=== PATIENT | female | born 2005 | race Caucasian/White ===

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

== ENCOUNTER 2025-07-20 01:41 | Observation (INO) | payer BC, MEDICAID, SELFPAY ==
--- OUTSIDE RECORDS SUMMARY | 2025-07-19 23:33 | XMS RPT_ITS | CCD ---
Author Organization [facility] Care Team Providers Care Salesperson Stereo Equipment Name Role Phone PATY LEWIS Unavailable Unavailable CARROL, OLGA M Unavailable Unavailable KENNY CORRALES Referring Unavailable CARROL, OLGA M Primary Care Unavailable ANA OLEA Attending Unavail able ANA OLEA Primary Care Unavail able ROSLYN DE LA CRUZ MD Attending Unavailable ROSLYN DE LA CRUZ MD Primary Care Unavailable ROSLYN DE LA CRUZ MD Admitting Unavailable Carrol DO, Olga M Primary Care Provider DEBBY DURHAM Attending Unavailable CARROL, OLGA M Primary Care Unavailable DEBBY DURHAM Attending Unavailable TODD, DARIUSZ Referring Unavailable CARROL, OLGA M Primary Care Unavailable CARROL, OLGA M Primary Care Unavailable ADELINA BELLO Referring Unavailable JULIANNA MEDELLIN Attending Unavailable CARROL, OLGA M Primary Care Unavailable CARROL, OLGA M Primary Care Unavailable ADELINA BELLO Referring Unavailable TA GALLEGOS Attending Unavailable CARROL, OLGA M Primary Care Unavailable CARROL, OLGA M Primary Care Unavailable ADELINA BELLO Attending Unavailable TODD DARIUSZ Attending Unavailable CARROL, OLGA M Primary Care Unavailable HAURY, DARIUSZ Referring Unavailable CARROL, OLGA M Primary Care Unavailable HAURY, DARIUSZ Referring Unavailable CARROL, OLGA M Primary Care Unavailable DEISI MENON Attending Unavailable HAURY, DARIUSZ Referring Unavailable CARROL, OLGA M Primary Care Unavailable HAURY, DARIUSZ Referring Unavailable CARROL, OLGA M Primary Care Unavailable HAURY, DARIUSZ Referring Unavailable HAURY DARIUSZ Attending Unavailable CARROL, OLGA M Primary Care Unavailable CARROL, OLGA M Primary Care Unavailable ADELINA BELLO Attending Unavailable LUZ ELENA MENDOZA Attending Unavail able CARROL, OLGA M Primary Care Unavailable Allergies Allergy Classification Reported Allergen(s) Allergy Type Date of Onset Reaction(s) Facility (12 sources) Sulfonamides (Antibiotic); Translations: [SULFA (SULFONAMIDE ANTIBIOTICS)] Propensity to adverse reactions to drug (disorder) 4 Rash, Swelling [facility] Repository Medications Current Medications Medication Drug Class(es) Dates Sig (Normalized) Sig (Original) aspirin 81 mg delayed release oral tablet (8 sources) Platelet Aggregation Inhibitor, Nonsteroidal Anti-inflammatory Drug Start: 01-05-2025 take 1 tablet by mouth once daily at bedtime aspirin, enteric coated (ECOTRIN LOW STRENGTH) 81 mg EC tablet Indications: 10 weeks gestation of (HCC) Take 1 tablet by mouth daily at bedtime. Starting at 12 weeks. 90 tablet 2 01/05/2025 Active escitalopram 10 mg oral tablet (4 sources) Serotonin Reuptake Inhibitor Start: 04-17-2025 End: 05-17-2025 take 1.5 tablets by mouth once daily escitalopram oxalate (LEXAPRO) 10 mg tablet Indications: Depression with anxiety , 18 weeks gestation of (HCC) Take 1.5 tablets by mouth once daily. 45 tablet 2 04/17/2025 05/17/2025 Active Start: 03-07-2025 End: 04-17-2025 take 1 tablet by mouth once daily escitalopram oxalate (LEXAPRO) 10 mg tablet Indications: 18 weeks gestation of (HCC) , Depression with anxiety Take 1 tablet by mouth once daily. 90 tablet 2 03/07/2025 04/17/2025 Discontinued (Adjust Sig - Block E-Cancel) nitrofurantoin, macrocrystals 25 mg / nitrofurantoin, monohydrate 75 mg oral capsule (2 sources) Nitrofuran Antibacterial Start: 01-08-2025 End: 01-16-2025 take 1 capsule by mouth twice daily nitrofurantoin monohydrate and macrocrystal (MACROBID) 100 mg capsule Take 1 capsule by mouth two times a day for 7 days. 14 capsule 01/09/2025 01/16/2025 Active vit no.124/iron/folic ( VITAMIN ORAL) (8 sources) take 1 tablet by mouth once daily vit no.124/iron/folic ( VITAMIN ORAL) Take 1 tablet by mouth once daily. Active Problems Active Problems Problem Classification Problem Date Documented Da te Episodic/Chronic Anxiety disorders (17 sources) Mixed anxiety and depressive disorder; Translations: [Other specified anxiety disorders] Onset: 01-05-2025 01-05-2025 Chronic Deficiency and other anemia (2 sources) Anemia, unspecified; Translations: [Anemia, unspecified] Onset: 07-26-2024 Episodic Immunizations and screening for infectious disease (2 sources) Encounter for immunization; Translations: [Need for vaccination] Onset: 05-03-2025 Episodic Nausea and vomiting (2 sources) Nausea; Translations: [Nausea] Onset: 07-26-2024 Episodic Other complications of (1 source) Anemia complicating , third trimester; Translations: [Anemia complicating , third trimester (HCC)] Onset: 05-31-2025 Chronic Other complications of (1 source) Anemia complicating , second trimester; Translations: [Anemia complicating , second trimester (HCC)] Onset: 05-03-2025 Chronic Other complications of (1 source) Supervision of high risk , unspecified, third trimester; Translations: [Supervision of high risk in third trimester (HCC)] Onset: 05-31-2025 Episodic Other and delivery including normal (20 sources) Normal ; Translations: [Encounter for supervision of normal first , first trimester] Onset: 01-05-2025 01-05-2025 Episodic Other screening for suspected conditions (not mental disorders or infectious disease) (5 sources) Encounter for screening for diseases of the blood and blood-forming organs and certain disorders involving the immune mechanism; Translations: [Patient encounter status] Onset: 04-03-2023 03-07-2025 Episodic Residual codes; unclassified (2 sources) High risk heterosexual behavior; Translations: [High risk heterosexual behavior] Onset: 07-26-2024 Episodic Residual codes; unclassified (1 source) Gestation period, 10 weeks; Translations: [10 weeks gestation of ] 01-05-2025 Episodic Residual codes; unclassified (1 source) Gestation period, 11 weeks; Translations: [11 weeks gestation of ] 01-17-2025 Episodic Residual codes; unclassified (3 sources) Gestation period, 18 weeks; Translations: [18 weeks gestation of ] 03-07-2025 Episodic Residual codes; unclassified (1 source) Gestation period, 23 weeks; Translations: [23 weeks gestation of ] 04-05-2025 Episodic Residual codes; unclassified (1 source) 32 weeks gestation of ; Translations: [32 weeks gestation of (HCC)] Onset: 06-13-2025 Episodic Residual codes; unclassified (1 source) 31 weeks gestation of ; Translations: [31 weeks gestation of (HCC)] Onset: 05-31-2025 Episodic Residual codes; unclassified (1 source) 28 weeks gestation of ; Translations: [28 weeks gestation of (HCC)] Onset: 05-14-2025 Episodic Residual codes; unclassified (1 source) 23 weeks gestation of ; Translations: [23 weeks gestation of (HCC)] Onset: 05-03-2025 Episodic Unclassified (1 source) Unknown / UNK(Unknown) Onset: 09-10-2017 Unclassified (8 sources) [facility] Education - COMMON Onset: 01-05-2025 01-05-2025 Unclassified (8 sources) Education - [place] Onset: 01-05-2025 01-05-2025 Unclassified (1 source) Acute low back pain, unspecified back pain laterality, unspecified whether sciatica present; Translations: [Acute low back pain, unspecified back pain laterality, unspecified whether sciatica present] Onset: 06-13-2025 Urinary tract infections (2 sources) Urinary tract infectious disease; Translations: [Urinary tract infection, site not specified] Onset: 06-13-2025 04-05-2025 Episodic Past or Other Problems Problem Classification Problem Date Documented Da te Episodic/Chronic Other complications of (12 sources) Vomiting of , unspecified; Translations: [Unspecified vomiting of , unspecified as to episode of care or not applicable] Onset: 01-05-2025 01-05-2025 Episodic Other complications of (7 sources) Urinary tract infection in ; Translations: [Unspecified infection of urinary tract in , unspecified trimester] Onset: 01-10-2025 01-10-2025 Episodic Residual codes; unclassified (2 sources) 18 weeks gestation of ; Translations: [18 weeks gestation of ([facility])] Onset: 03-07-2025 Episodic Residual codes; unclassified (1 source) 10 weeks gestation of ; Translations: [10 weeks gestation of ([facility])] Onset: 01-29-2025 Episodic Screening and history of mental health and substance abuse codes (14 sources) Personal history of other mental and behavioral disorders; Translations: [Personal history of other mental disorders] Onset: 01-05-2025 01-05-2025 Episodic Unclassified (1 source) FATIGUE COUGH Onset: 09-10-2017 Unclassified (2 sources) History of ADHD 03-07-2025 Results Test Name Value Interpretation Reference Range Facil ity Bacteria Ur Culton Bacteria identified Cx Nom (U) ORGANISM ID: 1 >=100,000 CFU/ml Klebsiella oxytoca ORGANISM ID: 1 (KLEBSIELLA OXYTOCA) ANTIBIOTIC INTERPRETATION BEN STATUS REFERENCE RANGE Ampicillin R F Cefazolin S <=4 F Susceptible 0-16 , Intermediate <0 or >16 , Resistant >16 For uncomplicated urinary tract infections, cefazolin results can be used to predict susceptibility or resistance to cephalexin. Ceftriaxone S <=1 F Susceptible <=1 , Intermediate >1 , Resistant >=4 Cefepime S <=1 F Susceptible <=2 , Susceptible-Dose Dependent >2 , Resistant >=16 Ertapenem S <=0.5 F Susceptible <=0.5 , Intermediate >.5 , Resistant >1 Meropenem S <=0.25 F Susceptible <=1 , Intermediate >1 , Resistant >2 Ampicillin/Sulbact S 4 F Susceptible <=8 , Intermediate >8 , Resistant >16 Piperacillin/Tazobac S <=4 F Susceptible <16 , Susceptible-Dose Dependent >=16 , Resistant >=32 Gentamicin S <=1 F Susceptible <=2 , Intermediate >2 , Resistant >=8 Tobramycin S <=1 F Susceptible <4 , Intermediate >=4 , Resistant >=8 Trimeth sulfameth S <=20 F Susceptible <=40 , Resistant >40 Ciprofloxacin S <=0.25 F Susceptible <0.5 , Intermediate >=.5 , Resistant >=1 Nitrofurantoin S 32 F Susceptible <=32 , Intermediate >32 , Resistant >64 Abnormal [facility] Comment on above: Performed By: #### 6 30-4 ####[facility] LABCLIA [id number] [address] Cory 06-13-2025 CNPN Telephone (ALIYAH) ANGIE HICKS ([id number]) 3 F Date Time Provider Department 06/13/25 ADELINA BELLO During your visit today, we recorded the following information about you: Erica Delvalle RN 06/13/2025 12:02 PM Signed Patient has an appointment tomorrow to be seen but is requesting an appointment today. None available. States that she has noted abdominal pain x 2 days. States it was a 4 1/2 yesterday on pain scale , but is much less today, maybe 1 today on pain scale. Now today notes constant back pain that she rates a 4 1/2 on pain scale. Denies LOF, vaginal bleeding, fever, dysuria or frequency of urination. States she called in yesterday and spoke with nurse yardage control clerk after hours. Advised to go to hospital if pain increases pain, LOF,vaginal bleeding or decreased FM. Pt requesting apt -please advise Erica Delvalle RN 06/13/2025 1:08 PM Signed Patient scheduled for an appointment today. Allergies As of Date: 06/13/2025 Noted Allergy Reaction SULFA (SULFONAMIDE ANTIBIOTICS) 01/19/2014 2 - Rash 7 - Swelling Date Reviewed: 06/11/2025 Reviewed by: Lillian Jackson PA-C - Fully Assessed Reason for Visit: back pain in [Other] Prescriptions as of 06/13/2025 - ferrous sulfate (FE-CISCO) 75 mg (15 mg)/mL drop Take 3 mL by mouth once daily. - Breast Pump Use as directed - escitalopram oxalate (LEXAPRO) 10 mg tablet Take 1.5 tablets by mouth once daily. - aspirin, enteric coated (ECOTRIN LOW STRENGTH) 81 mg EC tablet Take 1 tablet by mouth daily at bedtime. Starting at 12 weeks. - vit no.124/iron/folic ( VITAMIN ORAL) Take 1 tablet by mouth once daily. Problem List As Of Date 06/13/2025 Noted Resolved History of ADHD [Z86.59] 01/05/2025 Depression with anxiety [F41.8] 01/05/2025 Encounter for supervision of normal first pregn*01/05/2025 Nausea and vomiting during (HCC) [O21*01/05/2025 UTI (urinary tract infection) in , ant*01/10/2025 Anemia complicating , second trimester*05/03/2025 Encounter Status:Closed by ERICA DELVALLE on [facility]/13/25 [facility] ANGIE HICKS ([id number]) 3 F Date Time Provider Department 06/08/25 TA GALLEGOS During your visit today, we recorded the following information about you: Erica Delvalle RN 06/08/2025 12:32 PM Signed Patient's mother called in and said that pharmacy never received RX and was not able to fill. I called pharmacy and they confirmed . Please resend RX. Patient's mother aware you are not in until Wednesday and they did buy OTC pills and are crushing them and she is able to tolerate well. They are just hoping to get liquid form next week. Ta Gage MD 06/12/2025 11:40 AM Signed Filed MD Asia Sue Trisha, RN 06/12/2025 11:41 AM Signed The following approved medication requests have been transmitted electronically. Requested Prescriptions Signed Prescriptions Disp Refills ferrous sulfate (FE-CISCO) 75 mg (15 mg)/mL drop 50 mL 1 Sig: Take 3 mL by mouth once daily. Authorizing Provider: TA GALLEGOS Pharmacy Information Pharmacy Address Telephone [facility] [id number] [place] [address] Allergies As of Date: 06/08/2025 Noted Allergy Reaction SULFA (SULFONAMIDE ANTIBIOTICS) 01/19/2014 2 - Rash 7 - Swelling Date Reviewed: 05/31/2025 Reviewed by: Ta Gallegos MD - Fully Assessed Reason for Visit: Medication Problem [65] Order(s):ferrous sulfate (FE-CISCO) 75 mg (15 mg)/mL dropTake 3 mL by mouth once daily.Disp: 50 mLRfl: 1 Prescriptions as of 06/12/2025 - ferrous sulfate (FE-CISCO) 75 mg (15 mg)/mL drop Take 3 mL by mouth once daily. - Breast Pump Use as directed - escitalopram oxalate (LEXAPRO) 10 mg tablet Take 1.5 tablets by mouth once daily. - aspirin, enteric coated (ECOTRIN LOW STRENGTH) 81 mg EC tablet Take 1 tablet by mouth daily at bedtime. Starting at 12 weeks. - vit no.124/iron/folic ( VITAMIN ORAL) Take 1 tablet by mouth once daily. Problem List As Of Date 06/08/2025 Noted Resolved History of ADHD [Z86.59] 01/05/2025 Depression with anxiety [F41.8] 01/05/2025 Encounter for supervision of normal first pregn*01/05/2025 Nausea and vomiting during (HCC) [O21*01/05/2025 UTI (urinary tract infection) in , ant*01/10/2025 Anemia complicating , second trimester*05/03/2025 Prescriptions ordered this encounter Disp Refills Start End FERROUS SULFATE 15 MG IRON (75 MG)/M* 50 mL 1 06/12/2025 Route: PO Sig: Take 3 mL by mouth once daily. Medications Discontinued During This Encounter Prescriptions - ferrous sulfate (FE-CISCO) 75 mg (15 mg)/mL drop (Discontinued) Take 3 mL by mouth once daily. Encounter Status:Closed by BETTYE PLATA on 06/12/25 [facility] 05-31-2025 [facility] ([facility] ANGIE HICKS ([id number]) 3 F Date Time Provider Department 05/31/25 TA GALLEGOS OBGYWJaki During your visit today, we recorded the following information about you: Deisi Meneses RN 05/31/2025 11:28 AM Signed [facility] pharmacy called. They checked their system and Novaferrum chewables are not listed, even to order for the patient. Are you wanting patient to have the Vitamin C included or just the plain iron? Eileen does not have Vitamin C, but it's not chewable. Would you like her to have a liquid form? They have a liquid D-Cisco FE which is 15mg/ml and comes in 50 ml bottle. We can either send in a new RX or call the pharmacy. Please advise. JOVITA Lantigua Karmon, MD 05/31/2025 12:43 PM Signed Please pend the liquid form of iron. OK to take it with orange juice. MD Zaira Sue Jennifer, JOVITA 05/31/2025 2:56 PM Signed Spoke with [facility] pharmacist to confirm that the RX I have pended is correct. Are you only wanting this patient to only have 36 mg of iron? That's the dose of the chewables you sent in with her taking two. The RX pending is for oral drops. Patient would need to take 2.4 ml for the 36 mg dose of the previous RX. JOVITA Lantigua Karmon, MD 05/31/2025 4:04 PM Signed Dose of 3ml given and order filed. MD Tiago Sue Tara, RN 05/31/2025 4:31 PM Signed Left message for Pt informing her mychart message would be sent and if she had any questions to call the office and ask to speak to a women's health nurse. Karlos Dubose RN Allergies As of Date: 05/31/2025 Noted Allergy Reaction SULFA (SULFONAMIDE ANTIBIOTICS) 01/19/2014 2 - Rash 7 - Swelling Date Reviewed: 05/31/2025 Reviewed by: Ta Gallegos MD - Fully Assessed Reason for Visit: Medication Problem [65] Order(s):ferrous sulfate (FE-CISCO) 75 mg (15 mg)/mL dropTake 3 mL by mouth once daily.Disp: 50 mLRfl: 1 Prescriptions as of 06/06/2025 - ferrous sulfate (FE-CISCO) 75 mg (15 mg)/mL drop Take 3 mL by mouth once daily. - Breast Pump Use as directed - escitalopram oxalate (LEXAPRO) 10 mg tablet Take 1.5 tablets by mouth once daily. - aspirin, enteric coated (ECOTRIN LOW STRENGTH) 81 mg EC tablet Take 1 tablet by mouth daily at bedtime. Starting at 12 weeks. - vit no.124/iron/folic ( VITAMIN ORAL) Take 1 tablet by mouth once daily. Problem List As Of Date 05/31/2025 Noted Resolved History of ADHD [Z86.59] 01/05/2025 Depression with anxiety [F41.8] 01/05/2025 Encounter for supervision of normal first pregn*01/05/2025 Nausea and vomiting during (HCC) [O21*01/05/2025 UTI (urinary tract infection) in , ant*01/10/2025 Anemia complicating , second trimester*05/03/2025 Prescriptions ordered this encounter Disp Refills Start End FERROUS SULFATE 15 MG IRON (75 MG)/M* 50 mL 1 05/31/2025 Route: PO Sig: Take 3 mL by mouth once daily. Medications Discontinued During This Encounter Prescriptions - iron polysaccharide complex-C (NOVAFERRUM YAY IRON) 18 mg iron- 30 mg chew (Discontinued) Take 2 tablets by mouth once daily. Take with orange juice and separate from vitamin. Encounter Status:Closed by KARLOS DUBOSE on 05/31/25 Normal [facility] Ferritin SerPl-mCncon 2024 Ferritin [Mass/Vol] 13.4 ng/mL Low 14.7-205.1 [facility] Comment on above: Order Comment: Speci men Type: BLOOD SPECIMENOrdering Facility: [facility] Address: [address] [place] [address] Performed By: #### 2 276-4, 70961-5 ####[facility] LABCLIA [id number] [place] [address] [place] Iron and Iron binding capaci ty panelon 05-29-2025 Iron [Mass/Vol] 28 ug/dL Low 41-186 [facility] Comment on above: Order Comment: Speci men Type: BLOOD SPECIMENOrdering Facility: [facility] Address: [address] [place] [address] Performed By: #### 2 276-4, 69452-0 ####[facility] LABCLIA [id number] [place] [id number] [place] Iron binding capacity [Mass/Vol] >528 High 232-386 [facility] Comment on above: Order Comment: Speci men Type: BLOOD SPECIMENOrdering Facility: [facility] Address: [address] [place] [address] Performed By: #### 2 276-4, 19803-4 ####[facility] LABCLIA [id number] [place] [id number] [place] Iron/TIBC [Molar ratio] <5.3 Low 15.0-57.0 [facility] Comment on above: Order Comment: Speci men Type: BLOOD SPECIMENOrdering Facility: [facility] Address: [address] [place] [address] Performed By: #### 2 276-4, 66235-7 ####[facility] LABCLIA [id number] [place] [address] [place] CBC panel Auto (Bld)on 05-03 Erythrocyte distribution width (RBC) [Ratio] 12.3 % Normal 11.5-15.0 [facility] Comment on above: Order Comment: Speci men Type: BLOOD SPECIMENOrdering Facility: [facility] Address: [address] [place] [address] Performed By: #### 5 8410-2 ####[facility] [id number] [place] [address] [place] Hematocrit (Bld) [Volume fraction] 28.0 % Low 36.0-46.0 [facility] Comment on above: Order Comment: Speci men Type: BLOOD SPECIMENOrdering Facility: [facility] Address: [address] [place] [address] Performed By: #### 5 8410-2 ####[facility] [id number] [place] [address] [place] Hemoglobin (Bld) [Mass/Vol] 9.4 g/dL Low 11.5-15.5 [facility] Comment on above: Order Comment: Speci men Type: BLOOD SPECIMENOrdering Facility: [facility] Address: [address] [place] [address] Performed By: #### 5 8410-2 ####[facility] [id number] [place] [address] [place] MCH (RBC) [Entitic mass] 29.5 pg Normal 26.0-34.0 [facility] Comment on above: Order Comment: Speci men Type: BLOOD SPECIMENOrdering Facility: [facility] Address: [address] [place] [address] Performed By: #### 5 8410-2 ####[facility] [id number] [place] [address] [place] MCHC (RBC) [Mass/Vol] 33.6 g/dL Normal 30.5-36.0 [facility] Comment on above: Order Comment: Speci men Type: BLOOD SPECIMENOrdering Facility: [facility] Address: [address] [place] [address] Performed By: #### 5 8410-2 ####[facility] [id number] [place] [address] [place] MCV (RBC) [Entitic vol] 87.8 fL Normal 80.0-100.0 [facility] Comment on above: Order Comment: Speci men Type: BLOOD SPECIMENOrdering Facility: [facility] Address: [address] [place] [address] Performed By: #### 5 8410-2 ####[facility] [id number] [place] [address] [place] Nucleated RBC (Bld) [#/Vol] 10*3/uL Normal <0.01 [facility] Comment on above: Order Comment: Speci men Type: BLOOD SPECIMENOrdering Facility: [facility] Address: [address] [place] [address] Performed By: #### 5 8410-2 ####[facility] [id number] [place] [address] [place] Platelet mean volume (Bld) [Entitic vol] 9.4 fL Normal 9.0-12.7 [facility] Comment on above: Order Comment: Speci men Type: BLOOD SPECIMENOrdering Facility: [facility] Address: [address] [place] [address] Performed By: #### 5 8410-2 ####[facility] [id number] [place] [address] [place] Platelets (Bld) [#/Vol] 350 10*3/uL Normal 150-400 [facility] Comment on above: Order Comment: Speci men Type: BLOOD SPECIMENOrdering Facility: [facility] Address: [address] [place] [address] Performed By: #### 5 8410-2 ####[facility] [id number] [place] [address] [place] RBC (Bld) [#/Vol] 3.19 10*6/uL Low 3.90-5.20 [facility] Comment on above: Order Comment: Speci men Type: BLOOD SPECIMENOrdering Facility: [facility] Address: [address] [place] [address] Performed By: #### 5 8410-2 ####[facility] [id number] [place] [address] [place] WBC (Bld) [#/Vol] 9.41 10*3/uL Normal 3.70-11.00 [facility] Comment on above: Order Comment: Speci men Type: BLOOD SPECIMENOrdering Facility: [facility] Address: [address] [place] [address] Performed By: #### 5 8410-2 ####[facility] [id number] [place] [address] [place] Ferritin SerPl-mCncon 2024 Ferritin [Mass/Vol] 11.4 ng/mL Low 14.7-205.1 [facility] Comment on above: Order Comment: Speci men Type: BLOOD SPECIMENOrdering Facility: [facility] Address: [address] [place] [address] Performed By: #### 2 276-4, 73550-6 ####[facility] LABCLIA [id number] [place] [address] [place] GESTATIONAL GLUCOSE SCREEN, 1-HOUR, 50 GRAM, NON-FASTINGon 05-03-2025 Glucose [Mass/Vol] 126 mg/dL Normal 74-134 [facility] Comment on above: Order Comment: Speci men Type: BLOOD SPECIMENOrdering Facility: [facility] Address: [address] [place] [address] Result Comment: [facility] Congress of Obstetricians and Gynecologists (Higinio/Jun) guidelines state a gestational diabetes mellitus positive screen is made, in women not previously diagnosed with overt diabetes, when the 1 hr plasma glucose level is equal to or above 140 mg/dL. The [facility] [employer] Person and [facility] [place] recommends a 135 mg/dL cutoff. Performed By: #### G LTGST ####[facility] [id number] [place] [address] [place] Iron and Iron binding capaci ty panelon 05-03-2025 Iron [Mass/Vol] 36 ug/dL Low 41-186 [facility] Comment on above: Order Comment: Speci men Type: BLOOD SPECIMENOrdering Facility: [facility] Address: [address] [place] [address] Performed By: #### 2 276-4, 78089-8 ####[facility] LABCLIA [id number] [place] [address] [place] Iron binding capacity [Mass/Vol] >536 High 232-386 [facility] Comment on above: Order Comment: Speci men Type: BLOOD SPECIMENOrdering Facility: [facility] Address: [address] [place] [address] Performed By: #### 2 276-4, 09987-8 ####[facility] LABIA [id number] [place] [id number] [place] Iron/TIBC [Molar ratio] <6.7 Low 15.0-57.0 [facility] Comment on above: Order Comment: Speci men Type: BLOOD SPECIMENOrdering Facility: [facility] Address: [address] [place] [address] Performed By: #### 2 276-4, 11483-7 ####[facility] LABIA [id number] [place] [id number] [place] Reagin and Treponema pallidu m IgG and IgM [Interp]on 05-03-2025 T. pallidum IgG+IgM IA Ql (S) Non-Reactive Normal Nonreactive [facility] Comment on above: Order Comment: Speci men Type: BLOOD SPECIMENOrdering Facility: [facility] Address: [address] [place] [address] Performed By: #### 7 3752-8 ####[facility] LABIA [id number] [place] [address] [place] Reagin+T pallidum IgG+IgM Se rPl-Impon 05-03-2025 Reagin and Treponema pallidum IgG and IgM [Interp] Cannot exclude recent Treponemal infection if specimen collected within 7-10 days after appearance of suspect lesions or 2-3 weeks after an exposure. Clinical correlation is required. Normal [facility] Comment on above: Order Comment: Speci jaycob Type: BLOOD SPECIMENOrdering Facility: [facility] Address: [address] [place] [address] Performed By: #### 7 3752-8 ####[facility] LABSOU[facility] [id number] [place] [id number] [place] TSH W/REFLEX FT4on 5 TSH Qn 1.400 m[IU]/L Normal 0.270-4.200 [facility] Comment on above: Order Comment: Speci men Type: BLOOD SPECIMENOrdering Facility: [facility] Address: [address] [place] [address] Result Comment: If t he patient is , TSH reference range varies by gestational period: First Trimester (weeks 9-12): 0.180-2.990 mIU/L Second Trimester: 0.110-3.980 mIU/L Third Trimester: 0.480-4.710 mIU/L Jose Dutta et al. A Practical Approach for the Verifications and Determination of Site- and Trimester-Specific Reference Intervals for Thyroid Function tests in . Thyroid, 2019:29:3:412-420. Ernesto E, et al. 2017 Guidelines of the [place] Thyroid Association for the Diagnosis and Management of Thyroid Disease during and the . Thyroid, 2017:27:3:315-389. Performed By: #### [facility] ####[facility] AMY [id number] [address] OF [facility] CNPNon 04-10-2025 CNPN Telephone (PSYRMN) ANGIE HICKS ([id number]) 3 F Date Time Provider Department 04/10/25 KEYON CRUZ PSYRMN During your visit today, we recorded the following information about you: Keyon Cruz LISW 04/10/2025 3:08 PM Signed Integrated Mental Health Plan of Care Review of referral with patient. Was patient aware of [facility] referral placement by provider?Yes Is the patient currently connected for care : No Was NAEL sent to patient? No Is the patient agreeable to connecting to services? Yes If agreeable to referral, are they:Psychology and Psychiatry Assisted in making appt at: [facility] Psychiatry, Other Internal Comment: Pt need, and External Comment: Pt need [facility] to send patient resources via [employer] Appointment date and time: 04/17/25 @ 1pm Current priority status of the referral Medium Additional information Patient and [facility] SW discussed [facility] referral. Patient agreeable to [facility] psychiatry appointment for continued medication management. Patient is also agreeable to counseling- agreeable to external referral due to [facility] psychology wait times. [facility] SW to send patient counseling resources via [employer] message. Discussed ways to schedule an appointment. [facility] SW available to assist with scheduling counseling appointment if needed. Allergies As of Date: 04/10/2025 Noted Allergy Reaction SULFA (SULFONAMIDE ANTIBIOTICS) 01/19/2014 2 - Rash 7 - Swelling Date Reviewed: 03/07/2025 Reviewed by: Dariusz Brooks APRN.FAMILY LITERACY COORDINATOR - Fully Assessed Reason for Visit: Integrated Mental Health Plan of Care [Other] Prescriptions as of 04/10/2025 - escitalopram oxalate (LEXAPRO) 10 mg tablet Take 1 tablet by mouth once daily. - aspirin, enteric coated (ECOTRIN LOW STRENGTH) 81 mg EC tablet Take 1 tablet by mouth daily at bedtime. Starting at 12 weeks. - vit no.124/iron/folic ( VITAMIN ORAL) Take 1 tablet by mouth once daily. Problem List As Of Date 04/10/2025 Noted Resolved History of ADHD [Z86.59] 01/05/2025 Depression with anxiety [F41.8] 01/05/2025 Encounter for supervision of normal first pregn*01/05/2025 Nausea and vomiting during (HCC) [O21*01/05/2025 UTI (urinary tract infection) in , ant*01/10/2025 Encounter Status:Closed by KEYON CRUZ on 04/10/25 Normal [facility] Bacteria Ur Culton 5 Bacteria identified Cx Nom (U) ORGANISM ID: 1 <10,000 CFU/ml Normal urogenital vi Normal [facility] Comment on above: Performed By: #### 6 30-4 ####[facility] LABCLIA [id number] [address] STATES OF [facility] Cory 03-30-2025 CNPN Telephone (PSYRMN) ANGIE HICKS ([id number]) 3 F Date Time Provider Department 03/30/25 KEYON CRUZ PSYRMN During your visit today, we recorded the following information about you: Keyon Cruz LISW 03/30/2025 4:39 PM Signed Third outreach attempt. Phone call to patient regarding [facility] referral. Patient did not answer, left message. [facility] sent with [facility] contact information and additional resources. [facility] SW can be reached at: [place]: [phone] [place]:[phone] Allergies As of Date: 03/30/2025 Noted Allergy Reaction SULFA (SULFONAMIDE ANTIBIOTICS) 01/19/2014 2 - Rash 7 - Swelling Date Reviewed: 03/07/2025 Reviewed by: Dariusz Brooks APRN.FAMILY LITERACY COORDINATOR - Fully Assessed Reason for Visit: [facility] Consult Follow Up [Other] Prescriptions as of 03/30/2025 - escitalopram oxalate (LEXAPRO) 10 mg tablet Take 1 tablet by mouth once daily. - aspirin, enteric coated (ECOTRIN LOW STRENGTH) 81 mg EC tablet Take 1 tablet by mouth daily at bedtime. Starting at 12 weeks. - vit no.124/iron/folic ( VITAMIN ORAL) Take 1 tablet by mouth once daily. Problem List As Of Date 03/30/2025 Noted Resolved History of ADHD [Z86.59] 01/05/2025 Depression with anxiety [F41.8] 01/05/2025 Encounter for supervision of normal first pregn*01/05/2025 Nausea and vomiting during (HCC) [O21*01/05/2025 UTI (urinary tract infection) in , ant*01/10/2025 Encounter Status:Closed by KEYON CRUZ on 03/30/25 Normal [facility] Cory 03-19-2025 [facility] Telephone (PSYRMN) ANGIE HICKS ([id number]) 3 F Date Time Provider Department 03/19/25 BRENDA VILLEGAS PSYRMN During your visit today, we recorded the following information about you: Brenda Villegas LISW 03/19/2025 2:51 PM Signed Phone call to patient regarding [facility] referral. Patient did not answer, left message. 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 - aspirin, enteric coated (ECOTRIN LOW STRENGTH) 81 mg EC tablet Take 1 tablet by mouth daily at bedtime. Starting at 12 weeks. - vit no.124/iron/folic ( VITAMIN ORAL) Take 1 tablet by mouth once daily. Problem List As Of Date 03/19/2025 Noted Resolved History of ADHD [Z86.59] 01/05/2025 Depression with anxiety [F41.8] 01/05/2025 Encounter for supervision of normal first pregn*01/05/2025 Nausea and vomiting during (HCC) [O21*01/05/2025 UTI (urinary tract infection) in , ant*01/10/2025 Encounter Status:Closed by BRENDA VILLEGAS on 03/19/25 [facility] 03-08-2025 CNPN Telephone (PSYRMN) ANGIE HICKS ([id number]) 3 F Date Time Provider Department 03/08/25 KEOYN CRUZ PSYRMN During your visit today, we recorded the following information about you: Keyon Cruz LISW 03/08/2025 10:55 AM Signed Phone call to patient regarding [facility] referral. Patient did not answer, left message. [facility] SW can be reached at: [place]: [phone] [place]:[phone] Allergies As of Date: 03/08/2025 Noted Allergy Reaction SULFA (SULFONAMIDE ANTIBIOTICS) 01/19/2014 2 - Rash 7 - Swelling Date Reviewed: 03/07/2025 Reviewed by: Dariusz Brooks APRN.FAMILY LITERACY COORDINATOR - Fully Assessed Reason for Visit: [facility] Consult Follow Up [Other] Prescriptions as of 03/08/2025 - escitalopram oxalate (LEXAPRO) 10 mg tablet Take 1 tablet by mouth once daily. - aspirin, enteric coated (ECOTRIN LOW STRENGTH) 81 mg EC tablet Take 1 tablet by mouth daily at bedtime. Starting at 12 weeks. - vit no.124/iron/folic ( VITAMIN ORAL) Take 1 tablet by mouth once daily. Problem List As Of Date 03/08/2025 Noted Resolved History of ADHD [Z86.59] 01/05/2025 Depression with anxiety [F41.8] 01/05/2025 Encounter for supervision of normal first pregn*01/05/2025 Nausea and vomiting during (HCC) [O21*01/05/2025 UTI (urinary tract infection) in , ant*01/10/2025 Encounter Status:Closed by KEYON CRUZ on 03/08/25 Normal [facility] Examination level ultrasound on 03-07-2025 Indication Standard anatomic survey Impression The patient is referred for a standard anatomic survey. - Single, live, intrauterine . - biometry is consistent with the established gestational age. - No malformations were visualized on a complete standard anatomic survey. - The amniotic fluid volume is normal amount. - The placenta is posterior, fundal. - The Transabdominal cervical length measures 35.1 mm with no evidence of funneling or other dynamic changes. - Not all structural malformations can be detected by ultrasound examination. Recommendations Additional follow-up as clinically indicated. Maternal Assessment Height 152 cm Height (ft) 5 ft Physical Exam Initial weight (lb) 109 lb Initial BMI 21.29 kg/m Maternal assessment other: 1 Para 0 REMOTE READ Method Transabdominal ultrasound examination. View: Adequate visualization Bacon . Number of fetuses: 1 Dating LMP on: 10/26/2024 GA by LMP 18 w + 6 d ADOLFO by LMP: 08/02/2025 GA by prior assessment 18 w + 6 d ADOLFO by prior assessment: 08/02/2025 Ultrasound examination on: 03/07/2025 GA by U/S based upon: AC, BPD, Femur, HC GA by U/S 18 w + 6 d ADOLFO by U/S: 08/02/2025 Assigned: based on stated ADOLFO, selected on 03/07/2025 Assigned GA 18 w + 6 d Assigned ADOLFO: 08/02/2025 General Evaluation Cardiac activity present. FHR 154 bpm. movements: present. Presentation: breech Placenta: Placental site: posterior, fundal Umbilical cord: Cord vessels: 3 vessel cord Amniotic fluid: Amount of AF: normal amount. MVP 4.4 cm Growth Overview Exam date GA BPD (mm) HC (mm) AC (mm) FL (mm) HL (mm) EFW (g) 03/07/2025 18w 6d 41.9 43% 157.1 39% 142.4 71% 28.2 58% 28.9 71% 271 56% Biometry Standard BPD 41.9 mm 18w 5d 43% Hadlock OFD 55.8 mm 18w 3d 53% Nicolaides HC 157.1 mm 18w 4d 39% Nico Cerebellum tr 20.0 mm 19w 2d 61% Hill Nuchal fold 2.5 mm AC 142.4 mm 19w 4d 71% Hadlock Femur 28.2 mm 18w 5d 58% Nico Humerus 28.9 mm 19w 3d 71% Nico EFW 271 g 19w 0d 56% Hadlock EFW (lb) 0 lb EFW (oz) 10 oz EFW by: Hadlock (HC-AC-FL) Extended Hammer Setter 6.8 mm CM 2.2 mm <1% Nicolaides Extremities / Bony Struc FL / HC 0.18 51% Hadlock Other Structures FHR 154 bpm Anatomy Cranium: normal Lateral ventricles: normal Choroid plexus: normal Midline falx: normal Cavum septi pellucidi: normal Cerebellum: normal Cisterna magna: normal Head / Neck Vermis: Normal but not required for a standard anatomy exam Neck: Normal but not required for a standard anatomy exam Nuchal fold: Normal but not required for a standard anatomy exam Lips: normal Profile: Normal but not required for a standard anatomy exam Nose: Normal but not required for a standard anatomy exam Face Maxilla: Normal but not required for a standard anatomy exam Mandible: Normal but not required for a standard anatomy exam Orbits: Normal but not required for a standard anatomy exam Lens: Normal but not required for a standard anatomy exam 4-chamber view: normal RVOT view: normal LVOT view: normal 3-vessel view: normal 8-fiqhrl-apuwhub view: normal Heart / Thorax Situs: situs solitus (normal) Aortic arch view: Normal but not required for a standard anatomy exam SVC: Normal but not required for a standard anatomy exam IVC: Normal but not required for a standard anatomy exam Cardiac axis: normal Rt lung: Normal but not required for a standard anatomy exam Lt lung: Normal but not required for a standard anatomy exam Diaphragm: normal Cord insertion: normal Stomach: normal Kidneys: normal Bladder: normal Genitals: normal Abdomen Abdom. wall: normal Cervical spine: normal Thoracic spine: normal Lumbar spine: normal Sacral spine: normal Arms: normal Legs: normal Rt upper arm: normal Rt forearm: normal Rt hand: normal Rt fingers: normal Lt upper arm: normal Lt forearm: normal Lt hand: normal Lt fingers: normal Rt upper leg: normal Rt lower leg: normal Rt foot: normal Lt upper leg: normal Lt lower leg: normal Lt foot: normal sex: female Wants to know sex: yes Maternal Structures Uterus / Cervix Uterus: Visualized Cervix: Visualized Approach: Transabdominal Cervical length 35.1 mm Other: Patient declined transvaginal ultrasound for cervical length. Ovaries / Tubes / Adnexa Rt ovary: Visualized Lt ovary: Visualized Performed By: Sara Phipps RDMS, RVT Read By: Bobbi Potter M.D. MATERNAL MEDICINE [facility] Radiology Study observation (narrative) [facility] CBC W Auto Differential pane l (Bld)on 01-29-2025 Basophils (Bld) [#/Vol] 10*3/uL Normal <0.11 [facility] Comment on above: Order Comment: Speci men Type: BLOOD SPECIMENOrdering Facility: [facility] Address: [address] [place] [address] Performed By: #### 5 7021-8 ####[facility] YOANDYWNCLIA [id number] [place] [address] [place] Basophils/100 WBC (Bld) 0.2 % Normal [facility] Comment on above: Order Comment: Speci men Type: BLOOD SPECIMENOrdering Facility: [facility] Address: [address] [place] [address] Performed By: #### 5 7021-8 ####[facility] AKASHEDINBURGHSCHUYLERLIA [id number] [place] [address] [place] Differential cell count method Nom (Bld) Auto Normal [facility] Comment on above: Order Comment: Speci men Type: BLOOD SPECIMENOrdering Facility: [facility] Address: [address] [place] [address] Performed By: #### 5 7021-8 ####[facility]ALSCHUYLERA [id number] [place] [address] [place] Eosinophils (Bld) [#/Vol] 0.06 10*3/uL Normal <0.46 [facility] Comment on above: Order Comment: Speci men Type: BLOOD SPECIMENOrdering Facility: [facility] Address: [address] [place] [address] Performed By: #### 5 7021-8 ####[facility] AKASHEDINBURGHSCHUYLERLIA [id number] [place] [address] [place] Eosinophils/100 WBC (Bld) 0.6 % Normal [facility] Comment on above: Order Comment: Speci men Type: BLOOD SPECIMENOrdering Facility: [facility] Address: [address] [place] [address] Performed By: #### 5 7021-8 ####[facility]ITALNCLIA [id number] [place] [address] [place] Erythrocyte distribution width (RBC) [Ratio] 13.2 % Normal 11.5-15.0 [facility] Comment on above: Order Comment: Speci men Type: BLOOD SPECIMENOrdering Facility: [facility] Address: [address] [place] [address] Performed By: #### 5 7021-8 ####[facility] JONEL [id number] [place] [address] [place] Hematocrit (Bld) [Volume fraction] 35.1 % Low 36.0-46.0 [facility] Comment on above: Order Comment: Speci men Type: BLOOD SPECIMENOrdering Facility: [facility] Address: [address] [place] [address] Performed By: #### 5 7021-8 ####[facility] HOSPITALMARY JO [id number] [place] [address] [place] Hemoglobin (Bld) [Mass/Vol] 12.1 g/dL Normal 11.5-15.5 [facility] Comment on above: Order Comment: Speci men Type: BLOOD SPECIMENOrdering Facility: [facility] Address: [address] [place] [address] Performed By: #### 5 7021-8 ####[facility] HOSPITALSCHUYLERA [id number] [place] [address] [place] Immature granulocytes (Bld) [#/Vol] 0.03 10*3/uL Normal <0.10 [facility] Comment on above: Order Comment: Speci men Type: BLOOD SPECIMENOrdering Facility: [facility] Address: [address] [place] [address] Performed By: #### 5 7021-8 ####[facility]ITALNCLIA [id number] [place] [address] [place] Immature granulocytes/100 WBC (Bld) 0.3 % Normal [facility] Comment on above: Order Comment: Speci men Type: BLOOD SPECIMENOrdering Facility: [facility] Address: [address] [place] [address] Performed By: #### 5 7021-8 ####[facility]PAWNCLIA [id number] [place] [address] [place] Lymphocytes (Bld) [#/Vol] 1.80 10*3/uL Normal 1.00-4.00 [facility] Comment on above: Order Comment: Speci men Type: BLOOD SPECIMENOrdering Facility: [facility] Address: [address] [place] [address] Performed By: #### 5 7021-8 ####[facility] [id number] [place] [address] [place] Lymphocytes/100 WBC (Bld) 18.6 % Normal [facility] Comment on above: Order Comment: Speci men Type: BLOOD SPECIMENOrdering Facility: [facility] Address: [address] [place] [address] Performed By: #### 5 7021-8 ####[facility] [id number] [place] [address] [place] MCH (RBC) [Entitic mass] 30.0 pg Normal 26.0-34.0 [facility] Comment on above: Order Comment: Speci men Type: BLOOD SPECIMENOrdering Facility: [facility] Address: [address] [place] [address] Performed By: #### 5 7021-8 ####[facility] [id number] [place] [address] [place] MCHC (RBC) [Mass/Vol] 34.5 g/dL Normal 30.5-36.0 [facility] Comment on above: Order Comment: Speci men Type: BLOOD SPECIMENOrdering Facility: [facility] Address: [address] [place] [address] Performed By: #### 5 7021-8 ####[facility] HOSPITALNCLI [id number] [place] [address] [place] MCV (RBC) [Entitic vol] 87.1 fL Normal 80.0-100.0 [facility] Comment on above: Order Comment: Speci men Type: BLOOD SPECIMENOrdering Facility: [facility] Address: [address] [place] [address] Performed By: #### 5 7021-8 ####[facility] [place] [id number] [place] [address] [place] Monocytes (Bld) [#/Vol] 0.89 10*3/uL High <0.87 [facility] Comment on above: Order Comment: Speci men Type: BLOOD SPECIMENOrdering Facility: [facility] Address: [address] [place] [address] Performed By: #### 5 7021-8 ####[facility] [id number] [place] [address] [place] Monocytes/100 WBC (Bld) 9.2 % Normal [facility] Comment on above: Order Comment: Speci men Type: BLOOD SPECIMENOrdering Facility: [facility] Address: [address] [place] [address] Performed By: #### 5 7021-8 ####[facility] [place]IA [id number] [place] [address] [place] Neutrophils (Bld) [#/Vol] 6.86 10*3/uL Normal 1.45-7.50 [facility] Comment on above: Order Comment: Speci men Type: BLOOD SPECIMENOrdering Facility: [facility] Address: [address] [place] [address] Performed By: #### 5 7021-8 ####[facility] [id number] [place] [address] [place] Neutrophils/100 WBC (Bld) 71.1 % Normal [facility] Comment on above: Order Comment: Speci men Type: BLOOD SPECIMENOrdering Facility: [facility] Address: [address] [place] [address] Performed By: #### 5 7021-8 ####[facility] JONEL [id number] [place] [address] [place] Nucleated RBC (Bld) [#/Vol] 10*3/uL Normal <0.01 [facility] Comment on above: Order Comment: Speci men Type: BLOOD SPECIMENOrdering Facility: [facility] Address: [address] [place] [address] Performed By: #### 5 7021-8 ####[facility]ITALMARY JO [id number] [place] [address] [place] Nucleated RBC/100 WBC (Bld) [Ratio] 0.0 /100 WBC Normal [facility] Comment on above: Order Comment: Speci men Type: BLOOD SPECIMENOrdering Facility: [facility] Address: [address] [place] [address] Performed By: #### 5 7021-8 ####[facility] HOSPITALNCMERYA [id number] [place] [address] [place] Platelet mean volume (Bld) [Entitic vol] 9.6 fL Normal 9.0-12.7 [facility] Comment on above: Order Comment: Speci men Type: BLOOD SPECIMENOrdering Facility: [facility] Address: [address] [place] [address] Performed By: #### 5 7021-8 ####[facility] HOSPITALNCLIA [id number] [place] [address] [place] Platelets (Bld) [#/Vol] 328 10*3/uL Normal 150-400 [facility] Comment on above: Order Comment: Speci men Type: BLOOD SPECIMENOrdering Facility: [facility] Address: [address] [place] [address] Performed By: #### 5 7021-8 ####[facility] HOSPITALNCLIA [id number] [place] [address] [place] RBC (Bld) [#/Vol] 4.03 10*6/uL Normal 3.90-5.20 [facility] [facility] Comment on above: Order Comment: Speci men Type: BLOOD SPECIMENOrdering Facility: [facility] Address: [address] [place] [address] Performed By: #### 5 7021-8 ####[facility] [id number] [place] [address] [place] WBC (Bld) [#/Vol] 9.66 10*3/uL Normal 3.70-11.00 [facility] Comment on above: Order Comment: Speci men Type: BLOOD SPECIMENOrdering Facility: [facility] Address: [address] [place] [address] Performed By: #### 5 7021-8 ####[facility] [id number] [place] [address] [place] HBV surface Ag Ser Qlon 01-08 HBV surface Ag Ql (S) Negative Normal Negative [facility] Comment on above: Order Comment: Speci men Type: BLOOD SPECIMENOrdering Facility: [facility] Address: [address] [place] [address] Performed By: #### 3 1201-7, 5195-3, 66203-6 ####[facility] LABCLIA [id number] [place] [address] [place] HCV Ab Ser Qlon 01-29-2025 HCV Ab Ql (S) Negative Normal Negative [facility] Comment on above: Order Comment: Speci men Type: BLOOD SPECIMENOrdering Facility: [facility] Address: [address] [place] [address] Result Comment: The result suggests no evidence of infection with Hepatitis C virus. Should recent infection be suspected, repeat testing may be considered 4-6 weeks after this draw. Performed By: #### 1 6128-1 ####[facility] LABIA [id number] [place] [address] [place] HIV 1+2 Ab IA Qlon 5 HIV 1 and 2 Ab IA.rapid Nom (S/P/Bld) Normal [facility] Comment on above: Order Comment: Speci men Type: BLOOD SPECIMENOrdering Facility: [facility] Address: [address] [place] [address] Result Comment: Test not indicated. Performed By: #### 3 1201-7, 5195-3, 94299-7 ####[facility] [id number] [address] [place] HIV 1+2 Ab+HIV1 p24 Ag IA Ql Non-Reactive Normal Nonreactive [facility] Comment on above: Order Comment: Speci men Type: BLOOD SPECIMENOrdering Facility: [facility] Address: [address] [place] [address] Performed By: #### 3 1201-7, 5195-3, 13570-9 ####[facility] [id number] [address] [place] HIV immunoassay testing algorithm interpretation (S/P/Bld) [Interp] Normal [facility] Comment on above: Order Comment: Speci men Type: BLOOD SPECIMENOrdering Facility: [facility] Address: [address] [place] [address] Result Comment: No e vidence of HIV-1 or HIV-2 infection. Should recent infection be suspected, repeat testing may be considered 2-3 weeks after this draw. [place] Rev. Code 3701.243(E): This information has been disclosed to you from confidential records protected from disclosure by state law. You shall make no further disclosure of this information without the specific, written, and informed release of the individual to whom it pertains or as otherwise permitted by state law. A general authorization for the release of medical or other information is not sufficient for the purpose of the release of HIV test results or diagnoses. Performed By: #### 3 1201-7, 5195-3, 73251-6 ####[facility] LABIA [id number] [address] [place] HbA1c (Bld)on 01-29-2025 Average glucose Estimated from glycated hemoglobin (Bld) [Mass/Vol] 103 mg/dL Normal [facility] Comment on above: Order Comment: Speci men Type: BLOOD SPECIMENOrdering Facility: [facility] Address: [address] [place] [address] Result Comment: eAG: (Estimated average glucose) is a calculated value from HgbA1c and is international representative of the average blood glucose level in the last 2-3 month period. Performed By: #### 5 5454-3 ####[facility] LABIA [id number] [address] STATES OF [facility] HbA1c (Bld) [Mass fraction] 5.2 % Normal 4.3-5.6 [facility] Comment on above: Order Comment: Speci men Type: BLOOD SPECIMENOrdering Facility: [facility] Address: [address] [place] [address] Result Comment: [place] Diabetes Association guidelines indicate that patients with HgbA1c in the range 5.7-6.4% are at increased risk for development of diabetes, and intervention by lifestyle modification may be beneficial. HgbA1c greater or equal to 6.5% is considered diagnostic of diabetes. Performed By: #### 5 5454-3 ####[facility] LABIA [id number] [place] [id number] [place] RUBELLA IGG ANTIBODYon 01-29 RUBELLA IGG AB, QUAL Positive Normal Positive [facility] Comment on above: Order Comment: Speci men Type: BLOOD SPECIMENOrdering Facility: [facility] Address: [address] [place] [address] Result Comment: The result suggests recent or past exposure to Rubella virus or history of Rubella vaccination. Positive result may also be seen due to presence of passively-transferred antibodies. Please correlate with patient's history. Performed By: #### R UBIGG ####[facility] LABCLIA [id number] [place] [address] [place] Reagin and Treponema pallidu m IgG and IgM [Interp]on 01-29-2025 T. pallidum IgG+IgM IA Ql (S) Non-Reactive Normal Nonreactive [facility] Comment on above: Order Comment: Speci men Type: BLOOD SPECIMENOrdering Facility: [facility] Address: [address] [place] [address] Performed By: #### 3 1201-7, 5195-3, 26174-0 ####[facility] LABCLIA [id number] [place] [address] [place] Reagin+T pallidum IgG+IgM Se rPl-Impon 01-29-2025 Reagin and Treponema pallidum IgG and IgM [Interp] Cannot exclude recent Treponemal infection if specimen collected within 7-10 days after appearance of suspect lesions or 2-3 weeks after an exposure. Clinical correlation is required. Normal [facility] Comment on above: Order Comment: Speci men Type: BLOOD SPECIMENOrdering Facility: [facility] Address: [address] [place] [address] Performed By: #### 3 1201-7, 5195-3, 27192-9 ####[facility] LABIA [id number] [place] [address] [place] TYPE + SCREEN PRENATALon ABO A Normal [facility] Comment on above: Order Comment: Speci men Type: BLOOD SPECIMEN Ordering Facility: [facility] Address: [address] [place] [address] Performed By: #### T SPN #### [facility] CLIA [id number] [address] [place] [address] [place] Rh Nom (Bld) Positive Normal [facility] Comment on above: Order Comment: Speci men Type: BLOOD SPECIMEN Ordering Facility: [facility] Address: [address] [facility] [place] [address] Performed By: #### T SPN #### [facility] CLIA [id number] [address] [facility] [address] TYPE AND SCREEN EXPIRATION 02/01/2025 23:59 Normal [facility] Comment on above: Order Comment: Speci men Type: BLOOD SPECIMEN Ordering Facility: [facility] Address: [address] [place] [address] Performed By: #### T SPN #### [facility] CLIA [id number] [address] [facility] [address] Examination level ultrasound on 01-18-2025 Indication First trimester anatomic survey Impression The patient is referred for a first trimester anatomy scan including nuchal translucency measurement as clinically indicated. - Single, live, intrauterine . - [place] rump length measurement is consistent with the established gestational age. - No malformations visualized on a complete first trimester anatomic assessment. - The nuchal translucency measurement is 1.3 mm. - Not all structural malformations can be detected by ultrasound examination. - An anatomic survey at 18-20 weeks is recommended given no identified risk factors. Recommendations - An anatomic survey at 18-20 weeks given no identified risk factors. - Additional follow up as clinically indicated. Maternal Assessment Height 152 cm Height (ft) 5 ft Physical Exam Initial weight (lb) 109 lb Initial BMI 21.29 kg/m Maternal assessment other: 1 Para 0 Method Transabdominal ultrasound examination Bacon . Number of fetuses: 1 Dating LMP on: 10/26/2024 GA by LMP 11 w + 6 d ADOLFO by LMP: 08/02/2025 GA by prior assessment 11 w + 6 d ADOLFO by prior assessment: 08/02/2025 Ultrasound examination on: 01/17/2025 GA by U/S based upon: CRL GA by U/S 12 w + 2 d ADOLFO by U/S: 07/30/2025 Assigned: based on stated ADOLFO, selected on 01/17/2025 Assigned GA 11 w + 6 d Assigned ADOLFO: 08/02/2025 General Evaluation Cardiac activity present Placenta: posterior Cord vessels: 3 vessel cord Amniotic fluid: normal amount Biometry Standard FHR 151 bpm CRL 57.4 mm 12w 2d 70% Hadlock NT 1.30 mm First Trimester Anatomy Calvarium: normal Falx cerebri: normal Choroid plexus: normal Profile: normal Nasal bone: normal Retronasal triangle: normal Maxilla: normal Mandible: normal Nuchal translucency: Unremarkable Situs: normal Cardiac position: normal Cardiac axis: normal 4-chamber view: normal 4-chamber view with color: normal 9-[id number]-bmncoyq view: normal Abdominal cord insertion: normal Stomach: normal Kidneys: normal Bladder: normal Color doppler of perivesical umbilical arteries: normal Vertebral alignment: normal Arms: normal Hands: normal Legs: normal Feet: normal Maternal Structures Uterus / Cervix Uterus: Visualized Uterus length 91 mm Uterus width 97 mm Uterus height 70 mm Uterus Vol 321.2 cm Ovaries / Tubes / Adnexa Rt ovary: Visualized Rt ovary D1 25 mm Rt ovary D2 21 mm Rt ovary D3 14 mm Rt ovary Vol 3.7 cm Lt ovary: Visualized Lt ovary D1 31 mm Lt ovary D2 18 mm Lt ovary D3 18 mm Lt ovary Vol 5.2 cm Performed By: Sara Phipps, ELIF, RVT Read By: Nery Erickson M.D. MATERNAL MEDICINE [facility] Bacteria Ur Culton 5 Bacteria identified Cx Nom (U) ORGANISM ID: 1 <10,000 CFU/ml Normal urogenital vi Normal [facility] Comment on above: Performed By: #### 6 30-4 ####[facility] LABCLIA [id number] [address] Examination level ultrasound on 01-17-2025 Radiology Study observation (narrative) [facility] Bacteria Ur Culton 5 Bacteria identified Cx Nom (U) ORGANISM ID: 1 >=100,000 CFU/ml Staphylococcus aureus ORGANISM ID: 1 (STAPHYLOCOCCUS AUREUS) ANTIBIOTIC INTERPRETATION BEN STATUS REFERENCE RANGE Oxacillin S <=0.25 F Susceptible <=2 , Resistant >2 Oxacillin-susceptibl e staphylococci are susceptible to other penicilllinase-stabl e penicillins, beta-lactam/beta-lac tamase inhibitor combinations, anti-staphylococcal cephems, and carbapenems. Trimeth sulfameth S <=10 F Susceptible <=40 , Resistant >40 Vancomycin S 1 F Susceptible <=2 , Intermediate >2 , Resistant >8 Rifampin S <=0.5 F Susceptible <=1 , Intermediate >1 , Resistant >2 Rifampin should not be used alone for antimicrobial therapy. Tetracycline S <=1 F Susceptible <=4 , Intermediate >4 , Resistant >8 Doxycycline S <=0.5 F Susceptible <=4 , Intermediate >4 , Resistant >8 Nitrofurantoin S <=16 F Susceptible <=32 , Intermediate >32 , Resistant >64 Abnormal [facility] Comment on above: Performed By: #### 6 30-4 ####[facility] LABCLIA [id number] [address] [place] C. trachomatis+N. gonorrhoea e DNA EDMAR+probe Ql (Unsp spec)on 01-05-2025 C. trachomatis rRNA EDMAR+probe Ql (Unsp spec) Not detected Normal Not detected [facility] Comment on above: Order Comment: Speci men Type: SWABOrdering Facility: [facility] Address: [address] [place] [address] Performed By: #### T RVAMP, 81116-2 ####[facility] LABCLIA [id number] [address] [place] N. gonorrhoeae rRNA EDMAR+probe Ql (Unsp spec) Not detected Normal Not detected [facility] Comment on above: Order Comment: Speci men Type: SWABOrdering Facility: [facility] Address: [address] [place] [address] Performed By: #### T RVAMP, 46940-9 ####[facility] LABCLIA [id number] [address] OF [place] POC DRONE OPERATOR ULTRASOUNDon 01-06-20 Indication Viability; confirm cardiac activity Impression Single intrauterine gestational sac, CRL is appropriate for clinical dates, corresponding to ADOLFO 08/02/2025 cardiac activity is visualized Recommendations Follow up for 1st Trimester Anatomy with Nuchal Translucency as clinically indicated if desired. Method Transabdominal ultrasound examination. View: Adequate visualization Bacon . Number of fetuses: 1 Dating LMP on: 10/26/2024 GA by LMP 10 w + 1 d ADOLFO by LMP: 08/02/2025 Ultrasound examination on: 01/05/2025 GA by U/S based upon: CRL GA by U/S 9 w + 4 d ADOLFO by U/S: 08/06/2025 Assigned: based on the LMP, selected on 01/05/2025 Assigned GA 10 w + 1 d Assigned ADOLFO: 08/02/2025 Biometry Standard FHR 169 bpm 42% Nicolaides CRL 27.1 mm 9w 4d 2% Hadlock Assessment Gestational sac: visualized Location: intrauterine Yolk sac: not visualized Embryo: visualized CRL 27.1 mm 9w 4d 2% Hadlock Cardiac activity: present FHR 169 bpm 42% Nicolaides General Evaluation Cardiac activity present. FHR 169 bpm Performed By: Dariusz Brooks NP Read By: Dariusz Brooks NP MATERNAL MEDICINE [facility] Radiology Study observation (narrative) [facility] TRICHOMONAS VAGINALIS NAATon 01-05-2025 T. vaginalis DNA EDMAR+probe Ql (Unsp spec) Not detected Normal Not detected [facility] Comment on above: Order Comment: Speci men Type: SWABOrdering Facility: [facility] Address: [address] [place] [address] Performed By: #### T RVAMP, 59804-5 ####[facility] LABROHIT [id number] [address] [place] Cory 01-02-2025 CNPN Telephone (OBGYWM) ANGIE HICKS ([id number]) 3 F Date Time Provider Department 01/02/25 DARIUSZ BROOKS During your visit today, we recorded the following information about you: Erica Delvalle RN 01/02/2025 3:51 PM Signed Left message for patient to return phone call to complete nurse intake questions for her upcoming appointment. Patient has an appointment with Dariusz Brooks for NOB appointment. Please transfer to [facility] or tn to see if we can complete Allergies As of Date: 01/02/2025 Noted Allergy Reaction SULFA (SULFONAMIDE ANTIBIOTICS) 01/19/2014 2 - Rash 7 - Swelling Date Reviewed: 09/13/2019 Reviewed by: Theresa Jon ([facility]) - Fully Assessed Reason for Visit: 01/05 NOB Intake Questions [Other] Prescriptions as of 01/10/2025 - nitrofurantoin monohydrate and macrocrystal (MACROBID) 100 mg capsule Take 1 capsule by mouth two times a day for 7 days. - aspirin, enteric coated (ECOTRIN LOW STRENGTH) 81 mg EC tablet Take 1 tablet by mouth daily at bedtime. Starting at 12 weeks. - vit no.124/iron/folic ( VITAMIN ORAL) Take 1 tablet by mouth once daily. Problem List As Of Date: 01/02/2025 (None) Encounter Status:Closed by ERICA DELVALLE on 01/10/25 Normal [facility] CBC + DIFFon 08-07-2024 Baso # 0.03 x10EE3/UL Normal 0.00 - 0.10 [facility] Comment on above: Performed By: #### 2 07551 ####[facility],[address] [place] [address]01 Basophils/100 WBC (Bld) 0.4 % Normal 0.0 - 2.0 [facility] Comment on above: Performed By: #### 2 03634 ####[facility],[address] [place] [address] CBC + DIFF Normal [facility] Comment on above: Result Comment: CBC- COMPLETE BLOOD COUNT Performed By: #### 2 51816 ####[facility],[address] [place] [address] EO # 0.06 x10EE3/UL Normal 0.00 - 0.50 [facility] Comment on above: Performed By: #### 2 63412 ####[place] [id number] Eosinophils/100 WBC (Bld) 0.7 % Normal 0.0 - 7.0 [facility] Comment on above: Performed By: #### 2 72103 ####[place] [address] Erythrocyte distribution width (RBC) [Ratio] 12.9 % Normal 12.0 - 15.6 [facility] Comment on above: Performed By: #### 2 64270 ####[facility],[address] [place] [address] Hematocrit (Bld) [Volume fraction] 38.9 % Normal 34.0 - 46.0 [facility] Comment on above: Performed By: #### 2 12249 ####[facility],[address] [place], [place] [address] Hemoglobin (Bld) [Mass/Vol] 13.5 g/dL Normal 12.0 - 16.0 [facility] Comment on above: Performed By: #### 2 03479 ####[facility],[address] [place] [address] Lymph # 1.39 x10EE3/UL Normal 0.80 - 2.80 [facility] Comment on above: Performed By: #### 2 93475 ####[facility],[address] [place], [place] [address] Lymphocytes/100 WBC (Bld) 17.1 % Low 20.0 - 45.0 [facility] Comment on above: Performed By: #### 2 79843 ####[facility],[address] [place], [place] [id number] MANUAL DIFF N/A Normal [facility] Comment on above: Performed By: #### 2 08187 ####[facility],[address] [place] [address] MCH (RBC) [Entitic mass] 31 pg Normal 27 - 33 [facility] Comment on above: Performed By: #### 2 58280 ####[facility],[address] [place] [address] MCHC 35 X10 3 Normal 32 - 36 [facility] Comment on above: Performed By: #### 2 25239 ####[facility],[address] [place], [place] [address] MCV (RBC) [Entitic vol] 88 fL Normal 80 - 99 [facility] Comment on above: Performed By: #### 2 23880 ####[facility],[address] [place], [place] [address] [place] # 0.64 x10EE3/UL Normal 0.20 - 1.00 [facility] Comment on above: Performed By: #### 2 38040 ####[facility],[address] [place] [address]271 MONOS % 7.9 % Normal 0.0 - 10.0 [facility] Comment on above: Performed By: #### 2 67700 ####[facility],[address] [place] [address] 80041 Morphology Mauro (Bld) [Interp] N/A Normal [facility] Comment on above: Performed By: #### 2 41751 ####[facility],[address] [place] [address] 26227 Neut # 6.00 x10EE3/UL Normal 1.50 - 7.10 [facility] Comment on above: Performed By: #### 2 06912 ####[facility],[address] [place] [address] 47710 Neutrophils/100 WBC (Bld) 73.9 % Normal 46.0 - 76.0 [facility] Comment on above: Performed By: #### 2 14162 ####[facility],[address] [place] [address] 93729 PLATELET 380 x10EE3/UL Normal 150 - 450 [facility] Comment on above: Performed By: #### 2 57240 ####[address] [address] Platelet mean volume (Bld) [Entitic vol] 7.9 fL Normal 6.6 - 10.5 [facility] Comment on above: Result Comment: AUTO MATED DIFFERENTIAL Performed By: #### 2 09533 ####[facility],[address] [place] [address] 91199 RBC 4.43 x 10EE6/UL Normal 4.10 - 5.30 [facility] Comment on above: Performed By: #### 2 18473 ####[facility],[address] [place] [address] 68683 WBC 8.1 x 10EE3/UL Normal 4.5 - 10.8 [facility] Comment on above: Performed By: #### 2 38261 ####[facility],[address] [place] [address] 47333 CMP with eGFRon 08-07-2024 AGE 19 years Normal [facility] Comment on above: Performed By: #### 2 97914 ####[facility],[address] [place] [address] 15728 Albumin [Mass/Vol] 3.9 g/dL Normal 3.4 - 5.0 [facility] Comment on above: Performed By: #### 2 59492 ####[facility],[address] [place] [address] 24991 Albumin/Globulin [Mass ratio] 1.0 {ratio} Normal 0.9 - 1.6 [facility] Comment on above: Performed By: #### 2 19441 ####[facility],[address] [place] [address] 38956 ALK PHOS 83 U/L Normal 46 - 116 [facility] Comment on above: Performed By: #### 2 38115 ####[facility],[address] [place] [address] 44785 ALT [Catalytic activity/Vol] 87 U/L High 16 - 63 [facility] Comment on above: Performed By: #### 2 73932 ####[facility],[address] [place], [place] [address] Anion gap [Moles/Vol] 12 mmol/L Normal 10 - 20 [facility] Comment on above: Performed By: #### 2 01487 ####[facility],[address] [place] [address] 01490 AST [Catalytic activity/Vol] 43 U/L High 13 - 39 [facility] Comment on above: Performed By: #### 2 64646 ####[facility],[address] [place] [address] 20355 B/C RATIO 22 ratio Normal 0 - 30 [facility] Comment on above: Performed By: #### 2 53998 ####[facility],[address] [place] [address] 31422 Bilirubin [Mass/Vol] 0.4 mg/dL Normal 0.2 - 1.0 [facility] Comment on above: Performed By: #### 2 58260 ####[facility],[address] [place] [address] 73938 Calcium [Mass/Vol] 9.1 mg/dL Normal 8.5 - 10.1 [facility] Comment on above: Performed By: #### 2 29421 ####[facility],[address] [place], [place] [address] Chloride [Moles/Vol] 105 mmol/L Normal 98 - 107 [facility] Comment on above: Performed By: #### 2 73934 ####[facility],[address] [place], [place] [address] CMP with eGFR Normal [facility] Comment on above: Result Comment: COMP REHENSIVE METABOLIC PANEL Performed By: #### 2 03002 ####[place] [address] CO2 [Moles/Vol] 27.8 mmol/L Normal 21.0 - 32.0 [facility] Comment on above: Performed By: #### 2 00318 ####[facility],[address] [place], [place] [address] Creatinine [Mass/Vol] 0.77 mg/dL Normal 0.55 - 1.02 [facility] Comment on above: Performed By: #### 2 04414 ####[facility],[address] [place] [address] 32620 GFR/1.73 sq M.predicted among non-blacks MDRD (S/P/Bld) [Vol rate/Area] mL/min/{1.73_m2} Normal 60 - 999 [facility] Comment on above: Performed By: #### 2 [id number] ####[facility],[address] [place], [place] [id number] Result Comment: ACCO RDING TO THE NATIONAL KIDNEY DISEASE EDUCATION PROGRAM(NKDE), A NORMAL eGFR IS A VALUE GREATER THAN OR EQUAL TO 60 ML/MIN/1.73 SQ METERS. CHRONIC KIDNEY DISEASE: <60mL/MIN/1.73 SQ METERS KIDNEY FAILURE: <15mL/MIN/1.73 SQ METERS THIS TEST SHOULD ONLY BE USED FOR PATIENTS 18 YEARS OF AGE AND OLDER. Globulin (S) [Mass/Vol] 4.0 g/dL High 1.5 - 3.8 [facility] Comment on above: Performed By: #### 2 78201 ####[facility],[address] [place] [address] 35288 Glucose [Mass/Vol] 107 mg/dL High 74 - 106 [facility] Comment on above: Performed By: #### 2 20995 ####[facility],[address] [place] [address] 23320 Potassium [Moles/Vol] 4.2 mmol/L Normal 3.5 - 5.1 [facility] Comment on above: Performed By: #### 2 21825 ####[facility],[address] [place] [address] 98823 Protein [Mass/Vol] 7.9 g/dL Normal 6.4 - 8.2 [facility] Comment on above: Performed By: #### 2 36020 ####[facility],[address] [place] [address] 78193 Sodium [Moles/Vol] 141 mmol/L Normal 136 - 145 [facility] Comment on above: Performed By: #### 2 12482 ####[facility],[address] [place] [address] 61288 Urea nitrogen [Mass/Vol] 17 mg/dL Normal 7 - 18 [facility] Comment on above: Performed By: #### 2 26037 ####[facility],[address] [place] [address] 85558 ED MED ADMINISTRATION DETAIL on 08-07-2024 ED MED ADMINISTRATION DETAIL [employer] Medication Administration [place] [id number] [phone] 08/07/2024 Patient: ANGIE HICKS Sex: Female : 2005 Age: 19y MEASUREMENTS: Wt: 49.9 kg, Ht/Victor Manuel: 59.0 in, BMI: 22.22 ALLERGIES: Sulfa (Sulfonamide Antibiotics) Medication Ordered Medication Administration Date/Time 1 of 1 Normal [facility] ED NURSES CLINICAL NOTEon ED NURSES CLINICAL NOTE Nurse Narrative Nurse Clinical Narrative [place] [id number] [place] [address] [phone] 08/07/2024 Patient: ANGIE HICKS Sex: Female : 2005 Age: 19y Disposition: Discharge to Home Disposition Decision Time: 17:17 08/07/2024 Departure Time: 17:20 08/07/2024 TRIAGE Arrived by private vehicle. Historian: patient. Triage time: 14:28 08/07/2024. Acuity: LEVEL 3. Chief Complaint: PELVIC PAIN and PAINFUL URINATION, URGENCY and FREQUENCY. This started today. ( pt was seen and treated for an right ear infection and UTI and was placed on ATB and today after a nap woke up with increased pain to the lower abd). SEPSIS SCREEN: NEGATIVE. SIRS criteria negative: heart rate greater than 90. No possible sources of infection. -- 14:34 08/07/24 DANE Newman R.N. 14:32 08/07/24. BP: 112/73 MAP: 86. HR: 102. RR: 16. O2 saturation: 98% Temperature: 98.7 F. Pain level now 3/10. Describes the pain as (squeezing). (10/10 without ibuprofen; last dose of ibuprofen was 1330). -- 14:34 08/07/24 DANE Newman R.N. Measurements: 14:31 08/07/24 Wt: 49.9 kg, Ht/Victor Manuel: 59.0 in, BMI: 22.22 -- 14:31 08/07/24 DANE Newman R.N. Medications: Vyvanse 40 mg chewable tablet: 1 tablet once a day. -- 14:37 08/07/24 DANE Newman R.N. ondansetron HCl 4 mg tablet: 1 tablet every six hours as needed. -- 14:37 08/07/24 DANE Newman R.N. 1 of 3 Nurse Narrative lisdexamfetamine 40 mg chewable tablet: 1 tablet once a day. -- 14:37 08/07/24 DANE Newman R.N. cephalexin 250 mg/5 mL oral suspension: 10 ml four times a day. -- 14:37 08/07/24 DANE Newman R.N. escitalopram 5 mg/5 mL oral solution -- 14:37 08/07/24 DANE Newman R.N. Allergies: Sulfa (Sulfonamide Antibiotics) -- 14:29 08/07/24 DANE Newman R.N. Home Medications/Allergy Information Source: patient -- 14:29 08/07/24 DANE Newman R.N. Problems: UTI - Urinary Tract Infection -- 14:30 08/07/24 DANE Newman R.N. ADHD - Attention Deficit Hyperactivity Disorder -- 14:30 08/07/24 DANE Newman R.N. Anxiety disorder -- 14:30 08/07/24 DANE Newman R.N. Depression -- 14:30 08/07/24 DANE Newman R.N. ADDITIONAL SURGERIES: no known surgical history -- 14:30 08/07/24 DANE Newman R.N. History 14:28 08/07/24. PAST MEDICAL HX: Immunizations: up-to-date. Last normal menstrual period- . Denies current . SOCIAL HX: Never smoker. No alcohol use or drug use. The patient has not traveled outside the [place] Infectious disease exposure: No infectious disease exposure. ABUSE ASSESSMENT: The patient answered yes to the question(s) Do you feel safe in your home? and no to the question(s) Are you afraid to go home?. Abuse denied. No suspicion of abuse. SELF HARM ASSESSMENT: Self harm assessment was performed. The patient answered no to the question(s) Have you recently felt down, depressed, or hopeless? and Do you have thoughts of harming or killing yourself?. 2 of 3 Nurse Narrative FALL RISK ASSESSMENT: Fall risk assessment completed. No risk factors identified. -- 14:34 08/07/24 DANE Newman R.N. Interventions 14:28 08/07/24. Advanced care plan discussed with patient (Full COde). -- 14:34 08/07/24 EST Theodora Newman, R.N. PHYSICAL ASSESSMENT 16:18 08/07/24. Ambulatory to room. GENERAL / NEURO / PSYCH: Alert. Oriented X 4. Appears in no acute distress. HEENT: Mucous membranes are pink. RESPIRATORY: Respirations not labored. Breath sounds within normal limits. CVS: Normal heart rate and rhythm. Capillary refill less than 2 seconds. GI / : Abdomen soft. Abdominal tenderness in the lower abdomen. Bowel sounds within normal limits. No vaginal bleeding. No vaginal discharge. SKIN: Skin is warm and dry. -- 16:18 08/07/24 EST Ruddy Marcial R.N. NURSING PROGRESS NOTES 15:26 08/07/24. Site #1 started via IV in the right antecubital space with a 20g angiocath; 1 attempt. Blood drawn: rainbow set tube(s). Saline lock flushed with 5 mL saline. -- 15:27 08/07/24 EST Ruddy Marcial R.N. DISPOSITION / DISCHARGE Departure time: 17:20 08/07/2024. Condition at departure: improved. No learning barriers present. Discharge instructions provided and reviewed with the patient. The patient was discharged by the physician. The patient was discharged home and accompanied by family. The patient left ambulatory and via private vehicle. Family member driving. -- 17:20 08/07/24 EST Ruddy Marcial R.N. 17:20 08/07/24. Site #1 removed upon discharge. Bandage applied. -- 17:20 08/07/24 EST Ruddy Marcial R.N. (Electronically signed by Ruddy Marcial R.N. 08/07/24 17:21:08 EST) Generated by [facility] 3 of 3 Normal [facility] ED ORDER SHEET (CPOE ONLY)on 08-07-2024 ED ORDER SHEET (CPOE ONLY) Order Sheet Order Sheet [address] [place] [address] [id number] 08/07/2024 Patient: ANGIE HICKS Sex: Female : 2005 Age: 19y MEASUREMENTS: Wt: 49.9 kg, Ht/Victor Manuel: 59.0 in, BMI: 22.22 ALLERGIES: Sulfa (Sulfonamide Antibiotics) MEDICATION/IV/DRIP/F LUID ORDERS Order Description Priority Entered Acknowledged Completed LAB ORDERS Order Description Priority Entered Acknowledged Collected Completed Urinalysis Stat Stat 14:59 08/07/2024 14:59 08/07/2024 Theodora Ribeiro R.N. RDiandra Per Protocol, Auth by: Roslyn De La Cruz M.D. CBC w Diff Stat Stat 15:47 08/07/2024 15:47 08/07/2024 Ruddy Bravo R.N. R.N. Verbal Order, Auth by: Roslyn De La Cruz M.D. Read back and verified CMP Stat Stat 15:47 08/07/2024 15:47 08/07/2024 1 of 2 Order Sheet Ruddy Bravo R.N. R.N. Verbal Order, Auth by: Roslyn De La Cruz M.D. Read back and verified Lipase Stat Stat 15:47 08/07/2024 15:47 08/07/2024 Ruddy Bravo R.N. R.N. Verbal Order, Auth by: Roslyn De La Cruz M.D. Read back and verified Urine - HCG Stat 15:53 08/07/2024 16:01 08/07/2024 Stat Ruddy Kulkarni M.D. R.Dickson DIAGNOSTIC STUDY ORDERS Order Description Priority Entered Acknowledged Completed STAFF ORDERS Order Description Priority Entered Acknowledged Collected Completed [Electronically signed by Roslyn De La Cruz M.D. (08/07/2024 17:16 EST)] 2 of 2 Normal [facility] ED PHYSICIAN CLINICAL REPORT on 08-07-2024 ED PHYSICIAN CLINICAL REPORT Narrative Physician Clinical Narrative [address] [place] [address] [phone] 08/07/2024 Patient: ANGIE HICKS Sex: Female : 2005 Age: 19y Measurements Wt: 49.9 kg, Ht/Victor Manuel: 59.0 in, BMI: 22.22 Initial Vital Sign Measured Time BP MAP HR RR O2Sat ETCO2 Temp Pain GCS RTS 14:32 08/07/2024 112/73 86 102 16 98% 98.7 F 3 Time Seen: 15:38 08/07/2024. Arrived- By private vehicle. Historian- patient. Independent historian- family. HISTORY OF PRESENT ILLNESS Chief Complaint: ABDOMINAL PAIN. It is described as stabbing and cramping and it is described as located in the right pelvis and left pelvis, in the pelvic area and in the suprapubic area. Is now gone. The patient has had nausea. (patient is currently being treated for UTI. She is finishing her antibiotics. She had prescribed 10 days of Keflex but she also had a otitis. She had been doing well and then woke up from a nap with severe lower abdominal pain that caused her to be nauseated. That pain has improved but she still was uncomfortable so she came here. Her last menstrual period was the 03 of July. She usually has cycles every 32 days. When she was seen at the doctor for her UTI and otitis they did a test at that time that was negative. She denies any current UTI symptoms. No constipation.). REVIEW OF SYSTEMS CVS: No chest pain. THROAT: No sore throat. NEUROLOGICAL: No headache. CONSTITUTIONAL: No fever. : No pain with urination or urinary frequency. GI: No constipation. 1 of 6 Narrative PAST HISTORY See nurses notes. ADHD - Attention Deficit Hyperactivity Disorder Anxiety disorder Depression UTI - Urinary Tract Infection Surgeries: no known surgical history Medications: cephalexin 250 mg/5 mL oral suspension: 10 ml four times a day. escitalopram 5 mg/5 mL oral solution lisdexamfetamine 40 mg chewable tablet: 1 tablet once a day. ondansetron HCl 4 mg tablet: 1 tablet every six hours as needed. Vyvanse 40 mg chewable tablet: 1 tablet once a day. Allergies: Sulfa (Sulfonamide Antibiotics) Home Medications/Allergy Information Source: patient - Theodora NewmanNeelam, 08/07/2024 14:29 EST SOCIAL HISTORY Never smoker. ADDITIONAL NOTES The nursing notes have been reviewed. PHYSICAL EXAM 2 of 6 Narrative Vital Signs: Have been reviewed. Appearance: Alert. No acute distress. Eyes: Pupils equal, round and reactive to light. Eyes normal inspection. ENT: Nose normal. Neck: Normal inspection. Neck supple. CVS: Normal heart rate. Heart sounds normal. Respiratory: No respiratory distress. Breath sounds normal. Chest nontender. Abdomen: Soft. Mild tenderness in the right lower quadrant, suprapubic area, left lower quadrant and lower abdomen. No mass. Back: Normal inspection. Skin: Skin warm. Normal skin color. Extremities: Extremities exhibit normal ROM. No lower extremity edema. Neuro: Oriented X 3. No motor deficit. No sensory deficit. Reflexes normal. LABS, X-RAYS, AND EKG Laboratory Tests: CBC + DIFF Final [place]: 08/07/2024 15:15:00 EST MsgRcvd: 08/07/2024 16:06 EST Lab Test Result Reference Status Received Comments 08/07/2024 16:06 CBC-COMPLETE CBC + DIFF Final EST BLOOD COUNT 08/07/2024 16:06 WBC 8.1 x 10/UL 4.5 - 10.8 Final EST 08/07/2024 16:06 RBC 4.43 x 10/UL 4.10 - 5.30 Final EST 08/07/2024 16:06 HEMOGLOBIN 13.5 g/dl 12.0 - 16.0 Final EST 08/07/2024 16:06 HEMATOCRIT 38.9 % 34.0 - 46.0 Final EST 3 of 6 Narrative 08/07/2024 16:06 MCV 88 fl 80 - 99 Final EST 08/07/2024 16:06 MCH 31 pg 27 - 33 Final EST 08/07/2024 16:06 MCHC 35 X10 3 32 - 36 Final EST 08/07/2024 16:06 RDW/CV 12.9 % 12.0 - 15.6 Final EST 08/07/2024 16:06 PLATELET 380 x10/UL 150 - 450 Final EST 08/07/2024 16:06 AUTOMATED MPV 7.9 fl 6.6 - 10.5 Final EST DIFFERENTIAL 08/07/2024 16:06 NEUT % 73.9 % 46.0 - 76.0 Final EST 17.1 % 08/07/2024 16:06 LYMPH % 20.0 - 45.0 Final Below low normal EST 08/07/2024 16:06 MONOS % 7.9 % 0.0 - 10.0 Final EST 08/07/2024 16:06 EO % 0.7 % 0.0 - 7.0 Final EST 08/07/2024 16:06 BASO % 0.4 % 0.0 - 2.0 Final EST 08/07/2024 16:06 Lymph # 1.39 x10/UL 0.80 - 2.80 Final EST 08/07/2024 16:06 Neut # 6.00 x10/UL 1.50 - 7.10 Final EST 08/07/2024 16:06 Hardee # 0.64 x10/UL 0.20 - 1.00 Final EST 4 of 6 Narrative 08/07/2024 16:06 EO # 0.06 x10/UL 0.00 - 0.50 Final EST 08/07/2024 16:06 Baso # 0.03 x10/UL 0.00 - 0.10 Final EST 08/07/2024 16:06 MANUAL DIFF N/A New Order EST 08/07/2024 16:06 MORPHOLOGY N/A New Order EST PROGRESS AND PROCEDURES MEDICAL DECISION MAKING: (patient presented here with an episode of abdominal pain. She thought her urinary tract infect (more content not included)... Normal [facility] ED SUPER BILLon 08-07-2024 ED SUPER BILL [address] [address] [phone] 08/07/2024 Patient: ANGIE HICKS Sex: Female : 2005 Age: 19y Item Professional Category Description Facility Code Code Quantity Fee Total Nurse/E/M EMERGENCY 502221 1 $0.00 $0.00 DEPARTMENT VISIT MODERATE SEVERITY (28543) Grand Total $0.00 Providers Roslyn De La Cruz M.D. Chief Complaint ABDOMINAL PAIN. Principal Diagnosis Acute suprapubic abdominal pain of unknown cause. ICD-10 Codes 1 of 2 [facility] R10.30: Lower abdominal pain, unspecified 2 of 2 Normal [facility] ED VISIT SUMMARYon ED VISIT SUMMARY Visit Overview Visit Overview [address] [address] [phone] 08/07/2024 Patient: ANGIE HICKS Sex: Female : 2005 Age: 19y 08/07/2024 05:21 PM EST ED Arrival:14:25 08/07/2024 EST Status:not Recent Travel:no Language:eng Adv Directive: Isolation Status: Ethnicity:N Fall Risk:no risk Infectious Disease Exposure:no Measurements:4'11 / 149.9 Self-Harm Status:risk Sepsis Screen:negative cm 110.0 lb / 49.9 kg Chief Complaint:FREQUENCY, PAINFUL URINATION, PELVIC PAIN, URGENCY, and (pt was seen and treated for an right ear infection and UTI and was placed on ATB and today after a nap woke up with increased pain to the lower abd) ALLERGIES Sulfa (Sulfonamide Antibiotics) HOME MEDICATIONS cephalexin 250 mg/5 mL oral suspension: 10 ml four times a day. Visit Overview escitalopram 5 mg/5 mL oral solution lisdexamfetamine 40 mg chewable tablet: 1 tablet once a day. ondansetron HCl 4 mg tablet: 1 tablet every six hours as needed. Vyvanse 40 mg chewable tablet: 1 tablet once a day. PAST MEDICAL HISTORY / PROBLEMS ADHD - Attention Deficit Hyperactivity Disorder Anxiety disorder Depression Immunizations: up-to-date Last normal menstrual period- See nurses notes UTI - Urinary Tract Infection PAST SURGICAL HISTORY No Surgeries SOCIAL HISTORY Smoking status: No Alcohol use: No Drug use: No ED COURSE MEDICATIONS GIVEN IN EMERGENCY DEPARTMENT IV SITE INFORMATION INTAKE OUTPUT REASSESMENT (most recent) 4 Visit Overview 16:18 08/07/24. Ambulatory to room. GENERAL / NEURO / PSYCH: Alert. Oriented X 4. Appears in no acute distress. HEENT: Mucous membranes are pink. RESPIRATORY: Respirations not labored. Breath sounds within normal limits. CVS: Normal heart rate and rhythm. Capillary refill less than 2 seconds. GI / : Abdomen soft. Abdominal tenderness in the lower abdomen. Bowel sounds within normal limits. No vaginal bleeding. No vaginal discharge. SKIN: Skin is warm and dry. VITAL SIGNS First Vitals Last Vitals Temp 14:32 08/07/24 98.7 F Temp 14:32 08/07/24 98.7 F BP 14:32 08/07/24 112/73 BP 14:32 08/07/24 112/73 HR 14:32 08/07/24 102 HR 14:32 08/07/24 102 RR 14:32 08/07/24 16 RR 14:32 08/07/24 16 O2 Sat 14:32 08/07/24 98% O2 Sat 14:32 08/07/24 98% Pain 14:32 08/07/24 3 Pain 14:32 08/07/24 3 ETCO2 14:32 08/07/24 ETCO2 14:32 08/07/24 GCS 14:32 08/07/24 GCS 14:32 08/07/24 RTS 14:32 08/07/24 RTS 14:32 08/07/24 PROCEDURES NURSING INTERVENTIONS LABS / STUDIES LABS / STUDIES ORDERED CBC w Diff CMP Lipase Urinalysis Urine - HCG LABS / STUDIES PENDING IMPORT CMP with eGFR LIPASE URINE URINALYSIS 3 of 4 Visit Overview CLINICAL IMPRESSION ACUTE SUPRAPUBIC ABDOMINAL PAIN OF UNKNOWN CAUSE 4 of 4 Normal [facility] ED VITALS FLOW SHEETon 08-07 ED VITALS FLOW SHEET Vitals Vital Sign Flow Sheet [address] [place] [address] [id number] 08/07/2024 Patient: ANGIE HICKS Sex: Female : 2005 Age: 19y Measurements Wt: 49.9 kg, Ht/Victor Manuel: 59.0 in, BMI: 22.22 Measured Time BP MAP HR RR O2Sat ETCO2 Temp Pain GCS RTS 14:32 08/07/2024 112/73 86 102 16 98% 98.7 F 3 1 of 1 Normal [facility] LIPASEon 08-07-2024 Lipase [Catalytic activity/Vol] 30.0 U/L Normal 15.0 - 78.0 [facility] Comment on above: Result Comment: *PLE ASE NOTE THAT RANGES FOR LIPASE HAVE CHANGED OF 08/06/23 DUE TO AN ASSAY UPDATE BY THE TRAFFIC ENGINEER.THE NEW ASSAY RANGE IS 6-250 U/L, WITH A REFERENCE RANGE OF 16-77 U/L. Performed By: #### 2 [id number] ####[address] [address] URINEon 08-07-2024 Beta HCG ( test) Ql (U) Negative Normal NEGATIVE [facility] Comment on above: Performed By: #### 2 15990 #### [address] [place] [address] EXTERNAL QC DONE? YES Normal [facility] Comment on above: Performed By: #### 2 04391 #### [facility],[address] [place] [address] 28682 INTERNAL QC PASS Normal [facility] Comment on above: Performed By: #### 2 16842 #### [facility],[address] [place] [address] 25841 URINALYSISon 08-07-2024 Bilirubin Ql (U) Negative Normal NORMAL: NEGATIVE [facility] Comment on above: Performed By: #### 2 35346 #### [facility],[address] [place] [address]1988 Clarity (U) clear Normal NORMAL: CLEAR [facility] Comment on above: Performed By: #### 2 30836 #### [facility],[address] [place] [address]1724 Color (U) yellow Normal NORMAL: YELLOW [facility] Comment on above: Performed By: #### 2 56354 #### [facility],[address] [place] [address] 40225 Glucose Ql (U) NORM Normal NORMAL: NORMAL [facility] Comment on above: Performed By: #### 2 59488 #### [facility],[address] [place] [address] 41016 Hemoglobin Ql (U) Negative Normal NORMAL: NEGATIVE [facility] Comment on above: Performed By: #### 2 98029 #### [facility],[address] [place] [address] 20418 Ketone Negative Normal NORMAL: NEGATIVE [facility] Comment on above: Performed By: #### 2 86976 #### [facility],[address] [place] [address] 30871 Leukocytes Negative Normal NORMAL: NEGATIVE [facility] Comment on above: Performed By: #### 2 45556 #### [facility],[address] [place] [address]95 Nitrite Ql (U) Negative Normal NORMAL: NEGATIVE [facility] Comment on above: Performed By: #### 2 40907 #### [facility],[address] [place] [address] pH (U) 5 [pH] Normal NORMAL: 5.0-8.0 [facility] Comment on above: Performed By: #### 2 35397 #### [facility],[address] [place] [address] Protein Ql (U) 15 Abnormal NORMAL: NEGATIVE [facility] Comment on above: Performed By: #### 2 88106 #### [facility],[address] [place] [address] Sp [place] 1.025 Normal NORMAL: 1.010-1.030 [facility] Comment on above: Performed By: #### 2 63463 #### [facility],[address] [place] [address] Specimen Type R Normal [facility] Comment on above: Performed By: #### 2 40414 #### [facility],[address] [place] [address] Urinalysis dipstick W Reflex Microscopic panel (U) NOT INDICATED Normal [facility] Comment on above: Performed By: #### 2 44555 #### [place] [address] Urobilinog NORM Normal NORMAL: NORMAL [facility] Comment on above: Performed By: #### 2 65698 #### [facility],[address] [place], [place] [id number] B12on 07-26-2024 Cobalamin (Vitamin B12) [Mass/Vol] 775 pg/mL Normal 211-911 [facility] Comment on above: Performed By: #### B 12, VIDH, FE, FERR #### [place] [address] FEon 07-26-2024 Iron [Mass/Vol] 65 ug/dL Normal 50-170 [facility] Comment on above: Performed By: #### B 12, VIDH, FE, FERR #### [place] [id number] Kate 07-26-2024 Ferritin [Mass/Vol] 29.4 ng/mL Normal 8.0-252.0 [facility] Comment on above: Performed By: #### B 12, VIDH, FE, FERR #### [place] [id number] PREGUon 07-26-2024 HCG ( test) Ql (U) Negative Normal [facility] Comment on above: Performed By: #### U AMIC, PREGU, UA #### [place] [address] test (u) int Invalid Interpretation Code [facility] Comment on above: Result Comment: HCG not detected. Very dilute urine specimens, as indicated by a low specific gravity, may not contain international representative levels of hCG. If is still suspected, a first morning urine specimen should be collected 48 hours later and tested. Performed By: #### U AMIC, PREGU, UA #### [place] [address] UAon 07-26-2024 Color (U) Yellow Normal [facility] Comment on above: Performed By: #### U AMIC, PREGU, UA #### [place] [address] Glucose (U) [Mass/Vol] Negative Normal Negative [facility] Comment on above: Performed By: #### U AMIC, PREGU, UA #### [place] [address] Ketones Ql (U) Negative Normal Neg-Trace [facility] Comment on above: Performed By: #### U AMIC, PREGU, UA #### [place] [address] UA Appear Cloudy Abnormal Clear [facility] Comment on above: Performed By: #### U AMIC, PREGU, UA #### [place] [address] UA Blood Negative Normal Neg-Trace [facility] Comment on above: Performed By: #### U AMIC, PREGU, UA #### [place] [address] UA Leuk Est Trace Normal Negative [facility] Comment on above: Performed By: #### U AMIC, PREGU, UA #### [address] [address] UA Nitrite Positive Abnormal Negative [facility] Comment on above: Performed By: #### U AMIC, PREGU, UA #### [address] [address] UA pH 6.5 Normal 5.0 - 8.0 [facility] Comment on above: Performed By: #### U AMIC, PREGU, UA #### [place] [address] UA Protein Negative Normal Negative [facility] Comment on above: Performed By: #### U AMIC, PREGU, UA #### [place] [address] UA Spec Grav 1.025 Normal 1.006-1.029 [facility] Comment on above: Performed By: #### U AMIC, PREGU, UA #### [place] [address] UA Specimen Type Clean Catch Normal [facility] Comment on above: Performed By: #### U AMIC, PREGU, UA #### [place] [address] UA Urobilinogen 1.0 E.U./dL Normal 0.2-1.0 [facility] MAIN Comment on above: Performed By: #### U AMIC, PREGU, UA #### [place] [address] Urobilinogen (U) [Mass/Vol] Negative Normal Neg-Trace [facility] MA[facility] Comment on above: Performed By: #### U AMIC, PREGU, UA #### [address] [address] UAMICon 07-26-2024 UA Bacteria 4+ /hpf Abnormal Negative [facility] Comment on above: Performed By: #### U AMIC, PREGU, UA #### [facility] [address] [place] [address] UA Mucous 2+ /hpf Normal [facility] Comment on above: Performed By: #### U AMIC, PREGU, UA #### [facility] [address] [place] [address] UA RBC Rare Normal 0-2 [facility] Comment on above: Performed By: #### U AMIC, PREGU, UA #### [facility] [address] [place] [address] UA Squam Epithelial 0-2 Normal 0-20 [facility] MA[facility] Comment on above: Performed By: #### U AMIC, PREGU, UA #### [facility] [address] [place] [address] UA WBC 5-10 Abnormal 0-5 [facility] Comment on above: Performed By: #### U AMIC, PREGU, UA #### [place] [address] VIDHon 07-26-2024 Vit. D 25-Hydroxy 15.4 ng/mL Normal [facility] Comment on above: Result Comment: Inte rpretive Values Based on Total 25(OH)D: Severe Deficiency <20 ng/mL Mild to Moderate Deficiency 20-30 ng/mL Optimum Levels 30-100 ng/mL Toxicity Possible >100 ng/mL Performed By: #### B 12, VIDH, FE, FERR #### [place] [address] SICKLE PREP SCRNon 3 Hemoglobin S Ql (Bld) Negative Normal Negative [facility] Comment on above: Order Comment: Speci men Type: BLOOD SPECIMEN Ordering Facility: [facility] Address: [address] [place] [address] Performed By: #### S CKSOL #### [facility] CLIA [id number] [address] [place] [address] [place] CMV AB-IGMon 09-13-2017 CMV AB-IGM <30.0 Normal 0.0-29.9 [facility] Comment on above: Result Comment: Nega tive <30.0 Equivocal 30.0 - 34.9 Positive >34.9A positive result is generally indicative of acuteinfection, reactivation or persistent IgM production.Performed at: [facility] [id number] Director: Zaid Flores PhD, Phone: [phone] Performed By: #### L 800.0400, L800.0500, L800.0510 ####[place] [address] EBV-VCA,IGGon 09-13-2017 EBV-VCA,IGG <18.0 Normal 0.0-17.9 [facility] Comment on above: Result Comment: Nega tive <18.0 Equivocal 18.0 - 21.9 Positive >21.9 Performed By: #### L 800.0400, L800.0500, L800.0510 ####[place] [address] EBV-VCA,IGMon 09-13-2017 EBV-VCA,IGM <36.0 Normal 0.0-35.9 [facility] Comment on above: Result Comment: Nega tive <36.0 Equivocal 36.0 - 43.9 Positive >43.9Performed at: [facility] [id number] Director: Zaid Flores PhD, Phone: [phone] Performed By: #### L 800.0400, L800.0500, L800.0510 ####[place] [address] CBCon 09-10-2017 Basophils Auto #/vol (Bld) 0.00 x10(3) Normal 0.00-0.30 [facility] Comment on above: Performed By: #### L 200.0010 ####[facility] [id number] [place] [address] Basophils/100 WBC Auto (Bld) 0.3 % Normal 0-2 [facility] Comment on above: Performed By: #### L 200.0010 ####[facility] VRVBIGYQAB638 [place] [address] Eosinophils 0.10 x10(3) Normal 0.00-0.50 [facility] Comment on above: Performed By: #### L 200.0010 ####ML - [id number] [place] [address] Eosinophils/100 leukocytes 1.9 % Normal 1-4 [facility] Comment on above: Performed By: #### L 200.0010 ####ML - [id number] [place] [address] Erythrocyte distribution width Auto Ratio (RBC) 13.2 % Normal 11.5-14.5 [facility] Comment on above: Performed By: #### L 200.0010 ####[facility] KQXUMQDOUJ[address] [place] [address] Erythrocytes (RBC) 4.16 x10(6) Normal 4.00-5.40 [facility] Comment on above: Performed By: #### L 200.0010 ####[facility] SOLGRUTJLS[address] [place] [address] Hematocrit (HCT) 36.4 % Normal 35-49 [facility] Comment on above: Performed By: #### L 200.0010 ####[facility] OGPPLGXXAC[address] [place] [address] Hemoglobin mass conc (Bld) 12.2 g/dL Normal 12-15.0 [facility] Comment on above: Performed By: #### L 200.0010 ####[facility] AJGNLTJRAE[address] [place] [address] Lymphocytes 2.00 x10(3) Normal 1.00-7.20 [facility] Comment on above: Performed By: #### L 200.0010 ####ML - KEZCLIRZFY[address] [place] [address] Lymphocytes/100 leukocytes 26.6 % Normal 23-53 [facility] Comment on above: Performed By: #### L 200.0010 ####ML - DYKSWAOVEO[address] [place] [address] MCH 29.3 pg Normal 26-32 [facility] Comment on above: Performed By: #### L 200.0010 ####ML - IRGDEHFTVV[address] [place] [address] MCHC mass conc (RBC) 33.5 g/dL Normal 32-36 [facility] Comment on above: Performed By: #### L 200.0010 ####ML - BKQRTLXXTL[address] [place] [address] MCV 87.5 fL Normal 80-94 [facility] Comment on above: Performed By: #### L 200.0010 ####ML - MSOZEHKPZB[address] [place] [address] Monocytes 0.90 x10(3) Normal 0.10-1.50 [facility] Comment on above: Performed By: #### L 200.0010 ####ML - SGNTYUYWRY[address] [place] [address] Monocytes/100 leukocytes 11.5 % High 2-11 [facility] Comment on above: Performed By: #### L 200.0010 ####ML - ZQUGLRFYRJ[address] [place] [address] Neutrophils 4.40 x10(3) Normal 1.60-8.80 [facility] Comment on above: Performed By: #### L 200.0010 ####ML - JTAGVSIBLK[address] [place] [address] Neutrophils/100 WBC Auto (Bld) 59.7 % Normal 35-65 [facility] Comment on above: Performed By: #### L 200.0010 ####ML - NHDRDXSTJE[address] [place] [address] Platelet mean volume (PMV) 8.4 fL Normal 7.5-9.5 [facility] Comment on above: Performed By: #### L 200.0010 ####ML - ZFPPPUYFIF[address] [place] [address] Platelets 343 X10(3) Normal 150-450 [facility] Comment on above: Performed By: #### L 200.0010 ####ML - RSSHKDNHHO[address] [place] [address] WBC (Leukocytes) 7.4 x10(3) Normal 4.5-13.5 [facility] Comment on above: Performed By: #### L 200.0010 #### - OATFFTFUPU453 [place] [address] CMPon 09-10-2017 A:G RATIO 1.60 Normal 1.1-2.5 [facility] Comment on above: Performed By: #### L 100.0005, L304.0140, L304.0162, L304.0470 ####[facility] ZCDPOHGNOG467 [place] [address] Alanine aminotransferase (ALT) 11 U/L Normal 5-33 [facility] Comment on above: Performed By: #### L 100.0005, L304.0140, L304.0162, L304.0470 #### - OPSLLOVMSV343 [place] [address] Albumin 4.5 g/dL Normal 3.8-5.4 [facility] Comment on above: Performed By: #### L 100.0005, L304.0140, L304.0162, L304.0470 #### - QAZIZLLHUZ[address] [place] [address] ALK. PHOS 170 U/L Normal 35-186 [facility] Comment on above: Performed By: #### L 100.0005, L304.0140, L304.0162, L304.0470 #### - LNRCGHGPJH443 [place] [address] Anion gap 18.3 mmol/L Normal 15-22 [facility] Comment on above: Performed By: #### L 100.0005, L304.0140, L304.0162, L304.0470 #### - QSGVBQNWOU798 [place] [address] Aspartate aminotransferase (AST) 16 U/L Normal 5-32 [facility] Comment on above: Performed By: #### L 100.0005, L304.0140, L304.0162, L304.0470 ####[facility] JSRFIBKPUA765 [place] [address] Bilirubin Ql (U) 0.2 mg/dL Normal 0.2-1.0 [facility] Comment on above: Performed By: #### L 100.0005, L304.0140, L304.0162, L304.0470 ####ML - YXFPMYUKXV[address] [place] [address] Calcium 9.2 mg/dL Normal 8.4-10.2 [facility] Comment on above: Performed By: #### L 100.0005, L304.0140, L304.0162, L304.0470 ####ML - XFIAMAIVJU188 [place] [address] Chloride 99 mmol/L Normal 98-107 [facility] Comment on above: Performed By: #### L 100.0005, L304.0140, L304.0162, L304.0470 ####ML - VDDWEWRUFZ810 [place] [address] CO2 26 mmol/L Normal 22-29 [facility] Comment on above: Performed By: #### L 100.0005, L304.0140, L304.0162, L304.0470 ####ML - DXRYXVAISR[address] [place] [address] Creatinine 0.44 mg/dL Low 0.57-0.87 [facility] Comment on above: Performed By: #### L 100.0005, L304.0140, L304.0162, L304.0470 ####ML - KBFHQAXJFU555 [place] [address] eGFR (non-black) > 60 ml/Min/1.73m2 Normal [facility] Comment on above: Performed By: #### L 100.0005, L304.0140, L304.0162, L304.0470 ####ML - ACOXSHSHVY602 [place] [address] Globulin 2.8 g/dL Normal 1.5-4.5 [facility] Comment on above: Performed By: #### L 100.0005, L304.0140, L304.0162, L304.0470 ####ML - ZOBZHZTUYF327 [place] [address] Glucose mass conc 95 mg/dL Normal 60-100 [facility] Comment on above: Performed By: #### L 100.0005, L304.0140, L304.0162, L304.0470 ####[facility] UVESGIZZEU378 [place] [address] Potassium molar conc 4.3 mmol/L Normal 3.5-5.0 [facility] Comment on above: Performed By: #### L 100.0005, L304.0140, L304.0162, L304.0470 #### - EDZYLADJUY[address] [place] [address] Protein 7.3 g/dL Normal 6.0-8.0 [facility] Comment on above: Performed By: #### L 100.0005, L304.0140, L304.0162, L304.0470 ####[address] [address] Sodium 139 mmol/L Normal 135-145 [facility] Comment on above: Performed By: #### L 100.0005, L304.0140, L304.0162, L304.0470 #### - QVMJTSRNHJ[address] [place] [address] Urea nitrogen 9 mg/dL Normal 5-18 [facility] Comment on above: Performed By: #### L 100.0005, L304.0140, L304.0162, L304.0470 ####[facility] [address] [place] [address] Free T4on 09-10-2017 Thyroxine (T4) free 1.00 ng/dL Normal 0.93-1.7 [facility] Comment on above: Performed By: #### L 100.0005, L304.0140, L304.0162, L304.0470 ####[facility] AFQCUQLTHJ[address] [place] [address] TSHon 09-10-2017 Thyroid stimulating hormone (TSH) 1.63 uIU/mL Normal 0.45-4.50 [facility] Comment on above: Performed By: #### L 100.0005, L304.0140, L304.0162, L304.0470 #### - VPSKRFJKYA792 [place] [address] VITAMIN Don 09-10-2017 VITAMIN D 19.1 ng/mL Low 30-100 [facility] Comment on above: Performed By: #### L 100.0005, L304.0140, L304.0162, L304.0470 ####ML - [facility] EVEVWRELJY927 [place] [address] Vital Signs Date Time Vital Sign Value Performing Clinician Amanda araujo 04-05-2025 16:20-0400 Body mass index (BMI) [Ratio] 25.5 kg/m2 Adelina Plotts LADIES SUIT OPERATOR.CNM Work Phone: [facility] 04-05-2025 16:20-0400 Body weight 58.24 kg Adelina Plotts LADIES SUIT OPERATOR.CNM Work Phone: [facility] 04-05-2025 16:20-0400 Diastolic blood pressure 70 mm[Hg] Adelina Plotts LADIES SUIT OPERATOR.CNM Work Phone: [facility] 04-05-2025 16:20-0400 Systolic blood pressure 110 mm[Hg] Adelina Plotts LADIES SUIT OPERATOR.CNM Work Phone: [facility] 03-07-2025 16:06-0400 Body mass index (BMI) [Ratio] 23.83 kg/m2 Dariusz Haana m LADIES SUIT OPERATOR.FAMILY LITERACY COORDINATOR Work Phone: [facility] 03-07-2025 16:06-0400 Body weight 54.43 kg Dariusz Brooks LADIES SUIT OPERATOR.FAMILY LITERACY COORDINATOR Work Phone: [facility] 03-07-2025 16:06-0400 Diastolic blood pressure 60 mm[Hg] Dariusz Haury LADIES SUIT OPERATOR.FAMILY LITERACY COORDINATOR Work Phone: [facility] 03-07-2025 16:06-0400 Systolic blood pressure 98 mm[Hg] Dariusz Haury LADIES SUIT OPERATOR.FAMILY LITERACY COORDINATOR Work Phone: [facility] 01-17-2025 14:20-0400 Body mass index (BMI) [Ratio] 21.85 kg/m2 Deisi Menon MD Work Phone: [facility] 01-17-2025 14:20-0400 Body weight 49.9 kg Deisi Menon MD Work Phone: [facility] 01-17-2025 14:20-0400 Diastolic blood pressure 68 mm[Hg] Deisi Menon MD Work Phone: [facility] 01-17-2025 14:20-0400 Systolic blood pressure 106 mm[Hg] Deisi Menon MD Work Phone: [facility] 01-05-2025 10:56-0400 Body height 151.1 cm Dariusz Haury LADIES SUIT OPERATOR.FAMILY LITERACY COORDINATOR Work Phone: [facility] 01-05-2025 10:56-0400 Body mass index (BMI) [Ratio] 21.65 kg/m2 Dariusz Haury LADIES SUIT OPERATOR.FAMILY LITERACY COORDINATOR Work Phone: [facility] 01-05-2025 10:56-0400 Body weight 49.44 kg Dariusz Haury LADIES SUIT OPERATOR.FAMILY LITERACY COORDINATOR Work Phone: [facility] 01-05-2025 10:56-0400 Diastolic blood pressure 62 mm[Hg] Dariusz Haury LADIES SUIT OPERATOR.FAMILY LITERACY COORDINATOR Work Phone: [facility] 01-05-2025 10:56-0400 Systolic blood pressure 100 mm[Hg] Dariusz Haury LADIES SUIT OPERATOR.FAMILY LITERACY COORDINATOR Work Phone: [facility] Encounters Encounter Date Encounter Type Care Provider Facility Start: 06-13-2025 End: 06-13-2025 ambulatory OLGA M CARROL Facility:[facility] Start: 05-31-2025 End: 05-31-2025 ambulatory TA GALLEGOS Facility:[facility] Start: 05-29-2025 End: 05-29-2025 ambulatory OLGA Jaki BRANHAM Facility:[facility] Start: 05-15-2025 End: 05-15-2025 ambulatory DEBBY DURHAM Facility:[facility] Start: 05-14-2025 End: 05-14-2025 ambulatory JULIANNA MEDELLIN Facility:[facility] Start: 05-03-2025 End: 05-03-2025 ambulatory OLGA M CARROL Facility:[facility] Start: 04-17-2025 End: 04-17-2025 Telemedicine consultation with patient Debby Durham MD Work Phone: [facility] Start: 04-17-2025 End: 04-17-2025 ambulatory Debby Durham MD Work Phone: [facility] Comment on above: Depression with anxi ety; History of ADHD; 18 weeks gestation of (HCC) Start: 04-05-2025 End: 04-05-2025 Patient encounter procedure Adelina Bello CNM Work Phone: OB/Gynecology Comment on above: 23 weeks gestation o f (HCC) (Primary Dx); Encounter for supervision of normal first in second trimester (HCC); Screening for diabetes mellitus; Urinary tract infection without hematuria, site unspecified; Depression with anxiety Start: 04-05-2025 End: 04-05-2025 ambulatory OLGA GARCÍAPE Facility:[facility] Start: 03-07-2025 End: 03-07-2025 Patient encounter procedure [employer] [facility] Comment on above: Encounter for anatomic survey (HCC) (Primary Dx); 18 weeks gestation of (HCC) Encounter for superv ision of normal first in second trimester (HCC) (Primary Dx); 18 weeks gestation of (HCC); Nausea and vomiting during (HCC); Depression with anxiety; History of ADHD Start: 03-07-2025 End: 03-07-2025 ambulatory DARIUSZ BROOKS Facility:[facility] Start: 01-29-2025 End: 01-29-2025 ambulatory DARIUSZ BROOKS Facility:[facility] Start: 01-17-2025 End: 01-17-2025 Patient encounter procedure Deisi Menon MD Work Phone: OB/Gynecology Comment on above: Encounter for superv ision of normal first in first trimester (HCC) (Primary Dx); 11 weeks gestation of (HCC) Start: 01-17-2025 End: 01-17-2025 Patient encounter procedure [employer] [facility] [facility] Comment on above: Encounter for superv ision of normal first in first trimester (HCC) Start: 01-17-2025 End: 01-17-2025 ambulatory DARIUSZ BROOKS Facility:[facility] Start: 01-08-2025 End: 01-09-2025 Follow-up encounter Ashley Trujillo APRN.CNP Work Phone: OB/Gynecology Comment on above: Results Start: 01-05-2025 End: 01-05-2025 Patient encounter procedure Dariusz Brooks APRN.CNP Work Phone: OB/Gynecology Comment on above: Encounter for superv ision of normal first in first trimester (HCC) (Primary Dx); 10 weeks gestation of (HCC); with uncertain dates in first trimester (HCC); Nausea and vomiting during (HCC); Depression with anxiety; History of ADHD Start: 01-05-2025 End: 01-05-2025 ambulatory DARIUSZ BROOKS Facility:[facility] Start: 01-02-2025 End: 01-10-2025 Telephone encounter Dariusz Brooks APRN.CNP Work Phone: OB/Gynecology Comment on above: 01/05 NOB Intake Ques tions Start: 08-07-2024 End: 08-07-2024 Emergency department patient visit ROSLYN DAI [facility] Start: 07-26-2024 End: 07-26-2024 ambulatory ANA FAIRCHILD Facility:A Start: 04-03-2023 End: 04-04-2023 ambulatory KENNY CORRALES Facility:[id number] Start: 09-10-2017 Ambulatory OLGA BRANHAM Facility:[facility] Start: 04-26-2017 Ambulatory PRAVEEN-EL LEWIS Facilbhupinder ty:UNI Procedures Date Procedure Procedure Detail Performing Clinician Start: 03-07-2025 Us preg uterus after 1st trimest 08/09 gestation Dariusz Brooks APRN.CNP Work Phone: Start: 01-29-2025 Antibody screen OLGA SANDERSON Comment on above: Order Comment: Speci men Type: BLOOD SPECIMEN Ordering Facility: [facility] Address: [address] [place] [address] Performed By: #### T SPN #### [facility] CLIA [id number] [address] [place] [address] [place] Start: 01-17-2025 Us preg uterus after 1st trimest 1/1st gestation Dariusz Todd BAR Work Phone: Start: 01-05-2025 Us uterus limited 1/> fetuses Dariusz Todd BAR Work Phone: Start: 08-07-2024 Urinalysis ROSLYN PHILLIPS Comment on above: Result Comment: URIN ALYSIS Performed By: #### [id number] #### [facility],[address] [place] [address] Plan of Treatment Date Care Activity Detail Author Start: 03-29-2027 Urine microalbumin profile DTaP,Tdap,Td Vaccine (7 - Td or Tdap) [facility] Start: 01-05-2026 GC (Gonorrhea) Screening () GC (Gonorrhea) Screening () [facility] Start: 01-05-2026 Screening for Chlamy philomena trachomatis Chlamydia Screening () [facility] Start: 06-07-2025 RSV Vaccine (1 - Ris k 1-dose series) RSV Vaccine (1 - Risk 1-dose series) [facility] Start: 05-15-2025 End: 05-15-2025 Follow-up encounter 05/15/2025 2:00 PM EDT [facility] [address] [place] [id number] Debby Durham MD [address] [place] [address] 4 Wk Virtual Follow Up [facility] Comment on above: 4 Wk Virtual Follow Up Start: 05-06-2025 End: 08-05-2025 ANEMIA REFLEX PANEL ANEMIA REFLEX PANEL Lab Routine 23 weeks gestation of (HCC) Encounter for supervision of normal first in second trimester (HCC) Expected: 05/06/2025 (Approximate), Expires: 08/05/2025 [facility] Comment on above: Expected: 05/06/2025 (Approximate), Expires: 08/05/2025 Start: 05-06-2025 End: 04-05-2026 GESTATIONAL GLUCOSE SCREEN, 1-HOUR, 50 GRAM, NON-FASTING GESTATIONAL GLUCOSE SCREEN, 1-HOUR, 50 GRAM, NON-FASTING Lab Routine 23 weeks gestation of (HCC) Encounter for supervision of normal first in second trimester ([facility]) Screening for diabetes mellitus Expected: 05/06/2025 (Approximate), Expires: 04/05/2026 [facility] Work Phone: Comment on above: Expected: 05/06/2025 (Approximate), Expires: 04/05/2026 Start: 05-06-2025 End: 04-05-2026 SYPHILIS TREPONEMAL W/REFLEX SYPHILIS TREPONEMAL W/REFLEX Lab Routine 23 weeks gestation of ([facility]) Encounter for supervision of normal first in second trimester ([facility]) Expected: 05/06/2025 (Approximate), Expires: 04/05/2026 [facility] Comment on above: Expected: 05/06/2025 (Approximate), Expires: 04/05/2026 Start: 05-03-2025 End: 05-03-2025 Patient encounter procedure 05/03/2025 10:40 AM EDT Routine Office Visit OB/Gynecology [address] [place], [place] [id number] Luz Elena Mendoza MD [address] [place], [place] [id number] OB OB/Gynecology Comment on above: OB Start: 04-17-2025 End: 07-17-2025 TSH W/REFLEX FT4 TSH W/REFLEX FT4 Lab Routine Depression with anxiety Expected: 04/17/2025, Expires: 07/17/2025 [facility] Work Phone: Comment on above: Expected: 04/17/2025 , Expires: 07/17/2025 Start: 04-09-2025 Influenza vaccination C [facility] Start: 04-05-2025 End: 04-05-2025 Patient encounter procedure 04/05/2025 4:30 PM EDT Routine Office Visit OB/Gynecology [address] [place] [address] Adelina Bello APRN.CN [address] [place] [address] OB OB/Gynecology Comment on above: OB Start: 03-07-2025 End: 03-07-2025 Patient encounter procedure [facility] Comment on above: anatomy OB Start: 01-17-2025 End: 01-17-2025 Patient encounter procedure 01/17/2025 2:50 PM EDT Routine Office Visit OB/Gynecology [address] [place] [address] Deisi Menon MD [address] [place] [address] LMP:10/26/2024 OB/Gynecology Comment on above: LMP:10/26/2024 Start: 01-17-2025 End: 01-17-2025 Patient encounter procedure 01/17/2025 1:30 PM EDT Routine Office Visit [facility] [address] [place] [address] [facility] Comment on above: Nuchal Start: 01-05-2025 End: 04-06-2025 ANEMIA REFLEX PANEL ANEMIA REFLEX PANEL Lab Routine 10 weeks gestation of (HCC) Expected: 01/05/2025, Expires: 04/06/2025 [facility] Work Phone: Comment on above: Expected: 01/05/2025 , Expires: 04/06/2025 Start: 01-05-2025 End: 04-06-2025 Hemoglobin A1c in Blood HEMOGLOBIN A1C Lab Routine 10 weeks gestation of (HCC) Expected: 01/05/2025, Expires: 04/06/2025 [facility] Comment on above: Expected: 01/05/2025 , Expires: 04/06/2025 Start: 01-05-2025 End: 04-06-2025 Hepatitis B virus surface Ag [Presence] in Serum HEPATITIS B SURFACE ANTIGEN Lab Routine 10 weeks gestation of ([facility]) Expected: 01/05/2025, Expires: 04/06/2025 [facility] Comment on above: Expected: 01/05/2025 , Expires: 04/06/2025 Start: 01-05-2025 End: 04-06-2025 Hepatitis C virus Ab [Presence] in Serum HEPATITIS C ANTIBODY IA WITH CONFIRMATION Lab Routine 10 weeks gestation of ([facility]) Expected: 01/05/2025, Expires: 04/06/2025 [facility] Comment on above: Expected: 01/05/2025 , Expires: 04/06/2025 Start: 01-05-2025 End: 04-06-2025 HIV 1+2 Ab [Presence] in Serum or Plasma by Immunoassay HIV 1/2 COMBO WITH REFLEX TO DIFFERENTIATION Lab Routine 10 weeks gestation of ([facility]) Expected: 01/05/2025, Expires: 04/06/2025 [facility] Comment on above: Expected: 01/05/2025 , Expires: 04/06/2025 Start: 01-05-2025 End: 01-05-2026 OBSTETRIC ULTRASOUND WHI OBSTETRIC ULTRASOUND WHI Anc Imaging Routine Encounter for supervision of normal first in first trimester ([facility]) Expected: 01/05/2025, Expires: 01/05/2026 [facility] Comment on above: Expected: 01/05/2025 , Expires: 01/05/2026 Start: 01-05-2025 End: 04-06-2025 RUBELLA IGG ANTIBODY RUBELLA IGG ANTIBODY Lab Routine 10 weeks gestation of ([facility]) Expected: 01/05/2025, Expires: 04/06/2025 [facility] Comment on above: Expected: 01/05/2025 , Expires: 04/06/2025 Start: 01-05-2025 End: 04-06-2025 SYPHILIS TREPONEMAL W/REFLEX SYPHILIS TREPONEMAL W/REFLEX Lab Routine 10 weeks gestation of ([facility]) Expected: 01/05/2025, Expires: 04/06/2025 [facility] Comment on above: Expected: 01/05/2025 , Expires: 04/06/2025 Start: 01-05-2025 End: 04-06-2025 TYPE + SCREEN TYPE + SCREEN Blood Bank Routine 10 weeks gestation of ([facility]) Expected: 01/05/2025, Expires: 04/06/2025 [facility] Comment on above: Expected: 01/05/2025 , Expires: 04/06/2025 Start: 04-09-2024 Covid-19 Vaccine ( season) Covid-19 Vaccine ( season) [facility] Start: 2022 GC (Gonorrhea) Screening (18-24) GC (Gonorrhea) Screening (18-24) [facility] Start: 2022 [facility] C [facility] Start: 2022 HIV screening HIV Screening [facility] Start: 2022 Screening for Chlamy philomena trachomatis Chlamydia Screening () [facility] Start: 2020 Meningococcal B Vacc ine (1 of 2 - Standard) Meningococcal B Vaccine (1 of 2 - Standard) [facility] Start: 2018 Peds To Adult Transition Annual Assessment Peds To Adult Transition Annual Assessment [facility] Start: 09-29-2017 HPV Vaccine (2 - 2-d ose series) HPV Vaccine (2 - 2-dose series) [facility] Start: 2016 Peds To Adult Transition Initial Discussion Peds To Adult Transition Initial Discussion [facility] Bacteria identified in Urine by Culture BACTERIAL CULTURE, URINE Microbiology Routine 10 weeks gestation of ([facility]) 01/05/2025 11:46 AM EDT [facility] Bacteria identified in Urine by Culture BACTERIAL CULTURE, URINE Microbiology Routine Encounter for supervision of normal first in first trimester ([facility]) 11 weeks gestation of ([facility]) 01/17/2025 2:39 PM EDT [facility] Work Phone: Bacteria identified in Urine by Culture BACTERIAL CULTURE, URINE Microbiology Routine Urinary tract infection without hematuria, site unspecified Ordered: 04/05/2025 [facility] Comment on above: Ordered: 04/05/2025 Chlamydia trachomatis+Neisseria gonorrhoeae DNA [Presence] in Unspecified specimen by EDMAR with probe detection GONORRHEA/CHLAMYDIA NAAT Lab Routine 10 weeks gestation of ([facility]) 01/05/2025 11:46 AM EDT [facility] TRICHOMONAS VAGINALI S NAAT TRICHOMONAS VAGINALIS NAAT Lab Routine 10 weeks gestation of ([facility]) 01/05/2025 11:46 AM EDT [facility] Immunizations Immunization Date Immunization Notes Care Provider Robe jewell 07-01-2009 influenza virus vacc ine, unspecified formulation Dariusz Brooks APRN.FAMILY LITERACY COORDINATOR Work Phone: [facility] Payers Date Payer Category Payer Blue Cross Blue [facility] BLUE ACCE SS PPO [id number] 2018 Unknown [id number] 2004 Unknown [id number] 2004 Unknown [id number] Unknown [id number] Social History Date Type Detail Facility Start: 10-07-2018 End: 01-05-2025 Tobacco smoking status NHIS Never smoked tobacco [facility] History of tobacco use Passive smoker [facility] Start: 10-07-2018 End: 01-05-2025 Tobacco use and exposure Smokeless tobacco non-user [facility] Start: 01-05-2025 End: 04-17-2025 Alcoholic beverage intake [facility] Start: 01-05-2025 End: 01-17-2025 History of Social function [facility] Start: 01-05-2025 End: 01-17-2025 Tobacco use panel [facility] Start: 01-19-2014 National Score (1-10 0), lower number is lower risk 65 [facility] Start: 11-09-2024 [facility] Start: 2004 Sex assigned at Not on file C [facility] Start: 09-13-2019 Alcoholic beverage intake Not Asked [facility] Goals Date Patient Goal Desired Activity /State Personal health goal Functional Status Date Assessment Result Facility 01-19-2014 Are you deaf, or do you have serious difficulty hearing No 01/19/2014 4:36 PM EDT Nery Cavazos MA No [facility] 01-19-2014 Are you blind, or do you have serious difficulty seeing, even when wearing glasses No 01/19/2014 4:36 PM EDT Nery Cavazos MA No [facility] 01-19-2014 Do you have serious difficulty walking or climbing stairs No 01/19/2014 4:36 PM EDT Nery Cavazos MA No [facility] 01-19-2014 Do you have difficul ty dressing or bathing No 01/19/2014 4:36 PM EDT Nery Cavazos MA No [facility] Mental Status Date Assessment Result Facility 01-19-2014 Because of a physica l, mental, or emotional condition, do you have serious difficulty concentrating, remembering, or making decisions No 01/19/2014 4:36 PM EDT Nery Cavazos MA No [facility] Clinical Notes 07-27-2024 to 05-15-2025 Patient InstructionsDebby Durham MD - 04/17/2025 12:49 PM EDTPrenatal Quick Notes - Adelina Bello APRN.CN - 04/05/2025 4:40 PM EDTPatient InstructionsPatient InstructionsPatient Instructions Note Date & Type Note Facility 05-15-2025 Note HNO ID: [id number] Author: DEBBY DURHAM MD Service: ? Author Type: Physician Type: Progress Notes Filed: 05/15/2025 14:22 Note Text: [facility] PROGRESS NOTE PATIENT: Angie Hicks MRD: [id number] DATE: May 15, 2025 Location:[facility] and the patient at home Time in:13:52 Time Out: 14:20 I have communicated my name and active licensure. The patient's identity and physical location were verified at the time of this visit. Either the patient or their legal international representative has been informed of the risks and benefits of virtual and alternatives to virtual treatment through a remote evaluation and consents to proceed with the evaluation remotely. Recording using ambient [employer] software for draft documentation of the visit was discussed with the patient/authorized international representative; all questions welcomed and answered. Patient/authorized international representative agreed to proceed IDENTIFYING INFORMATION: Angie is a 20 year old single female with a history of depression with anxiety affecting , history of ADHD. CHIEF COMPLAINT: feel better SUBJECTIVE: Angie Hicks is a 20-year-old female presenting for follow-up on depression management. Angie is currently 28 weeks and reports improvement in her depressive symptoms since starting escitalopram 15 mg. She notes a significant reduction in feelings of persistent sadness and an overall improvement in mood. She has resumed engaging in hobbies, such as playing video games, which she had previously abandoned. She denies any suicidal or homicidal ideation and has not experienced any panic attacks. She reports some difficulty with concentration, attributing it to discontinuation of Vyvanse during , but states it is manageable. She has been focusing on maintaining a positive outlook and asking for help when needed. Her fiance assists her with medication adherence and household responsibilities, allowing her to take things slower and reduce her workload. She is excited about her upcoming delivery and has been preparing for the baby's arrival by organizing clothes and setting up the nursery. She expresses some anxiety about due to uncertainty about what to expect. She has received information about birthing and classes and plans to explore these resources. She works at a [employer] and enjoys the supportive and non-stressful environment. She lives with her fiance, who is excited about the and provides significant support. They spend quality time together playing games, making videos, and visiting his family every Wednesday night. She values these social connections and plans to maintain them after the baby is born. She is looking forward to establishing a routine with the baby and ensuring she continues to engage in social activities to avoid isolation. She has a strong support system, including her fiance's family, who are excited about the new addition. The baby will have eight cousins on her father's side, four of whom were born this year. Medication side effects: None Suicidal/Homicidal Thoughts/Plans: denied Substance Use History: denied VITAL SIGNS: LMP 10/26/2024 (Approximate) LAB DATA: reviewed MENTAL STATUS EXAMINATION: Appearance: appears stated age, ,Female, well developed, well nourished, normal clothing, grooming is Within Normal Limits, sitting on the couch Activity: Normal , Steady gait, normal muscle tone Behavior: Cooperative, Good eye contact, Speech: spontaneous , Normal rate, Normal volume, Clear, Mood: Anxious and Depressed Affect: appropriate to content and Anxious Thought Process: coherent Thought Content: Absence of delusional content, No suicidal ideation, intent or plan., No homicidal ideation, intent or plan., Coherent Cognition: Orientation: Person, Place, Time and Situation Attention: Intact Concentration: Intact Language: Intact naming, Intact repetition Estimated Intelligence: Above Average Memory: Intact recent memory, Intact remote memory Abstraction: Intact Insight: excellent Judgement: excellent RATING SCALES: PHQ-9 Score: 3 (05/13/2025 1:42 PM) (0-4) minimal depression, (5-9) mild depression, (10-14) moderate depression, (15-19) moderately severe depression, (20-27) severe depression DILIA-7 Total Score: 1 (05/13/2025 1:43 PM) (0-4) minimal anxiety, (5-9) mild anxiety, (10-14) moderate anxiety, (15-21) severe anxiety RISK ASSESSMENT: [place] SUICIDE SEVERITY RATING SCALE 1.) Wish to be : Have you wished you were or wished you could go to sleep and not wake up? NO 2.) Suicidal Thoughts: Have you actually had any thoughts of killing yourself? NO 6.) Suicide Behavior Question: Have you ever done anything, started to do anything, or prepared to do anything to end your life?NO IMPRESSION: Assessment and plan: 1. Depression with anxiety ( (more content not included)... [facility] 05-03-2025 Note HNO ID: [id number] Author: TERRENCE SUTHERLAND MA Service: ? Author Type: Display Coordinator Type: Progress Notes Filed: 05/03/2025 11:15 Note Text: Patient identified by name and date of . Angie Hicks presents today for a vaccination of Tdap. Patient denies an allergy to latex: yes Patient denies a severe (life-threatening) allergy to a previous dose of Tdap, DTP, DTaP, DT or Td vaccine. Yes Patient denies history of epilepsy or neurological problems: Yes Patient is afebrile and denies being moderately or severely ill: Yes Patient denies history of Guillain-[place] Syndrome (a severe paralytic illness): Yes Tdap Adacel injection was given without incident. See immunizations for details of immunizations administered today. VIS sheet provided: Yes Provider Adia was present in office at time of injection. Terrence Sutherland MA [facility] 04-17-2025 Note HNO ID: [id number] Author: KEYON CRUZ LISW Service: ? Author Type: Carpet Or Rug Layer Helper Type: Progress Notes Filed: 04/17/2025 15:04 Note Text: Summary: Integrated Mental Health Plan of Care Integrated Mental Health Plan of Care Review of referral with patient. Was patient aware of [facility] referral placement by provider?Yes Is the patient currently connected for care : Yes Other Providers name: [facility] Psychiatry - Debby Durham MD Was NALE sent to patient? No Is the patient agreeable to connecting to services? Yes If agreeable to referral, are they:Psychology and External Assisted in making appt at: Other [facility] SW sent Pt external counseling resources via [employer] message Comment: Pt need Appointment date and time: TBD Current priority status of the referral Medium Additional information Patient and [facility] SW discussed [facility] referral. Patient connected with [facility] psychiatry. Patient referred to [facility] for counseling- Pt sent external counseling resources due to [facility] wait times for counseling. [facility] 04-17-2025 Instructions Debby Durham MD - 04/17/2025 1:31 PM EDT We discussed your depression and anxiety: - You are currently taking Lexapro (escitalopram) and recently restarted it last Wednesday. We agreed to increase your dose to 15 mg daily to better manage your symptoms. Please take 1.5 tablets daily for 30 days. A prescription for 45 tablets has been sent to your preferred [facility] pharmacy in [place]. - Lexapro is safe during , though it transfers slightly more to the baby compared to Zoloft (sertraline). However, we have not observed any significant issues with its use during or . - If your concentration does not improve in 4 weeks, we may consider reintroducing Vyvanse after 28 weeks of , as the baby s lungs will be fully developed by then. However, this can also wait until after delivery if needed. - I will refer you to individual therapy to help manage your depression and anxiety. Virtual therapy sessions are an option, and I will send the referral to a provider near your area in [place], [place]. We discussed your : - You are 24 weeks . Congratulations! You and your fianc are both excited about the baby. - You reported ongoing nausea and vomiting in the mornings. Please continue to monitor this and let me know if it worsens or becomes unmanageable. - Your recent lab work showed normal results, including a negative hepatitis panel, positive rubella immunity, non-reactive syphilis test, and normal hemoglobin A1c (5.2). Your glucose level was 103, and your complete blood count was normal. However, your hematocrit was borderline low at 35.1. - I will order additional labs, including a thyroid panel (TSH), as this has not been checked recently. Please visit a nearby lab to complete this testing. We discussed follow-up: - Your next virtual appointment is scheduled for May 15 at 2:00 PM. During this visit, we will reassess your symptoms and discuss any necessary adjustments to your care plan. - Please contact me if you experience worsening symptoms, have concerns about your medications, or need further support before your next visit. documented in this encounter [facility] 04-17-2025 Note HNO ID: [id number] Author: DEBBY DURHAM MD Service: ? Author Type: Physician Type: Progress Notes Filed: 04/17/2025 13:51 Note Text: [facility] INITIAL PSYCHIATRIC EVALUATION PATIENT: Angie Hicks MRD: [id number] DATE: April 17, 2025 Location:[facility] and the patient at home Time in:12:50 Time Out: 13:45 I have communicated my name and active licensure. The patient's identity and physical location were verified at the time of this visit. Either the patient or their legal international representative has been informed of the risks and benefits of -- and alternatives to -- treatment through a remote evaluation and consents to proceed with the evaluation remotely. Recording using [employer] software for draft documentation of the visit was discussed with the patient/authorized international representative; all questions welcomed and answered. Patient/authorized international representative agreed to proceed IDENTIFYING INFORMATION: Angie is a 19 year old engaged female with a history of antepartum depression and anxiety. Patient was referred by Dariusz Brooks APRN. CHIEF COMPLAINT: Feeling better but not at baseline initial psychiatric evaluation HPI: Angie Hicks is a 19-year-old female with a history of MDD and ADHD, presenting for evaluation of depression and anxiety management during . Angie is currently 24 weeks and reports experiencing symptoms of depression and anxiety. She describes a persistent low mood and a loss of interest in hobbies, stating she feels down all the time and finds it harder to find the sandhya in doing things. She also experiences crying spells, particularly at night, without any specific triggers. She denies any history of manic behavior, such as being excessively talkative or having periods of decreased need for sleep with high energy levels. She has recently resumed taking Lexapro, which she started again last Wednesday, and reports that it has begun to help with her symptoms. She takes the medication orally before bed. She has not tried any other antidepressants besides Lexapro. Her sleep is reportedly adequate, averaging 6-7 hours per night, and she feels rested upon waking. However, she notes that her concentration has declined since discontinuing Vyvanse, which she was taking for ADHD. This has made it more difficult for her to complete tasks independently, leading her to seek help from others more frequently. She also experiences irritability and frustration due to her concentration difficulties, describing it as fighting my brain. She denies any obsessive thoughts or compulsive behaviors. She reports episodes of intense anxiety, stating that her anxiety gets pretty strong sometimes. She denies any history of trauma, nightmares, or feeling jumpy, and does not report any incidents of self-harm or suicide attempts. She has never been hospitalized for mental health reasons and does not currently have a psychiatrist or therapist. She did have a therapist in fourth grade following her parents' divorce, which she found helpful. She is engaged and lives with her fiance, who works in a metal shop at a [employer]. She describes their relationship as good and notes that both she and her fiance are excited about the . She works at a [employer] and enjoys her job. She has no other children and denies any legal issues, hoahaoism preferences, or substance abuse. She was born and raised in [place] and lived with both parents until fourth grade, when they . She and her siblings, a younger sister and brother, lived with their father during the week and visited their mother on weekends. She graduated high school and attended college for one semester but found it overwhelming due to taking on too many responsibilities, including living on campus and participating in cheerleading and stunt teams. She describes herself as needing time to recharge and found it challenging to keep up with her outgoing roommate. She reports a family history of depression and anxiety on her mother's side and ADHD and anxiety on her father's side. She denies any chronic pain, headaches, changes in vision, or other significant medical issues. She does experience nausea and vomiting every morning, which she attributes to her . She had a UTI at the beginning of her , which was treated with antibiotics. She denies any issues with joint or muscle pain, skin problems, or endocrine issues such as diabetes or thyroid disorders. She has had recent lab work done, including a hepatitis panel, rubella antibody, syphilis test, hemoglobin A1c, glucose level, and thyroid function tests, all of which were normal. Somatic complaints: PSYCHIATRIC ROS: Depression: + Depressed mood, + Decreased Interests, + Guilt, + Decreased Concentration, and + Crying spells with no suicidal thoughts, intent or med (more content not included)... [facility] 04-17-2025 History of Present illness Narrative [facility] INITIAL PSYCHIATRIC EVALUATION PATIENT: Angie Hicks MRD: [id number] DATE: April 17, 2025 Location:[facility] and the patient at home Time in:12:50 Time Out: 13:45 I have communicated my name and active licensure. The patient's identity and physical location were verified at the time of this visit. Either the patient or their legal international representative has been informed of the risks and benefits of -- and alternatives to -- treatment through a remote evaluation and consents to proceed with the evaluation remotely. Recording using [employer] software for draft documentation of the visit was discussed with the patient/authorized international representative; all questions welcomed and answered. Patient/authorized international representative agreed to proceed IDENTIFYING INFORMATION: Angie is a 19 year old engaged female with a history of antepartum depression and anxiety. Patient was referred by Dariusz Brooks APRN. CHIEF COMPLAINT: Feeling better but not at baseline initial psychiatric evaluation HPI: Angie iHcks is a 19-year-old female with a history of MDD and ADHD, presenting for evaluation of depression and anxiety management during . Angie is currently 24 weeks and reports experiencing symptoms of depression and anxiety. She describes a persistent low mood and a loss of interest in hobbies, stating she feels down all the time and finds it harder to find the sandhya in doing things. She also experiences crying spells, particularly at night, without any specific triggers. She denies any history of manic behavior, such as being excessively talkative or having periods of decreased need for sleep with high energy levels. She has recently resumed taking Lexapro, which she started again last Wednesday, and reports that it has begun to help with her symptoms. She takes the medication orally before bed. She has not tried any other antidepressants besides Lexapro. Her sleep is reportedly adequate, averaging 6-7 hours per night, and she feels rested upon waking. However, she notes that her concentration has declined since discontinuing Vyvanse, which she was taking for ADHD. This has made it more difficult for her to complete tasks independently, leading her to seek help from others more frequently. She also experiences irritability and frustration due to her concentration difficulties, describing it as fighting my brain. She denies any obsessive thoughts or compulsive behaviors. She reports episodes of intense anxiety, stating that her anxiety gets pretty strong sometimes. She denies any history of trauma, nightmares, or feeling jumpy, and does not report any incidents of self-harm or suicide attempts. She has never been hospitalized for mental health reasons and does not currently have a psychiatrist or therapist. She did have a therapist in fourth grade following her parents' divorce, which she found helpful. She is engaged and lives with her yolie , who works in a metal shop at a [employer]. She describes their relationship as good and notes that both she and her yolie are excited about the . She works at a [employer] and enjoys her job. She has no other children and denies any legal issues, hoahaoism preferences, or substance abuse. She was born and raised in [place] and lived with both parents until fourth grade, when they . She and her siblings, a younger sister and brother, lived with their father during the week and visited their mother on weekends. She graduated high school and attended college for one semester but found it overwhelming due to taking on too many responsibilities, including living on campus and participating in cheerleading and stunt teams. She describes herself as needing time to recharge and found it challenging to keep up with her outgoing roommate. She reports a family history of depression and anxiety on her mother's side and ADHD and anxiety on her father's side. She denies any chronic pain, headaches, changes in vision, or other significant medical issues. She does experience nausea and vomiting every morning, which she attributes to her . She had a UTI at the beginning of her , which was treated with antibiotics. She denies any issues with joint or muscle pain, skin problems, or endocrine issues such as diabetes or thyroid disorders. She has had recent lab work done, including a hepatitis panel, rubella antibody, syphilis test, hemoglobin A1c, glucose level, and thyroid function tests, all of which were normal. Somatic complaints: PSYCHIATRIC ROS: Depression: + Depressed mood, + Decreased Interests, + Guilt, + Decreased Concentration, and + Crying spells with no suicidal thoughts, intent or plan Sandy: Denies any history of hypomanic or manic episodes. Psychosis: Denies any auditory / visual hallucination or paranoid ideation. DILIA: Excessive worry more than not, Difficulty controlling worry, Fatigued, Irritable, Trouble concentrating, and Muscle tension OCD: Denies any symptoms of OCD. PTSD: Denies any PTSD symptoms. Patient goals for treatment: on edge PSYCHIATRIC HISTORY: Past Diagnoses: Major depression and ADHD Hospitalizations: denied Psychiatrist: none Agency: none manager psychology: none Therapist: none currently, had one when she was a child Self harm: denied Suicide attempts: denied Medication Trials: Lexapro helped her Vyvanse (lisdexamphetamine) helped her concentrate ECT: No SOCIAL HISTORY: Guardian: None Born and raised: in [place] and raised by both parents until 4th grade, saw mother on the week ends. She has a younger sister and brother. 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 Financial support: herself and fiancee Relationships: engaged Children: none is Living Situation: lives with [employer] Weapons: denied Legal History: denied Church: denied SUBSTANCE ABUSE HISTORY: denied FAMILY PSYCHIATRIC HX: Maternal side has depression and anxiety, fathers side anxiety and ADHD Obstetric History T0 L0 SAB0 IAB0 Ectopic0 Multiple0 Live Births0 Name of Baby 1: Not recorded Date: Not recorded GA: Not recorded Type: Not recorded Apgar1: Not recorded Apgar5: Not recorded Living: Not recorded PAST MEDICAL HISTORY: PAST MEDICAL HISTORY Diagnosis Date Depression with anxiety 01/05/2025 January 05, 2025 Was on 20 mg of Lexapro but stopped upon discovery of . Symptoms of anxiety and depression returning. Recommend restarting. Reviewed risks and benefits to mother and baby. Denies thoughts of self harm or harming others. Mental health resources provided. Dariusz Brooks APRN.FAMILY LITERACY COORDINATOR History of ADHD 01/05/2025 January 05, 2025 Was on Vyvanse prior to and struggling without it. Managed by PCP. Recommend notifying PCP of and struggling without medication to determine treatment options. Dariusz Brooks APRN.FAMILY LITERACY COORDINATOR Pyelonephritis age 6 PAST SURGICAL HISTORY Procedure Laterality Date NONE ALLERGIES Allergen Reactions Sulfa (Sulfonamide * Rash, Swelling PCP: Olga Branham, DO Current Outpatient Medications on File Prior to Visit Medication Sig escitalopram oxalate (LEXAPRO) 10 mg tablet Take 1 tablet by mouth once daily. aspirin, enteric coated (ECOTRIN LOW STRENGTH) 81 mg EC tablet Take 1 tablet by mouth daily at bedtime. Starting at 12 weeks. vit no.124/iron/folic ( VITAMIN ORAL) Take 1 tablet by mouth once daily. No current facility-administered medications on file prior to visit. VITAL SIGNS: LMP 10/26/2024 (Approximate) Review of systems: ROS Review of Systems: PAIN ASSESSMENT: Negative for pain, history of chronic pain, or current treatment for a chronic pain condition. GENERAL: tired HEENT: Negative for frequent or significant headaches, No changes in hearing or vision, no nose bleeds or other nasal problems NECK: Negative for goiter, pain or significant neck swelling RESPIRATORY: Negative for cough, hemoptysis, wheezing, COPD, dyspnea or shortness of breath CARDIOVASCULAR: Negative for chest pain, leg swelling, hypertension, CHF or palpitations GI: has nausea every morning : had a UTI now cleared SAUSAGE COOKER: 24 weeks MUSCULOSKELETAL: Negative for joint pain or swelling, back pain or muscle pain SKIN: Negative for lesions, rash, and itching. PSYCH: See HPI HEMATOLOGY/LYMPHOLOGY: Negative for prolonged bleeding, bruising easily or swollen nodes. ENDOCRINE: Negative for cold or heat intolerance, polyuria or polydipsia. NEURO: occasional heachaches no seizures or termors The remainder of the review of systems is negative. MENTAL STATUS EXAMINATION: Appearance: appears stated age, ,Female, well developed, well nourished, normal clothing, grooming is Within Normal Limits, hair pulled back sitting with her cat Activity: Normal , Steady gait, normal muscle tone, Behavior: Cooperative, Good eye contact, smiling occasionally Speech: spontaneous , Normal rate, Normal volume, Clear, Mood: Anxious and Depressed Affect: appropriate to content, Dysthymic, and Anxious Thought Process: coherent Thought Content: Absence of delusions and hallucinations, No suicidal ideation, intent or plan., No homicidal ideation, intent or plan., Coherent Cognition: Orientation: Person, Place, Time and Situation Attention: Intact Concentration: Intact Language: Intact naming, Intact repetition Estimated Intelligence: Above Average Memory: Intact recent memory, Intact remote memory Abstraction: Intact Insight: excellent Judgement: excellent LABS: reviewed (01/29/2025) - Hepatitis panel: Negative - Rubella antibody: Positive - Syphilis test: Non-reactive - Hemoglobin A1c: 5.2 - Glucose: 103 mg/dL - CBC: - WBC: 9.66 - Hemoglobin: 12.1 - Hematocrit: 35.1 - Platelets: 328 (2018) - TSH: 1.63 - T4: Normal RATING SCALES: PHQ-9 Score: 3 (04/17/2025 12:34 PM) (0-4) minimal depression, (5-9) mild depression, (10-14) moderate depression, (15-19) moderately severe depression, (20-27) severe depression DILIA-7 Total Score: 3 (04/17/2025 12:35 PM) (0-4) minimal anxiety, (5-9) mild anxiety, (10-14) moderate anxiety, (15-21) severe anxiety RISK ASSESSMENT: [place] SUICIDE SEVERITY RATING SCALE 1.) Wish to be : Have you wished you were or wished you could go to sleep and not wake up? NO 2.) Suicidal Thoughts: Have you actually had any thoughts of killing yourself? NO 6.) Suicide Behavior Question: Have you ever done anything, started to do anything, or prepared to do anything to end your life?NO [place] SUICIDE SEVERITY RATING SCALE 1.) Wish to be : Have you wished you were or wished you could go to sleep and not wake up? NO 2.) Suicidal Thoughts: Have you actually had any thoughts of killing yourself? NO 6.) Suicide Behavior Question: Have you ever done anything, started to do anything, or prepared to do anything to end your life?NO IMPRESSION:ASSESSMENT AND PLAN 1. Depression with anxiety (F41.8) Patient with history of major depression and anxiety, currently experiencing symptoms during ; recently restarted Lexapro with some improvement noted. - Increase Lexapro to 15 mg PO QHS. - Discussed safety of Lexapro and Zoloft during and , including study data on maternal and serum levels and lack of observed defects; patient elected to continue Lexapro. - Ordered TSH to rule out thyroid dysfunction as a contributing factor to depressive symptoms. - Refer to individual therapy; patient prefers virtual sessions. - Follow-up in 4 weeks (May 15 at 2:00 PM) to reassess symptoms and medication efficacy. 2. History of ADHD (Z86.59) History of ADHD previously managed with Vyvanse; currently not taking Vyvanse due to , resulting in decreased concentration. - Discussed potential reintroduction of Vyvanse after delivery if concentration issues persist; patient is amenable to waiting until period. 3. 18 weeks gestation of (HCC) (Z3A.18) Patient is 24 weeks with ongoing nausea and vomiting; recent labs reviewed, with TSH pending. - Continue care with current OB provider. - Advised patient to continue current management for nausea and vomiting. Increase Lexapro to 15 mg PO QD; reassess in 4 weeks to determine if dosage adjustment is needed. - Ordered TSH to assess thyroid function. - Referral to individual therapy for ongoing support with depression and anxiety. - Discussed the safety of Zoloft (sertraline) during , highlighting its minimal transfer to the through breast milk compared to Lexapro. The patient chose the Lexapro. - Consider reintroducing Vyvanse , depending on patient's concentration levels and overall mental health. - Follow-up appointment scheduled for May 15 at 14:00. Medical Diagnoses: 24 WEEKS PDMP website checked and validated. All prescriptions have been APPROPRIATELY filled. No suspicious activity was identified. 04/17/2025 by Debby Durham MD Patient understands and agrees with the treatment plan: Yes Patient will return for follow-up appointment in 4 weeks time. If there are any problems in the interim, the patient will contact our clinic for an earlier appointment. For all medical and psychiatric emergencies, the patient will go to the nearest emergency room. Return in about 4 weeks (around 05/15/2025). I spent a total of 45 minutes on the date of the service which included preparing to see the patient, evce-wm-viyp patient care, completing clinical documentation, obtaining and/or reviewing separately obtained history, performing a medically appropriate examination, counseling and educating the patient/family/caregiver, ordering medications, tests, or procedures, communicating with other HCPs (not separately reported), independently interpreting results (not separately reported), and communicating results to the patient/family/caregiver. Electronically signed by Debby Durham MD April 17, 2025 12:49 PM documented in this encounter [facility] 04-05-2025 Progress note Formatting of t his note might be different from the original. S: Angie Hicks is a 19 year old female who presents at 23 weeks gestation for a routine visit. Started feeling movements 2 weeks ago. Reports mood has been elevated since starting new job and having more of a schedule/ routine. Did not fill Lexapro prescription from last visit and is unsure if she wants to restart medication during . Encouraged appointment with behavioral health. Nausea improving. O: See flow sheet Gen: No apparent distress Abd: Gravid, nontender ASSESSMENT/PLAN: 1. 23 weeks gestation of 2. Encounter for supervision of normal first in second trimester 3. Screening for diabetes mellitus 4. Urinary tract infection without hematuria, site unspecified 5. Depression with anxiety - Continue vitamin and ASA daily - Patient to reach out for appointment with behavioral health - Repeat urine culture- KATHE today - Educated on GCT process at next visit - MH / counseling resources provided - Patient's mother present for visit and is support person - RTO 4 weeks or sooner if needed Adelina Bello APRN.CNM [facility] 04-05-2025 Miscellaneous Notes S: Angie Hicks is a 19 year old female who presents at 23 weeks gestation for a routine visit. Started feeling movements 2 weeks ago. Reports mood has been elevated since starting new job and having more of a schedule/ routine. Did not fill Lexapro prescription from last visit and is unsure if she wants to restart medication during . Encouraged appointment with behavioral health. Nausea improving. O: See flow sheet Gen: No apparent distress Abd: Gravid, nontender ASSESSMENT/PLAN: 1. 23 weeks gestation of 2. Encounter for supervision of normal first in second trimester 3. Screening for diabetes mellitus 4. Urinary tract infection without hematuria, site unspecified 5. Depression with anxiety - Continue vitamin and ASA daily - Patient to reach out for appointment with behavioral health - Repeat urine culture- KATHE today - Educated on GCT process at next visit - MH / counseling resources provided - Patient's mother present for visit and is support person - RTO 4 weeks or sooner if needed Adelina Bello APRN.CNM documented in this encounter [facility] 04-05-2025 Instructions Adelina Bello APRN.CNM - 04/05/2025 4:19 PM EDT Here are some links for wonderful Providers here in the community and surrounding areas. Do not hesitate to contact their offices, many are offering virtual visits during this time. 4-800-2-RRQP9LDGS - [place] Maternal Mental Health Hotline If you are in suicidal crisis, please call or text 1-211-122-TALK ( ) or visit the National Suicide Prevention Lifeline website. mchb.[facility] hospital[facility].gov [facility] Psychology, Psychiatry, Counseling Connect with therapist/ can do virtual visits [phone] Referral to the [facility] To schedule an appointment, please call the [place] for Behavioral Health Appointment Line: [phone] option 1 [facility] [place], [place] [address] [place] [address] [address] [place] [address] [facility] [address] [place] [address] [facility] [address] [place], [place] [id number] Shirley Ibarra MD [address] [place] [address] [facility] [address] [facility] [place], [address] [place] [address] [facility] [address] [place] [address] [facility]ing Services [place] / [place] [phone]/ [phone] Katherine Shaikh [address] [facility] [phone] A[facility] Counseling and Mediation [place] / [place] [phone] [facility] [address] [place] [address]/ [place] [phone] Juanita Alicea, PEDRO, CLC [facility] Workshops, telehealth and at home visits. [phone] [facility] counseling [place] 20 locations [place], [place], [place], [place], [place], [place], [place], [facility], [place], [place], [place], [place], [place], [place], [facility], [place], [place] ,[facility], [place], [place],[facility], [place], [facility] [place], [place], [facility], [place], [place] [email or web address] [phone] Psychotherapy resources outside of [facility] are listed below [facility] ELGIN Dotson, QUILTING SUPERVISOR-S [phone] Revival.[email or web address] [address] [address] *Trauma therapy, EMDR, in person or virtual visit. Accepts some insurances. [employer] [phone] [facility] [employer] [place] [address] [employer] Psychotherapy Web: https://www.Connotate/ Support International Online Provider Directory https://Enablon/ [facility] https://SaleStream/ Digital Lumens for Behavioral Health and Wellness Web: https://SynergEyes/ Center for Effective Living Web: https://www.effectiveClusterSevenliving.Hapara/ LifeStance Web: https://Nanomed Skincare[employer] Inc. (Suzhou Natong).Hapara/location/s council/[place]/ [facility] Web: https://www.signaturehealthinc.or / [facility] Web: https://Tibion Bionic Technologies.org/ Recovery Resources Mental health and substance abuse help Web: https://www.xClouds.org [facility] [address] [place] [address] [facility] [address] www.Lotour.com & RESOURCES Support International Direct peer support and connection to professional resources Non-Emergency Helpline Phone: / Text: [phone] Web: https://www..net/ Online Provider Directory: https://Enablon/ Online Support Meetings: https://www..net/get-he lp/bgx-xesifi-oougaci-meetings/ MILAGROS [employer] Der[employer] Services Web: https://wwwChtiogen/ MotherToBaby Expert information on medication use during and Text: [phone] Web: https://GAMINSIDE/ NATIONAL REGISTRY FOR PSYCHIATRIC MEDICATIONS Currently studying the safety of antidepressants, ADHD medications and atypical antipsychotics taken during TO PARTICIPATE CALL TOLL-FREE: Web: https://womenentalhealth.org/re search/pregnancyregistry/ Support Groups: [facility]- Follow on facebook Baby Bistro support group led by [facility] department [facility] - Support Group [facility].org The POEM support group [phone] Www.poemonline.org Follow on facebook - CECILIO joe chapter Online support meetings PSI https://www..net/get-he lp/hir-onivmu-axwiiap-meetings/ CC mommy and me virtual support group 11:30-1pm Support for mothers and new babies and toddlers Dulce childbirth education: Childbirth @cc.org or call [phone] Support groups Online support meetings PSI https://www..net/get-he lp/uqm-sibnub-zdcgvzj-meetings/ Here are the support groups they offer: Support of parents of 1 to 4 years old children POEM ( Outreach and Encouragement for Moms) offers free support for mothers experiencing depression, anxiety, and other mood and anxiety disorders. Masks are recommended but not required. No pre-registration required. Babies in arms welcome. meetings now take place on the and Wednesday of each month Location: [facility] [address] [id number] Room 122 (library room) 7-8:00 p.m. When you enter the scientologist parking lot off of [address] the entrance door closest to our meeting room is on the front of the building toward the right. For those who are more comfortable with a virtual platform, [employer] offers online support group options several days of the week. To register for an online group or to find out more about POPowerMag, website at: https://Personify Incaohio.org/get-help/[facility] hospitaldxzd-irugdr-josrqs/poem-services/ offer a confidential helpline: private Facebook group is called PONEGRITA Heath Randolph Here are the groups they offer: Traumatic childbirth resources: Http://pattch.org/ https://www.SageQuestniParametric/ CRISIS: CRISIS HOTLINE [phone], 911 or go to the nearest ER. [facility] [phone] / [facility] [phone] https://www.[facility] ver[facility] hospitalrb.org Crisis text line text the word HOME to [id number] documented in this encounter [facility] 03-07-2025 Progress note Formatting of t his note might be different from the original. EH - S: Angie is a 19 year old female who presents at 18w6d for a routine visit. Feeling movement. Denies headache, visual changes, chest pain, shortness of breath, vaginal bleeding, leakage of fluid, or dysuria. Notes worsening mood. O: See flow sheet Gen: No apparent distress Abd: Gravid, nontender ASSESSMENT/PLAN: 1. Encounter for supervision of normal first in second trimester ([facility]) - ICD9: V22.0, ICD10: Z34.02 (primary diagnosis) - Continue PNV and LDA 2. 18 weeks gestation of ([facility]) - ICD9: V22.2, ICD10: Z3A.18 - Anatomy ultrasound today, report pending 3. Nausea and vomiting during ([facility]) - ICD9: 643.90, ICD10: O21.9 - Controlled 4. Depression with anxiety - ICD9: 300.4, ICD10: F41.8 - Reports struggling with mood since discontinuing Lexapro - Denies thoughts of self harm - Recommend restarting Lexapro, reviewed risks and benefits to mother and baby. - Rx for 10 mg of Lexapro sent. - Patient to go to ER with suicidal thoughts or thoughts of harming others. Discussed will likely take 4-6 weeks to notice full effect. Reviewed that symptoms can become worse before better. [facility] consult placed. 5. History of ADHD - ICD9: V11.8, ICD10: Z86.59 PTL precautions reviewed. RTO in 4 weeks or sooner as needed. Dariusz Brooks APRN.FAMILY LITERACY COORDINATOR [facility] 03-07-2025 Miscellaneous Notes EH - S: Angie is a 19 year old female who presents at 18w6d for a routine visit. Feeling movement. Denies headache, visual changes, chest pain, shortness of breath, vaginal bleeding, leakage of fluid, or dysuria. Notes worsening mood. O: See flow sheet Gen: No apparent distress Abd: Gravid, nontender ASSESSMENT/PLAN: 1. Encounter for supervision of normal first in second trimester ([facility]) - ICD9: V22.0, ICD10: Z34.02 (primary diagnosis) - Continue PNV and LDA 2. 18 weeks gestation of ([facility]) - ICD9: V22.2, ICD10: Z3A.18 - Anatomy ultrasound today, report pending 3. Nausea and vomiting during ([facility]) - ICD9: 643.90, ICD10: O21.9 - Controlled 4. Depression with anxiety - ICD9: 300.4, ICD10: F41.8 - Reports struggling with mood since discontinuing Lexapro - Denies thoughts of self harm - Recommend restarting Lexapro, reviewed risks and benefits to mother and baby. - Rx for 10 mg of Lexapro sent. - Patient to go to ER with suicidal thoughts or thoughts of harming others. Discussed will likely take 4-6 weeks to notice full effect. Reviewed that symptoms can become worse before better. WBH consult placed. 5. History of ADHD - ICD9: V11.8, ICD10: Z86.59 PTL precautions reviewed. RTO in 4 weeks or sooner as needed. Dariusz Brooks APRN.DAVID documented in this encounter [facility] 03-07-2025 Instructions Dariusz Brooks APRN.CNP - 03/07/2025 3:54 PM EDT Images from the original note were not included. Psychotherapy Services at [facility] Call [facility] Access Line at [phone] to schedule Individual psychotherapy In-person or virtual Wait time for first evaluation may be 12 or more weeks. Wait list spots may be available. Due to the high volume of patients this option is recommended if you are looking for short term acute symptom coping strategies. 4-523-1-PXPI8LKIO - [place] Maternal Mental Health Hotline If you are in suicidal crisis, please call or text 1-948-189-TALK ( ) or visit the National Suicide Prevention Lifeline website. mchb.[facility].gov If you are in crisis, call 911 or go to your nearest Emergency Department Here are some links for wonderful Providers here in the community and surrounding areas. Do not hesitate to contact their offices, many are offering virtual visits during this time. Psychotherapy Services outside of [facility] Support International Online Provider Directory https://ChatterBlock.com/ - can assist in finding providers in your area that might be more extensive then the list below. [facility] [place], [place] [address] [place], [place] [id number] [address] [address] [facility] [address] [place], [place] [address] [address] [address] Shirley Ibarra MD [address] [place], [place] [address] [facility] [address] [facility] [place], [address] [place] [address] [facility]iatric Services [address] [place] [address] [facility] [place] [phone]/ [phone] Katherine Anthonynela [address] [facility] [phone] A[facility] of Counseling and Mediation [place] / [place] [phone] [facility] [address] [place] [address]/ [place] [phone] Juanita Alicea, PEDRO, CLC [facility] [facility] Therapy Workshops, telehealth and at home visits. [phone] [facility] counseling center 20 locations [facility] [place], [place], [place], [place], [place], [place], [facility], [place], [place], [place], [place], [place], [place], [facility], [place], [place] ,[facility], [place], [place],[facility], [place], [facility], [place], [facility], [facility], [place] www.[email or web address] st. [email or web address] medical [email or web address].co [phone] Psychotherapy resources outside of [facility] are listed below RTN Stealth Software Psychotherapy Web: https://www.Connotate/ Support International Online Provider Directory https://Enablon/ [facility] https://SaleStream/ Partners for Behavioral Health and Wellness Web: https://SynergEyes/ Center for Effective Living Web: https://www.effectiveClusterSevenliving.Hapara/ LifeStance Web: https://Nanomed Skincare, Inc. (Suzhou Natong).Hapara/location/s saeed/[place]/ [facility] Web: https://www.[facility].or g/ The Centers Web: https://Tibion Bionic Technologies.org/ Recovery Resources Mental health and substance abuse help Web: https://www.GettingHired & RESOURCES Support International Direct peer support and connection to professional resources Non-Emergency Helpline Phone: / Text: [phone] Web: https://www..net/ Online Provider Directory: https://Enablon/ Online Support Meetings: https://www..net/get-he lp/dtj-vsynlj-dkbilmy-meetings/ MILAGROS Baby and Log Yard Derrick Operator Services Web: https://untapt/ MotherToBaby Expert information on medication use during and Text: [phone] Web: https://GAMINSIDE/ NATIONAL REGISTRY FOR PSYCHIATRIC MEDICATIONS Currently studying the safety of antidepressants, ADHD medications and atypical antipsychotics taken during TO PARTICIPATE CALL TOLL-FREE: Web: https://womenentalhealth.org/re search/pregnancyregistry/ Support Groups: [facility]- Follow on facebook Baby Bistro support group led by [facility] department [facility] Mamas - Support Group [facility].org The POEM support group [phone] Www.poemonline.org Follow on facebook - PONEGRITA joe chapter Online support meetings PSI https://www..net/get-he lp/inl-mrinbs-emsfzjo-meetings/ [facility] mommy and me virtual support group 11:30-1pm Support for mothers and new babies and toddlers Dulce childbirth education: Childbirth @ccf.org or call [phone] CRISIS: CRISIS HOTLINE [phone], 911 or go to the nearest . [facility] [phone] / [facility] [phone] https://www.mhrb.org Crisis text line text the word HOME to 538676 Mike Val[facility] [address] [facility] [address] www.Lotour.com Ute Jain clinical counseling [address] [facility] [address] [place] [address] www.Relavance Software [phone] Holding space psychotherapy Lisette Pepejacoby MICROWAVE RADIO TECHNICIAN QUILTING SUPERVISOR-S [address] [facility] www.LQ3 Pharmaceuticals [phone]/ [place] [phone] They all offer virtual. All work with trauma Support groups Online support meetings PSI https://www..net/get-he lp/ozj-gfxdcl-uocknlf-meetings/ Here are the support groups they offer: Support of parents of 1 to 4 years old children POEM ( Outreach and Encouragement for Moms) offers free support for mothers experiencing depression, anxiety, and other mood and anxiety disorders. Masks are recommended but not required. No pre-registration required. Babies in arms welcome. meetings now take place on the and Wednesday of each month Location: [facility] [address] [place] [address] Room 122 (library room) 7-8:00 p.m. When you enter the scientologist parking lot off of [address] the entrance door closest to our meeting room is on the front of the building toward the right. For those who are more comfortable with a virtual platform, PO offers online support group options several days of the week. To register for an online group or to find out more about POEM, website at: https://mhaohio.org/get-help/[facility] hospitaladur-qamjgp-rbueen/poem-services/ offer a confidential helpline: private Facebook group is called CECILIO Randolph Here are the groups they offer: Traumatic childbirth resources: Http://pattch.org/ https://www.queClusterSevensuad Xconomy.Hapara/ Name Location (s) Phone # (s) Services Website RTN Stealth Software Psychotherapy [address] [place], [place] - [phone]; [address] [facility] [address] [place], [place]- [phone] In-Person GROUPS INDIVIDUAL THERAPY MATERNAL-INFANT MENTAL HEALTH MEDICATION MANAGEMENT PLAY AND ART THERAPY TELETHERAPY https://www.Connotate/s ez/ Eugene JOE? [address] [place], [place] [address] ? [address], [address] [place], [place] [address] ? OTTO [address] [place], [place] [address]? Grief Support Groups Individual Grief Counseling Spiritual Care Memorial Events https://heath.[facility].org/grief-services [facility] [address] [place], [place] [address]; ; Email: corina@Campaign Monitor Women's Mental Health; Couples Counseling; Trauma (EMDR); Stress Management; Mood and Anxiety Related Disorders- and much more https://www.Renovation Authorities of [place]/ LifeStance Numerous as they have contract providers: access website to find specific providers near you Counseling including CBT and EMDR as well as many more modalities; Medication Management; Telehealth and In-Person https://United Protective Technologies/ Digital Lumens for Behavioral Health and Wellness [address] [place] [address]; [phone] Personal, Family and Group Therapy; Psychological Testing and Diagnosis; Medication Management; Life and Career Coaching; Psychoanalysis; Literacy Testing; Yoga and Meditation https://Bi02 Medical.Hapara/ Fit Mind [place] [address] [facility] [address], [place] [address] [address] ; [address] [facility], [address] [place] [address]; Office # for both sites: Individual and Couples Counseling https://www.Origene Technologies.Hapara/ paymentinsurance.html OCD & Anxiety [facility] [address] [facility], [address], [place] [address]; Specialize in Cognitive-Behavioral Therapy (CBT) for the treatment of anxiety disorders across the lifespan. TELEHEALTH ONLY. https://ocdandanxietycenterofclev FusionOps.Hapara/faqs [facility] [address] [place], [address] [place] [address] [facility] [place], [address] [place] [address] [address] [place], [address] [place] [address] [place], [address], [address] [place] [address] [facility] [place], [address] [address] [address] [place] [employer], [place], [id number] Transportation Services To minimize patient barriers, [facility] provides transportation services to patients who qualify. If you are unable to get to your appointment at any of our facilities, please let us know. Need help now? Stop by one of our walk-in clinics to establish behavioral health care. Counseling Indvidual, Group, Couples and Family Counseling and EMDR. Medication Management Case Management benefits applications housing assistance Substance abuse treatment Medication assisted treatment https://www.[facility].or g/mental-health/ [facility] OFFICE AT [facility] [address] [place] [address] [facility] OFFICE [address] [place] [address] [facility] OFFICE [address] [place], [place] [id number] TOW OFFICE (at [facility]) [address] [place] [address] [facility] EXCHANGE PROGRAM & HIV SCREENING [address] [place] [address] [facility] EXCHANGE PROGRAM [address] [place] [address] Behavioral Health Urgent Care: [facility] Counseling Indvidual and Group Medication Management Case Management benefits applications housing assistance Substance abuse treatment Medication assisted treatment Employment Services/ Job Training https://Tibion Bionic Technologies.org/ Recovery Resources [address] [place], [place] [address]: P: [phone] [address] [facility], [address], [place], [place] [address] P: [phone] Our services include: Addiction Mental Health Treatment Assessment Psychiatry Medical Care Employment Housing Drug and Alcohol Prevention HIV/AIDS Prevention https://www.xClouds.org/ [facility] [place] [address] [place] [address] [place] [address] [place], [place] [address] [address] [place] [address] [place] [address] [facility] [address] [place] [address] [place] [address] [address] [place] [address] TMS Therapy/ Counseling Psychocological Testing for ADHD Medication Management In-Person/ Telemedicine https://www.Westcrete/melani ents-depression Memory & Psychological services [address], [place] [address] Neuropsychological Testing For ADHD https://www.memoryandpsych.com/ [facility] Office [address] [place] [address] [address] Providing gvaq-xt-ahrb and telehealth services. Adult Case Management Community Education and Prevention Employment Outpatient Treatment - Counseling & Psychotherapy Psychiatric Services http://www.ccwhc.org/ [facility] [place] [address] [place] [address] Cookie [facility] [address] [place] [address] Virtual Appointments! Now offering safe and convenient virtual client appointments to anyone in [place]! Individual Therapy Couples/Relationship Therapy Trauma/EMDR Therapy Art Therapy Play Therapy Drafter Geological Support: Parenting Skills, Parent Child Interaction Therapy, Parent Interaction Therapy Meditation Dietitian/Webbing Inspector Services Group Therapy Yoga https://www.WorkVoices. Hapara/ Selma Roa [phone] Private Practice: Telehealth Only Specializes in EMDR for Trauma None SEQUENTIAL SCREENINGS The [facility] offers sequential screenings for women who are interested in screenings for chromosomal abnormalities and certain defects during a . The sequential screen combines ultrasound and blood tests to determine the risk of chromosomal abnormalities, including Down's Syndrome (Trisomy 21) and Trisomy 18, as well as open neural tube defects including spina bifida. Ultrasound examination is performed between 11 weeks and 13 weeks gestational age. Blood tests are drawn after the ultrasound and again later in the between 15 and 21 weeks gestational age. Please let your physician know if you are interested in this testing. It will require an appointment with our decontamination technician. This is not an ultrasound performed by a physician in our office during a routine visit. SIGNS AND SYMPTOMS OF LABOR 1. Contractions every 10 minutes or more often 2. Clear, pink, or brownish fluid (water) leaking from vagina 3. Feeling that baby is pushing down, pressure 4. Low, dull backache 5. Cramps that feel like a period 6. Cramps with or without diarrhea If you notice any of the above symptoms, contact our office at [phone] and ask to speak with a nurse. After hours, you can call doctors registry at [phone] OR call [facility] at [phone] and ask to have the doctor yardage control clerk paged. If you consider this an emergency, dial 1-2-8 or go to your nearest emergency department. NEED HELP? Are you dealing with a violent or abusive relationship? Are you a victim of rape or sexual assult? Call [facility] 24 hour Crisis Hotline: 982.983.4523 or 972-834-8356. MANUAL Your Guide to a Healthy manual is now on-line. Visit the [facility].org/HealthyPregna ncyGuide to download your free copy documented in this encounter [facility] 01-17-2025 Progress note Formatting of t his note might be different from the original. S: Angie Hicks is a 19 year old female who presents at 08/02/2025, by Last Menstrual Period for a routine visit. Denies headache, visual changes, chest pain, shortness of breath, vaginal bleeding, leakage of fluid, or dysuria. Feeling well, no complaints O: See flow sheet Gen: No apparent distress Getting NOB labs ASSESSMENT/PLAN: 1. Encounter for supervision of normal first in first trimester ([facility]) - ICD9: V22.0, ICD10: Z34.01 (primary diagnosis) - BACTERIAL CULTURE, URINE 2. 11 weeks gestation of ([facility]) - ICD9: V22.2, ICD10: Z3A.11 Early anatomy scheduled for 16 weeks - BACTERIAL CULTURE, URINE Deisi Menon MD [facility] 01-17-2025 Miscellaneous Notes S: Angie Hicks is a 19 year old female who presents at 08/02/2025, by Last Menstrual Period for a routine visit. Denies headache, visual changes, chest pain, shortness of breath, vaginal bleeding, leakage of fluid, or dysuria. Feeling well, no complaints O: See flow sheet Gen: No apparent distress Getting NOB labs ASSESSMENT/PLAN: 1. Encounter for supervision of normal first in first trimester ([facility]) - ICD9: V22.0, ICD10: Z34.01 (primary diagnosis) - BACTERIAL CULTURE, URINE 2. 11 weeks gestation of ([facility]) - ICD9: V22.2, ICD10: Z3A.11 Early anatomy scheduled for 16 weeks - BACTERIAL CULTURE, URINE Deisi Menon MD documented in this encounter [facility] 01-17-2025 Instructions Bill Roblero MA - 01/17/2025 2:16 PM EDT SEQUENTIAL SCREENINGS The [facility] offers sequential screenings for women who are interested in screenings for chromosomal abnormalities and certain defects during a . The sequential screen combines ultrasound and blood tests to determine the risk of chromosomal abnormalities, including Down's Syndrome (Trisomy 21) and Trisomy 18, as well as open neural tube defects including spina bifida. Ultrasound examination is performed between 11 weeks and 13 weeks gestational age. Blood tests are drawn after the ultrasound and again later in the between 15 and 21 weeks gestational age. Please let your physician know if you are interested in this testing. It will require an appointment with our decontamination technician. This is not an ultrasound performed by a physician in our office during a routine visit. SIGNS AND SYMPTOMS OF LABOR 1. Contractions every 10 minutes or more often 2. Clear, pink, or brownish fluid (water) leaking from vagina 3. Feeling that baby is pushing down, pressure 4. Low, dull backache 5. Cramps that feel like a period 6. Cramps with or without diarrhea If you notice any of the above symptoms, contact our office at [phone] and ask to speak with a nurse. After hours, you can call doctors registry at [phone] OR call [facility] at [phone] and ask to have the doctor yardage control clerk paged. If you consider this an emergency, dial 91-0 or go to your nearest emergency department. NEED HELP? Are you dealing with a violent or abusive relationship? Are you a victim of rape or sexual assult? Call [facility] ([place]) 24 hour Crisis Hotline: 998.242.8826 or 974-235-7170. MANUAL Your Guide to a Healthy manual is now on-line. Visit [facility].org/HealthyPregna ncyGuide to download your free copy documented in this encounter [facility] 01-09-2025 Telephone encounter Note RX sent. Ashley Trujillo APRN.CNP [facility] 01-09-2025 Miscellaneous Notes RX sent. Ashley Trujillo APRN.CNP Will let her know about no liquid option/ opening capsule, but she still needs it sent to different pharmacy first.. Bettye Plata RN There is no liquid form of antibiotic. She can open the capsule and put it into something like applesauce or yogurt. Ashley Trujillo APRN.CNP Pharmacy updated, is there a liquid antibiotic patient can take? Sara Dupree RN +UTI- macrobid sent. Please notify pt. Ashley Trujillo APRN.CNP documented in this encounter [facility] 01-09-2025 Telephone encounter Note Will let her know about no liquid option/ opening capsule, but she still needs it sent to different pharmacy first.. Bettye Plata RN [facility] 01-09-2025 Telephone encounter Note There is no liquid form of antibiotic. She can open the capsule and put it into something like applesauce or yogurt. Ashley Trujillo APRN.CNP [facility] 01-08-2025 Telephone encounter Note Pharmacy updated, is there a liquid antibiotic patient can take? Sara Dupree RN [facility] 01-08-2025 Telephone encounter Note +UTI- macrobid sent. Please notify pt. Ashley Trujillo APRN.DAVID [facility] 01-05-2025 Instructions Dariusz Brooks APRN.CNP - 01/05/2025 10:51 AM EDT Images from the original note were not included. Please select the following link to access the [facility] Your Guide to a Healthy . www.Ccf.org/healthypregnancyguide MORNING SICKNESS IN by Meenakshi Price M.D. for Rezzcard As you may already know, morning sickness can often be more appropriately called evening sickness or jtrzw-hxqtdx-xz-the-day sickness. While there are the mert few, most women (50-90%) experience some degree of nausea, some have vomiting, and a few develop a severe form of vomiting during called hyperemesis gravidarum. What causes the nausea and vomiting of ? We can't explain why some people feel fine and others are green for months. Even the same woman may feel vastly different in each . There is some relationship between nausea and the level of the hormone hCG. In twin pregnancies, and in other situations where the hCG is greater than expected, nausea and vomiting tend to be worse. In a destined for miscarriage, hCG levels tend to be low, and nausea is often less severe. This being said, a lack of nausea doesn't guarantee that the is destined for miscarriage. The fact that nausea and vomiting are often signs of a healthy can offer a silver lining in the dark cloud of miserable nausea. How long will the nausea last? Fortunately, for most women, nausea and vomiting are a first trimester event, peaking at week 9-10 and waning by week 14-16. When you are feeling bad the weeks can go by slowly but most moms do feel tremendously better by the middle of the . Whether morning sickness is a brief experience or lasts through most of the , there are treatments that can make the weeks or months more tolerable. What can you do about it? Diet: See what works for you. Try eating bland dry foods, and avoid fatty or spicy foods. It is okay to eat a less than perfectly balanced diet in the first trimester. Have your liquids separately from dry foods. Try sports drinks, water, clear juices, Theodore-aid, or non-caffeinated tea. Avoid carbonated beverages that fill up your stomach. Try eating lots of little meals. If you tend to feel sick when you first wake up, leave crackers next to the bed for a quick snack before rising. Keeping healthy snacks with you all day to nibble when you feel queasy can sometimes even prevent nausea from starting. vitamins and nausea: Pre-angelica vitamins can sometimes worsen nausea in . While folate is necessary, especially early in the , it comes as a smaller pill that many people find more tolerable than the complete vitamin pill. Ask your practitioner if it is okay to temporarily replace vitamins and iron with just a folate pill if you find a significant worsening in the level of your nausea from the vitamins. Alternative therapies: Acupressure may be used to treat nausea in , and is not known to have any risks for the fetus. Wristbands (marketed for seasickness) that put pressure on an acupressure point at the wrist are often available at drugstores or travel stores. Yolie root is used for nausea in many traditional cultures. Some women take fresh grated yolie or yolie tablets. It is possible that the pill form contains other ingredients or contaminants, so you may want to try fresh yolie first. Medications: Emetrol is the only nausea medication approved for use in . It is available over the counter and is soothing to the stomach. A prescription medication called Bendectin was available in the 1970s-1979's and was shown to be safe in , but the company stopped marketing it in the [place] due to the costs of liability coverage. Bendectin contained 10 milligrams of vitamin B6 and 10 milligrams of Doxylamine. Two tablets were given at bedtime and a total of up to 4 tablets could be used in a 24-hour period. Interestingly, Unisom , which contains a higher dose (25 mg.) of the same medication, Doxylamine, is currently marketed as an pjpb-zqd-gvmxmcy sleeping pill. Ask your practitioner if creating a vitamin B6/Doxylamine combination with rwro-bid-rhmvdlz medications would be safe for you. Prescription medications like Compazine and Phenergan can be used if the benefits outweigh possible risks, but these have not been clearly shown to be safe in . Zofran , an expensive anti-nausea medication often used to treat nausea from chemotherapy, can also be used. Can I throw up so much it harms the baby? The act of vomiting cannot hurt your fetus, which is protected inside the uterus. If you get dehydrated or develop a metabolic imbalance, this can be unhealthy. As long as you can keep down liquids, you and your baby will generally do all right. Eat when you feel able. If you are unable to keep anything down, or if you notice potential signs of dehydration such as lightheadedness, or concentrated and/or infrequent urination, call your practitioner. Some women need brief hospital admission for intravenous fluids and anti-nausea medications if their condition becomes severe. This severe form of nausea and vomiting is called Hyperemesis Gravidarum. As with many symptoms of , remind yourself that this, too, shall pass, and you'll have a wonderful baby to show for it! TREATMENT OPTIONS, SHORT VERSION: Frequent small meals Hydrate throughout day Sea-Bands wrist pressure point applicators Yolie root (powdered, in capsules) 250mg four times a day Vitamin B6 25 mg tablet three times a day Also may be taken with half a tablet of Unisom three times a day (Doxylamine 12.5 mg) If severe (weight loss, dehydration), call us and come in for IV hydration and possible medication in the form of injections. Prescription medications such as Phenergan, Compazine, Reglan Psychotherapy Services at [facility] Call Behavioral Health Access Line at [phone] to schedule Individual psychotherapy In-person or virtual Wait time for first evaluation may be 12 or more weeks. Wait list spots may be available. Due to the high volume of patients this option is recommended if you are looking for short term acute symptom coping strategies. 2-901-6-QXXE4QYQR - [facility] Mental Health Hotline If you are in suicidal crisis, please call or text 9-295-320-TALK ( ) or visit the National Suicide Prevention Lifeline website. mchb.[facility].gov If you are in crisis, call 911 or go to your nearest Emergency Department Here are some links for wonderful Providers here in the community and surrounding areas. Do not hesitate to contact their offices, many are offering virtual visits during this time. Psychotherapy Services outside of [facility] Support International Online Provider Directory https://Enablon/ - can assist in finding providers in your area that might be more extensive then the list below. [facility] [place], [place] [address] [place] [address] [facility] [address] [place] [address] [facility] [address] [place] [address] [facility] [address] [place], [place] [id number] Shirley Ibarra MD [address] [place], [place] [address] [facility] [address] [facility], [address] [place] [address] [facility] Psychiatric Services [address] [place] [address] [facility] Counseling Services [place] / [place] [phone]/ [phone] Katherine [facility] [address] [facility] [address] [facility] [phone] Aves of Counseling and Mediation [place] / [place] [phone] [facility] [address] [place] [address]/ [place] [phone] Juanita Alicea, PEDRO, CLC [facility] Workshops, telehealth and at home visits. [phone] Humanistic counseling center 20 locations [facility], [place], [place], [place], [place], [place], [facility], [place], [place], [place], [place], [place], [place], [facility], [place], [place] ,[facility] [facility], [place], [place],[facility], [place], [facility] [place], [place], [facility], [facility], Se [email or web address] [phone] Psychotherapy resources outside of [facility] are listed below [facility] Space Psychotherapy Web: https://www.Connotate/ Support International Online Provider Directory https://Enablon/ Insight Counseling https://SaleStream/ Partners [facility] Behavioral Health and Wellness Web: https://SynergEyes/ Tandem Transit for Effective Living Web: https://Figgu/ LifeStance Web: https://United Protective Technologies/location/s [place]lin/[place]/ [facility] Web: https://www.Monkey Bizness.or / [facility] Web: https://Tibion Bionic Technologies.LegalReach/ Recovery Resources Mental health and substance abuse help Web: https://www.xClouds.LegalReach & RESOURCES Support International Direct peer support and connection to professional resources Non-Emergency Helpline Phone: / Text: [phone] Web: https://www..net/ Online Provider Directory: https://Enablon/ Online Support Meetings: https://www..net/get-he lp/vzl-rvsmbp-yisicsm-meetings/ MILAGROS Baby and Log Yard Derrick Operator Services Web: https://wwwChtiogen/ MotherToAdynxxby Expert information on medication use during and Text: [phone] Web: https://Spockly.LegalReach/ NATIONAL REGISTRY FOR PSYCHIATRIC MEDICATIONS Currently studying the safety of antidepressants, ADHD medications and atypical antipsychotics taken during TO PARTICIPATE CALL TOLL-FREE: Web: https://womensmentalhealth.org/re search/pregnancyregistry/ Support Groups: [facility]- Follow on facebook Baby Bistro support group led by [facility] department Resilient Mamas - Support Group [facility].org The POEM support group [phone] Www.poemonline.org Follow on facebook - PONEGRITA joe chapter Online support meetings PSI https://www..net/get-he lp/esy-mdhejh-ftkhzmb-meetings/ [facility] mommy and me virtual support group 11:30-1pm Support for mothers and new babies and toddlers Dulce childbirth education: Childbirth @[facility].org or call [phone] CRISIS: CRISIS HOTLINE [phone], 911 or go to the nearest ER. [facility] [phone] / [facility] [phone] https://www.catholic health.org Crisis text line text the word HOME to [phone] [facility] Counseling [address] hussain [address]B [facility] [address] www.Lotour.com Ute Jain clinical counseling [address] [address] www.Relavance Software [phone] Holding space psychotherapy Lisette Keene MICROWAVE RADIO TECHNICIAN QUILTING SUPERVISOR-S [address] [facility] www.LQ3 Pharmaceuticals [phone]/ [place] [phone] They all offer virtual. All work with trauma Support groups Online support meetings PSI https://www..net/get-he lp/amg-iquypw-xpuqgyh-meetings/ Here are the support groups they offer: Support of parents of 1 to 4 years old children POEM ( Outreach and Encouragement for Moms) offers free support for mothers experiencing depression, anxiety, and other mood and anxiety disorders. Masks are recommended but not required. No pre-registration required. Babies in arms welcome. meetings now take place on the and Wednesday of each month Location: [facility] [address], [place] [address] Room 122 (library room) 7-8:00 p.m. When you enter the scientologist parking lot off of [address] the entrance door closest to our meeting room is on the front of the building toward the right. For those who are more comfortable with a virtual platform, PO offers online support group options several days of the week. To register for an online group or to find out more about PO, website at: https://aorio.org/get-help/[facility] hospitalisox-sjunly-eeuzph/poem-services/ offer a confidential helpline: private Facebook group is called CECILIO [facility] Hospital[facility] Chapter Here are the groups they offer: Traumatic childbirth resources: Http://pattch.org/ https://www.Juniper NetworksmikaylaVivid GamesbrynInvite Media.Hapara/ Name Location (s) Phone # (s) Services Website [facility] Psychotherapy [address] [facility] [phone]; [address] [phone] In-Person GROUPS INDIVIDUAL THERAPY MATERNAL-INFANT MENTAL HEALTH MEDICATION MANAGEMENT PLAY AND ART THERAPY TELETHERAPY https://www.Connotate/s ervices/ [facility]? [address] [address] ? [address], [address] [place], [place] [address] ? OTTO [address] [address]? Grief Support Groups Individual Grief Counseling Spiritual Care Memorial Events https://heath.[facility].org/grief-services [facility] [address] [place], [place] [address]; ; Email: corina@Campaign Monitor Women's Mental Health; Couples Counseling; Trauma (EMDR); Stress Management; Mood and Anxiety Related Disorders- and much more https://www.Connected Data.com/ LifeStance Numerous as they have contract providers: access website to find specific providers near you Counseling including CBT and EMDR as well as many more modalities; Medication Management; Telehealth and In-Person https://Nanomed Skincare, Inc. (Suzhou Natong).Hapara/ [facility] [address] [place], [place] [address]; [phone] Personal, Family and Group Therapy; Psychological Testing and Diagnosis; Medication Management; Life and Career Coaching; Psychoanalysis; Literacy Testing; Yoga and Meditation https://Bi02 Medical.Hapara/ Fit [facility] [address] [facility] [address], [place] [address] [address] ; [address] [facility], [address] [place] [address]; Office # for both sites: Individual and Couples Counseling https://www.Crescendo Networkscleveland clinic medina hospital.Hapara/ paymentinsurance.html OCD & Anxiety [facility] [address] [facility], [address], [place] [address]; Specialize in Cognitive-Behavioral Therapy (CBT) for the treatment of anxiety disorders across the lifespan. TELEHEALTH ONLY. https://ocdandanxietycentSmart GPS Backpackv Emailage/faqs [facility] [address] [place], [address] [place] [address] [facility] [place], [address] [place] [address] [facility] [place], [address] [place] [address] [place], [address], [id number] [place], [address] [address] [place], [address] Transportation Services To minimize patient barriers, [facility] provides transportation services to patients who qualify. If you are unable to get to your appointment at any of our facilities, please let us know. Need help now? Stop by one of our walk-in clinics to establish behavioral health care. Counseling Indvidual, Group, Couples and Family Counseling and EMDR. Medication Management Case Management benefits applications housing assistance Substance abuse treatment Medication assisted treatment https://www.signaturehealthinc.or g/mental-health/ [facility] [place] [facility] OFFICE AT [facility] [address] [place] [address] [facility] OFFICE [address] [place] [address] [facility] OFFICE [address] [place] [address] [facility] (at [facility]) [address] [place] [address] [facility] SYRINGE EXCHANGE PROGRAM & HIV SCREENING [address] [place] [address] V[place] [facility] EXCHANGE PROGRAM [address] [place] [address] Behavioral Health Urgent Care: [facility] Counseling Indvidual and Group Medication Management Case Management benefits applications housing assistance Substance abuse treatment Medication assisted treatment Employment Services/ Job Training https://theBlockchain.org/ Recovery Resources [address] [place], [place] [address]: P: [phone] [address] [facility], [address], [place], [place] [address] P: [phone] Our services include: Addiction Mental Health Treatment Assessment Psychiatry Medical Care Employment Housing Drug and Alcohol Prevention HIV/AIDS Prevention https://www.recres.org/ [facility] [place] [address] [facility] [address] [place] [address] [address] [place], [place] [address] [place] [address] [place] [address] [facility] [address] [place] [address] [place] [address] [place] [address] TMS Therapy/ Counseling Psychocological Testing for ADHD Medication Management In-Person/ Telemedicine https://www.Logical Lighting.com/melani ents-depression Memory & Psychological services [address], [place] [address] Neuropsychological Testing For ADHD https://www.memoryandpsych.com/ [facility] - Main Office [address] [place] [address] [phone] Providing kqnq-gv-jjmc and telehealth services. Adult Case Management Community Education and Prevention Employment Outpatient Treatment - Counseling & Psychotherapy Psychiatric Services http://www.[facility].org/ [facility] [place] [address] [place] [address] Cookie [facility] [address] [place] [address] Virtual Appointments! Now offering safe and convenient virtual client appointments to anyone in [place]! Individual Therapy Couples/Relationship Therapy Trauma/EMDR Therapy Art Therapy Play Therapy Drafter Geological Support: Parenting Skills, Parent Child Interaction Therapy, Parent Interaction Therapy Meditation Dietitian/Webbing Inspector Services Group Therapy Yoga https://www.Clearstream.TV/ Selma Roa [phone] Private Practice: Telehealth Only Specializes in EMDR for Trauma None documented in this encounter [facility] 01-05-2025 Note HNO ID: [id number] Author: DARIUSZ BROOKS APRN.DAVID Service: ? Author Type: Nurse Practitioner Type: Progress Notes Filed: 01/05/2025 12:03 Note Text: INITIAL OB ASSESSMENT HPI: Angie is a 19 year old White here to establish Obstetrical Care. Patient's last menstrual period was 10/26/2024 (approximate). from OB Dating Form. was unplanned but accepted Complaints: (!) Severe nausea/vomiting OB History Gravida1 Para0 Term0 Preterm0 AB0 Living0 SAB0 IAB0 Ectopic0 Multiple0 Live Births0 Previous history: Prior : never History of 4th degree laceration: NA History of shoulder dystocia: No History of Hypertensive disorders including pre-eclampsia or gestational hypertension: No History of gestational diabetes: No Patient's Risk Screening for delivery: Have you had a prior bacon between 20w and 36w6d? No How many pregnancies have you had before? 0 Did you have a previous baby with a GBS Infection? No Please select all that apply for any prior : N/A MEDICAL/PSYCHOSOCIAL HISTORY: History of hemorrhage or bleeding concerns: No Thyroid Disease: No History of chronic hypertension: No History of pre-existing diabetes: No No results found for: ABORHD BMI 21.65 kg/(m2) Last Pap: History of abnormal pap: No Prior treatment for cervical dysplasia: N/A. Last HPV: History of STDs: None Partner History of STDs: None Did you have a partner with Herpes? No Tobacco use: No E-Cigarette/Vaping Use: No Caffeine use: Yes- occasional coffee Drug use: No Alcohol use: No Multivitamin with Folic acid: Yes Would refuse blood transfusion if medically necessary: No Social Needs: How often does this describe you? I don't have enough money to pay my bills: Never Within the past 12 months, have you worried that your food would run out before you had money to buy more? Never In the past 12 months, has lack of reliable transportation kept you from going to medical appointments or work, or from getting things needed for daily living? Never In the past 12 months, have you had any concerns about having a place to live, or about the condition or quality of your housing? Never Would you like more information on any of the following (please check all that apply)? Social History: Do you have any history of depression, anxiety, PTSD, or other mood problems? Yes Do you have a history of abuse or trauma that may impact your experience? No Are you currently employed? Yes Depression/Anxiety Screening: denies symptoms of depression. OB Depression and Anxiety Screening- This Encounter Over the past 2 weeks have you felt down, depressed, or hopeless? Negative Over the past two weeks, have you felt little interest or pleasure in doing things?? Positive - Further Testing Indicated Feeling nervous, anxious or on edge 1-Several days Not being able to stop or control worrying 0-Not al all Anxiety Pre-Screening Total (If >/= 3 additional questions will be reviewed) 1 Genetic Screening: Partner present: Yes Patient verbalized knowledge of partner family health history: Yes Do you or your partner have any personal or family history of defects not previously discussed: No Do you have history of a complicated by anomaly, genetic condition, or demise: No Preeclampsia Risk Screening: Screening for prevention of preeclampsia: High risk factors: None Moderate risk ractors: Nulliparity OB Risk Screening: Completed, no positive findings documented. Marital Status:Single Partner: Name: Ramón Age: 23 Occupation: [employer] Gender: Male PAST MEDICAL HISTORY Diagnosis Date Pyelonephritis age 6 PAST SURGICAL HISTORY Procedure Laterality Date NONE Current Outpatient Medications Medication Sig Dispense Refill vit no.124/iron/folic ( VITAMIN ORAL) Take 1 tablet by mouth once daily. No current facility-administered medications for this visit. Allergies As of Date: 01/05/2025 Allergen Noted Reaction SULFA (SULFONAMIDE ANTIBIOTICS) 01/19/2014 Rash and Swelling Fully Assessed 01/05/2025 Does patient have penicillin allergy: No REVIEW OF SYSTEMS: GENERAL: Negative for: Fever or Chills HEENT: Negative for: Headache, Impaired Vision, Ringing in Ears, Nosebleeds NECK: Negative for: Swelling, Pain, Stiffness RESPIRATORY: Negative for: Cough, Shortness of breath, Wheezing GASTROINTESTINAL: Negative for: Heartburn, Constipation, Diarrhea, Blood in stool + nausea MUSCULOSKELETAL: Negative for: Muscle or joint pain, stiffness, Joint swelling NEUROLOGIC/PSYCHIATRIC: Negative for: Weakness, Paralysis, Numbness, Tingling, Tremor, Memory loss + depression with anxiety SKIN: Negative for: Rash, Itching GENITOURINARY: Negative for: vaginal itching, vaginal discharge, hematuria or dysuria SENSITIVE EXAM: The sensitive examinat (more content not included)... [facility] 01-05-2025 History of Present illness Narrative INITIAL OB ASSESSMENT HPI: Angie is a 19 year old White here to establish Obstetrical Care. Patient's last menstrual period was 10/26/2024 (approximate). from OB Dating Form. was unplanned but accepted Complaints: (!) Severe nausea/vomiting OB History Gravida1 Para0 Term0 Preterm0 AB0 Living0 SAB0 IAB0 Ectopic0 Multiple0 Live Births0 Previous history: Prior : never History of 4th degree laceration: NA History of shoulder dystocia: No History of Hypertensive disorders including pre-eclampsia or gestational hypertension: No History of gestational diabetes: No Patient's Risk Screening for delivery: Have you had a prior bacon between 20w and 36w6d? No How many pregnancies have you had before? 0 Did you have a previous baby with a GBS Infection? No Please select all that apply for any prior : N/A MEDICAL/PSYCHOSOCIAL HISTORY: History of hemorrhage or bleeding concerns: No Thyroid Disease: No History of chronic hypertension: No History of pre-existing diabetes: No No results found for: ABORHD BMI 21.65 kg/(m^2) Last Pap: History of abnormal pap: No Prior treatment for cervical dysplasia: N/A. Last HPV: History of STDs: None Partner History of STDs: None Did you have a partner with Herpes? No Tobacco use: No E-Cigarette/Vaping Use: No Caffeine use: Yes- occasional coffee Drug use: No Alcohol use: No Multivitamin with Folic acid: Yes Would refuse blood transfusion if medically necessary: No Social Needs: How often does this describe you? I don't have enough money to pay my bills: Never Within the past 12 months, have you worried that your food would run out before you had money to buy more? Never In the past 12 months, has lack of reliable transportation kept you from going to medical appointments or work, or from getting things needed for daily living? Never In the past 12 months, have you had any concerns about having a place to live, or about the condition or quality of your housing? Never Would you like more information on any of the following (please check all that apply)? Social History: Do you have any history of depression, anxiety, PTSD, or other mood problems? Yes Do you have a history of abuse or trauma that may impact your experience? No Are you currently employed? Yes Depression/Anxiety Screening: denies symptoms of depression. OB Depression and Anxiety Screening- This Encounter Over the past 2 weeks have you felt down, depressed, or hopeless? Negative Over the past two weeks, have you felt little interest or pleasure in doing things? Positive - Further Testing Indicated Feeling nervous, anxious or on edge 1-Several days Not being able to stop or control worrying 0-Not al all Anxiety Pre-Screening Total (If >/= 3 additional questions will be reviewed) 1 Genetic Screening: Partner present: Yes Patient verbalized knowledge of partner family health history: Yes Do you or your partner have any personal or family history of defects not previously discussed: No Do you have history of a complicated by anomaly, genetic condition, or demise: No Preeclampsia Risk Screening: Screening for prevention of preeclampsia: High risk factors: None Moderate risk ractors: Nulliparity OB Risk Screening: Completed, no positive findings documented. Marital Status:Single Partner: Name: Ramón Age: 23 Occupation: [employer] Gender: Male PAST MEDICAL HISTORY Diagnosis Date Pyelonephritis age 6 PAST SURGICAL HISTORY Procedure Laterality Date NONE Current Outpatient Medications Medication Sig Dispense Refill vit no.124/iron/folic ( VITAMIN ORAL) Take 1 tablet by mouth once daily. No current facility-administered medications for this visit. Allergies As of Date: 01/05/2025 Allergen Noted Reaction SULFA (SULFONAMIDE ANTIBIOTICS) 01/19/2014 Rash and Swelling Fully Assessed 01/05/2025 Does patient have penicillin allergy: No REVIEW OF SYSTEMS: GENERAL: Negative for: Fever or Chills HEENT: Negative for: Headache, Impaired Vision, Ringing in Ears, Nosebleeds NECK: Negative for: Swelling, Pain, Stiffness RESPIRATORY: Negative for: Cough, Shortness of breath, Wheezing GASTROINTESTINAL: Negative for: Heartburn, Constipation, Diarrhea, Blood in stool + nausea MUSCULOSKELETAL: Negative for: Muscle or joint pain, stiffness, Joint swelling NEUROLOGIC/PSYCHIATRIC: Negative for: Weakness, Paralysis, Numbness, Tingling, Tremor, Memory loss + depression with anxiety SKIN: Negative for: Rash, Itching GENITOURINARY: Negative for: vaginal itching, vaginal discharge, hematuria or dysuria SENSITIVE EXAM: The sensitive examination was discussed with the Patient or Patient's Authorized Crew Boss. As applicable, any other physician, advance practice provider, medical student, or other health professional student that will be observing or involved in the sensitive examination for educational or training purposes was discussed with the Patient or Authorized Crew Boss. The Patient or Authorized Crew Boss has agreed to proceed with the sensitive examination. (Sensitive examination includes inspection and/or palpation of the breasts, pelvis, prostate and anorectal regions). PHYSICAL EXAM: BP 100/62 Ht 4' 11.5 (1.51m) Wt 109 lb (49.4kg) LMP 10/26/2024 BMI 21.66 kg/(m^2). GENERAL: pleasant in no apparent distress DERMATOLOGY: Normal, without lesions, non-icteric, and non-hirsute NECK: Supple, full range of motion, no adenopathy, and thyroid normal CHEST: Normal inspiratory effort BREAST: soft, non-tender, symmetric, no dominant mass, normal nipple-areolar complex, no lymphadenopathy, and no nipple discharge ABDOMEN: soft, non-tender, and no masses NEURO: alert and oriented x3,exam grossly non-focal PELVIS: External genitalia normal without lesions. Perineal body intact. No vaginal or cervical lesions. Cervix closed. Uterus 10 week size. No adnexal masses or tenderness. Clinical Pelvimetry: Pelvimetry clinically assessed as adequate Limited OB ultrasound exam: single intrauterine and positive cardiac activity ASSESSMENT: 19 year old at Unknown wks gestational age PLAN: 1) Patient oriented to practice. Patient given new OB orientation folder. Discussed nutrition, folic acid supplementation, dietary guidelines, exercise, smoking, alcohol, caffeine, and drug use. Discussed gestational weight gain guidelines. Discussed routine OB labs including STD/HIV. Discussed how to access Your guide to a health and the Air Carrier Inspector. Discussed hemoglobin electrophoresis. Patient: Declines Reviewed midwifery and film maker services that are available. 2) Screening: Hemoglobin A1C: ordered Baby Aspirin: The patient has been counseled about the potential benefits of low dose aspirin in and our recommendation that this be offered to all patients, regardless of whether they meet the high risk criteria specified above. She Accepts Aneuploidy Screening: Discussed aneuploidy screening, nuchal translucency/first trimester early anatomy ultrasound and NIPT. The risks/benefits and limitations of NIPT/aneuploidy screening were reviewed including the potential for false negative and false positive results. The availability of genetic counseling was reviewed. Information on aneuploidy screening was provided. The patient chooses to proceed with First trimester early anatomy ultrasound (12-13w6d) Myriad Carrier Screening: Discussed myriad carrier screening. We discussed the availability of professional-society guided carrier screening and reviewed the conditions screened and limitations of screening. The availability of genetic counseling was reviewed. Information on carrier screening was provided. The patient is considering 3) Patient offered option of Virtual Visits. Patient unsure. May consider in future. ACTIVE PROBLEM LIST Encounter for Supervision of Normal First in First Trimester ([facility]) - 01/05/2025 Comment: Care Checklist Vaccines: [] Flu vaccine [] declined [] RSV vaccine 32 0/7 - 36 01/13 (Apr - Sep) [] declined [] COVID vaccine [] declined [] TDaP 27-36 [] declined First trimester: [x] Dating US [] 1st tri labs [] Pap smear NA [] Carrier screening - uncertain [] declined [] NIPT screening - uncertain [] declined [x] First trimester anatomy scan [] declined [x] universal ASA ordered (start 12w-16w) [] declined [] M Power Consult [] not indicated [] declined Second trimester: [] Anatomy scan [] Mode of Delivery - [] Feeding - [] Pump ordered [] Diabetes screen [] CBC, RPR [] Behavioral Health Screening Third trimester (28-30 weeks): [] Consent [] Contraception [] Commercial Intern [] TeamBirth handout Third trimester (36-40 weeks): [] GBS [] Presentation - [] Scheduled [] yes - Hibiclens, pre-op instructions, CBC, T&S ordered [] no [] H&P [] Preferences worksheet History of Adhd - 01/05/2025 Comment: January 05, 2025 Was on Vyvanse prior to and struggling without it. Managed by PCP. Recommend notifying PCP of and struggling without medication to determine treatment options. Dariusz Brooks APRN.CNP Depression With Anxiety - 01/05/2025 Comment: January 05, 2025 Was on 20 mg of Lexapro but stopped upon discovery of . Symptoms of anxiety and depression returning. Recommend restarting. Reviewed risks and benefits to mother and baby. Denies thoughts of self harm or harming others. Mental health resources provided. Dariusz Brooks APRN.CNP Nausea and Vomiting During (Hcc) - 01/05/2025 Comment: 01/05/25 Vitamin B6 and Unisom doses reviewed. To notify if prescription is needed. Dariusz Brooks APRN.CNP Follow up in 2-3 weeks or sooner prn. Plan for NT scan between 12w0d and 13w6d gestation. Dariusz Brooks APRN.CNP documented in this encounter [facility] 01-02-2025 Telephone encounter Note Left message for patient to return phone call to complete nurse intake questions for her upcoming appointment. Patient has an appointment with Dariusz Brooks for NOB appointment. Please transfer to [facility] or me to see if we can complete [facility] 01-02-2025 Miscellaneous Notes Left message for patient to return phone call to complete nurse intake questions for her upcoming appointment. Patient has an appointment with Dariusz Brooks for NOB appointment. Please transfer to [facility] or me to see if we can complete documented in this encounter [facility] 08-07-2024 Note Discharge Instructio ns Discharge Summary [address] [address] [id number] 08/07/2024 Patient: ANGIE HICKS Sex: Female : 2005 Age: 19y Thank you for visiting [facility]. You have been evaluated today by Roslyn De La Cruz M.D. for the following condition(s): Principal Diagnosis Acute suprapubic abdominal pain of unknown cause. INSTRUCTIONS Drink plenty of fluids. (Tylenol/ibuprofen for discomfort). Warnings: GENERAL WARNINGS: Return or contact your physician immediately if your condition worsens or changes unexpectedly, if not improving as expected, or if other problems arise. Follow-up: Follow up with your doctor in one week. You have been given the following additional information: Unknown Causes of Abdominal Pain (Female) Symptoms With Uncertain Cause (Adult) Patient Signature 1 of 6 Discharge Instructions Facility Crew Boss Date/Time General Instructions with ExitWriter [address] [place] [address] [id number] 08/07/2024 Patient: ANGIE HICKS Sex: Female : 2005 Age: 19y Thank you for visiting [facility]. You have been evaluated today by Roslyn De La Cruz M.D. for the following condition(s): Principal Diagnosis Acute suprapubic abdominal pain of unknown cause. INSTRUCTIONS Drink plenty of fluids. (Tylenol/ibuprofen for discomfort). Warnings: GENERAL WARNINGS: Return or contact your physician immediately if your condition worsens or changes unexpectedly, if not improving as expected, or if other problems arise. Follow-up: Follow up with your doctor in one week. ADDITIONAL INFORMATION 2 of 6 Discharge Instructions Unknown Causes of Abdominal Pain (Female) The exact cause of your belly (abdominal) pain is not clear. This does not mean that this is something to worry about. Everyone likes to know the exact cause of the problem. But sometimes with belly pain, there is no clear-cut cause, and this could be a good thing. The good news is that your symptoms can be treated, and you will feel better. Your condition does not seem serious now. But sometimes the signs of a serious problem may take more time to appear. For this reason, it is important for you to watch for any new symptoms, problems, or worsening of your condition. Over the next few days, the abdominal pain may come and go. Or it may be constant. Other common symptoms can include nausea and vomiting. Sometimes it can be difficult to tell if you feel nauseous. You may just feel bad and not connect that feeling to nausea. Constipation, diarrhea, and a fever may go along with the pain. The pain may continue even if treated correctly over the following days. Depending on how things go, sometimes the cause can become clear and may need more or different treatment. Additional evaluations, medicines, or tests may also be needed. 3 of 6 Discharge Instructions Home care Your healthcare provider may prescribe medicine for pain, symptoms, or an infection. Follow the healthcare provider's instructions for taking these medicines. General care Rest as much as you can until your next exam. No strenuous activities. Try to find positions that ease discomfort. A small pillow placed on the abdomen may help relieve pain. Something warm on your abdomen (such as a heating pad) may help, but be careful not to burn yourself. Diet Don't force yourself to eat, especially if having cramps, vomiting, or diarrhea. Water is important so you don't get dehydrated. Soup may also be good. Sports drinks may also help, especially if they are not too acidic. Don't drink sugary drinks as this can make things worse. Take liquids in small amounts. Don't guzzle them. Caffeine sometimes makes the pain and cramping worse. Don't take dairy products if you have vomiting or diarrhea. Don't eat large amounts at a time. Wait a few minutes between bites. Eat a diet low in fiber (called a low-residue diet). Foods allowed include refined breads, white rice, fruit and vegetable juices without pulp, tender meats. These foods will pass more easily through the intestine. Don't have whole-grain foods, whole fruits and vegetables, meats, seeds and nuts, fried or fatty foods, dairy, alcohol and spicy foods until your symptoms go away. Follow-up care Follow up with your healthcare provider, or as advised, if your pain does not begin to improve in the next 24 hours. Call 911 Call 911 if any of these occur: Trouble breathing Confusion Fainting or loss of consciousness Rapid heart rate Seizure 4 of 6 Discharge Instructions When to seek medical advice Call your healthcare provider right away if any of these occur: Pain gets worse or moves to t (more content not included)... [facility] 07-27-2024 Note . MICRO - Microbiology PROCEDURE: Urine Culture [*1] SOURCE: Urine, Clean Catch BODY SITE: COLLECTED DATE/TIME: 07/26/2024 12:41 EST RECEIVED DATE/TIME: 07/26/2024 17:56 EST START DATE/TIME: 07/26/2024 17:56 EST FREE TEXT SOURCE: FINAL REPORTS Final Report [] Verified Date/Time/Personnel: 07/27/2024 14:09 EST >100,000 cfu/ml Multiple bacterial morphotypes present. Probable Contamination. Suggest recollection if clinically indicated. Performing Locations *1: This test was performed at: [facility], [address] [place] [address], [facility] , [facility] Evaluation note Diagnosis Encounter for supervision of normal first in first trimester ([facility])- Primary Supervision of normal first 10 weeks gestation of ([facility]) state, incidental with uncertain dates in first trimester ([facility]) Nausea and vomiting during ([facility]) Depression with anxiety Dysthymic disorder History of ADHD Personal history of other mental disorder [facility] Diagnosis Encounter for supervision of normal first in first trimester ([facility])- Primary Supervision of normal first 11 weeks gestation of (HCC) state, incidental [facility] Diagnosis Encounter for supervision of normal first in first trimester (HCC) Supervision of normal first [facility] Diagnosis Encounter for anatomic survey (HCC)- Primary Encounter for anatomic survey 18 weeks gestation of (HCC) state, incidental documented in this encounter [facility] note* Diagnosis Encounter for supervision of normal first in second trimester (HCC)- Primary Supervision of normal first 18 weeks gestation of (HCC) state, incidental Nausea and vomiting during (HCC) Depression with anxiety Dysthymic disorder History of ADHD Personal history of other mental disorder [facility] Diagnosis 23 weeks gestation of (HCC)- Primary state, incidental Encounter for supervision of normal first in second trimester ([facility]) Supervision of normal first Screening for diabetes mellitus Urinary tract infection without hematuria, site unspecified Depression with anxiety Dysthymic disorder documented in this encounter [facility] note* Diagnosis Depression with anxiety Dysthymic disorder History of ADHD Personal history of other mental disorder 18 weeks gestation of (HCC) state, incidental documented in this encounter [facility] Summary Purpose Family History No Family History Records FoundNo Family History Records FoundNo Family History Records FoundNo Family History Records FoundNo Family History Records FoundNo Family History Records Found Advance Directives No Advanced Directives Records FoundNo Advanced Directives Records FoundNo Advanced Directives Records FoundNo Advanced Directives Records FoundNo Advanced Directives Records FoundNo Advanced Directives Records Found Additional Source Comments INFORMATION SOURCE (unrecogn ized section and content) DATE CREATED AUTHOR 01/31/2018 [facility] DATE CREATED AUTHOR AUTHOR'S ORGANIZ ATION 04/04/2023 [facility] DATE CREATED AUTHOR AUTHOR'S ORGANIZ ATION 07/29/2024 [facility] DATE CREATED AUTHOR AUTHOR'S ORGANIZ ATION 08/08/2024 [facility] DATE CREATED AUTHOR AUTHOR'S ORGANIZ ATION 05/18/2025 [facility] DATE CREATED AUTHOR AUTHOR'S ORGANIZ ATION 06/17/2025 [facility] Source Comments (unrecognize d section and content) In the event this informatio n is protected by the Federal Confidentiality of Alcohol and Drug Abuse Patient Records regulations: The Federal rules restrict any use of the information to criminally investigate or prosecute any alcohol or drug abuse patient.[facility] the event this information is protected by the Federal Confidentiality of Alcohol and Drug Abuse Patient Records regulations: The Federal rules restrict any use of the information to criminally investigate or prosecute any alcohol or drug abuse patient.[facility] the event this information is protected by the Federal Confidentiality of Alcohol and Drug Abuse Patient Records regulations: The Federal rules restrict any use of the information to criminally investigate or prosecute any alcohol or drug abuse patient.[facility] the event this information is protected by the Federal Confidentiality of Alcohol and Drug Abuse Patient Records regulations: The Federal rules restrict any use of the information to criminally investigate or prosecute any alcohol or drug abuse patient.[facility] the event this information is protected by the Federal Confidentiality of Alcohol and Drug Abuse Patient Records regulations: The Federal rules restrict any use of the information to criminally investigate or prosecute any alcohol or drug abuse patient.[facility] the event this information is protected by the Federal Confidentiality of Alcohol and Drug Abuse Patient Records regulations: The Federal rules restrict any use of the information to criminally investigate or prosecute any alcohol or drug abuse patient.[facility] the event this information is protected by the Federal Confidentiality of Alcohol and Drug Abuse Patient Records regulations: The Federal rules restrict any use of the information to criminally investigate or prosecute any alcohol or drug abuse patient.[facility] the event this information is protected by the Federal Confidentiality of Alcohol and Drug Abuse Patient Records regulations: The Federal rules restrict any use of the information to criminally investigate or prosecute any alcohol or drug abuse patient.[facility] the event this information is protected by the Federal Confidentiality of Alcohol and Drug Abuse Patient Records regulations: The Federal rules restrict any use of the information to criminally investigate or prosecute any alcohol or drug abuse patient.[facility] Reason for Visit (unrecogniz ed section and content) Reason Comments Initial OB Visit Reason Comments 01/05 NOB Intake Questions Reason Onset Date Comments Care 01/17/2025 Reason Comments US Specialty Diagnoses / Procedures Referred By Lindsey velarde Referred To Contact [facility][NOTE 3] Diagnoses Encounter for supervision of normal first in first trimester (HCC) Procedures OBSTETRIC ULTRASOUND WHI US PREG UTERUS AFTER 1ST TRIMEST GESTATION Dariusz Brooks APRN.DAVID [address] [place] [address] Phone: tel: fax: [facility] [address] [place] [address] Referral ID Status Reason Start Date Expiration Date V isits Requested Visits Authorized [id number] Closed Auto-Generate d Referral 01/05/2025 01/05/2026 1 1 Reason Onset Date Comments Results 01/08/2025 Referral ID Status Reason Start Date Expiration Date V isits Requested Visits Authorized [id number] Closed Auto-Generate d Referral 01/05/2025 01/05/2026 1 1 Reason Onset Date Comments Care 03/07/2025 Reason Onset Date Comments Care 04/05/2025 Reason Comments Anxiety Depression Specialty Diagnoses / Procedures Referred By Contac t Referred To Contact Diagnoses Depression with anxiety History of ADHD Procedures OFFICE/OUTPATIENT NEW HIGH MDM 60 MINUTES Dariusz Brooks APRN.DAVID [address] [place] [address] Phone: tel: fax: Referral ID Status Reason Start Date Expiration Date V isits Requested Visits Authorized [id number] Closed PCP Requested Referral 03/07/2025 03/07/2026 1 1 Care Teams (unrecognized sec tion and content) Salesperson [employer]reo Equipment Relationship Specialty Start Date End Date Olga Branham DO [address] [place] [address] PCP - General Family Medicine 01/19/14 Salesperson [employer]reo Equipment Relationship Specialty Start Date End Date Olga Branham DO [address] [place] [address] PCP - General Family Medicine 01/19/14 Salesperson Stereo Equipment Relationship Specialty Start Date End Date Olga Branham DO [address] [place] [address] PCP - General Family Medicine 01/19/14 Salesperson Stereo Equipment Relationship Specialty Start Date End Date Olga Branham DO [address] [place] [address] PCP - General Family Medicine 01/19/14 Salesperson Stereo Equipment Relationship Specialty Start Date End Date Olga Branham DO [address] [place] [address] PCP - General Family Medicine 01/19/14 Salesperson Stereo Equipment Relationship Specialty Start Date End Date Olga Branham DO [address] [place] [address] PCP - General Family Medicine 01/19/14 Salesperson Stereo Equipment Relationship Specialty Start Date End Date Olga Branham DO [address] [place] [address] PCP - General Family Medicine 01/19/14 Salesperson Stereo Equipment Relationship Specialty Start Date End Date Olga Branham DO [address] [facility] [address] [place] [address] PCP - [facility] 01/19/14 Salesperson Stereo Equipment Relationship Specialty Start Date End Date Olga Branham DO [address] [facility] [place] [address] PCP - General Family [facility] 01/19/14 FOR RECORDS PERTAINING TO PATIENTS WHO ARE OR HAVE BEEN ENROLLED IN A CHEMICAL DEPENDENCY/SUBSTANCEABUSE PROGRAM, SOME INFORMATION MAY BE OMITTED. This clinical summary was aggregated from multiple sources. Caution should be exercised in using it in the provision of clinical care. This summary normalizes information from multiple sources, and as a consequence, information in this document may materially change the coding, format and clinical context of patient data. In addition, data may be omitted in some cases. CLINICAL DECISIONS SHOULD BE BASED ON THE PRIMARY CLINICAL RECORDS. [facility] [employer] [facility]. provides no warranty or guarantee of the accuracy or completeness of information in this document.
[2025-07-19 23:43] VITALS: BP 123/76; PULSE 104; RESP 16; TEMP 37
[2025-07-19 23:44] VITALS: PULSE 92; O2SAT 98
[2025-07-19 23:50] VITALS: BMI 29.7
[2025-07-20] VITALS (84 sets, daily range): BP systolic 119–123; BP diastolic 60–69; PULSE 87–122; RESP 14–17; TEMP 36.4–36.9; O2SAT 81–100
[2025-07-20 00:09] LABS: Mucous, Urine 0 SEEN /hpf (<or=2+)
[2025-07-20 00:12] LABS: Color, Urine Yellow (Yellow); Glucose, Dipstick Normal (Normal); Ketone-Dipstick Negative (Negative); Leukocyte Esterase-Dipstick 500 /ul (Negative); Nitrite-Dipstick Positive (Negative); Occult Blood-Urine 150 /ul (Negative); Protein-Dipstick 100 mg/dl (Negative); Specific Gravity, Urine 1.010 (1.002-1.030); Urine Bilirubin Dipstick Negative (Negative)
--- NOTE | 2025-07-20 00:14 | US_ITS ---
PROCEDURE: KIDNEY AND BLADDER 07/20/2025 REASON FOR EXAM: RIGHT SIDED BACK PAIN TECHNIQUE: Procedure Code: USKI Modality: US Procedure: KIDNEY AND BLADDER COMPARISON: None. FINDINGS: The right kidney measures 9.5 x 4.6 x 5 cm. Normal right renal cortical thickness measuring 1 cm. The left kidney measures 10.2 x 4.6 x 5 cm. Normal left renal cortical thickness measuring 1 cm. No evidence of calculi on either side. Mild bilateral fullness of the collecting systems. Normal bladder wall thickness measuring 2 mm. The ureteral jets were not visualized. Underdistended bladder measuring 11.3 cc in volume. US/Kidney and Bladder IMPRESSION: Mild bilateral fullness of the collecting systems. Reading [facility]
[2025-07-20 00:31] LABS: Red Blood Cells-Urine 5-10 SEEN /hpf (0-5); Squamous Epithelial Cells - UA 0-5 SEEN /hpf (5-10)
[2025-07-20 00:48] LABS: Hematocrit 30.4 % (37-47); Hemoglobin 9.6 g/dL (12.0-15.0); Immature Granulocytes Count 0.050 X10^3/uL (0.0-0.0); Mean Corp Hgb Conc 31.6 g/dL (32-36); Mean Corpuscular Volume 86.4 fL (81-99); Mean Platelet Vol. 11.7 fl (6.2-12.0); NRBC Flagged by Analyzer 0 % (0-5); POSITIVE MORPHOLOGY YES; Platelet Count 362 K/mm3 (150-450); RBC Distribution Width CV 22.5 % (11.6-14.6); RBC Distribution Width SD 67.9 fl (35.1-43.9); Red Blood Count 3.52 M/mm3 (4.2-5.4); White Blood Count 11.7 K/mm3 (4.4-11.0)
[2025-07-20 00:51] LABS: Differential Indicated SCAN CRITERIA MET
[2025-07-20] MEDS: Lactated Ringers 1,000 ML 999 ML IV (01:00)
[2025-07-20 01:10] LABS: Lipase 20 U/L (13-75)
[2025-07-20 01:16] LABS: AST(SGOT) 22 U/L (<=31); Alanine Aminotransfer ALT/SGPT 13 U/L (<=34); Albumin, Serum 3.7 g/dL (3.5-5.0); Alkaline Phosphatase 324 U/L (35-104); Anion Gap 15 (5-15); BUN 8 mg/dL (4-19); BUN/Creat Ratio 14.3 RATIO (10-20); Calcium,Total 9.4 mg/dL (7.6-11.0); Carbon Dioxide 19.4 mmol/L (21.0-32.0); Chloride 103 mmol/L (98-108); Estimated Creatinine Clearance 135.42 ml/min (50-250); Globulin 2.7 g/dL (2.2-4.2); Glucose 85 mg/dL (70-99); Potassium 4.1 mmol/L (3.3-5.1)
[2025-07-20 01:21] LABS: Anisocytosis 2+; Differential Comment SCANNED
[2025-07-20] MEDS: HYDROmorphone 0.5 MG/0.5 ML SYRINGE IV (01:46)
[2025-07-20] MEDS: Lactated Ringers 1,000 ML 75 ML IV (02:13)
--- OUTSIDE RECORDS SUMMARY | 2025-07-20 02:46 | XMS RPT_ITS | CCD ---
Author Organization [facility] Care Team Providers Care Life Coach Name Role Phone PATY LEWIS Unavailable Unavailable [...] reactions to drug (disorder) 4 Rash, Swelling [facility] Repository Medications Current Medications Medication Drug Class(es) [...] of ; Translations: [18 weeks gestation of ([facility])] Onset: 03-07-2025 Episodic Residual codes; unclassified (1 source) 10 weeks gestation of ; Translations: [10 weeks gestation of ([facility])] Onset: 01-29-2025 Episodic Screening and history of [...] , Intermediate >32 , Resistant >[address] [facility] Comment on above: Performed By: #### 6 30-4 ####[facility] LABCLIA [id number] [address] Cory 06-13-2025 CNPN Telephone (ALIYAH) ANGIE HICKS ([id number]) 3 F Date Time Provider Department 06/13/25 [...] called in yesterday and spoke with nurse collect on delivery clerk after hours. Advised to go to [...] Status:Closed by ERICA DELVALLE on 06/13/25 [facility] (GARRICKGYWM) ANGIE HICKS ([id number]) 3 F Date Time Provider Department 06/08/25 TA GALLEGOS During your visit today, we recorded the following information about you: Ercia Delvalle RN 06/08/2025 12:32 PM Signed Patient's [...] TA GALLEGOS Pharmacy Information Pharmacy Address Telephone [facility] [address] [place] [address] Allergies As of Date: 06/08/2025 Noted Allergy [...] Encounter Status:Closed by BETTYE PLATA on 06/12/25 [facility] 05-31-2025 [facility] Telephone (OBGYWM) ANGIE HICKS ([id number]) 3 F Date Time Provider Department 05/31/25 TA GALLEGOS OBGYWJaki During your visit today, we recorded the following information about you: Deisi Meneses RN 05/31/2025 11:28 AM Signed [facility] pharmacy called. They checked their system [...] JOVITA 05/31/2025 2:56 PM Signed Spoke with [facility] pharmacist to confirm that the RX [...] Status:Closed by KARLOS DUBOSE on 05/31/[address] [facility] Ferritin SerPl-mCncon 2024 Ferritin [Mass/Vol] 13.4 ng/mL Low 14.7-205.1 [facility] Comment on above: Order Comment: Speci men Type: BLOOD SPECIMENOrdering Facility: [facility] Address: [address] [place] [address] Performed By: #### 2 276-4, 63668-4 ####[facility] LABCLIA [id number] [place] [address] [place] Iron and Iron binding capaci ty panelon 05-29-2025 Iron [Mass/Vol] 28 ug/dL Low 41-[address] [facility] Comment on above: Order Comment: Speci men Type: BLOOD SPECIMENOrdering Facility: [facility] Address: [address] [place] [address] Performed By: #### 2 276-4, 86035-7 ####[facility] LABCLIA [id number] [place] [id number] [place] Iron binding capacity [Mass/Vol] >528 High 232-[address] [facility] Comment on above: Order Comment: Speci men Type: BLOOD SPECIMENOrdering Facility: [facility] Address: [address] [place] [address] Performed By: #### 2 276-4, 31684-7 ####[facility] LABCLIA [id number] [place] [id number] [place] Iron/TIBC [Molar ratio] <5.3 Low 15.0-57.[address] [facility] Comment on above: Order Comment: Speci men Type: BLOOD SPECIMENOrdering Facility: [facility] Address: [address] [place] [address] Performed By: #### 2 276-4, 73268-4 ####[facility] LABCLIA [id number] [place] [address] [place] CBC panel Auto (Bld)on 05-03 Erythrocyte distribution width (RBC) [Ratio] 12.3 % Normal 11.5-15.[address] [facility] Comment on above: Order Comment: Speci men Type: BLOOD SPECIMENOrdering Facility: [facility] Address: [address] [place] [address] Performed By: #### 5 8410-2 ####[facility] [id number] [place] [address] [place] Hematocrit (Bld) [Volume fraction] 28.0 % Low 36.0-46.[address] [facility] Comment on above: Order Comment: Speci men Type: BLOOD SPECIMENOrdering Facility: [facility] Address: [address] [place] [address] Performed By: #### 5 8410-2 ####[facility] [id number] [place] [address] [place] Hemoglobin (Bld) [Mass/Vol] 9.4 g/dL Low 11.5-15.[address] [facility] Comment on above: Order Comment: Speci men Type: BLOOD SPECIMENOrdering Facility: [facility] Address: [address] [place] [address] Performed By: #### 5 8410-2 ####[facility] [id number] [place] [address] [place] MCH (RBC) [Entitic mass] 29.5 pg Normal 26.0-34.[address] [facility] Comment on above: Order Comment: Speci men Type: BLOOD SPECIMENOrdering Facility: [facility] Address: [address] [place] [address] Performed By: #### 5 8410-2 ####[facility] [id number] [place] [address] [place] MCHC (RBC) [Mass/Vol] 33.6 g/dL Normal 30.5-36.[address] [facility] Comment on above: Order Comment: Speci men Type: BLOOD SPECIMENOrdering Facility: [facility] Address: [address] [place] [address] Performed By: #### 5 8410-2 ####[facility] [id number] [place] [address] [place] MCV (RBC) [Entitic vol] 87.8 fL Normal 80.0-100.[address] [facility] Comment on above: Order Comment: Speci men Type: BLOOD SPECIMENOrdering Facility: [facility] Address: [address] [place] [address] Performed By: #### 5 8410-2 ####[facility] [id number] [place] [address] [place] Nucleated RBC (Bld) [#/Vol] 10*3/uL Normal <0.[address] [facility] Comment on above: Order Comment: Speci men Type: BLOOD SPECIMENOrdering Facility: [facility] Address: [address] [place] [address] Performed By: #### 5 8410-2 ####[facility] [id number] [place] [address] [place] Platelet mean volume (Bld) [Entitic vol] 9.4 fL Normal 9.0-12.[address] [facility] Comment on above: Order Comment: Speci men Type: BLOOD SPECIMENOrdering Facility: [facility] Address: [address] [place] [address] Performed By: #### 5 8410-2 ####[facility] [id number] [place] [address] [place] Platelets (Bld) [#/Vol] 350 10*3/uL Normal 150-[address] [facility] Comment on above: Order Comment: Speci men Type: BLOOD SPECIMENOrdering Facility: [facility] Address: [address] [place] [address] Performed By: #### 5 8410-2 ####[facility] [id number] [place] [address] [place] RBC (Bld) [#/Vol] 3.19 10*6/uL Low 3.90-5.20 [facility] Comment on above: Order Comment: Speci men Type: BLOOD SPECIMENOrdering Facility: [facility] Address: [address] [place] [address] Performed By: #### 5 8410-2 ####[facility] [id number] [place] [address] [place] WBC (Bld) [#/Vol] 9.41 10*3/uL Normal 3.70-11.00 [facility] Comment on above: Order Comment: Speci men Type: BLOOD SPECIMENOrdering Facility: [facility] Address: [address] [place] [address] Performed By: #### 5 8410-2 ####[facility] [id number] [place] [address] [place] Ferritin SerPl-mCncon 2024 Ferritin [Mass/Vol] 11.4 ng/mL Low 14.7-205.1 [facility] Comment on above: Order Comment: Speci men Type: BLOOD SPECIMENOrdering Facility: [facility] Address: [address] [place] [address] Performed By: #### 2 276-4, 53187-7 ####[facility] LABCLIA [id number] [place] [address] [place] GESTATIONAL GLUCOSE SCREEN, 1-HOUR, 50 GRAM, NON-FASTINGon 05-03-2025 Glucose [Mass/Vol] 126 mg/dL Normal 74-134 [facility] Comment on above: Order Comment: Speci men Type: BLOOD SPECIMENOrdering Facility: [facility] Address: [address] [place] [address] Result Comment: [facility] Congress of Obstetricians and Gynecologists (Higinio/Jun) guidelines state a gestational diabetes mellitus positive screen is made, in women not previously diagnosed with overt diabetes, when the 1 hr plasma glucose level is equal to or above 140 mg/dL. The [facility] Director Of Communications and Women's Health [place] recommends a 135 mg/dL cutoff. Performed By: #### G LTGST ####[facility] [id number] [place] [address] [place] Iron and Iron binding capaci ty panelon 05-03-2025 Iron [Mass/Vol] 36 ug/dL Low 41-[address] [facility] Comment on above: Order Comment: Speci men Type: BLOOD SPECIMENOrdering Facility: [facility] Address: [address] [place] [address] Performed By: #### 2 276-4, 37685-1 ####[facility] LABCLIA [id number] [place] [address] [place] Iron binding capacity [Mass/Vol] >536 High 232-[address] [facility] Comment on above: Order Comment: Speci men Type: BLOOD SPECIMENOrdering Facility: [facility] Address: [address] [place] [address] Performed By: #### 2 276-4, 40920-4 ####[facility] LABIA [id number] [place] [id number] [place] Iron/TIBC [Molar ratio] <6.7 Low 15.0-57.[address] [facility] Comment on above: Order Comment: Speci men Type: BLOOD SPECIMENOrdering Facility: [facility] Address: [address] [place] [address] Performed By: #### 2 276-4, 14983-7 ####[facility] LABIA [id number] [place] [id number] [place] Reagin and Treponema pallidu m IgG and IgM [Interp]on 05-03-2025 T. pallidum IgG+IgM IA Ql (S) Non-Reactive Normal Nonreactive [facility] Comment on above: Order Comment: Speci men Type: BLOOD SPECIMENOrdering Facility: [facility] Address: [address] [place] [address] Performed By: #### 7 3752-8 ####[facility] LABIA [id number] [place] [address] [place] Reagin+T pallidum IgG+IgM Se rPl-Impon 05-03-2025 Reagin and Treponema pallidum IgG and IgM [Interp] Cannot exclude recent Treponemal infection if specimen collected within 7-10 days after appearance of suspect lesions or 2-3 weeks after an exposure. Clinical correlation is required. Normal [facility] Comment on above: Order Comment: Speci jaycob Type: BLOOD SPECIMENOrdering Facility: [facility] Address: [address] [place] [address] Performed By: #### 7 3752-8 ####[facility] [id number] [place] [address] [place] TSH W/REFLEX FT4on 5 TSH Qn 1.400 m[IU]/L Normal 0.270-4.[address] [facility] Comment on above: Order Comment: Speci men Type: BLOOD SPECIMENOrdering Facility: [facility] Address: [address] [place] [address] Result Comment: If t he patient is , TSH reference range varies by gestational period: First Trimester (weeks 9-12): 0.180-2.990 mIU/L Second Trimester: 0.110-3.980 mIU/L Third Trimester: 0.480-4.710 mIU/L Jose Dutta et al. A Practical Approach for the Verifications and Determination of Site- and Trimester-Specific Reference Intervals for Thyroid Function tests in . Thyroid, 2019:29:3:412-420. Ernesto E, et al. 2017 Guidelines of the [place] Thyroid Association for the Diagnosis and Management of Thyroid Disease during and the . Thyroid, 2017:27:3:315-389. Performed By: #### T [facility] ####[facility] AMY [id number] [address] OF [facility] CNPNon 04-10-2025 CNPN Telephone (PSYRMN) ANGIE HICKS ([id number]) 3 F Date Time Provider Department 04/10/25 [...] and Psychiatry Assisted in making appt at: [facility] Psychiatry, Other Internal Comment: Pt need, and External Comment: Pt need [facility] to send patient resources via Tribe Appointment date and time: 04/17/25 @ 1pm Current priority status of the referral Medium Additional information Patient and WB SW discussed [facility] referral. Patient agreeable to [facility] psychiatry appointment for continued medication management. Patient is also agreeable to counseling- agreeable to external referral due to [facility] psychology wait times. [facility] SW to send patient counseling resources via Tribe message. Discussed ways to schedule an appointment. [facility] SW available to assist with scheduling counseling appointment if needed. Allergies As of Date: 04/10/2025 Noted Allergy Reaction SULFA (SULFONAMIDE ANTIBIOTICS) 01/19/2014 2 - Rash 7 - Swelling Date Reviewed: 03/07/2025 Reviewed by: Dariusz Brooks APRN.CERTIFIED ENDOSCOPY TECHNICIAN - Fully Assessed Reason for Visit: Integrated [...] Status:Closed by KEYON CRUZ on 04/10/[address] [facility] Bacteria Ur Culton 5 Bacteria identified Cx Nom (U) ORGANISM ID: 1 <10,000 CFU/ml Normal urogenital vi Normal [facility] Comment on above: Performed By: #### 6 30-4 ####[facility] LABCLIA [id number] [address] STATES OF [facility] Cory 03-30-2025 CNPN Telephone (PSYRMN) ANGIE HICKS ([id number]) 3 F Date Time Provider Department 03/30/25 KEYON CRUZ PSYRMN During your visit today, we recorded the following information about you: Keyon Cruz LISW 03/30/2025 4:39 PM Signed Third outreach attempt. Phone call to patient regarding [facility] referral. Patient did not answer, left message. [facility] sent with [facility] contact information and additional resources. [facility] SW can be reached at: Many: [phone] [place]:[phone] Allergies As of Date: 03/30/2025 Noted Allergy Reaction SULFA (SULFONAMIDE ANTIBIOTICS) 01/19/2014 2 - Rash 7 - Swelling Date Reviewed: 03/07/2025 Reviewed by: Dariusz Brooks APRN.CERTIFIED ENDOSCOPY TECHNICIAN - Fully Assessed Reason for Visit: [facility] Consult Follow Up [Other] Prescriptions as of [...] Status:Closed by KEYON CRUZ on 03/30/[address] [facility] [place] 03-19-2025 [facility] Telephone (PSYRMN) ANGIE HICKS ([id number]) 3 F Date Time Provider Department 03/19/25 BRENDA VILLEGAS PSYRMN During your visit today, we recorded the following information about you: Brenda Villegas LISW 03/19/2025 2:51 PM Signed Phone call to patient regarding [facility] referral. Patient did not answer, left message. [facility] SW can be reached at: Many: [phone] [place]:[phone] Allergies As of Date: 03/19/2025 Noted Allergy Reaction SULFA (SULFONAMIDE ANTIBIOTICS) 01/19/2014 2 - Rash 7 - Swelling Date Reviewed: 03/07/2025 Reviewed by: Dariusz Brooks APRN.CERTIFIED ENDOSCOPY TECHNICIAN - Fully Assessed Reason for Visit: Hospital Clinic Assistant - Other [3601] Cmt: [facility] referral follow up Prescriptions as [...] Encounter Status:Closed by BRENDA VILLEGAS on 03/19/25 [facility] 03-08-2025 CNPN Telephone (PSYRMN) ANGIE HICKS ([id number]) 3 F Date Time Provider Department 03/08/25 KEYON CRUZ PSYRMN During your visit today, we recorded the following information about you: Keyon Cruz LISW 03/08/2025 10:55 AM Signed Phone call to patient regarding [facility] referral. Patient did not answer, left message. [facility] SW can be reached at: Many: [phone] [place]:[phone] Allergies As of Date: 03/08/2025 Noted Allergy Reaction SULFA (SULFONAMIDE ANTIBIOTICS) 01/19/2014 2 - Rash 7 - Swelling Date Reviewed: 03/07/2025 Reviewed by: Dariusz Brooks APRN.CERTIFIED ENDOSCOPY TECHNICIAN - Fully Assessed Reason for Visit: WB [...] Status:Closed by KEYON CRUZ on 03/08/[address] [facility] Examination level ultrasound on 03-07-2025 Indication [...] 10 oz EFW by: Hadlock (HC-AC-FL) Extended Lead Injection Mold Technician 6.8 mm CM 2.2 mm <1% Nicolaides [...] normal LVOT view: normal 3-vessel view: normal 0-pwpcst-rhuttth view: normal Heart / Thorax Situs: situs [...] Read By: Bobbi Potter M.D. MATERNAL MEDICINE [facility] Radiology Study observation (narrative) [facility] CBC W Auto Differential pane l (Bld)on 01-29-2025 Basophils (Bld) [#/Vol] 10*3/uL Normal <0.[address] [facility] Comment on above: Order Comment: Speci men Type: BLOOD SPECIMENOrdering Facility: [facility] Address: [address] [place] [address] Performed By: #### 5 7021-8 ####[facility] YOANDYWNCLIA [id number] [place] [address] [place] Basophils/100 WBC (Bld) 0.2 % Normal [facility] Comment on above: Order Comment: Speci men Type: BLOOD SPECIMENOrdering Facility: [facility] Address: [address] [place] [address] Performed By: #### 5 7021-8 ####[facility] AKASHCORDOVASCHUYLERLIA [id number] [place] [address] [place] Differential cell count method Nom (Bld) Auto Normal [facility] Comment on above: Order Comment: Speci men Type: BLOOD SPECIMENOrdering Facility: [facility] Address: [address] [place] [address] Performed By: #### 5 7021-8 ####[facility] [id number] [place] [address] [place] Eosinophils (Bld) [#/Vol] 0.06 10*3/uL Normal <0.[address] [facility] Comment on above: Order Comment: Speci men Type: BLOOD SPECIMENOrdering Facility: [facility] Address: [address] [place] [address] Performed By: #### 5 7021-8 ####[facility] AKASHCORDOVASCHUYLERLIA [id number] [place] [address] [place] Eosinophils/100 WBC (Bld) 0.6 % Normal [facility] Comment on above: Order Comment: Speci men Type: BLOOD SPECIMENOrdering Facility: [facility] Address: [address] [place] [address] Performed By: #### 5 7021-8 ####[facility] [id number] [place] [address] [place] Erythrocyte distribution width (RBC) [Ratio] 13.2 % Normal 11.5-15.[address] [facility] Comment on above: Order Comment: Speci men Type: BLOOD SPECIMENOrdering Facility: [facility] Address: [address] [place] [address] Performed By: #### 5 7021-8 ####[facility] JONEL [id number] [place] [address] [place] Hematocrit (Bld) [Volume fraction] 35.1 % Low 36.0-46.[address] [facility] Comment on above: Order Comment: Speci men Type: BLOOD SPECIMENOrdering Facility: [facility] Address: [address] [place] [address] Performed By: #### 5 7021-8 ####[facility] [id number] [place] [address] [place] Hemoglobin (Bld) [Mass/Vol] 12.1 g/dL Normal 11.5-15.[address] [facility] Comment on above: Order Comment: Speci men Type: BLOOD SPECIMENOrdering Facility: [facility] Address: [address] [place] [address] Performed By: #### 5 7021-8 ####[facility] [id number] [place] [address] [place] Immature granulocytes (Bld) [#/Vol] 0.03 10*3/uL Normal <0.[address] [facility] Comment on above: Order Comment: Speci men Type: BLOOD SPECIMENOrdering Facility: [facility] Address: [address] [place] [address] Performed By: #### 5 7021-8 ####[facility] [id number] [place] [address] [place] Immature granulocytes/100 WBC (Bld) 0.3 % Normal [facility] Comment on above: Order Comment: Speci men Type: BLOOD SPECIMENOrdering Facility: [facility] Address: [address] [place] [address] Performed By: #### 5 7021-8 ####[facility]ENTERWNCLIA [id number] [place] [address] [place] Lymphocytes (Bld) [#/Vol] 1.80 10*3/uL Normal 1.00-4.[address] [facility] Comment on above: Order Comment: Speci men Type: BLOOD SPECIMENOrdering Facility: [facility] Address: [address] [place] [address] Performed By: #### 5 7021-8 ####[facility] [id number] [place] [address] [place] Lymphocytes/100 WBC (Bld) 18.6 % Normal [facility] Comment on above: Order Comment: Speci men Type: BLOOD SPECIMENOrdering Facility: [facility] Address: [address] [place] [address] Performed By: #### 5 7021-8 ####[facility] [id number] [place] [address] [place] MCH (RBC) [Entitic mass] 30.0 pg Normal 26.0-34.[address] [facility] Comment on above: Order Comment: Speci men Type: BLOOD SPECIMENOrdering Facility: [facility] Address: [address] [place] [address] Performed By: #### 5 7021-8 ####[facility] [id number] [place] [address] [place] MCHC (RBC) [Mass/Vol] 34.5 g/dL Normal 30.5-36.[address] [facility] Comment on above: Order Comment: Speci men Type: BLOOD SPECIMENOrdering Facility: [facility] Address: [address] [place] [address] Performed By: #### 5 7021-8 ####[facility] [id number] [place] [address] [place] MCV (RBC) [Entitic vol] 87.1 fL Normal 80.0-100.[address] [facility] Comment on above: Order Comment: Speci men Type: BLOOD SPECIMENOrdering Facility: [facility] Address: [address] [place] [address] Performed By: #### 5 7021-8 ####[facility]ITALLIA [id number] [place] [address] [place] Monocytes (Bld) [#/Vol] 0.89 10*3/uL High <0.[address] [facility] Comment on above: Order Comment: Speci men Type: BLOOD SPECIMENOrdering Facility: [facility] Address: [address] [place] [address] Performed By: #### 5 7021-8 ####[facility] [id number] [place] [address] [place] Monocytes/100 WBC (Bld) 9.2 % Normal [facility] Comment on above: Order Comment: Speci men Type: BLOOD SPECIMENOrdering Facility: [facility] Address: [address] [place] [address] Performed By: #### 5 7021-8 ####[facility]ITALLIA [id number] [place] [address] [place] Neutrophils (Bld) [#/Vol] 6.86 10*3/uL Normal 1.45-7.[address] [facility] Comment on above: Order Comment: Speci men Type: BLOOD SPECIMENOrdering Facility: [facility] Address: [address] [place] [address] Performed By: #### 5 7021-8 ####[facility]OSPITALLIA [id number] [place] [address] [place] Neutrophils/100 WBC (Bld) 71.1 % Normal [facility] Comment on above: Order Comment: Speci men Type: BLOOD SPECIMENOrdering Facility: [facility] Address: [address] [place] [address] Performed By: #### 5 7021-8 ####[facility] JONEL [id number] [place] [address] [place] Nucleated RBC (Bld) [#/Vol] 10*3/uL Normal <0.[address] [facility] Comment on above: Order Comment: Speci men Type: BLOOD SPECIMENOrdering Facility: [facility] Address: [address] [place] [address] Performed By: #### 5 7021-8 ####[facility] [id number] [place] [address] [place] Nucleated RBC/100 WBC (Bld) [Ratio] 0.0 /[address] [facility] Comment on above: Order Comment: Speci men Type: BLOOD SPECIMENOrdering Facility: [facility] Address: [address] [place] [address] Performed By: #### 5 7021-8 ####[facility] [id number] [place] [address] [place] Platelet mean volume (Bld) [Entitic vol] 9.6 fL Normal 9.0-12.[address] [facility] Comment on above: Order Comment: Speci men Type: BLOOD SPECIMENOrdering Facility: [facility] Address: [address] [place] [address] Performed By: #### 5 7021-8 ####[facility] [id number] [place] [address] [place] Platelets (Bld) [#/Vol] 328 10*3/uL Normal 150-[address] [facility] Comment on above: Order Comment: Speci men Type: BLOOD SPECIMENOrdering Facility: [facility] Address: [address] [place] [address] Performed By: #### 5 7021-8 ####[facility] [id number] [place] [address] [place] RBC (Bld) [#/Vol] 4.03 10*6/uL Normal 3.90-5.20 [facility] Comment on above: Order Comment: Speci men Type: BLOOD SPECIMENOrdering Facility: [facility] Address: [address] [place] [address] Performed By: #### 5 7021-8 ####[facility] [id number] [place] [address] [place] WBC (Bld) [#/Vol] 9.66 10*3/uL Normal 3.70-11.00 [facility] Comment on above: Order Comment: Speci men Type: BLOOD SPECIMENOrdering Facility: [facility] Address: [address] [place] [address] Performed By: #### 5 7021-8 ####[facility] [id number] [place] [address] [place] HBV surface Ag Ser Qlon 01-08 HBV surface Ag Ql (S) Negative Normal Negative [facility] Comment on above: Order Comment: Speci men Type: BLOOD SPECIMENOrdering Facility: [facility] Address: [address] [place] [address] Performed By: #### 3 1201-7, 5195-3, 27355-1 ####[facility] [id number] [place] [address] [place] HCV Ab Ser Qlon 01-29-2025 HCV Ab Ql (S) Negative Normal Negative [facility] Comment on above: Order Comment: Speci men Type: BLOOD SPECIMENOrdering Facility: [facility] Address: [address] [place] [address] Result Comment: The result suggests no evidence of infection with Hepatitis C virus. Should recent infection be suspected, repeat testing may be considered 4-6 weeks after this draw. Performed By: #### 1 6128-1 ####[facility] LABIA [id number] [place] [address] [place] HIV 1+2 Ab IA Qlon 5 HIV 1 and 2 Ab IA.rapid Nom (S/P/Bld) Normal [facility] Comment on above: Order Comment: Speci men Type: BLOOD SPECIMENOrdering Facility: [facility] Address: [address] [place] [address] Result Comment: Test not indicated. Performed By: #### 3 1201-7, 5195-3, 27068-0 ####[facility] [id number] [address] [place] HIV 1+2 Ab+HIV1 p24 Ag IA Ql Non-Reactive Normal Nonreactive [facility] Comment on above: Order Comment: Speci men Type: BLOOD SPECIMENOrdering Facility: [facility] Address: [address] [place] [address] Performed By: #### 3 1201-7, 5195-3, 57691-1 ####[facility] [id number] [address] [place] HIV immunoassay testing algorithm interpretation (S/P/Bld) [Interp] Normal [facility] Comment on above: Order Comment: Speci men Type: BLOOD SPECIMENOrdering Facility: [facility] Address: [address] [place] [address] Result Comment: No e vidence of HIV-1 or HIV-2 infection. Should recent infection be suspected, repeat testing may be considered 2-3 weeks after this draw. [place] Rev. Code 3701.243(E): This information has been [...] diagnoses. Performed By: #### 3 1201-7, 5195-3, 76548-7 ####[facility] LABIA [id number] [address] [place] HbA1c (Bld)on 01-29-2025 Average glucose Estimated from glycated hemoglobin (Bld) [Mass/Vol] 103 mg/dL Normal [facility] Comment on above: Order Comment: Speci men Type: BLOOD SPECIMENOrdering Facility: [facility] Address: [address] [place] [address] Result Comment: eAG: (Estimated average glucose) is a calculated value from HgbA1c and is outside sales representative of the average blood glucose level in the last 2-3 month period. Performed By: #### 5 5454-3 ####[facility] LABIA [id number] [address] STATES OF [facility] HbA1c (Bld) [Mass fraction] 5.2 % Normal 4.3-5.[address] [facility] Comment on above: Order Comment: Speci men Type: BLOOD SPECIMENOrdering Facility: [facility] Address: [address] [place] [address] Result Comment: Amer ican Diabetes Association guidelines indicate that patients with HgbA1c in the range 5.7-6.4% are at increased risk for development of diabetes, and intervention by lifestyle modification may be beneficial. HgbA1c greater or equal to 6.5% is considered diagnostic of diabetes. Performed By: #### 5 5454-3 ####[facility] LABIA [id number] [place] [id number] [place] RUBELLA IGG ANTIBODYon 01-29 RUBELLA IGG AB, QUAL Positive Normal Positive [facility] Comment on above: Order Comment: Speci men Type: BLOOD SPECIMENOrdering Facility: [facility] Address: [address] [place] [address] Result Comment: The result suggests recent or past exposure to Rubella virus or history of Rubella vaccination. Positive result may also be seen due to presence of passively-transferred antibodies. Please correlate with patient's history. Performed By: #### R UBIGG ####[facility] [id number] [place] [address] [place] Reagin and Treponema pallidu m IgG and IgM [Interp]on 01-29-2025 T. pallidum IgG+IgM IA Ql (S) Non-Reactive Normal Nonreactive [facility] Comment on above: Order Comment: Speci men Type: BLOOD SPECIMENOrdering Facility: [facility] Address: [address] [place] [address] Performed By: #### 3 1201-7, 5195-3, 30485-3 ####[facility] [id number] [place] [address] [place] Reagin+T pallidum IgG+IgM Se rPl-Impon 01-29-2025 Reagin and Treponema pallidum IgG and IgM [Interp] Cannot exclude recent Treponemal infection if specimen collected within 7-10 days after appearance of suspect lesions or 2-3 weeks after an exposure. Clinical correlation is required. Normal [facility] Comment on above: Order Comment: Speci men Type: BLOOD SPECIMENOrdering Facility: [facility] Address: [address] [place] [address] Performed By: #### 3 1201-7, 5195-3, 31029-2 ####[facility] LABIA [id number] [place] [address] [place] TYPE + SCREEN PRENATALon ABO A Normal [facility] Comment on above: Order Comment: Speci men Type: BLOOD SPECIMEN Ordering Facility: [facility] Address: [address] [place] [address] Performed By: #### T SPN #### [facility] CLIA [id number] [address] [place] [address] [place] Rh Nom (Bld) Positive Normal [facility] Comment on above: Order Comment: Speci men Type: BLOOD SPECIMEN Ordering Facility[facility] Address: [address] [facility] [place] [address] Performed By: #### T SPN #### [facility] CLIA [id number] [address] [facility] [address] TYPE AND SCREEN EXPIRATION 02/01/2025 23:[address] [facility] Comment on above: Order Comment: Speci men Type: BLOOD SPECIMEN Ordering Facility: [facility] Address: [address] [place] [address] Performed By: #### T SPN #### [facility] CLIA [id number] [address] [facility] [address] Examination level ultrasound on 01-18-2025 Indication First trimester anatomic survey Impression The patient is referred for a first trimester anatomy scan including nuchal translucency measurement as clinically indicated. - Single, live, intrauterine . - [place] rump length measurement is consistent with the [...] view: normal 4-chamber view with color: normal 7-jxnshf-goftgem view: normal Abdominal cord insertion: normal Stomach: [...] Read By: Nery Erickson M.D. MATERNAL MEDICINE [facility] Bacteria Ur Culton 5 Bacteria identified Cx Nom (U) ORGANISM ID: 1 <10,000 CFU/ml Normal urogenital vi Normal [facility] Comment on above: Performed By: #### 6 30-4 ####[facility] [id number] [address] Examination level ultrasound on 01-17-2025 Radiology Study observation (narrative) [facility] Bacteria Ur Culton 5 Bacteria [...] , Intermediate >32 , Resistant >[address] [facility] Comment on above: Performed By: #### 6 30-4 ####[facility] [id number] [address] [place] C. trachomatis+N. gonorrhoea e DNA EDMAR+probe Ql (Unsp spec)on 01-05-2025 C. trachomatis rRNA EDMAR+probe Ql (Unsp spec) Not detected Normal Not detected [facility] Comment on above: Order Comment: Speci men Type: SWABOrdering Facility: [facility] Address: [address] [place] [address] Performed By: #### T RVAMP, 60085-2 ####[facility] [id number] [address] [place] N. gonorrhoeae rRNA EDMAR+probe Ql (Unsp spec) Not detected Normal Not detected [facility] Comment on above: Order Comment: Speci men Type: SWABOrdering Facility: [facility] Address: [address] [place] [address] Performed By: #### T RVAMP, 92398-6 ####[facility] [id number] [address] OF [place] POC APPLIER ULTRASOUNDon 01-06-20 Indication Viability; confirm cardiac activity [...] Read By: Dariusz Brooks NP MATERNAL MEDICINE [facility] Radiology Study observation (narrative) [facility] TRICHOMONAS VAGINALIS NAATon 01-05-2025 T. vaginalis DNA EDMAR+probe Ql (Unsp spec) Not detected Normal Not detected [facility] Comment on above: Order Comment: Speci men Type: SWABOrdering Facility: [facility] Address: [address] [place] [address] Performed By: #### T RVAMP, 22191-4 ####[facility] LABROHIT [id number] [address] [place] Cory 01-02-2025 CNPN Telephone (OBGYWM) ANGIE HICKS ([id number]) 3 F Date Time Provider Department 01/02/25 DARIUSZ BROOKS During your visit today, we recorded the following information about you: Erica Delvalle RN 01/02/2025 3:51 PM Signed Left message for patient to return phone call to complete nurse intake questions for her upcoming appointment. Patient has an appointment with Dariusz Brooks for NOB appointment. Please transfer to [facility] or dc to see if we can complete Allergies As of Date: 01/02/2025 Noted Allergy Reaction SULFA (SULFONAMIDE ANTIBIOTICS) 01/19/2014 2 - Rash 7 - Swelling Date Reviewed: 09/13/2019 Reviewed by: Theresa Jon ([facility]) - Fully Assessed Reason for Visit: 01/05 [...] Date: 01/02/2025 (None) Encounter Status:Closed by ERICA DELAVLLE on 01/10/[address] [facility] CBC + DIFFon 08-07-2024 Baso # 0.03 x10EE3/UL Normal 0.00 - 0.10 [facility] Comment on above: Performed By: #### 2 79746 ####[facility],[address] [place] [address]19 Basophils/100 WBC (Bld) 0.4 % Normal 0.0 - 2.0 [facility] Comment on above: Performed By: #### 2 40283 ####[facility],[address] [place] [address] CBC + DIFF Normal [facility] Comment on above: Result Comment: CBC- COMPLETE BLOOD COUNT Performed By: #### 2 79909 ####[facility],[address] [place] [address] EO # 0.06 x10EE3/UL Normal 0.00 - 0.50 [facility] Comment on above: Performed By: #### 2 69973 ####[place] [id number] Eosinophils/100 WBC (Bld) 0.7 % Normal 0.0 - 7.0 [facility] Comment on above: Performed By: #### 2 66945 ####[place] [address] Erythrocyte distribution width (RBC) [Ratio] 12.9 % Normal 12.0 - 15.6 [facility] Comment on above: Performed By: #### 2 51634 ####[facility],[address] [place] [address] Hematocrit (Bld) [Volume fraction] 38.9 % Normal 34.0 - 46.0 [facility] Comment on above: Performed By: #### 2 04295 ####[facility],[address] [place], [place] [address] Hemoglobin (Bld) [Mass/Vol] 13.5 g/dL Normal 12.0 - 16.0 [facility] Comment on above: Performed By: #### 2 99779 ####[facility],[address] [place] [address] Lymph # 1.39 x10EE3/UL Normal 0.80 - 2.80 [facility] Comment on above: Performed By: #### 2 01219 ####[facility],[address] [place], [place] [address] Lymphocytes/100 WBC (Bld) 17.1 % Low 20.0 - 45.0 [facility] Comment on above: Performed By: #### 2 96941 ####[facility],[address] [place], [place] [address] MANUAL DIFF N/A Normal [facility] Comment on above: Performed By: #### 2 03281 ####[facility],[address] [place] [address] MCH (RBC) [Entitic mass] 31 pg Normal 27 - 33 [facility] Comment on above: Performed By: #### 2 78475 ####[facility],[address] [place] [address] MCHC 35 X10 3 Normal 32 - 36 [facility] Comment on above: Performed By: #### 2 15415 ####[facility],[address] [place], [place] [address] MCV (RBC) [Entitic vol] 88 fL Normal 80 - 99 [facility] Comment on above: Performed By: #### 2 82718 ####[facility],[address] [place], [place] [address] [place] # 0.64 x10EE3/UL Normal 0.20 - 1.00 [facility] Comment on above: Performed By: #### 2 06776 ####[facility],[address] [place] [address] 99553 MONOS % 7.9 % Normal 0.0 - 10.0 [facility] Comment on above: Performed By: #### 2 86202 ####[facility],[address] [place] [address] 67418 Morphology Mauro (Bld) [Interp] N/A Normal [facility] Comment on above: Performed By: #### 2 46298 ####[facility],[address] [place] [address] 96478 Neut # 6.00 x10EE3/UL Normal 1.50 - 7.10 [facility] Comment on above: Performed By: #### 2 35520 ####[facility],[address] [place] [address] 91182 Neutrophils/100 WBC (Bld) 73.9 % Normal 46.0 - 76.0 [facility] Comment on above: Performed By: #### 2 76574 ####[facility],[address] [place] [address]132 PLATELET 380 x10EE3/UL Normal 150 - 450 [facility] Comment on above: Performed By: #### 2 11280 ####[address] [address] Platelet mean volume (Bld) [Entitic vol] 7.9 fL Normal 6.6 - 10.5 [facility] Comment on above: Result Comment: AUTO MATED DIFFERENTIAL Performed By: #### 2 06170 ####[facility],[address] [place] [address] 73775 RBC 4.43 x 10EE6/UL Normal 4.10 - 5.30 [facility] Comment on above: Performed By: #### 2 57226 ####[facility],[address] [place] [address] 08749 WBC 8.1 x 10EE3/UL Normal 4.5 - 10.8 [facility] Comment on above: Performed By: #### 2 97641 ####[facility],[address] [place] [address] 95080 CMP with eGFRon 08-07-2024 AGE 19 years Normal [facility] Comment on above: Performed By: #### 2 51647 ####[facility],[address] [place] [address] 40728 Albumin [Mass/Vol] 3.9 g/dL Normal 3.4 - 5.0 [facility] Comment on above: Performed By: #### 2 91866 ####[facility],[address] [place] [address] 14523 Albumin/Globulin [Mass ratio] 1.0 {ratio} Normal 0.9 - 1.6 [facility] Comment on above: Performed By: #### 2 77210 ####[facility],[address] [place] [address] 60531 ALK PHOS 83 U/L Normal 46 - 116 [facility] Comment on above: Performed By: #### 2 63898 ####[facility],[address] [place] [address] 29930 ALT [Catalytic activity/Vol] 87 U/L High 16 - 63 [facility] Comment on above: Performed By: #### 2 27426 ####[facility],[address] [place], [place] [address] Anion gap [Moles/Vol] 12 mmol/L Normal 10 - 20 [facility] Comment on above: Performed By: #### 2 20324 ####[facility],[address] [place] [address] 79947 AST [Catalytic activity/Vol] 43 U/L High 13 - 39 [facility] Comment on above: Performed By: #### 2 90258 ####[facility],[address] [place] [address] 27389 B/C RATIO 22 ratio Normal 0 - 30 [facility] Comment on above: Performed By: #### 2 51446 ####[facility],[address] [place] [address] 53942 Bilirubin [Mass/Vol] 0.4 mg/dL Normal 0.2 - 1.0 [facility] Comment on above: Performed By: #### 2 89937 ####[facility],[address] [place] [address] 52925 Calcium [Mass/Vol] 9.1 mg/dL Normal 8.5 - 10.1 [facility] Comment on above: Performed By: #### 2 42514 ####[facility],[address] [place], [place] [address] Chloride [Moles/Vol] 105 mmol/L Normal 98 - 107 [facility] Comment on above: Performed By: #### 2 84074 ####[facility],[address] [place], [place] [address] CMP with eGFR Normal [facility] Comment on above: Result Comment: COMP REHENSIVE METABOLIC PANEL Performed By: #### 2 06636 ####[place] [address] CO2 [Moles/Vol] 27.8 mmol/L Normal 21.0 - 32.0 [facility] Comment on above: Performed By: #### 2 02178 ####[facility],[address] [place], [place] [address] Creatinine [Mass/Vol] 0.77 mg/dL Normal 0.55 - 1.02 [facility] Comment on above: Performed By: #### 2 24726 ####[facility],[address] [place] [address] 13711 GFR/1.73 sq M.predicted among non-blacks MDRD (S/P/Bld) [Vol rate/Area] mL/min/{1.73_m2} Normal 60 - 999 [facility] Comment on above: Performed By: #### 2 39539 ####[facility],[address] [place], [place] [address] Result Comment: ACCO RDING TO THE NATIONAL KIDNEY DISEASE EDUCATION PROGRAM(NKDE), A NORMAL eGFR IS A VALUE GREATER THAN OR EQUAL TO 60 ML/MIN/1.73 SQ METERS. CHRONIC KIDNEY DISEASE: <60mL/MIN/1.73 SQ METERS KIDNEY FAILURE: <15mL/MIN/1.73 SQ METERS THIS TEST SHOULD ONLY BE USED FOR PATIENTS 18 YEARS OF AGE AND OLDER. Globulin (S) [Mass/Vol] 4.0 g/dL High 1.5 - 3.8 [facility] Comment on above: Performed By: #### 2 11834 ####[facility],[address] [place] [address] 62280 Glucose [Mass/Vol] 107 mg/dL High 74 - 106 [facility] Comment on above: Performed By: #### 2 30195 ####[facility],[address] [place] [address] 40641 Potassium [Moles/Vol] 4.2 mmol/L Normal 3.5 - 5.1 [facility] Comment on above: Performed By: #### 2 93279 ####[facility],[address] [place] [address] 91282 Protein [Mass/Vol] 7.9 g/dL Normal 6.4 - 8.2 [facility] Comment on above: Performed By: #### 2 87453 ####[facility],[address] [place] [address] 09987 Sodium [Moles/Vol] 141 mmol/L Normal 136 - 145 [facility] Comment on above: Performed By: #### 2 82367 ####[facility],[address] [place] [address] 15262 Urea nitrogen [Mass/Vol] 17 mg/dL Normal 7 - 18 [facility] Comment on above: Performed By: #### 2 63962 ####[facility],[address] [place] [address] 77215 ED MED ADMINISTRATION DETAIL on 08-07-2024 ED MED 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 -- 15:27 08/07/24 EST Ruddy Marcila R.N. DISPOSITION / DISCHARGE Departure time: 17:20 [...] Marcial R.N. 08/07/24 17:21:08 EST) Generated by [facility] 3 of 3 Normal [facility] ED ORDER SHEET (CPOE ONLY)on 08-07-2024 ED ORDER SHEET (CPOE ONLY) Order Sheet Order Sheet [address] [place] [address] [id number] 08/07/2024 Patient: ANGIE HICKS Sex: Female : [...] (08/07/2024 17:16 EST)] 2 of 2 Normal [facility] ED PHYSICIAN CLINICAL REPORT on 08-07-2024 ED PHYSICIAN CLINICAL REPORT Narrative Physician Clinical Narrative [address] [place] [address] [id number] 08/07/2024 Patient: ANGIE HICKS Sex: Female : [...] 1.50 - 7.10 Final EST 08/07/2024 16:06 [place] # 0.64 x10/UL 0.20 - 1.00 Final [...] tract infect (more content not included)... Normal [facility] ED SUPER BILLon 08-07-2024 ED SUPER BILL [address] [address] [id number] 08/07/2024 Patient: ANGIE HICKS Sex: Female : 2005 Age: 19y Item Professional Category Description Facility Code Code Quantity Fee Total Nurse/E/M EMERGENCY [id number] 1 $0.00 $0.00 DEPARTMENT VISIT MODERATE SEVERITY (12381) Grand Total $0.00 Providers Roslyn De La Cruz M.D. Chief Complaint ABDOMINAL PAIN. Principal Diagnosis Acute suprapubic abdominal pain of unknown cause. ICD-10 Codes 1 of 2 [facility] R10.30: Lower abdominal pain, unspecified 2 of 2 Normal [facility] ED VISIT SUMMARYon ED VISIT SUMMARY Visit Overview Visit Overview [address] [address] [id number] 08/07/2024 Patient: ANGIE HICKS Sex: Female : [...] OF UNKNOWN CAUSE 4 of 4 Normal [facility] ED VITALS FLOW SHEETon 08-07 ED VITALS FLOW SHEET Vitals Vital Sign Flow Sheet [address] [place] [address] [id number] 08/07/2024 Patient: ANGIE HICKS Sex: Female : 2005 Age: 19y Measurements Wt: 49.9 kg, Ht/Victor Manuel: 59.0 in, BMI: 22.22 Measured Time BP MAP HR RR O2Sat ETCO2 Temp Pain GCS RTS 14:32 08/07/2024 112/73 86 102 16 98% 98.7 F 3 1 of 1 Normal [facility] LIPASEon 08-07-2024 Lipase [Catalytic activity/Vol] 30.0 U/L Normal 15.0 - 78.0 [facility] Comment on above: Result Comment: *PLE ASE NOTE THAT RANGES FOR LIPASE HAVE CHANGED OF 08/06/23 DUE TO AN ASSAY UPDATE BY THE ASSISTANT PROFESSOR OF MATHEMATICS.THE NEW ASSAY RANGE IS 6-250 U/L, WITH A REFERENCE RANGE OF 16-77 U/L. Performed By: #### 2 53875 ####[address] [address] URINEon 08-07-2024 Beta HCG ( test) Ql (U) Negative Normal NEGATIVE [facility] Comment on above: Performed By: #### 2 02677 #### [address] [place] [address] EXTERNAL QC DONE? YES Normal [facility] Comment on above: Performed By: #### 2 54073 #### [facility],[address] [place] [address] 09088 INTERNAL QC PASS Normal [facility] Comment on above: Performed By: #### 2 07229 #### [facility],[address] [place] [address] 22645 URINALYSISon 08-07-2024 Bilirubin Ql (U) Negative Normal NORMAL: NEGATIVE [facility] Comment on above: Performed By: #### 2 46210 #### [facility],[address] [place] [address]99 Clarity (U) clear Normal NORMAL: CLEAR [facility] Comment on above: Performed By: #### 2 74592 #### [facility],[address] [place] [address] 97094 Color (U) yellow Normal NORMAL: YELLOW [facility] Center Comment on above: Performed By: #### 2 [id number] #### [facility],[address] [place] [address] 38326 Glucose Ql (U) NORM Normal NORMAL: NORMAL [facility] Comment on above: Performed By: #### 2 03153 #### [facility],[address] [place] [address] 25866 Hemoglobin Ql (U) Negative Normal NORMAL: NEGATIVE [facility] Comment on above: Performed By: #### 2 82026 #### [facility],[address] [place] [address] 90935 Ketone Negative Normal NORMAL: NEGATIVE [facility] Comment on above: Performed By: #### 2 89049 #### [facility],[address] [place] [address] 89021 Leukocytes Negative Normal NORMAL: NEGATIVE [facility] Comment on above: Performed By: #### 2 64902 #### [facility],[address] [place] [address] 77602 Nitrite Ql (U) Negative Normal NORMAL: NEGATIVE [facility] Comment on above: Performed By: #### 2 37214 #### [facility],[address] [place] [address] pH (U) 5 [pH] Normal NORMAL: 5.0-8.0 [facility] Comment on above: Performed By: #### 2 68899 #### [facility],[address] [place] [address] Protein Ql (U) 15 Abnormal NORMAL: NEGATIVE [facility] Comment on above: Performed By: #### 2 99192 #### [facility],[address] [place] [address] Sp Shelby 1.025 Normal NORMAL: 1.010-1.030 [facility] Comment on above: Performed By: #### 2 29596 #### [facility],[address] [place] [address] Specimen Type R Normal [facility] Comment on above: Performed By: #### 2 42928 #### [facility],[address] [place] [address] Urinalysis dipstick W Reflex Microscopic panel (U) NOT INDICATED Normal [facility] Comment on above: Performed By: #### 2 86843 #### [place] [address] Urobilinog NORM Normal NORMAL: NORMAL [facility] Comment on above: Performed By: #### 2 87264 #### [facility],[address] [place], [place] [address] B12on 07-26-2024 Cobalamin (Vitamin B12) [Mass/Vol] 775 pg/mL Normal 211-911 [facility] Comment on above: Performed By: #### B 12, VIDH, FE, FERR #### [place] [address] FEon 07-26-2024 Iron [Mass/Vol] 65 ug/dL Normal 50-170 [facility] Comment on above: Performed By: #### B 12, VIDH, FE, FERR #### [place] [id number] Kate 07-26-2024 Ferritin [Mass/Vol] 29.4 ng/mL Normal 8.0-252.0 [facility] Comment on above: Performed By: #### B 12, VIDH, FE, FERR #### [place] [id number] PREGUon 07-26-2024 HCG ( test) Ql (U) Negative Normal [facility] Comment on above: Performed By: #### U AMIC, PREGU, UA #### [place] [address] test (u) int Invalid Interpretation Code [facility] Comment on above: Result Comment: HCG not detected. Very dilute urine specimens, as indicated by a low specific gravity, may not contain outside sales representative levels of hCG. If is still suspected, a first morning urine specimen should be collected 48 hours later and tested. Performed By: #### U AMIC, PREGU, UA #### [place] [address] UAon 07-26-2024 Color (U) Yellow Normal [facility] Comment on above: Performed By: #### U AMIC, PREGU, UA #### [place] [address] Glucose (U) [Mass/Vol] Negative Normal Negative [facility] Comment on above: Performed By: #### U AMIC, PREGU, UA #### [place] [address] Ketones Ql (U) Negative Normal Neg-Trace [facility] Comment on above: Performed By: #### U AMIC, PREGU, UA #### [place] [address] UA Appear Cloudy Abnormal Clear [facility] Comment on above: Performed By: #### U AMIC, PREGU, UA #### [place] [address] UA Blood Negative Normal Neg-Trace [facility] Comment on above: Performed By: #### U AMIC, PREGU, UA #### [place] [address] UA Leuk Est Trace Normal Negative [facility] Comment on above: Performed By: #### U AMIC, PREGU, UA #### [address] [address] UA Nitrite Positive Abnormal Negative [facility] Comment on above: Performed By: #### U AMIC, PREGU, UA #### [address] [address] UA pH 6.5 Normal 5.0 - 8.0 [facility] Comment on above: Performed By: #### U AMIC, PREGU, UA #### [place] [address] UA Protein Negative Normal Negative [facility] Comment on above: Performed By: #### U AMIC, PREGU, UA #### [place] [address] UA Spec Grav 1.025 Normal 1.006-1.029 [facility] Comment on above: Performed By: #### U AMIC, PREGU, UA #### [place] [address] UA Specimen Type Clean Catch Normal [facility] Comment on above: Performed By: #### U AMIC, PREGU, UA #### [place] [address] UA Urobilinogen 1.0 E.U./dL Normal 0.2-1.0 [facility] Comment on above: Performed By: #### U AMIC, PREGU, UA #### [place] [address] Urobilinogen (U) [Mass/Vol] Negative Normal Neg-Trace [facility] Comment on above: Performed By: #### U AMIC, PREGU, UA #### [address] [address] UAMICon 07-26-2024 UA Bacteria 4+ /hpf Abnormal Negative [facility] Comment on above: Performed By: #### U AMIC, PREGU, UA #### [facility] [address] [place] [address] UA Mucous 2+ /hpf Normal [facility] Comment on above: Performed By: #### U AMIC, PREGU, UA #### [facility] [address] [place] [address] UA RBC Rare Normal 0-2 [facility] Comment on above: Performed By: #### U AMIC, PREGU, UA #### [facility] [address] [place] [address] UA Squam Epithelial 0-2 Normal 0-20 [facility] Comment on above: Performed By: #### U AMIC, PREGU, UA #### [facility] [address] [place] [address] UA WBC 5-10 Abnormal 0-5 [facility] Comment on above: Performed By: #### U AMIC, PREGU, UA #### [place] [address] VIDHon 07-26-2024 Vit. D 25-Hydroxy 15.4 ng/mL Normal [facility] Comment on above: Result Comment: Inte rpretive Values Based on Total 25(OH)D: Severe Deficiency <20 ng/mL Mild to Moderate Deficiency 20-30 ng/mL Optimum Levels 30-100 ng/mL Toxicity Possible >100 ng/mL Performed By: #### B 12, VIDH, FE, FERR #### [place] [address] SICKLE PREP SCRNon 3 Hemoglobin S Ql (Bld) Negative Normal Negative [facility] Comment on above: Order Comment: Speci men Type: BLOOD SPECIMEN Ordering Facility: [facility] Address: [address] [place] [address] Performed By: #### S CKSOL #### [facility] CLIA [id number] [place] [address] [place] CMV AB-IGMon 09-13-2017 CMV AB-IGM <30.0 Normal 0.0-29.9 [facility] Comment on above: Result Comment: Nega tive <30.0 Equivocal 30.0 - 34.9 Positive >34.9A positive result is generally indicative of acuteinfection, reactivation or persistent IgM production.Performed at: [facility] [id number] Director: Zaid Flores PhD, Phone: [phone] Performed By: #### L 800.0400, L800.0500, L800.0510 ####[place] [address] EBV-VCA,IGGon 09-13-2017 EBV-VCA,IGG <18.0 Normal 0.0-17.9 [facility] Comment on above: Result Comment: Nega tive <18.0 Equivocal 18.0 - 21.9 Positive >21.9 Performed By: #### L 800.0400, L800.0500, L800.0510 ####[place] [address] EBV-VCA,IGMon 09-13-2017 EBV-VCA,IGM <36.0 Normal 0.0-35.9 [facility] Comment on above: Result Comment: Nega tive <36.0 Equivocal 36.0 - 43.9 Positive >43.9Performed at: [facility] [id number] Director: Zaid Flores PhD, Phone: [phone] Performed By: #### L 800.0400, L800.0500, L800.0510 ####[place] [address] CBCon 09-10-2017 Basophils Auto #/vol (Bld) 0.00 x10(3) Normal 0.00-0.30 [facility] Comment on above: Performed By: #### L 200.0010 ####[facility] [id number] [place] [address] Basophils/100 WBC Auto (Bld) 0.3 % Normal 0-2 [facility] Comment on above: Performed By: #### L 200.0010 ####ML [facility] LVFULVHPJM976 [place] [address] Eosinophils 0.10 x10(3) Normal 0.00-0.50 [facility] Comment on above: Performed By: #### L 200.0010 ####ML - [id number] [place] [address] Eosinophils/100 leukocytes 1.9 % Normal 1-4 [facility] Comment on above: Performed By: #### L 200.0010 ####ML - TOCHJCY[address] [place] [address] Erythrocyte distribution width Auto Ratio (RBC) 13.2 % Normal 11.5-14.5 [facility] Comment on above: Performed By: #### L 200.0010 ####ML [facility] JXW[address] [place] [address] Erythrocytes (RBC) 4.16 x10(6) Normal 4.00-5.40 [facility] Comment on above: Performed By: #### L 200.0010 ####ML [facility] I[address] [place] [address] Hematocrit (HCT) 36.4 % Normal 35-49 [facility] Comment on above: Performed By: #### L 200.0010 ####ML [facility] KMMMXRAT[address] [place] [address] 19300 Hemoglobin mass conc (Bld) 12.2 g/dL Normal 12-15.0 [facility] Comment on above: Performed By: #### L 200.0010 ####ML [facility] TNQXZCXW[address] [place] [address]204 Lymphocytes 2.00 x10(3) Normal 1.00-7.20 [facility] Comment on above: Performed By: #### L 200.0010 ####ML - FEZSFLSTZA[address] [place] [address] Lymphocytes/100 leukocytes 26.6 % Normal 23-53 [facility] Comment on above: Performed By: #### L 200.0010 ####ML - MCLKIOLEBS[address] [place] [address] MCH 29.3 pg Normal 26-32 [facility] Comment on above: Performed By: #### L 200.0010 ####ML - MWIMPJJWNF[address] [place] [address]187 MCHC mass conc (RBC) 33.5 g/dL Normal 32-36 [facility] Comment on above: Performed By: #### L 200.0010 ####ML - ZXTDLYSMUA[address] [place] [address] MCV 87.5 fL Normal 80-94 [facility] Comment on above: Performed By: #### L 200.0010 ####ML - ETJEPYILEI[address] [place] [address] Monocytes 0.90 x10(3) Normal 0.10-1.50 [facility] Comment on above: Performed By: #### L 200.0010 ####ML - TTYERKJDEX[address] [place] [address] Monocytes/100 leukocytes 11.5 % High 2-11 [facility] Comment on above: Performed By: #### L 200.0010 ####ML - XATAGURJNA[address] [place] [address] Neutrophils 4.40 x10(3) Normal 1.60-8.80 [facility] Comment on above: Performed By: #### L 200.0010 ####ML - RITQEZFUVY[address] [place] [address] Neutrophils/100 WBC Auto (Bld) 59.7 % Normal 35-65 [facility] Comment on above: Performed By: #### L 200.0010 ####ML - UBBYVBOZZR[address] [place] [address] 34457 Platelet mean volume (PMV) 8.4 fL Normal 7.5-9.5 [facility] Comment on above: Performed By: #### L 200.0010 ####ML - TNTOERRJYW[address] [place] [address] Platelets 343 X10(3) Normal 150-450 [facility] Comment on above: Performed By: #### L 200.0010 ####ML - OKJMCMYQBC[address] [place] [address]117 WBC (Leukocytes) 7.4 x10(3) Normal 4.5-13.5 [facility] Comment on above: Performed By: #### L 200.0010 #### - JYRTCDSDMQ191 [place] [address] CMPon 09-10-2017 A:G RATIO 1.60 Normal 1.1-2.5 [facility] Comment on above: Performed By: #### L 100.0005, L304.0140, L304.0162, L304.0470 ####[facility] UEVPEUBHUD375 [place] [address] Alanine aminotransferase (ALT) 11 U/L Normal 5-33 [facility] Comment on above: Performed By: #### L 100.0005, L304.0140, L304.0162, L304.0470 #### - JBEMSFHMLN379 [place] [address] Albumin 4.5 g/dL Normal 3.8-5.4 [facility] Comment on above: Performed By: #### L 100.0005, L304.0140, L304.0162, L304.0470 #### - DPIHUNRPNC[address] [place] [address] ALK. PHOS 170 U/L Normal 35-186 [facility] Comment on above: Performed By: #### L 100.0005, L304.0140, L304.0162, L304.0470 #### - OTGBBXWBON273 [place] [address] Anion gap 18.3 mmol/L Normal 15-22 [facility] Comment on above: Performed By: #### L 100.0005, L304.0140, L304.0162, L304.0470 #### - KHTGSTKCXJ691 [place] [address] Aspartate aminotransferase (AST) 16 U/L Normal 5-32 [facility] Comment on above: Performed By: #### L 100.0005, L304.0140, L304.0162, L304.0470 ####[facility] WDGHMYLKZU329 [place] [address] Bilirubin Ql (U) 0.2 mg/dL Normal 0.2-1.0 [facility] Comment on above: Performed By: #### L 100.0005, L304.0140, L304.0162, L304.0470 ####ML - [id number] [place] [address] Calcium 9.2 mg/dL Normal 8.4-10.2 [facility] Comment on above: Performed By: #### L 100.0005, L304.0140, L304.0162, L304.0470 ####ML - UKGFUASANR647 [place] [address] Chloride 99 mmol/L Normal 98-107 [facility] Comment on above: Performed By: #### L 100.0005, L304.0140, L304.0162, L304.0470 ####ML - AMIPIDPFUL419 [place] [address] CO2 26 mmol/L Normal 22-29 [facility] Comment on above: Performed By: #### L 100.0005, L304.0140, L304.0162, L304.0470 ####ML - LNKOVPXTKK[address] [place] [address] Creatinine 0.44 mg/dL Low 0.57-0.87 [facility] Comment on above: Performed By: #### L 100.0005, L304.0140, L304.0162, L304.0470 ####ML - WNZXENRXZS762 [place] [address] eGFR (non-black) > 60 ml/Min/1.73m2 Normal [facility] Comment on above: Performed By: #### L 100.0005, L304.0140, L304.0162, L304.0470 ####ML - UKJNPCFCIG158 [place] [address] Globulin 2.8 g/dL Normal 1.5-4.5 [facility] Comment on above: Performed By: #### L 100.0005, L304.0140, L304.0162, L304.0470 ####ML - AAFHVOBFKO934 [place] [address] Glucose mass conc 95 mg/dL Normal 60-100 [facility] Comment on above: Performed By: #### L 100.0005, L304.0140, L304.0162, L304.0470 ####[facility] SMCZURCQYE513 [place] [address] Potassium molar conc 4.3 mmol/L Normal 3.5-5.0 [facility] Comment on above: Performed By: #### L 100.0005, L304.0140, L304.0162, L304.0470 #### - LMWFROFQIA[address] [place] [address] Protein 7.3 g/dL Normal 6.0-8.0 [facility] Comment on above: Performed By: #### L 100.0005, L304.0140, L304.0162, L304.0470 ####[address] [address] Sodium 139 mmol/L Normal 135-145 [facility] Comment on above: Performed By: #### L 100.0005, L304.0140, L304.0162, L304.0470 #### - UN[address]RHMX[address] [place] [address] 12967 Urea nitrogen 9 mg/dL Normal 5-18 [facility] Comment on above: Performed By: #### L 100.0005, L304.0140, L304.0162, L304.0470 ####[facility] IR[address] [place] [address] Free T4on 09-10-2017 Thyroxine (T4) free 1.00 ng/dL Normal 0.93-1.7 [facility] Comment on above: Performed By: #### L 100.0005, L304.0140, L304.0162, L304.0470 ####[facility] Y[address] [place] [address] TSHon 09-10-2017 Thyroid stimulating hormone (TSH) 1.63 uIU/mL Normal 0.45-4.50 [facility] Comment on above: Performed By: #### L 100.0005, L304.0140, L304.0162, L304.0470 #### - [id number] [place] [address] VITAMIN Don 09-10-2017 VITAMIN D 19.1 ng/mL Low 30-100 [facility] Comment on above: Performed By: #### L 100.0005, L304.0140, L304.0162, L304.0470 ####ML - [facility] UZMETXVHLB933 [place] [address] Vital Signs Date Time Vital Sign Value Performing Clinician Amanda araujo 04-05-2025 16:20-0400 Body mass index (BMI) [Ratio] 25.5 kg/m2 Adelina Plotts UI SOFTWARE DEVELOPER.CNM Work Phone: [facility] 04-05-2025 16:20-0400 Body weight 58.24 kg Adelina Plotts UI SOFTWARE DEVELOPER.CNM Work Phone: [facility] 04-05-2025 16:20-0400 Diastolic blood pressure 70 mm[Hg] Adelina Plotts UI SOFTWARE DEVELOPER.CNM Work Phone: [facility] 04-05-2025 16:20-0400 Systolic blood pressure 110 mm[Hg] Adelina Plotts UI SOFTWARE DEVELOPER.CNM Work Phone: [facility] 03-07-2025 16:06-0400 Body mass index (BMI) [Ratio] 23.83 kg/m2 Dariusz Haana m UI SOFTWARE DEVELOPER.CERTIFIED ENDOSCOPY TECHNICIAN Work Phone: [facility] 03-07-2025 16:06-0400 Body weight 54.43 kg Dariusz Brooks UI SOFTWARE DEVELOPER.CERTIFIED ENDOSCOPY TECHNICIAN Work Phone: [facility] 03-07-2025 16:06-0400 Diastolic blood pressure 60 mm[Hg] Dariusz Haury UI SOFTWARE DEVELOPER.CERTIFIED ENDOSCOPY TECHNICIAN Work Phone: [facility] 03-07-2025 16:06-0400 Systolic blood pressure 98 mm[Hg] Dariusz Haury UI SOFTWARE DEVELOPER.CERTIFIED ENDOSCOPY TECHNICIAN Work Phone: [facility] 01-17-2025 14:20-0400 Body mass index (BMI) [Ratio] 21.85 kg/m2 Deisi Menon MD Work Phone: [facility] 01-17-2025 14:20-0400 Body weight 49.9 kg Deisi Menon MD Work Phone: [facility] 01-17-2025 14:20-0400 Diastolic blood pressure 68 mm[Hg] Deisi Menon MD Work Phone: [facility] 01-17-2025 14:20-0400 Systolic blood pressure 106 mm[Hg] Deisi Menon MD Work Phone: [facility] 01-05-2025 10:56-0400 Body height 151.1 cm Dariusz Haury UI SOFTWARE DEVELOPER.CERTIFIED ENDOSCOPY TECHNICIAN Work Phone: [facility] 01-05-2025 10:56-0400 Body mass index (BMI) [Ratio] 21.65 kg/m2 Dariusz Haury UI SOFTWARE DEVELOPER.CERTIFIED ENDOSCOPY TECHNICIAN Work Phone: [facility] 01-05-2025 10:56-0400 Body weight 49.44 kg Dariusz Haury UI SOFTWARE DEVELOPER.CERTIFIED ENDOSCOPY TECHNICIAN Work Phone: [facility] 01-05-2025 10:56-0400 Diastolic blood pressure 62 mm[Hg] Dariusz Haury UI SOFTWARE DEVELOPER.CERTIFIED ENDOSCOPY TECHNICIAN Work Phone: [facility] 01-05-2025 10:56-0400 Systolic blood pressure 100 mm[Hg] Dariusz Haury UI SOFTWARE DEVELOPER.CERTIFIED ENDOSCOPY TECHNICIAN Work Phone: [facility] Encounters Encounter Date Encounter Type Care Provider Facility Start: 06-13-2025 End: 06-13-2025 ambulatory OLGA M CARROL Facility:[facility] Start: 05-31-2025 End: 05-31-2025 ambulatory TA GALLEGOS Facility:[facility] Start: 05-29-2025 End: 05-29-2025 ambulatory OLGA Jaki BRANHAM Facility:[facility] Start: 05-15-2025 End: 05-15-2025 ambulatory DEBBY DURHAM [facility] Start: 05-14-2025 End: 05-14-2025 ambulatory JULIANNA MEDELLIN Facility:[facility] Start: 05-03-2025 End: 05-03-2025 ambulatory OLGA M CARROL Facility:[facility] Start: 04-17-2025 End: 04-17-2025 Telemedicine consultation with patient Debby Durham MD Work Phone: [facility] Start: 04-17-2025 End: 04-17-2025 ambulatory Debby Durham MD Work Phone: [facility] Comment on above: Depression with anxi ety; [...] Start: 04-05-2025 End: 04-05-2025 ambulatory OLGA GARCÍAPE Facility:[facility] Start: 03-07-2025 End: 03-07-2025 Patient encounter procedure Yiel[employer]i Tech 1 Checkroom Attendant [facility] Comment on above: Encounter for anatomic survey (HCC) (Primary Dx); 18 weeks gestation of (HCC) Encounter for superv ision of normal first in second trimester (HCC) (Primary Dx); 18 weeks gestation of (HCC); Nausea and vomiting during (HCC); Depression with anxiety; History of ADHD Start: 03-07-2025 End: 03-07-2025 ambulatory DARIUSZ BROOKS Facility:[facility] Start: 01-29-2025 End: 01-29-2025 ambulatory DARIUSZ BROOKS Facility:[facility] Start: 01-17-2025 End: 01-17-2025 Patient encounter procedure Deisi Menon MD Work Phone: OB/Gynecology Comment on above: Encounter for superv ision of normal first in first trimester (HCC) (Primary Dx); 11 weeks gestation of (HCC) Start: 01-17-2025 End: 01-17-2025 Patient encounter procedure Whi Tech 1 Checkroom Attendant [facility] Comment on above: Encounter for superv ision of normal first in first trimester (HCC) Start: 01-17-2025 End: 01-17-2025 ambulatory DARIUSZ BROOKS Facility:[facility] Start: 01-08-2025 End: 01-09-2025 Follow-up encounter Ashley [...] Start: 01-05-2025 End: 01-05-2025 ambulatory DARIUSZ BROOKS Facility:[facility] Start: 01-02-2025 End: 01-10-2025 Telephone encounter Dariusz Brooks APRN.CNP Work Phone: OB/Gynecology Comment on above: 01/05 NOB Intake Ques tions Start: 08-07-2024 End: 08-07-2024 Emergency department patient visit ROSLYN DAI [facility] Start: 07-26-2024 End: 07-26-2024 ambulatory ANA FAIRCHILD Facility:A Start: 04-03-2023 End: 04-04-2023 ambulatory KENNY CORRALES Facility:[id number] Start: 09-10-2017 Ambulatory OLGA BRANHAM Facility:[facility] Start: 04-26-2017 Ambulatory PRAVEEN-EL LEWIS Facilbhupinder ty:UNI Procedures Date Procedure Procedure Detail Performing Clinician Start: 03-07-2025 Us preg uterus after 1st trimest 08/09 gestation Dariusz Brooks APRN.CNP Work Phone: Start: 01-29-2025 Antibody screen OLGA SANDERSON Comment on above: Order Comment: Speci men Type: BLOOD SPECIMEN Ordering Facility: [facility] Address: [address] [place] [address] Performed By: #### T SPN #### [facility] CLIA [id number] [address] [place] [address] [place] Start: 01-17-2025 Us preg uterus after 1st trimest 1/1st gestation Dariusz Todd BAR Work Phone: Start: 01-05-2025 Us uterus limited 1/> fetuses Dariusz Todd BAR Work Phone: Start: 08-07-2024 Urinalysis ROSLYN PHILLIPS Comment on above: Result Comment: URIN ALYSIS Performed By: #### 2 [id number] #### [facility],[address] [place] [address] Plan of Treatment Date Care Activity Detail Author Start: 03-29-2027 Urine microalbumin profile DTaP,Tdap,Td Vaccine (7 - Td or Tdap) [facility] Start: 01-05-2026 GC (Gonorrhea) Screening () GC (Gonorrhea) Screening () [facility] Start: 01-05-2026 Screening for Chlamy philomena trachomatis Chlamydia Screening () [facility] Start: 06-07-2025 RSV Vaccine (1 - Ris k 1-dose series) RSV Vaccine (1 - Risk 1-dose series) [facility] Start: 05-15-2025 End: 05-15-2025 Follow-up encounter 05/15/2025 2:00 PM EDT [facility] [address] [place] [id number] Debby Durham MD [address] [place] [address] 4 Wk Virtual Follow Up [facility] Comment on above: 4 Wk Virtual Follow Up Start: 05-06-2025 End: 08-05-2025 ANEMIA REFLEX PANEL ANEMIA REFLEX PANEL Lab Routine 23 weeks gestation of (HCC) Encounter for supervision of normal first in second trimester (HCC) Expected: 05/06/2025 (Approximate), Expires: 08/05/2025 [facility] Comment on above: Expected: 05/06/2025 (Approximate), Expires: 08/05/2025 Start: 05-06-2025 End: 04-05-2026 GESTATIONAL GLUCOSE SCREEN, 1-HOUR, 50 GRAM, NON-FASTING GESTATIONAL GLUCOSE SCREEN, 1-HOUR, 50 GRAM, NON-FASTING Lab Routine 23 weeks gestation of (HCC) Encounter for supervision of normal first in second trimester ([facility]) Screening for diabetes mellitus Expected: 05/06/2025 (Approximate), Expires: 04/05/2026 [facility] Work Phone: Comment on above: Expected: 05/06/2025 (Approximate), Expires: 04/05/2026 Start: 05-06-2025 End: 04-05-2026 SYPHILIS TREPONEMAL W/REFLEX SYPHILIS TREPONEMAL W/REFLEX Lab Routine 23 weeks gestation of ([facility]) Encounter for supervision of normal first in second trimester ([facility]) Expected: 05/06/2025 (Approximate), Expires: 04/05/2026 [facility] Comment on above: Expected: 05/06/2025 (Approximate), Expires: 04/05/2026 Start: 05-03-2025 End: 05-03-2025 Patient encounter procedure 05/03/2025 10:40 AM EDT Routine Office Visit OB/Gynecology [address] [place], [place] [id number] Luz Elena Mendoza MD [address] [place], [place] [id number] OB OB/Gynecology Comment on above: OB Start: 04-17-2025 End: 07-17-2025 TSH W/REFLEX FT4 TSH W/REFLEX FT4 Lab Routine Depression with anxiety Expected: 04/17/2025, Expires: 07/17/2025 [facility] Work Phone: Comment on above: Expected: 04/17/2025 , Expires: 07/17/2025 Start: 04-09-2025 Influenza vaccination C [facility] Start: 04-05-2025 End: 04-05-2025 Patient encounter procedure 04/05/2025 4:30 PM EDT Routine Office Visit OB/Gynecology [address] [place] [address] Adelina Bello APRN.CN [address] [place] [address] OB OB/Gynecology Comment on above: OB Start: 03-07-2025 End: 03-07-2025 Patient encounter procedure Maternal Medicine Comment on above: anatomy OB Start: 01-17-2025 End: 01-17-2025 Patient encounter procedure 01/17/2025 2:50 PM EDT Routine Office Visit OB/Gynecology [address] [place] [address] Deisi Menon MD [address] [place] [address] LMP:10/26/2024 OB/Gynecology Comment on above: LMP:10/26/2024 Start: 01-17-2025 End: 01-17-2025 Patient encounter procedure 01/17/2025 1:30 PM EDT Routine Office Visit Maternal Medicine [address] [place] [address] [facility] Comment on above: Nuchal Start: 01-05-2025 End: 04-06-2025 ANEMIA REFLEX PANEL ANEMIA REFLEX PANEL Lab Routine 10 weeks gestation of (HCC) Expected: 01/05/2025, Expires: 04/06/2025 [facility] Work Phone: Comment on above: Expected: 01/05/2025 , Expires: 04/06/2025 Start: 01-05-2025 End: 04-06-2025 Hemoglobin A1c in Blood HEMOGLOBIN A1C Lab Routine 10 weeks gestation of (HCC) Expected: 01/05/2025, Expires: 04/06/2025 [facility] Comment on above: Expected: 01/05/2025 , Expires: 04/06/2025 Start: 01-05-2025 End: 04-06-2025 Hepatitis B virus surface Ag [Presence] in Serum HEPATITIS B SURFACE ANTIGEN Lab Routine 10 weeks gestation of ([facility]) Expected: 01/05/2025, Expires: 04/06/2025 [facility] Comment on above: Expected: 01/05/2025 , Expires: 04/06/2025 Start: 01-05-2025 End: 04-06-2025 Hepatitis C virus Ab [Presence] in Serum HEPATITIS C ANTIBODY IA WITH CONFIRMATION Lab Routine 10 weeks gestation of ([facility]) Expected: 01/05/2025, Expires: 04/06/2025 [facility] Comment on above: Expected: 01/05/2025 , Expires: 04/06/2025 Start: 01-05-2025 End: 04-06-2025 HIV 1+2 Ab [Presence] in Serum or Plasma by Immunoassay HIV 1/2 COMBO WITH REFLEX TO DIFFERENTIATION Lab Routine 10 weeks gestation of ([facility]) Expected: 01/05/2025, Expires: 04/06/2025 [facility] Comment on above: Expected: 01/05/2025 , Expires: 04/06/2025 Start: 01-05-2025 End: 01-05-2026 OBSTETRIC ULTRASOUND WHI OBSTETRIC ULTRASOUND WHI Anc Imaging Routine Encounter for supervision of normal first in first trimester ([facility]) Expected: 01/05/2025, Expires: 01/05/2026 [facility] Comment on above: Expected: 01/05/2025 , Expires: 01/05/2026 Start: 01-05-2025 End: 04-06-2025 RUBELLA IGG ANTIBODY RUBELLA IGG ANTIBODY Lab Routine 10 weeks gestation of ([facility]) Expected: 01/05/2025, Expires: 04/06/2025 [facility] Comment on above: Expected: 01/05/2025 , Expires: 04/06/2025 Start: 01-05-2025 End: 04-06-2025 SYPHILIS TREPONEMAL W/REFLEX SYPHILIS TREPONEMAL W/REFLEX Lab Routine 10 weeks gestation of ([facility]) Expected: 01/05/2025, Expires: 04/06/2025 [facility] Comment on above: Expected: 01/05/2025 , Expires: 04/06/2025 Start: 01-05-2025 End: 04-06-2025 TYPE + SCREEN TYPE + SCREEN Blood Bank Routine 10 weeks gestation of ([facility]) Expected: 01/05/2025, Expires: 04/06/2025 [facility] Comment on above: Expected: 01/05/2025 , Expires: 04/06/2025 Start: 04-09-2024 Covid-19 Vaccine ( season) Covid-19 Vaccine ( season) [facility] Start: 2022 GC (Gonorrhea) Screening (18-24) GC (Gonorrhea) Screening (18-24) [facility] Start: 2022 Hepatitis C screening [facility] Start: 2022 HIV screening HIV Screening [facility] Start: 2022 Screening for Chlamy philomena trachomatis Chlamydia Screening () [facility] Start: 2020 Meningococcal B Vacc ine (1 of 2 - Standard) Meningococcal B Vaccine (1 of 2 - Standard) [facility] Start: 2018 Peds To Adult Transition Annual Assessment Peds To Adult Transition Annual Assessment [facility] Start: 09-29-2017 HPV Vaccine (2 - 2-d ose series) HPV Vaccine (2 - 2-dose series) [facility] Start: 2016 Peds To Adult Transition Initial Discussion Peds To Adult Transition Initial Discussion [facility] Bacteria identified in Urine by Culture BACTERIAL CULTURE, URINE Microbiology Routine 10 weeks gestation of ([facility]) 01/05/2025 11:46 AM EDT [facility] Bacteria identified in Urine by Culture BACTERIAL CULTURE, URINE Microbiology Routine Encounter for supervision of normal first in first trimester ([facility]) 11 weeks gestation of ([facility]) 01/17/2025 2:39 PM EDT [facility] Work Phone: Bacteria identified in Urine by Culture BACTERIAL CULTURE, URINE Microbiology Routine Urinary tract infection without hematuria, site unspecified Ordered: 04/05/2025 [facility] Comment on above: Ordered: 04/05/2025 Chlamydia trachomatis+Neisseria gonorrhoeae DNA [Presence] in Unspecified specimen by EDMAR with probe detection GONORRHEA/CHLAMYDIA NAAT Lab Routine 10 weeks gestation of ([facility]) 01/05/2025 11:46 AM EDT [facility] TRICHOMONAS VAGINALI S NAAT TRICHOMONAS VAGINALIS NAAT Lab Routine 10 weeks gestation of (HCC) 01/05/2025 11:46 AM EDT [facility] Immunizations Immunization Date Immunization Notes Care Provider Robe jewell 07-01-2009 influenza virus vacc ine, unspecified formulation Dariusz Brooks APRN.CERTIFIED ENDOSCOPY TECHNICIAN Work Phone: [facility] Payers Date Payer Category Payer Blue Cross Blue [facility] BLUE ACCE SS PPO [id number] 2018 Unknown [id number] 2004 Unknown [id number] 2004 Unknown [id number] Unknown [id number] Social History Date Type Detail Facility Start: 10-07-2018 End: 01-05-2025 Tobacco smoking status NHIS Never smoked tobacco [facility] History of tobacco use Passive smoker [facility] Start: 10-07-2018 End: 01-05-2025 Tobacco use and exposure Smokeless tobacco non-user [facility] Start: 01-05-2025 End: 04-17-2025 Alcoholic beverage intake [facility] Start: 01-05-2025 End: 01-17-2025 History of Social function [facility] Start: 01-05-2025 End: 01-17-2025 Tobacco use panel [facility] Start: 01-19-2014 National Score (1-10 0), lower number is lower risk 65 [facility] Start: 11-09-2024 [facility] Start: 2004 Sex assigned at Not on file C [facility] Start: 09-13-2019 Alcoholic beverage intake Not Asked [facility] Goals Date Patient Goal Desired Activity /State Personal health goal Functional Status Date Assessment Result Facility 01-19-2014 Are you deaf, or do you have serious difficulty hearing No 01/19/2014 4:36 PM EDT Nery Cavazos MA No [facility] 01-19-2014 Are you blind, or do you have serious difficulty seeing, even when wearing glasses No 01/19/2014 4:36 PM EDT Nery Cavazos MA No [facility] 01-19-2014 Do you have serious difficulty walking or climbing stairs No 01/19/2014 4:36 PM EDT Nery Cavazos MA No [facility] 01-19-2014 Do you have difficul ty dressing or bathing No 01/19/2014 4:36 PM EDT Nery Cavazos MA No [facility] Mental Status Date Assessment Result Facility 01-19-2014 Because of a physica l, mental, or emotional condition, do you have serious difficulty concentrating, remembering, or making decisions No 01/19/2014 4:36 PM EDT Nery Cavazos MA No [facility] Clinical Notes 07-27-2024 to 05-15-2025 Patient InstructionsDebby Durham MD - 04/17/2025 12:49 PM EDTPrenatal Quick Notes - Adelina Bello APRN.CN - 04/05/2025 4:40 PM EDTPatient InstructionsPatient InstructionsPatient Instructions Note Date & Type Note Facility 05-15-2025 Note HNO ID: [id number] Author: DEBBY DURHAM MD Service: ? Author Type: Physician Type: Progress Notes Filed: 05/15/2025 14:22 Note Text: [facility] BEHAVIORAL MEDICINE PROGRESS NOTE PATIENT: Angie Hicks MRD: [id number] DATE: May 15, 2025 Location:[facility] and the patient at home Time in:13:52 Time Out: 14:20 I have communicated my name and active licensure. The patient's identity and physical location were verified at the time of this visit. Either the patient or their legal outside sales representative has been informed of the risks and benefits of virtual and alternatives to virtual treatment through a remote evaluation and consents to proceed with the evaluation remotely. Recording using ambient Purple software for draft documentation of the visit was discussed with the patient/authorized outside sales representative; all questions welcomed and answered. Patient/authorized outside sales representative agreed to proceed IDENTIFYING INFORMATION: Angie [...] explore these resources. She works at a [employer] and enjoys the supportive and non-stressful environment. [...] with anxiety ( (more content not included)... [facility] 05-03-2025 Note HNO ID: [id number] Author: TERRENCE SUTHERLAND MA Service: ? Author Type: Blackjack Dealer Type: Progress Notes Filed: 05/03/2025 11:15 Note [...] severely ill: Yes Patient denies history of Guillain-Bentley Syndrome (a severe paralytic illness): Yes Tdap Adacel injection was given without incident. See immunizations for details of immunizations administered today. VIS sheet provided: Yes Provider Adia was present in office at time of injection. Terrence Sutherland MA [facility] 04-17-2025 Note HNO ID: [id number] Author: KEYON CRUZ LISW Service: ? Author Type: Potato Chip Sorter Type: Progress Notes Filed: 04/17/2025 15:04 Note Text: Summary: Integrated Mental Health Plan of Care Integrated Mental Health Plan of Care Review of referral with patient. Was patient aware of [facility] referral placement by provider?Yes Is the patient currently connected for care : Yes Other Providers name: [facility] Psychiatry - Debby Durham MD Was NAEL sent to patient? No Is the patient agreeable to connecting to services? Yes If agreeable to referral, are they:Psychology and External Assisted in making appt at: Other [facility] SW sent Pt external counseling resources via Tribe message Comment: Pt need Appointment date and time: TBD Current priority status of the referral Medium Additional information Patient and [facility] SW discussed [facility] referral. Patient connected with [facility] psychiatry. Patient referred to [facility] for counseling- Pt sent external counseling resources due to [facility] wait times for counseling. [facility] 04-17-2025 Instructions Debby Durham MD - [...] tablets has been sent to your preferred [facility] pharmacy in [place]. - Lexapro is safe during , though [...] to a provider near your area in [place], [place]. We discussed your : - You [...] your next visit. documented in this encounter [facility] 04-17-2025 Note HNO ID: [id number] Author: DEBBY DURHAM MD Service: ? Author Type: Physician Type: Progress Notes Filed: 04/17/2025 13:51 Note Text: [facility] BEHAVIORAL MEDICINE INITIAL PSYCHIATRIC EVALUATION PATIENT: Angie Hicks MRD: [id number] DATE: April 17, 2025 Location:[facility] and the patient at home Time in:12:50 Time Out: 13:45 I have communicated my name and active licensure. The patient's identity and physical location were verified at the time of this visit. Either the patient or their legal outside sales representative has been informed of the risks and benefits of -- and alternatives to -- treatment through a remote evaluation and consents to proceed with the evaluation remotely. Recording using Swapdom software for draft documentation of the visit was discussed with the patient/authorized outside sales representative; all questions welcomed and answered. 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 She describes their relationship as good and notes that both she and her fiance are excited about the . She works at a [employer] and enjoys her job. She has no other children and denies any legal issues, restoration preferences, or substance abuse. She was born and raised in [place] and lived with both parents until fourth [...] intent or med (more content not included)... [facility] 04-17-2025 History of Present illness Narrative [facility] BEHAVIORAL MEDICINE INITIAL PSYCHIATRIC EVALUATION PATIENT: Angie Hicks MRD: [id number] DATE: April 17, 2025 Location:[facility] and the patient at home Time in:12:50 Time Out: 13:45 I have communicated my name and active licensure. The patient's identity and physical location were verified at the time of this visit. Either the patient or their legal outside sales representative has been informed of the risks and benefits of -- and alternatives to -- treatment through a remote evaluation and consents to proceed with the evaluation remotely. Recording using Swapdom software for draft documentation of the visit was discussed with the patient/authorized outside sales representative; all questions welcomed and answered. 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 She describes their relationship as good and notes that both she and her yolie are excited about the . She works at a [employer] and enjoys her job. She has no other children and denies any legal issues, restoration preferences, or substance abuse. She was born and raised in [place] and lived with both parents until fourth [...] ADHD Hospitalizations: denied Psychiatrist: none Agency: none market sales manager: none Therapist: none currently, had one when she was a child Self harm: denied Suicide attempts: denied Medication Trials: Lexapro helped her Vyvanse (lisdexamphetamine) helped her concentrate ECT: No SOCIAL HISTORY: Guardian: None Born and raised: in [place] and raised by both parents until 4th grade, saw mother on the week ends. She has a younger sister and brother. 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 Mental health resources provided. Dariusz Brooks APRN.CERTIFIED ENDOSCOPY TECHNICIAN History of ADHD 01/05/2025 January 05, 2025 Was on Vyvanse prior to and struggling without it. Managed by PCP. Recommend notifying PCP of and struggling without medication to determine treatment options. Dariusz Brooks APRN.CERTIFIED ENDOSCOPY TECHNICIAN Pyelonephritis age 6 PAST SURGICAL HISTORY Procedure [...] morning : had a UTI now cleared SCHOOL HEALTH AIDE: 24 weeks MUSCULOSKELETAL: Negative for joint pain [...] which included preparing to see the patient, abra-om-sjup patient care, completing clinical documentation, obtaining and/or reviewing separately obtained history, performing a medically appropriate examination, counseling and educating the patient/family/caregiver, ordering medications, tests, or procedures, communicating with other HCPs (not separately reported), independently interpreting results (not separately reported), and communicating results to the patient/family/caregiver. Electronically signed by Debby Durham MD April 17, 2025 12:49 PM documented in this encounter [facility] 04-05-2025 Progress note Formatting of [...] or sooner if needed Adelina Bello APRN.CNM [facility] 04-05-2025 Miscellaneous Notes S: Angie [...] Adelina Bello APRN.CNM documented in this encounter [facility] 04-05-2025 Instructions Adelina Bello APRN.CNM - 04/05/2025 4:19 PM EDT Here are some links for wonderful Providers here in the community and surrounding areas. Do not hesitate to contact their offices, many are offering virtual visits during this time. 4-732-3-TYRK6RUAV - [place] Maternal Mental Health Hotline If you are in suicidal crisis, please call or text 5-813-249-TALK ( ) or visit the National Suicide Prevention Lifeline website. mchb.[facility].gov [facility] Psychology, Psychiatry, Counseling Connect with therapist/ can do virtual visits [phone] Referral to the [facility] To schedule an appointment, please call the [place] for [facility] Appointment Line: [phone] option 1 [facility] [place], [place] [address] [place] [address] [facility] [address] [place] [address] [facility] [address] [place] [address] [facility] [address] [place], [place] [id number] Shirley Ibarra MD [address] [place] [address] [facility] [address], [address] [place] [address] [facility] [address] [place] [address] [facility] Counseling Services [place] / [place] [phone]/ [phone] Katherine Shaikh [address] [facility] [phone] [facility] [place] / [place] [phone] Behavioral [facility] services [facility] [address] [place] [address]/ [facility] [phone] Juanita Alicea, PEDRO, CLC [facility] Workshops, telehealth and at home visits. [phone] [facility] counseling [place] 20 locations [place], [place], [place], [place], [place], [place], [place], [facility], [place], [place], [place], [place], [place], [place], [facility], [place], [place] ,[facility], [place], [place],[facility], [facility] [place], [place], [facility], [place], [place] www.[facility].co [phone] Psychotherapy resources outside of [facility] are listed below [facility] ELGIN Dotson, ATHLETIC SCOUT-S [phone] Revival.clientsecure.dc [address] [address] *Trauma therapy, EMDR, in person or virtual visit. Accepts some insurances. [employer] [phone] [facility] [address] [place] [address] [facility] Web: https://www.BioMedical Enterprises/ Support International Online Provider Directory https://SysClass/ [facility] https://VendorShop/ Dream home renovations for Behavioral Health and Wellness Web: https://Amorfix Life Sciences/ Center for Effective Living Web: https://www.effectiveNGN Holdingsliving.Truviso/ LifeStance Web: https://Emida.Truviso/location/s naturita/[place]/ [facility] Web: https://www.signaturehealthinc.or / [facility] Web: https://Koudai.org/ Recovery Resources Mental health and substance abuse help Web: https://www.Azendoos.org [facility] [address] [place] [facility] [address] www.Green Charge Networks & RESOURCES Support International Direct peer support and connection to professional resources Non-Emergency Helpline Phone: / Text: [phone] Web: https://www..net/ Online Provider Directory: https://SysClass/ Online Support Meetings: https://www..net/get-he lp/khw-iuaxpq-hsupkgy-meetings/ MIL[employer]ROS [employer] Vulcanizer Services Web: https://wwwDigital Royalty/ MotherToBaby Expert information on medication use during and Text: [phone] Web: https://Adient Health/ NATIONAL REGISTRY FOR PSYCHIATRIC MEDICATIONS Currently studying the safety of antidepressants, ADHD medications and atypical antipsychotics taken during TO PARTICIPATE CALL TOLL-FREE: Web: https://womenentalhealth.org/re search/pregnancyregistry/ Support Groups: [facility]- Follow on facebook Baby Bistro support group led by [facility] department [facility] - Support Group [facility].org The POEM support group [phone] Www.poemonline.org Follow on facebook - CECILIO joe chapter Online support meetings PSI https://www..net/get-he lp/cpt-jnfpxo-dkfkene-meetings/ CC mommy and me virtual support group 11:30-1pm Support for mothers and new babies and toddlers [place] childbirth education: Childbirth @cc.org or call [phone] Support groups Online support meetings PSI https://www..net/get-he lp/bcl-wrnlab-nptkets-meetings/ Here are the support groups they offer: [...] of each month Location: [facility] [address] [id number] Room 122 (library room) 7-8:00 p.m. When you enter the jew parking lot off of [address] the entrance door closest to our meeting room is on the front of the building toward the right. For those who are more comfortable with a virtual platform, [facility] offers online support group options several days of the week. To register for an online group or to find out more about POOptimal+, website at: https://EDUonGoaohio.org/get-help/[facility] hospitalpytx-cchwzr-fesdpz/poem-services/ offer a confidential helpline: private Facebook group is called PONEGRITA Heath Randolph Here are the groups they offer: Traumatic childbirth resources: Http://pattch.org/ https://www.1010dataniAmerican Life Media/ CRISIS: CRISIS HOTLINE [phone], 911 or go to the nearest ER. [facility] [phone] / [place] [facility] [phone] https://www.vassar brothers medical centerrb.org Crisis text line text the word HOME to [id number] documented in this encounter [facility] 03-07-2025 Progress note Formatting of [...] supervision of normal first in second trimester ([facility]) - ICD9: V22.0, ICD10: Z34.02 (primary diagnosis) - Continue PNV and LDA 2. 18 weeks gestation of ([facility]) - ICD9: V22.2, ICD10: Z3A.18 - Anatomy ultrasound today, report pending 3. Nausea and vomiting during ([facility]) - ICD9: 643.90, ICD10: O21.9 - Controlled [...] weeks or sooner as needed. Dariusz Brooks APRN.CERTIFIED ENDOSCOPY TECHNICIAN [facility] 03-07-2025 Miscellaneous Notes EH - [...] supervision of normal first in second trimester ([facility]) - ICD9: V22.0, ICD10: Z34.02 (primary diagnosis) - Continue PNV and LDA 2. 18 weeks gestation of ([facility]) - ICD9: V22.2, ICD10: Z3A.18 - Anatomy ultrasound today, report pending 3. Nausea and vomiting during ([facility]) - ICD9: 643.90, ICD10: O21.9 - Controlled [...] Dariusz Brooks APRN.DAVID documented in this encounter [facility] 03-07-2025 Instructions Dariusz Brooks APRN.CNP - 03/07/2025 3:54 PM EDT Images from the original note were not included. Psychotherapy Services at [facility] Call [employer] Health Access Line at [phone] to schedule Individual psychotherapy In-person or virtual Wait time for first evaluation may be 12 or more weeks. Wait list spots may be available. Due to the high volume of patients this option is recommended if you are looking for short term acute symptom coping strategies. 9-703-5-MWZX0WHBL - [place] Maternal Mental Health Hotline If you are in suicidal crisis, please call or text 2-153-200-TALK ( ) or visit the National Suicide Prevention Lifeline website. mchb.[facility] hospitala.gov If you are in crisis, call 911 or go to your nearest Emergency Department Here are some links for wonderful Providers here in the community and surrounding areas. Do not hesitate to contact their offices, many are offering virtual visits during this time. Psychotherapy Services outside of [facility] Support International Online Provider Directory https://Rixty.com/ - can assist in finding providers in your area that might be more extensive then the list below. Counseling [facility] - [place], [place] [address] [place], [place] [id number] [address] [address] [facility] [address] [place], [place] [address] [address] [address] Shirley Ibarra MD [address] [place], [place] [address] [facility] [address] [facility], [address] [place] [address] [facility] Psychiatric Services [address] [place] [address] [facility] [place] / [place] [phone]/ [phone] Katherine Anthonynela [address] [facility] [phone] Aves of Counseling and Mediation [place] / [place] [phone] [facility] [address] [place] [address]/ [facility] [place] [phone] Juanita Alicea, PEDRO, CLC [facility]ump and Beyond Family Therapy Workshops, telehealth and at home visits. [phone] Humanistic counseling center 20 locations [facility], [place], [place], [place], [place], [place], [facility], [place], [place], [place], [place], [place], [place], [facility], [place], [place] ,[facility], [place], [place],[facility], [facility], [place], [facility], [facility], [place] www.st. michaels medical centerGrand Perfectaer.co [phone] Psychotherapy resources outside of [facility] are listed below [facility] Psychotherapy Web: https://www.BioMedical Enterprises/ Support International Online Provider Directory https://SysClass/ [facility]ight [facility] https://VendorShop/ Partners for Behavioral Health and Wellness Web: https://Amorfix Life Sciences/ Center for Effective Living Web: https://www.effectiveNGN Holdingsliving.Truviso/ LifeStance Web: https://Emida.Truviso/location/s saeed/[place]/ [facility] Web: https://www.misericordia hospitalinc.or g/ The Centers Web: https://Koudai.org/ Recovery Resources Mental health and substance abuse help Web: https://www.Cotendo & RESOURCES Support International Direct peer support and connection to professional resources Non-Emergency Helpline Phone: / Text: [phone] Web: https://www..net/ Online Provider Directory: https://SysClass/ Online Support Meetings: https://www..net/get-he lp/qqn-tqfxxx-kmkfuhs-meetings/ MILAGROS Baby and Tire Vulcanizer Services Web: https://Entrecard/ MotherToBaby Expert information on medication use during and Text: [phone] Web: https://Adient Health/ NATIONAL REGISTRY FOR PSYCHIATRIC MEDICATIONS Currently studying the safety of antidepressants, ADHD medications and atypical antipsychotics taken during TO PARTICIPATE CALL TOLL-FREE: Web: https://womenentalhealth.org/re search/pregnancyregistry/ Support Groups: [facility]- Follow on facebook Baby Bistro support group led by [facility] department [facility] Mamas - Support Group [facility].org The POEM support group [phone] Www.poemonline.org Follow on facebook - PONEGRITA joe chapter Online support meetings PSI https://www..net/get-he lp/qqa-qmissc-sdzncqu-meetings/ [facility] mommy and me virtual support group 11:30-1pm Support for mothers and new babies and toddlers [place] childbirth education: Childbirth @ccf.org or call [phone] CRISIS: CRISIS HOTLINE [phone], 911 or go to the nearest . [facility] [phone] / [facility] [phone] https://www.mhrb.org Crisis text line text the word HOME to [address] Mike [facility] [address] [facility] [address] www.Green Charge Networks Ute Jain clinical counseling 3632 [facility] [address] [place] [address] www.Celletra [phone] Holding space psychotherapy Lisette Pepejacoby EP SPECIALIST ATHLETIC SCOUT-S [address] [facility] www.GLOBAL FOOD TECHNOLOGIES [phone]/ [place] [phone] They all offer virtual. All work with trauma Support groups Online support meetings PSI https://www..net/get-he lp/ynj-yenolr-gpqafnn-meetings/ Here are the support groups they offer: Support of parents of 1 to 4 years old children POEM ( Outreach and Encouragement for Moms) offers free support for mothers experiencing depression, anxiety, and other mood and anxiety disorders. Masks are recommended but not required. No pre-registration required. Babies in arms welcome. meetings now take place on the and Wednesday of each month Location: [facility] [address] [place] [address] Room 122 (library room) 7-8:00 p.m. When you enter the jew parking lot off of [address] [address] the entrance door closest to our meeting room is on the front of the building toward the right. For those who are more comfortable with a virtual platform, PO offers online support group options several days of the week. To register for an online group or to find out more about POEM, website at: https://mhaohio.org/get-help/[facility] hospitalqwhm-epgnyu-gxtpzo/poem-services/ offer a confidential helpline: private Facebook group is called CECILIO Randolph Here are the groups they offer: Traumatic childbirth resources: Http://pattch.org/ https://www.queNGN Holdingssuad HomeViva.Truviso/ Name Location (s) Phone # (s) Services Website [facility] [address] [place], [place] - [phone]; [address] [facility] [address] [place], [place]- [phone] In-Person GROUPS INDIVIDUAL THERAPY MATERNAL-INFANT MENTAL HEALTH MEDICATION MANAGEMENT PLAY AND ART THERAPY TELETHERAPY https://www.BioMedical Enterprises/s ez/ Eugene JOE? [address] [place], [place] [address] ? [address] [place], [place] [address] ? OTTO [address] [place], [place] [address]? Grief Support Groups Individual Grief Counseling Spiritual Care Memorial Events https://heath.[facility].org/grief-services [facility] [address] [place], [place] [address]; ; Email: [email or web address] Genetics Women's Mental Health; Couples Counseling; Trauma (EMDR); Stress Management; Mood and Anxiety Related Disorders- and much more https://www.Canburg/ LifeStance Numerous as they have contract providers: access website to find specific providers near you Counseling including CBT and EMDR as well as many more modalities; Medication Management; Telehealth and In-Person https://Onconova Therapeutics/ Dream home renovations for Behavioral Health and Wellness [address] [place] [address]; [phone] Personal, Family and Group Therapy; Psychological Testing and Diagnosis; Medication Management; Life and Career Coaching; Psychoanalysis; Literacy Testing; Yoga and Meditation https://Genoa Pharmaceuticals.Truviso/ Fit Mind Assonet [address] [facility] [address] [address] [address] ; [address] [facility] [place] [facility], [address] [place] [address]; Office # for both sites: Individual and Couples Counseling https://www.Gear Energy.Truviso/ paymentinsurance.html OCD & Anxiety [facility] [address] [facility], [address], [place] [address]; Specialize in Cognitive-Behavioral Therapy (CBT) for the treatment of anxiety disorders across the lifespan. TELEHEALTH ONLY. https://ocdandanxietycenterofclev Parse.Truviso/faqs [facility] [address] [place], [address] [place] [address] [facility] [place] [address] [place] [address] ChagSCI-Way[facility] Fore[facility] [place], [address] [place] [address] [place] [address], [address] Zaleski [address] [facility] [place], [address] Armbrust [address] [place], [place], [address] Transportation Services To minimize patient barriers, [facility] provides transportation services to patients who qualify. If you are unable to get to your appointment at any of our facilities, please let us know. Need help now? Stop by one of our walk-in clinics to establish behavioral health care. Counseling Indvidual, Group, Couples and Family Counseling and EMDR. Medication Management Case Management benefits applications housing assistance Substance abuse treatment Medication assisted treatment https://www.[facility].or g/mental-health/ [facility] OFFICE AT [facility] [address] [place] [address] [facility] OFFICE [address] [place] [address] [facility] OFFICE [address] [place], [place] [address] TOW OFFICE (at [facility]) [address] [place] [address] [facility] SYRINGE EXCHANGE PROGRAM & HIV SCREENING [address] [place] [address] VAN SYRINGE EXCHANGE PROGRAM [address] [place] [address] Behavioral Health Urgent Care: [facility] [place] [facility] Counseling Indvidual and Group Medication Management Case Management benefits applications housing assistance Substance abuse treatment Medication assisted treatment Employment Services/ Job Training https://Koudai.org/ Recovery Resources [address] [place], [place] [address]: P: [phone] [address] [facility], [address], [place], [place] [address] P: [phone] Our services include: Addiction Mental Health Treatment Assessment Psychiatry Medical Care Employment Housing Drug and Alcohol Prevention HIV/AIDS Prevention https://www.Azendoos.org/ [facility] [place] [address] [place] [address] [place] [address] [place], [place] [address] [place] [address] [place] [address] Opal [address] [facility] [address] [place] [address] [place] [address] [place] [address] TMS Therapy/ Counseling Psychocological Testing for ADHD Medication Management In-Person/ Telemedicine https://www.Nexus eWater/melani ents-depression Memory & Psychological services [address] [place] [address], [place] [address] Neuropsychological Testing For ADHD https://www.memoryandpsych.com/ The Counsel[facility] Office [address] [place] [address] [address] Providing irdv-hm-oabr and telehealth services. Adult Case Management Community Education and Prevention Employment Outpatient Treatment - Counseling & Psychotherapy Psychiatric Services http://www.ccwhc.org/ [facility] [place] [address] [place] [address] Cookie [facility] [address] [place] [address] Virtual Appointments! Now offering safe and convenient virtual client appointments to anyone in [place]! Individual Therapy Couples/Relationship Therapy Trauma/EMDR Therapy Art Therapy Play Therapy [place] Support: Parenting Skills, Parent Child Interaction Therapy, Parent Interaction Therapy Meditation Dietitian/Asphalt Raker Services Group Therapy Yoga https://www.Mojo Motors. Truviso/ Selma Roa [phone] Private Practice: Telehealth Only Specializes in EMDR for Trauma None SEQUENTIAL SCREENINGS The [facility] offers sequential screenings for women [...] It will require an appointment with our biodiesel processing technician. This is not an ultrasound performed [...] the above symptoms, contact our office at [phone] and ask to speak with a nurse. After hours, you can call doctors registry at [phone] OR call [facility] at [phone] and ask to have the doctor collect on delivery clerk paged. If you consider this an emergency, dial 9-1-2 or go to your nearest emergency department. NEED HELP? Are you dealing with a violent or abusive relationship? Are you a victim of rape or sexual assult? Call [facility] [place] ([facility] 24 hour Crisis Hotline: 216.906.7607 or 566-748-2740. MANUAL Your Guide to a Healthy manual is now on-line. Visit [facility] hospital[facility].org/HealthyPregna ncyGuide to download your free copy documented in this encounter [facility] 01-17-2025 Progress note Formatting of [...] supervision of normal first in first trimester ([facility]) - ICD9: V22.0, ICD10: Z34.01 (primary diagnosis) - BACTERIAL CULTURE, URINE 2. 11 weeks gestation of ([facility]) - ICD9: V22.2, ICD10: Z3A.11 Early anatomy scheduled for 16 weeks - BACTERIAL CULTURE, URINE Deisi Menon MD [facility] 01-17-2025 Miscellaneous Notes S: Angie [...] supervision of normal first in first trimester ([facility]) - ICD9: V22.0, ICD10: Z34.01 (primary diagnosis) - BACTERIAL CULTURE, URINE 2. 11 weeks gestation of ([facility]) - ICD9: V22.2, ICD10: Z3A.11 Early anatomy scheduled for 16 weeks - BACTERIAL CULTURE, URINE Deisi Menon MD documented in this encounter [facility] 01-17-2025 Instructions Bill Roblero MA - 01/17/2025 2:16 PM EDT SEQUENTIAL SCREENINGS The [facility] offers sequential screenings for women [...] It will require an appointment with our biodiesel processing technician. This is not an ultrasound performed [...] the above symptoms, contact our office at [phone] and ask to speak with a nurse. After hours, you can call doctors registry at [phone] OR call [facility] at [phone] and ask to have the doctor collect on delivery clerk paged. If you consider this an emergency, dial 91-7 or go to your nearest emergency department. NEED HELP? Are you dealing with a violent or abusive relationship? Are you a victim of rape or sexual assult? Call [facility] ([place]) 24 hour Crisis Hotline: 678.673.8959 or 188-742-2606. MANUAL Your Guide to a Healthy manual is now on-line. Visit [facility].org/HealthyPregna ncyGuide to download your free copy documented in this encounter [facility] 01-09-2025 Telephone encounter Note RX sent. Ashley Trujillo APRN.CNP [facility] 01-09-2025 Miscellaneous Notes RX sent. [...] a liquid antibiotic patient can take? Sara uDpree RN +UTI- macrobid sent. Please notify pt. Ashley Trujillo APRN.CNP documented in this encounter [facility] 01-09-2025 Telephone encounter Note Will let her know about no liquid option/ opening capsule, but she still needs it sent to different pharmacy first.. Bettye Plata RN [facility] 01-09-2025 Telephone encounter Note There is no liquid form of antibiotic. She can open the capsule and put it into something like applesauce or yogurt. Ashley Trujillo APRN.CNP [facility] 01-08-2025 Telephone encounter Note Pharmacy updated, is there a liquid antibiotic patient can take? Sara Dupree RN [facility] 01-08-2025 Telephone encounter Note +UTI- macrobid sent. Please notify pt. Ashley Trujillo APRN.DAVID [facility] 01-05-2025 Instructions Dariusz Brooks APRN.CNP - 01/05/2025 10:51 AM EDT Images from the original note were not included. Please select the following link to access the [facility] Your Guide to a Healthy . www.Ccf.org/healthypregnancyguide MORNING SICKNESS IN by Meenakshi Price M.D. for [employer] As you may already know, morning sickness can often be more appropriately called evening sickness or dbfpn-bsprmu-nj-the-day sickness. While there are the mert few, [...] medication, Doxylamine, is currently marketed as an rukg-hyx-iehuhyv sleeping pill. Ask your practitioner if creating a vitamin B6/Doxylamine combination with xsfp-fki-chohpok medications would be safe for you. Prescription [...] as Phenergan, Compazine, Reglan Psychotherapy Services at [facility] Call Behavioral Health Access Line at [phone] to schedule Individual psychotherapy In-person or virtual Wait time for first evaluation may be 12 or more weeks. Wait list spots may be available. Due to the high volume of patients this option is recommended if you are looking for short term acute symptom coping strategies. 6-999-9-YRIK4TAAR - [facility] Mental Health Hotline If you are in suicidal crisis, please call or text 9-938-066-TALK ( ) or visit the National Suicide Prevention Lifeline website. mchb.[facility].gov If you are in crisis, call 911 or go to your nearest Emergency Department Here are some links for wonderful Providers here in the community and surrounding areas. Do not hesitate to contact their offices, many are offering virtual visits during this time. Psychotherapy Services outside of [facility] Support International Online Provider Directory https://SysClass/ - can assist in finding providers in your area that might be more extensive then the list below. Counseling Center - [place], [place] [address] [place] [address] [facility] [address] [place] [address] [facility] [address] [place] [address] [facility] [address] [place], [place] [address] Shirley Ibarra MD [address] [facility] [place], [place] [address] [employer] [facility] [address], [address] [place] [address] [facility] Psychiatric Services [address] [place] [address] [facility] Counseling Services [place] / [place] [phone]/ [phone] Katherine [facility] [address] [facility] [address] [facility] [phone] Aves of Counseling and Mediation [place] / [place] [phone] [facility] [address] [place] [address]/ [facility] [place] [phone] Juanita Alicea, PEDRO, CLC [facility]ump and Beyond Family Therapy Workshops, telehealth and at home visits. [phone] Humanistic counseling center 20 locations [facility], [place], [place], [place], [place], [place], [facility], [place], [place], [place], [place], [place], [place], [facility], [place], [place] ,[facility], [place], [place],[facility], [facility] [place], [place], [facility], [facility], Se www.Loved.la.co [phone] Psychotherapy resources outside of [facility] are listed below [facility] Space Psychotherapy Web: https://www.BioMedical Enterprises/ Support International Online Provider Directory https://SysClass/ Insight Counseling https://VendorShop/ Partners for Behavioral Health and Wellness Web: https://Amorfix Life Sciences/ SpotFodo for Effective Living Web: https://ReturnHauler/ LifeStance Web: https://Onconova Therapeutics/location/s darlin/[place]/ [facility] Web: https://www.BAROnova.or / [facility] Web: https://Koudai.rocket staff/ Recovery Resources Mental health and substance abuse help Web: https://www.Azendoos.rocket staff & RESOURCES Support International Direct peer support and connection to professional resources Non-Emergency Helpline Phone: / Text: 656.911.9316 Web: https://www..net/ Online Provider Directory: https://SysClass/ Online Support Meetings: https://www..net/get-he lp/tbi-lpoukx-woayyaf-meetings/ MILAGROS Baby and Tire Vulcanizer Services Web: https://wwwDigital Royalty/ MotherToVibrant Energyby Expert information on medication use during and Text: [phone] Web: https://Anesthesia Medical Group.rocket staff/ NATIONAL REGISTRY FOR PSYCHIATRIC MEDICATIONS Currently studying the safety of antidepressants, ADHD medications and atypical antipsychotics taken during TO PARTICIPATE CALL TOLL-FREE: Web: https://womensmentalhealth.org/re search/pregnancyregistry/ Support Groups: [facility]- Follow on facebook Baby Bistro support group led by [facility] department Resilient Mamas - Support Group [facility] Southmas.org The POEM support group [phone] Www.poemonline.org Follow on facebook - PONEGRITA joe chapter Online support meetings PSI https://www..net/get-he lp/kha-zyfjvw-upmvssb-meetings/ [facility] mommy and me virtual support group 11:30-1pm Support for mothers and new babies and toddlers [place] childbirth education: Childbirth @[facility].org or call [phone] CRISIS: CRISIS HOTLINE [phone], 911 or go to the nearest ER. [facility] [phone] / [facility] [phone] https://www.[facility].org Crisis text line text the word HOME to [phone] [facility] Counseling [address] [address] [facility] [address] www.Green Charge Networks Ute Jain clinical counseling [address] [address] www.Celletra [phone] Holding space psychotherapy Lisette Keene EP SPECIALIST ATHLETIC SCOUT-S [address] [facility] www.GLOBAL FOOD TECHNOLOGIES [phone]/ [place] [phone] They all offer virtual. All work with trauma Support groups Online support meetings PSI https://www..net/get-he lp/xkm-ekwtjp-ldsfdoy-meetings/ Here are the support groups they offer: Support of parents of 1 to 4 years old children POEM ( Outreach and Encouragement for Moms) offers free support for mothers experiencing depression, anxiety, and other mood and anxiety disorders. Masks are recommended but not required. No pre-registration required. Babies in arms welcome. meetings now take place on the and Wednesday of each month Location: [facility] [address], [place] [address] Room 122 (library room) 7-8:00 p.m. When you enter the jew parking lot off of [address] the entrance door closest to our meeting room is on the front of the building toward the right. For those who are more comfortable with a virtual platform, PO offers online support group options several days of the week. To register for an online group or to find out more about PO, website at: https://aowvo.org/get-help/[facility] hospitalwtht-exipmy-gprsyi/poem-services/ offer a confidential helpline: private Facebook group is called [facility] Chapter Here are the groups they offer: Traumatic childbirth resources: Http://pattch.org/ https://www.Kuke MusicmikaylaSALT Technology IncbrynStormpulse.Truviso/ Name Location (s) Phone # (s) Services Website [facility] Psychotherapy [address] [facility] [phone]; [address] [phone] In-Person GROUPS INDIVIDUAL THERAPY MATERNAL-INFANT MENTAL HEALTH MEDICATION MANAGEMENT PLAY AND ART THERAPY TELETHERAPY https://www.BioMedical Enterprises/s ervices/ [facility]? [address] [address] ? [address], [address] [place], [place] [address] ? OTTO [address] [address]? Grief Support Groups Individual Grief Counseling Spiritual Care Memorial Events https://heath.[facility].org/grief-services [facility] [address] [place], [place] [address]; ; Email: [email or web address] Women's Mental Health; Couples Counseling; Trauma (EMDR); Stress Management; Mood and Anxiety Related Disorders- and much more https://www.Trunity.com/ LifeStance Numerous as they have contract providers: access website to find specific providers near you Counseling including CBT and EMDR as well as many more modalities; Medication Management; Telehealth and In-Person https://Emida.Truviso/ [facility] [address] [place], [place] [address]; [phone] Personal, Family and Group Therapy; Psychological Testing and Diagnosis; Medication Management; Life and Career Coaching; Psychoanalysis; Literacy Testing; Yoga and Meditation https://[employer]aceuticals.Truviso/ Fit [facility] [address] [facility] [address], [place] [address] [address] ; [address] [facility] [place] [facility], [address] [place] [address]; Office # for both sites: Individual and Couples Counseling https://www.JobConvouniversity hospitals [facility].Truviso/ paymentinsurance.html OCD & Anxiety [facility] [address] [facility], [address], [place] [address]; Specialize in Cognitive-Behavioral Therapy (CBT) for the treatment of anxiety disorders across the lifespan. TELEHEALTH ONLY. https://ocdandanxietycentNimble Storagev Jelly Button Games/faqs [facility] [address]th [place], [address] [place] [address] [facility] [place] [address] [place] [address] [place], [address] [place] [address] [place], [address], [id number] [place], [address] [address] [place], [address] Transportation Services To minimize patient barriers, [employer] [employer] provides transportation services to patients who qualify. [...] treatment Medication assisted treatment https://www.signaturehealthinc.or g/mental-health/ [facility] OFFICE AT [facility] [address] [place] [address] [facility] OFFICE [address] [place] [address] [facility] OFFICE [address] [place] [address] [facility] OFFICE (at [facility]) [address] [place] [address] [facility] SYRINGE EXCHANGE PROGRAM & HIV SCREENING [address] [place] [address] [facility]CHANGE [facility]GRAM [address] [place] [address] Behavioral Health Urgent Care: [facility] Indvidual and Group Medication Management Case Management benefits applications housing assistance Substance abuse treatment Medication assisted treatment Employment Services/ Job Training https://theHealthSynch.org/ Recovery [facility] [address] [place], [place] [address]: P: [phone] [address] [facility], [address], [place], [place] [address] P: [phone] Our services include: Addiction Mental Health Treatment Assessment Psychiatry Medical Care Employment Housing Drug and Alcohol Prevention HIV/AIDS Prevention https://www.recres.org/ [facility] [place] [address] [facility] [address] [place] [address] [address] [place], [place] [address] [place] [address] [place] [address] [place] [address] [facility] [address] [place] [address] [place] [address] [place] [address] TMS Therapy/ Counseling Psychocological Testing for ADHD Medication Management In-Person/ Telemedicine https://www.5th Planet Games.com/melani ents-depression Memory & Psychological services [address], [place] [address] Neuropsychological Testing For ADHD https://www.memoryandpsych.com/ [facility] - Main Office [address] [place] [address] [id number] Providing ggyc-fu-bioo and telehealth services. Adult Case Management Community Education and Prevention Employment Outpatient Treatment - Counseling & Psychotherapy Psychiatric Services http://www.[facility].org/ [facility] [place] [address] [place] [address] Cookie [facility] [address] [place] [address] Virtual Appointments! Now offering safe and convenient virtual client appointments to anyone in [place]! Individual Therapy Couples/Relationship Therapy Trauma/EMDR Therapy Art Therapy Play Therapy Bar Porter Support: Parenting Skills, Parent Child Interaction Therapy, Parent Interaction Therapy Meditation Dietitian/Asphalt Raker Services Group Therapy Yoga https://www.[email or web address]/ Selma Roa [phone] Private Practice: Telehealth Only Specializes in EMDR for Trauma None documented in this encounter [facility] 01-05-2025 Note HNO ID: [id number] Author: DARIUSZ BROOKS APRN.DAVID Service: ? Author [...] The sensitive examinat (more content not included)... [facility] 01-05-2025 History of Present illness Narrative [...] discussed with the Patient or Patient's Authorized Unit Director. As applicable, any other physician, advance practice provider, medical student, or other health professional student that will be observing or involved in the sensitive examination for educational or training purposes was discussed with the Patient or Authorized Unit Director. The Patient or Authorized Unit Director has agreed to proceed with the sensitive [...] Your guide to a health and the Relationship Consultant. Discussed hemoglobin electrophoresis. Patient: Declines Reviewed midwifery and fabric separator operator services that are available. 2) Screening: Hemoglobin [...] Supervision of Normal First in First Trimester ([facility]) - 01/05/2025 Comment: Care Checklist Vaccines: [] [...] (28-30 weeks): [] Consent [] Contraception [] Bibliographic Services Specialist [] TeamBirth handout Third trimester (36-40 weeks): [...] Dariusz Brooks APRN.CNP documented in this encounter [facility] 01-02-2025 Telephone encounter Note Left message for patient to return phone call to complete nurse intake questions for her upcoming appointment. Patient has an appointment with Dariusz Brooks for NOB appointment. Please transfer to [facility] or me to see if we can complete [facility] 01-02-2025 Miscellaneous Notes Left message for patient to return phone call to complete nurse intake questions for her upcoming appointment. Patient has an appointment with Dariusz Brooks for NOB appointment. Please transfer to [facility] or me to see if we can complete documented in this encounter [facility] 08-07-2024 Note Discharge Instructio ns Discharge Summary [address] [address] [id number] 08/07/2024 Patient: ANGIE HICKS Sex: Female : 2005 Age: 19y Thank you for visiting [facility]. You have been evaluated today by [...] Signature 1 of 6 Discharge Instructions Facility Unit Director Date/Time General Instructions with ExitWriter [address] [place] [phone] 08/07/2024 Patient: ANGIE HICKS Sex: Female : 2005 Age: 19y Thank you for visiting [facility]. You have been evaluated today by [...] moves to t (more content not included)... [facility] 07-27-2024 Note . MICRO - Microbiology PROCEDURE: [...] Locations *1: This test was performed at: [facility], [address] [place] [address], [facility] , [facility] Evaluation note Diagnosis Encounter for supervision of normal first in first trimester ([facility])- Primary Supervision of normal first 10 weeks gestation of ([facility]) state, incidental with uncertain dates in first trimester ([facility]) Nausea and vomiting during ([facility]) Depression with anxiety Dysthymic disorder History of ADHD Personal history of other mental disorder documented in this encounter [facility]* Diagnosis Encounter for supervision of normal first in first trimester ([facility])- Primary Supervision of normal first 11 weeks gestation of (HCC) state, incidental documented in this encounter [facility]* Diagnosis Encounter for supervision of normal first in first trimester (HCC) Supervision of normal first documented in this encounter [facility]* Diagnosis Encounter for anatomic survey (HCC)- Primary Encounter for anatomic survey 18 weeks gestation of (HCC) state, incidental documented in this encounter [facility] note* Diagnosis Encounter for supervision of normal first in second trimester (HCC)- Primary Supervision of normal first 18 weeks gestation of (HCC) state, incidental Nausea and vomiting during (HCC) Depression with anxiety Dysthymic disorder History of ADHD Personal history of other mental disorder documented in this encounter [facility]* Diagnosis 23 weeks gestation of (HCC)- Primary state, incidental Encounter for supervision of normal first in second trimester ([facility]) Supervision of normal first Screening for diabetes mellitus Urinary tract infection without hematuria, site unspecified Depression with anxiety Dysthymic disorder documented in this encounter [facility] note* Diagnosis Depression with anxiety Dysthymic disorder History of ADHD Personal history of other mental disorder 18 weeks gestation of (HCC) state, incidental documented in this encounter [facility] Summary Purpose Family History No [...] section and content) DATE CREATED AUTHOR 01/31/2018 [facility] DATE CREATED AUTHOR AUTHOR'S ORGANIZ ATION 04/04/2023 [facility] DATE CREATED AUTHOR AUTHOR'S ORGANIZ ATION 07/29/2024 [facility] DATE CREATED AUTHOR AUTHOR'S ORGANIZ ATION 08/08/2024 [facility] DATE CREATED AUTHOR AUTHOR'S ORGANIZ ATION 05/18/2025 [facility] DATE CREATED AUTHOR AUTHOR'S ORGANIZ ATION 06/17/[address] [facility] Source Comments (unrecognize d section and content) In the event this informatio n is protected by the Federal Confidentiality of Alcohol and Drug Abuse Patient Records regulations: The Federal rules restrict any use of the information to criminally investigate or prosecute any alcohol or drug abuse patient.[facility] Center[facility] the event this information is protected by the Federal Confidentiality of Alcohol and Drug Abuse Patient Records regulations: The Federal rules restrict any use of the information to criminally investigate or prosecute any alcohol or drug abuse patient.[facility] CenterIn the event this information is protected by the Federal Confidentiality of Alcohol and Drug Abuse Patient Records regulations: The Federal rules restrict any use of the information to criminally investigate or prosecute any alcohol or drug abuse patient.[facility] CenterIn the event this information is protected by the Federal Confidentiality of Alcohol and Drug Abuse Patient Records regulations: The Federal rules restrict any use of the information to criminally investigate or prosecute any alcohol or drug abuse patient.[facility] CenterIn the event this information is protected by the Federal Confidentiality of Alcohol and Drug Abuse Patient Records regulations: The Federal rules restrict any use of the information to criminally investigate or prosecute any alcohol or drug abuse patient.[facility] CenterIn the event this information is protected by the Federal Confidentiality of Alcohol and Drug Abuse Patient Records regulations: The Federal rules restrict any use of the information to criminally investigate or prosecute any alcohol or drug abuse patient.[facility] CenterIn the event this information is protected by the Federal Confidentiality of Alcohol and Drug Abuse Patient Records regulations: The Federal rules restrict any use of the information to criminally investigate or prosecute any alcohol or drug abuse patient.[facility] CenterIn the event this information is protected by the Federal Confidentiality of Alcohol and Drug Abuse Patient Records regulations: The Federal rules restrict any use of the information to criminally investigate or prosecute any alcohol or drug abuse patient.[facility] CenterIn the event this information is protected by the Federal Confidentiality of Alcohol and Drug Abuse Patient Records regulations: The Federal rules restrict any use of the information to criminally investigate or prosecute any alcohol or drug abuse patient.[facility] Reason for Visit (unrecogniz ed section and content) Reason Comments Initial OB Visit Reason Comments 01/05 NOB Intake Questions Reason Onset Date Comments Care 01/17/2025 Reason Comments US Specialty Diagnoses / Procedures Referred By Lindsey velarde Referred To Contact [facility] Diagnoses Encounter for supervision of normal first in first trimester (HCC) Procedures OBSTETRIC ULTRASOUND WHI US PREG UTERUS AFTER 1ST TRIMEST GESTATION Dariusz Brooks APRN.DAVID [address] [place] [address] Phone: tel: fax: [facility] [address] [place] [address] Referral ID Status Reason Start Date Expiration Date V isits Requested Visits Authorized [id number] Closed Auto-Generate d Referral 01/05/2025 01/05/2026 1 1 Reason Onset Date Comments Results 01/08/2025 Referral ID Status Reason Start Date Expiration Date V isits Requested Visits Authorized [id number] Closed Auto-Generate d Referral 01/05/2025 01/05/2026 1 1 Reason Onset Date Comments Care 03/07/2025 Reason Onset Date Comments Care 04/05/2025 Reason Comments Anxiety Depression Specialty Diagnoses / Procedures Referred By Contac t Referred To Contact Diagnoses Depression with anxiety History of ADHD Procedures OFFICE/OUTPATIENT NEW HIGH MDM 60 MINUTES Dariusz Brooks APRN.DAVID [address] [place] [address] Phone: tel: fax: Referral ID Status Reason Start Date Expiration Date V isits Requested Visits Authorized [id number] Closed PCP Requested Referral 03/07/2025 03/07/2026 1 1 Care Teams (unrecognized sec tion and content) Life Coach Relationship Specialty Start Date End Date Olga Branham DO [address] [place] [address] PCP - General Family Medicine 01/19/14 Life Coach Relationship Specialty Start Date End Date Olga Branham DO [address] [place] [address] PCP - General Family Medicine 01/19/14 Life Coach Relationship Specialty Start Date End Date Olga Branham DO [address] [place] [address] PCP - General Family Medicine 01/19/14 Life Coach Relationship Specialty Start Date End Date Olga Branham DO [address] [place] [address] PCP - General Family Medicine 01/19/14 Life Coach Relationship Specialty Start Date End Date Olga Branham DO [address] [place] [address] PCP - General Family Medicine 01/19/14 Life Coach Relationship Specialty Start Date End Date Olga Branham DO [address] [place] [address] PCP - General Family Medicine 01/19/14 Life Coach Relationship Specialty Start Date End Date Olga Branham DO [address] [place] [address] PCP - General Family Medicine 01/19/14 Life Coach Relationship Specialty Start Date End Date Olga Branham DO [address] [facility] [address] [place] [address] PCP - [facility] 01/19/14 Life Coach Relationship Specialty Start Date End Date Olga Branham DO [address] [place] [address] PCP - General Family [facility] 01/19/14 FOR RECORDS PERTAINING TO PATIENTS WHO [...] BE BASED ON THE PRIMARY CLINICAL RECORDS. [facility]. provides no warranty or guarantee of the accuracy or completeness of information in this document.
[2025-07-20] MEDS: Acetaminophen 650 MG/20 ML UDC 1000 MG PO (05:04)
[2025-07-20 06:28] LABS: Hematocrit 28.7 % (37-47); Hemoglobin 9.0 g/dL (12.0-15.0); Immature Granulocytes Count 0.060 X10^3/uL (0.0-0.0); Mean Corp Hgb Conc 31.4 g/dL (32-36); Mean Corpuscular Volume 87.5 fL (81-99); Mean Platelet Vol. 11.5 fl (6.2-12.0); NRBC Flagged by Analyzer 0 % (0-5); POSITIVE MORPHOLOGY YES; Platelet Count 335 K/mm3 (150-450); RBC Distribution Width CV 22.9 % (11.6-14.6); RBC Distribution Width SD 69.4 fl (35.1-43.9); Red Blood Count 3.28 M/mm3 (4.2-5.4); White Blood Count 12.3 K/mm3 (4.4-11.0)
[2025-07-20 06:36] LABS: Differential Indicated SCAN CRITERIA MET
[2025-07-20 07:38] LABS: Anisocytosis 2+; Polychromasia 1+
[2025-07-20] MEDS: Iron Sucrose Complex 200 MG in 0.9% Normal Saline (100mL Bag) 100 ML 220 MG IV (09:01)
--- NOTE | 2025-07-20 09:05 | OB.TRI.HP_ITS ---
HPI - General General Date of Admission: 07/20/25 HPI Narrative LILI HICKS, is a 20 F who presents [ ] [facility] Home Medications ?Medication ?Instructions ?Recorded ?Last Taken ?Type escitalopram oxalate 10 mg tablet 15 mg PO DAILY [facility] 07/19/25 06/18/25 History (Lexapro) Allergy/AdvReac Type Severity Reaction Status Date / Time Sulfa (Sulfonamide AdvReac Rash Verified 07/19/25 23:47 Antibiotics) Social History Smoking Status: Never smoker
--- NOTE | 2025-07-20 09:05 | OB.TRI.NOTE ---
HPI - General General Date of Admission: 07/20/25 HPI Narrative LILI HICKS, is a 20 F who presents for decreased movement. No records as patient sees in [facility]. No contractions, vaginal bleeding, or leakage of fluid. ] PFSH PFSH Home Medications ?Medication ?Instructions ?Recorded ?Last Taken ?Type escitalopram oxalate 10 mg tablet 15 mg PO DAILY mental health 07/19/25 06/18/25 History (Lexapro) cephalexin 500 mg capsule 500 mg PO Q6H 7 days #28 caps 07/20/25 Unknown Rx Allergy/AdvReac Type Severity Reaction Status Date / Time Sulfa (Sulfonamide AdvReac Rash Verified 07/19/25 23:47 Antibiotics) Social History Smoking Status: Never smoker NST FHR Rate Baby A Baseline: 145 Variability:: Moderate Accelerations:: 15 x 15 Decelerations:: None NST Reactive:: Yes Uterine Activity:: none Assessment & Plan (1) Decreased movement: PLAN: Plan 1) Reactive NST 2) D/C home 3) Follow up with primary OB provider
--- NOTE | 2025-07-20 09:05 | PCM.DC.SUM ---
Providers Date of Admission: 07/20/25 Primary Care Physician: No Primary Care Phys Reason For Visit: UTI Medications at Discharge Home Medications escitalopram oxalate 10 mg tablet (Lexapro) 15 mg PO DAILY mental health 07/19/25 cephalexin 500 mg capsule 500 mg PO Q6H 7 days #28 caps 07/20/25 Weight / BMI Weight Weight: 147 lb 1 oz Body Mass Index (BMI) 29.7 ABG / Lab / Microbiology Data 07/20/25 06:15 07/20/25 00:35 Laboratory: Laboratory Results - last 24 hr 07/19/25 00:01: Urine Color Yellow, Urine Clarity Sl. Cloudy, Urine pH 6.0, Ur Specific [place] 1.010, Urine Protein 100 H, Urine Glucose (UA) Normal, Urine Ketones Negative, Urine Occult Blood 150 H, Urine Nitrite Positive H, Urine Bilirubin Negative, Urine Urobilinogen Normal, Ur Leukocyte Esterase 500 H, Urine RBC 5-10 SEEN, Urine WBC 25-50 SEEN, Ur Squamous Epith Cells 0-5 SEEN, Urine Bacteria 2+, Urine Mucus 0 SEEN 07/20/25 00:35: WBC 11.7 H, RBC 3.52 L, Hgb 9.6 L, Hct 30.4 L, MCV 86.4, MCH 27.3, MCHC 31.6 L, RDW Std Deviation 67.9 H, RDW Coeff of Vicky 22.5 H, Plt Count 362, MPV 11.7, Immature Gran % (Auto) 0.400, Neut % (Auto) 75.5 H, Lymph % (Auto) 12.1 L, Pas[place] % (Auto) 11.5 H, Eos % (Auto) 0.2, Baso % (Auto) 0.3, Absolute Neuts (auto) 8.8 H, Absolute Lymphs (auto) 1.41, Nucleated RBC % 0, Differential Comment SCANNED, Anisocytosis 2+, Sodium 138, Potassium 4.1, Chloride 103, Carbon Dioxide 19.4 L, Anion Gap 15, BUN 8, Creatinine 0.56 L, Estim Creat Clear Calc 135.42, Est GFR (MDRD) Non-Af 133, BUN/Creatinine Ratio 14.3, Glucose 85, Calcium 9.4, Total Bilirubin 0.18, AST 22, ALT 13, Alkaline Phosphatase 324 H, Total Protein 6.4, Albumin 3.7, Globulin 2.7, Albumin/Globulin Ratio 1.4, Lipase 20 07/20/25 06:15: WBC 12.3 H, RBC 3.28 L, Hgb 9.0 L, Hct 28.7 L, MCV 87.5, MCH 27.4, MCHC 31.4 L, RDW Std Deviation 69.4 H, RDW Coeff of Vicky 22.9 H, Plt Count 335, MPV 11.5, Immature Gran % (Auto) 0.500, Neut % (Auto) 75.4 H, Lymph % (Auto) 13.7 L, [place] % (Auto) 10.0, Eos % (Auto) 0.2, Baso % (Auto) 0.2, Absolute Neuts (auto) 9.3 H, Absolute Lymphs (auto) 1.68, Nucleated RBC % 0, Polychromasia 1+, Anisocytosis 2+ Radiography Diagnostic Testing: Radiology Impression Renal Ultrasound 07/20/25 00:14 IMPRESSION: Mild bilateral fullness of the collecting systems. Reading [facility] Instructions DC O2, CPAP, BIPAP Needs Home O2 Discharge instructions: No Meaningful Use Info Meaningful Use Meaningful Use Diagnoses (Choose all that apply): None applicable Discharge Plan Admission Admit Date/Time: 07/20/25 01:41 Primary Reason for Your Visit: Pyelonephritis Attending Provider: Rosario Mcintyre Primary Care Provider: Gigi Abraham,No Primary Discharge Orders/Prescriptions Prescriptions: New cephalexin 500 mg capsule 500 mg PO Q6H 7 Days Qty: 28 0RF Continued escitalopram oxalate [Lexapro] 10 mg tablet 15 mg PO DAILY Referrals / Follow Up: Care Physician,No Primary [Primary Care Provider, Medical] Disposition Disposition (needs filled in before D/C Order can be placed): Home, Self Care
--- NOTE | 2025-07-26 08:04 | OB.TRI.HP_ITS ---
HPI - General General Date of Admission: 07/20/25 Date of Service: 07/19/25 Chief Complaint: flank pain HPI Narrative LILI HICKS, is a 20 F who presents with flank pain, nausea and vomiting. She reports h/o recurrent UTI's. No fevers. No regular ctx, vb, lof. Good FM PFSH PFSH Home Medications ?Medication ?Instructions ?Recorded ?Last Taken ?Type escitalopram oxalate 10 mg tablet 15 mg PO DAILY [facility] 07/19/25 06/18/25 History (Lexapro) cephalexin 500 mg capsule 500 mg PO Q6H 7 days #28 cap s 07/20/25 Unknown Rx Allergy/AdvReac Type Severity Reaction Status Date / Time Sulfa (Sulfonamide AdvReac Rash Verified 07/19/25 23:47 Antibiotics) Social History Smoking Status: Never smoker Physical Exam Narrative Uncomfortable with flank pain per RN overnight on admission Maggy Guerrero CNM evaluated patient in the morning NST FHR Rate Baby A Baseline: 130 Variability:: Moderate Accelerations:: 15 x 15 Decelerations:: None NST Reactive:: Yes Uterine Activity:: irregular ctx's Assessment & Plan (1) 38 weeks gestation of : (2) Pyelonephritis affecting : PLAN: Patient with h/o recurrent UTI's, flank pain, N/V, urine with signs of infection. Admitted for management of pyelonephritis. Continuous pulse ox, CEFM, IVF hydration, Rocephin, pain and nausea management.
== END 2025-07-20 10:00 | disposition home or self-care (01) ==
LOC: WPOUT 02:43 → WP 02:43
PROVIDERS: Admitting Provider Obstetrics & Gynecology; Referring Provider Obstetrics & Gynecology; Visit Provider Obstetrics & Gynecology
DX: O36.8130 Decreased fetal movements, third trimester, not applicable or unspecified (principal); Z3A.38 38 weeks gestation of pregnancy; Z79.899 Other long term (current) drug therapy; O23.03 Infections of kidney in pregnancy, third trimester
CPT/HCPCS: 96365; 96375 ×2; 96361; 36415; 59025; 59050; 76770; 80053; 81001; 83690; 85025; 87077; 87086; 87088; 87186; 99221; J1756; G0378

== ENCOUNTER 2025-07-30 18:10 | Inpatient (IN) | payer BC, MEDICAID, SELFPAY ==
[2025-07-30] VITALS (14 sets, daily range): BP systolic 120–135; BP diastolic 70–86; PULSE 96–127; RESP 14–16; TEMP 36.9–37.3; O2SAT 88–99; BMI 29.0
--- NOTE | 2025-07-30 16:11 | US_ITS ---
PROCEDURE: OB BIOPHYSICAL PROF W/O NST 07/30/2025 REASON FOR EXAM: FAILED OFFICE NST TECHNIQUE: Procedure Code: USBIOWO Modality: US Procedure: OB BIOPHYSICAL PROF W/O NST FINDINGS Cephalic position with cardiac activity of 166 bpm. Maximum vertical pocket of 6.2 Cm and SALVATORE of 15.3 Cm. Placenta is posterior and right lateral position with grade 3. breathing is not identified. Biophysical score of 6/8 otherwise. US/OB Biophysical Prof W/O NST IMPRESSION: breathing is not identified at this time. Biophysical score of 6/8 other cote. Reading Location: [id number]
--- NOTE | 2025-07-30 17:14 | HP.PCM.OB_ITS ---
HPI - General General Date of Admission: 07/30/25 HPI Narrative LILI HICKS, is a at 39.4 weeks gestation who presents from office for decreased movements and non reactive NST. BPP pending. [facility] Home Medications ?Medication ?Instructions ?Recorded ?Last Taken ?Type escitalopram oxalate 10 mg tablet 15 mg PO DAILY [facility] [employer] 07/19/25 07/29/25 21:00 History (Lexapro) 15 mg cephalexin 500 mg capsule 500 mg PO Q6H 7 days #28 cap s 07/20/25 07/29/25 21:00 Rx 500 mg Allergy/AdvReac Type Severity Reaction Status Date / Time Sulfa (Sulfonamide AdvReac Rash Verified 07/30/25 18:46 Antibiotics) Social History Smoking Status: Never smoker History Elective abortions Hx Para 0 Spontaneous abortions Hx # Term Pregnancies Ectopic pregnancies Hx # Pregnancies Multiple births # of living children ROS Eyes Eyes: Denies blurry vision, change in vision or spots in vision ENT HEENT: Denies dizziness or headache(s) Cardiovascular Cardiovascular: Denies abdominal pain, chest pain or dyspnea Respiratory/Chest Respiratory/Chest: Denies cough, dyspnea, shortness of breath at rest or shortness of breath with exertion Gastrointestinal Gastrointestinal: Denies abdominal pain, diarrhea or vomiting Genitourinary Genitourinary: Denies change in urinary stream, difficulty urinating or dysuria Musculoskeletal Musculoskeletal: Reports none Integumentary Integumentary: Denies rash Neurologic Neurologic: Denies dizziness, headache(s), memory loss or weakness Psychiatric Psychiatric: Reports none Vital Signs Vital Signs Vital Signs: 07/30/25 16:26 07/30/25 16:26 07/30/25 16:26 Temperature 99.2 F H Temperature Source Temporal Pulse Rate Respiratory Rate 16 Blood Pressure BP Systolic BP Diastolic 07/30/25 16:27 07/30/25 16:27 Temperature Temperature Source Pulse Rate 101 H Respiratory Rate Blood Pressure 135/86 H BP Systolic 135 BP Diastolic 86 Weight Weight: 144 lb Body Mass Index (BMI) 29.0 Physical Exam Const alert, oriented x3 and no apparent distress General Appearance: cooperative Orientation / Consciousness: awake Exam Limitations: no limitations HEENT normocephalic Head and Scalp: normal to inspection Eyes General Eye: normal appearance of both eyes Neck full ROM and no lymphadenopathy Lymph Lymphatic: no lymphadenopathy noted Chest inspection of chest normal Resp normal respiratory effort, normal air movement and clear to auscultation bilaterally Effort and Inspection: able to speak in complete sentences and symmetric chest movement Cardio regular rate and regular rhythm GI normal to inspection, nondistended, normoactive bowel sounds Manual OB Exam: presentation cephalic Back/Spine normal ROM Extremity full ROM and no calf tenderness Skin no rashes or lesions noted General Skin Exam: no breakdown Neuro oriented x3 and CN's II-XII intact bilaterally Psych mental status grossly normal and thought process normal Labs Labs Labs: Blood Type Pending Antibody Screen Pending Hct, (37-47) 32.9 % L Hgb, (12.0-15.0) 10.6 g/dL L Syphilis Total Ab, (Nonreactive) Nonreactive Assessment & Plan (1) Decreased movement: (2) 39 weeks gestation of : (3) Anemia affecting in third trimester: (4) Depression affecting : PLAN: Plan GBS negative BPP completed and was 01/14 Admit to L&D for induction of labor- minimal variability at times on NST CE 2/-[address] Place nelson bulb and fill with 30 cc n/S Start Pitocin IV and increase per orders Dr. Butler notified of admission and is collaborating physician
[2025-07-30] MEDS: Lactated Ringers 1,000 ML 50 ML IV (18:47)
[2025-07-30 18:57] LABS: Hematocrit 32.9 % (37-47); Hemoglobin 10.6 g/dL (12.0-15.0); Immature Granulocytes Count 0.040 X10^3/uL (0.0-0.0); Mean Corp Hgb Conc 32.2 g/dL (32-36); Mean Corpuscular Volume 87.0 fL (81-99); Mean Platelet Vol. 11.0 fl (6.2-12.0); NRBC Flagged by Analyzer 0 % (0-5); POSITIVE MORPHOLOGY YES; Platelet Count 295 K/mm3 (150-450); RBC Distribution Width CV 23.7 % (11.6-14.6); RBC Distribution Width SD 70.7 fl (35.1-43.9); Red Blood Count 3.78 M/mm3 (4.2-5.4); White Blood Count 11.7 K/mm3 (4.4-11.0)
[2025-07-30 19:02] LABS: Differential Indicated SCAN CRITERIA MET
[2025-07-30 19:39] LABS: Syphilis Antibodies Nonreactive (Nonreactive)
[2025-07-30 19:58] LABS: Anisocytosis 2+; Differential Comment SCANNED
[2025-07-30 20:00] LABS: Macrocytosis 1+; Microcytosis 1+
[2025-07-30] MEDS: Lactated Ringers 1,000 ML 999 ML IV (20:40)
[2025-07-30] MEDS: 0.9% Normal Saline Single 100 ML IV.SOLN. INTRA-UTER (20:53)
--- NOTE | 2025-07-30 20:55 | PCM.PN.CNM ---
Subjective Subjective Patient seen at bedside. Denies pain or feeling any contractions. Objective Data Objective Data Vital Signs: Vital Signs Temp Pulse Resp BP Pulse Ox 98.9 F 127 H 14 123/84 H 99 07/30/25 19:11 07/30/25 19:44 07/30/25 19:11 07/30/25 19:11 07/30/25 19:44 Weight: 144 lb Body Mass Index (BMI) 29.0 Intake & Output: Intake and Output for Last 24 Hours 07/28/25 07/29/25 07/30/25 23:59 23:59 23:59 Intake Total 94.17 / 94.17 Balance 94.17 / 94.17 Lab / Micro Data 07/30/25 18:35 Labs: Laboratory Results - last 24 hr 07/30/25 18:35: WBC 11.7 H, RBC 3.78 L, Hgb 10.6 L, Hct 32.9 L, MCV 87.0, MCH 28.0, MCHC 32.2, RDW Std Deviation 70.7 H, RDW Coeff of Vicky 23.7 H, Plt Count 295, MPV 11.0, Immature Gran % (Auto) 0.300, Neut % (Auto) 75.0 H, Lymph % (Auto) 13.1 L, Bacon % (Auto) 11.2 H, Eos % (Auto) 0.2, Baso % (Auto) 0.2, Absolute Neuts (auto) 8.8 H, Absolute Lymphs (auto) 1.54, Nucleated RBC % 0, Differential Comment SCANNED, Anisocytosis 2+, Microcytosis 1+, Macrocytosis 1+, Syphilis Total Ab Nonreactive Radiography Diagnostic Testing: Radiology Impression Biophysical Profile Ultrasound 07/30/25 16:11 IMPRESSION: breathing is not identified at this time. Biophysical score of 6/8 otherwise. Reading Location: [facility] Assessment & Plan (1) Depression affecting : (2) Anemia affecting in third trimester: (3) 39 weeks gestation of : (4) Decreased movement: (5) Minimal variability in heart rate: PLAN: Plan CE 2/70/-2 Garner bulb placed and filled with 30 cc N/S Start Pitocin at 2 mu/min and increase per orders Currently moderate variability with periods of minimal Starting IV fluid bolus Dr. Butler notified of A&P and viewing strip
--- OUTSIDE RECORDS SUMMARY | 2025-07-30 20:58 | XMS RPT_ITS | CCD ---
Author Organization [facility] Care Team Providers Care Associate Store Manager Name Role Phone PATY LEWIS Unavailable Unavailable CARROL, OLGA M Unavailable Unavailable KENNY CORRALES Referring Unavailable CARROL, OLGA M Primary Care Unavailable ANA OLEA Attending Unavail able ANA OLEA Primary Care Unavail able ROSLYN DE LA CRUZ MD Attending Unavailable ROSLYN DE LA CRUZ MD Primary Care Unavailable ROSLYN DE LA CRUZ MD Admitting Unavailable Carrol DO, Olga M Primary Care Provider [phone] DEBBY DURHAM Attending Unavailable CARROL, OLGA M [...] Primary Care Unavailable HAURY, DARIUSZ Referring Unavailable HAURY, DARIUSZ Attending Unavailable CARROL, OLGA M Primary Care Unavailable CARROL, OLGA M Primary Care Unavailable ADELINA BELLO Attending Unavailable LUZ ELENA MENDOZA Attending Unavail able CARROL, OLGA M Primary Care Unavailable Allergies Allergy Classification Reported Allergen(s) Allergy Type Date of Onset Reaction(s) Facility (12 sources) Sulfonamides (Antibiotic); Translations: [SULFA (SULFONAMIDE ANTIBIOTICS)] Propensity to adverse reactions to drug (disorder) 4 Rash, Swelling [facility] Repository Medications Current Medications Medication Drug [...] of ; Translations: [18 weeks gestation of ([facility])] Onset: 03-07-2025 Episodic Residual codes; unclassified (1 source) 10 weeks gestation of ; Translations: [10 weeks gestation of ([facility])] Onset: 01-29-2025 Episodic Screening and history of [...] , Intermediate >32 , Resistant >64 Abnormal [facility] Comment on above: Performed By: #### 6 30-4 ####[facility] LABCLIA [id number] [address] Cory 06-13-2025 CNPN Telephone (ALIYAH) ANGIE HICKS ([id number]) 3 F Date Time Provider Department 06/13/25 [...] called in yesterday and spoke with nurse production control clerk after hours. Advised to go [...] Status:Closed by ERICA DELVALLE on 06/13/25 [facility]ICK[facility]WM[facility] ANGIE HICKS ([id number]) 3 F Date Time Provider Department 06/08/25 [...] TA GALLEGOS Pharmacy Information Pharmacy Address Telephone [facility] [phone] [place] [address] Allergies As of Date: 06/08/2025 Noted Allergy [...] Encounter Status:Closed by BETTYE PLATA on 06/12/25 [facility]31-20[facility] ANGIE HICKS ([id number]) 3 F Date Time Provider Department 05/31/25 TA GALLEGOS OBGYWJaki During your visit today, we recorded the following information about you: Deisi Meneses RN 05/31/2025 11:28 AM Signed [facility] pharmacy called. They checked their system and [...] JOVITA 05/31/2025 2:56 PM Signed Spoke with [facility] pharmacist to confirm that the RX I [...] Status:Closed by KARLOS DUBOSE on 05/31/25 Normal [facility] Ferritin SerPl-mCncon 2024 Ferritin [Mass/Vol] 13.4 ng/mL Low 14.7-205.1 [facility] Comment on above: Order Comment: Speci men Type: BLOOD SPECIMENOrdering Facility: [facility] Address: [address] [place] [address] Performed By: #### 2 276-4, 13780-3 ####[facility] LABCLIA [id number] [place] [address] [place] Iron and Iron binding capaci ty panelon 05-29-2025 Iron [Mass/Vol] 28 ug/dL Low 41-186 [facility] Comment on above: Order Comment: Speci men Type: BLOOD SPECIMENOrdering Facility: [facility] Address: [address] [place] [address] Performed By: #### 2 276-4, 74575-5 ####[facility] LABCLIA [id number] [place] [id number] [place] Iron binding capacity [Mass/Vol] >528 High 232-386 [facility] Comment on above: Order Comment: Speci men Type: BLOOD SPECIMENOrdering Facility: [facility] Address: [address] [place] [address] Performed By: #### 2 276-4, 38651-1 ####[facility] LABCLIA [id number] [place] [id number] [place] Iron/TIBC [Molar ratio] <5.3 Low 15.0-57.0 [facility] Comment on above: Order Comment: Speci men Type: BLOOD SPECIMENOrdering Facility: [facility] Address: [address] [place] [address] Performed By: #### 2 276-4, 51002-6 ####[facility] MAIN LABCLIA [id number] [place] [address] [place] CBC panel Auto (Bld)on 05-03 Erythrocyte distribution width (RBC) [Ratio] 12.3 % Normal 11.5-15.0 [facility] Comment on above: Order Comment: Speci men Type: BLOOD SPECIMENOrdering Facility: [facility] Address: [address] [place] [address] Performed By: #### 5 8410-2 ####[facility] [id number] [place] [address] [place] Hematocrit (Bld) [Volume fraction] 28.0 % Low 36.0-46.0 [facility] Comment on above: Order Comment: Speci men Type: BLOOD SPECIMENOrdering Facility: [facility] Address: [address] [place] [address] Performed By: #### 5 8410-2 ####[facility] [id number] [place] [address] [place] Hemoglobin (Bld) [Mass/Vol] 9.4 g/dL Low 11.5-15.5 [facility] Comment on above: Order Comment: Speci men Type: BLOOD SPECIMENOrdering Facility: [facility] Address: [address] [place] [address] Performed By: #### 5 8410-2 ####[facility] [id number] [place] [address] [place] MCH (RBC) [Entitic mass] 29.5 pg Normal 26.0-34.0 [facility] Comment on above: Order Comment: Speci men Type: BLOOD SPECIMENOrdering Facility: [facility] Address: [address] [place] [address] Performed By: #### 5 8410-2 ####[facility] [id number] [place] [address] [place] MCHC (RBC) [Mass/Vol] 33.6 g/dL Normal 30.5-36.0 [facility] Comment on above: Order Comment: Speci men Type: BLOOD SPECIMENOrdering Facility: [facility] Address: [address] [place] [address] Performed By: #### 5 8410-2 ####[facility] [id number] [place] [address] [place] MCV (RBC) [Entitic vol] 87.8 fL Normal 80.0-100.0 [facility] Comment on above: Order Comment: Speci men Type: BLOOD SPECIMENOrdering Facility: [facility] Address: [address] [place] [address] Performed By: #### 5 8410-2 ####[facility] [id number] [place] [address] [place] Nucleated RBC (Bld) [#/Vol] 10*3/uL Normal <0.01 [facility] Comment on above: Order Comment: Speci men Type: BLOOD SPECIMENOrdering Facility: [facility] Address: [address] [place] [address] Performed By: #### 5 8410-2 ####[facility] [id number] [place] [address] [place] Platelet mean volume (Bld) [Entitic vol] 9.4 fL Normal 9.0-12.7 [facility] Comment on above: Order Comment: Speci men Type: BLOOD SPECIMENOrdering Facility: [facility] Address: [address] [place] [address] Performed By: #### 5 8410-2 ####[facility] [id number] [place] [address] [place] Platelets (Bld) [#/Vol] 350 10*3/uL Normal 150-400 [facility] Comment on above: Order Comment: Speci men Type: BLOOD SPECIMENOrdering Facility: [facility] Address: [address] [place] [address] Performed By: #### 5 8410-2 ####[facility] [id number] [place] [address] [place] RBC (Bld) [#/Vol] 3.19 10*6/uL Low 3.90-5.20 [facility] Comment on above: Order Comment: Speci men Type: BLOOD SPECIMENOrdering Facility: [facility] Address: [address] [place] [address] Performed By: #### 5 8410-2 ####[facility] [id number] [place] [address] [place] WBC (Bld) [#/Vol] 9.41 10*3/uL Normal 3.70-11.00 [facility] Comment on above: Order Comment: Speci men Type: BLOOD SPECIMENOrdering Facility: [facility] Address: [address] [place] [address] Performed By: #### 5 8410-2 ####[facility] [id number] [place] [address] [place] Ferritin SerPl-mCncon 2024 Ferritin [Mass/Vol] 11.4 ng/mL Low 14.7-205.1 [facility] Comment on above: Order Comment: Speci men Type: BLOOD SPECIMENOrdering Facility: [facility] Address: [address] [place] [address] Performed By: #### 2 276-4, 03279-4 ####[facility] LABCLIA [id number] [place] [address] [place] GESTATIONAL GLUCOSE SCREEN, 1-HOUR, 50 GRAM, NON-FASTINGon 05-03-2025 Glucose [Mass/Vol] 126 mg/dL Normal 74-134 [facility] Comment on above: Order Comment: Speci men Type: BLOOD SPECIMENOrdering Facility: [facility] Address: [address] [place] [address] Result Comment: [facility] Congress of Obstetricians and Gynecologists (Higinio/Jun) guidelines state a gestational diabetes mellitus positive screen is made, in women not previously diagnosed with overt diabetes, when the 1 hr plasma glucose level is equal to or above 140 mg/dL. The [facility] [employer] and [facility] [place] recommends a 135 mg/dL cutoff. Performed By: #### G LTGST ####[facility] [id number] [place] [address] [place] Iron and Iron binding capaci ty panelon 05-03-2025 Iron [Mass/Vol] 36 ug/dL Low 41-186 [facility] Comment on above: Order Comment: Speci men Type: BLOOD SPECIMENOrdering Facility: [facility] Address: [address] [place] [address] Performed By: #### 2 276-4, 97629-0 ####[facility] LABCLIA [id number] [place] [address] [place] Iron binding capacity [Mass/Vol] >536 High 232-386 [facility] Comment on above: Order Comment: Speci men Type: BLOOD SPECIMENOrdering Facility: [facility] Address: [address] [place] [address] Performed By: #### 2 276-4, 04538-1 ####[facility] LABIA [id number] [place] [id number] [place] Iron/TIBC [Molar ratio] <6.7 Low 15.0-57.0 [facility] Comment on above: Order Comment: Speci men Type: BLOOD SPECIMENOrdering Facility: [facility] Address: [address] [place] [address] Performed By: #### 2 276-4, 55361-6 ####[facility] LABIA [id number] [place] [address] [place] Reagin and Treponema pallidu m IgG and IgM [Interp]on 05-03-2025 T. pallidum IgG+IgM IA Ql (S) Non-Reactive Normal Nonreactive [facility] Comment on above: Order Comment: Speci men Type: BLOOD SPECIMENOrdering Facility: [facility] Address: [address] [place] [address] Performed By: #### 7 3752-8 ####[facility] LABIA [id number] [place] [address] [place] Reagin+T pallidum IgG+IgM Se rPl-Impon 05-03-2025 Reagin and Treponema pallidum IgG and IgM [Interp] Cannot exclude recent Treponemal infection if specimen collected within 7-10 days after appearance of suspect lesions or 2-3 weeks after an exposure. Clinical correlation is required. Normal [facility] Comment on above: Order Comment: Speci jaycob Type: BLOOD SPECIMENOrdering Facility: [facility] Address: [address] [place] [address] Performed By: #### 7 3752-8 ####[facility] [id number] [place] [address] [place] TSH W/REFLEX FT4on 5 TSH Qn 1.400 m[IU]/L Normal 0.270-4.200 [facility] Comment on above: Order Comment: Speci men Type: BLOOD SPECIMENOrdering Facility: [facility] Address: [address] [place] [address] Result Comment: If t he patient is , TSH reference range varies by gestational period: First Trimester (weeks 9-12): 0.180-2.990 mIU/L Second Trimester: 0.110-3.980 mIU/L Third Trimester: 0.480-4.710 mIU/L Jose Dutta et al. A Practical Approach for the Verifications and Determination of Site- and Trimester-Specific Reference Intervals for Thyroid Function tests in . Thyroid, 2019:29:3:412-420. Ernesto E, et al. 2017 Guidelines of the [place] Thyroid Association for the Diagnosis and Management of Thyroid Disease during and the . Thyroid, 2017:27:3:315-389. Performed By: #### T [facility] ####[facility] AMY [id number] [address] OF [facility] CNPNon 04-10-2025 CNPN Telephone (PSYRMN) ANGIE HICKS ([id number]) 3 F Date Time Provider Department 04/10/25 [...] and Psychiatry Assisted in making appt at: [facility] Psychiatry, Other Internal Comment: Pt need, and External Comment: Pt need [facility] to send patient resources via [employer] Appointment date and time: 04/17/25 @ 1pm Current priority status of the referral Medium Additional information Patient and WB SW discussed [facility] referral. Patient agreeable to [facility] psychiatry appointment for continued medication management. Patient is also agreeable to counseling- agreeable to external referral due to [facility] psychology wait times. [facility] SW to send patient counseling resources via [employer] message. Discussed ways to schedule an appointment. [facility] SW available to assist with scheduling counseling appointment if needed. Allergies As of Date: 04/10/2025 Noted Allergy Reaction SULFA (SULFONAMIDE ANTIBIOTICS) 01/19/2014 2 - Rash 7 - Swelling Date Reviewed: 03/07/2025 Reviewed by: Dariusz Brooks APRN.BALLISTICS PROFESSOR - Fully Assessed Reason for Visit: Integrated [...] Status:Closed by KEYON CRUZ on 04/10/25 Normal [facility] Bacteria Ur Culton 5 Bacteria identified Cx Nom (U) ORGANISM ID: 1 <10,000 CFU/ml Normal urogenital vi Normal [facility] Comment on above: Performed By: #### 6 30-4 ####[facility] LABCLIA [id number] [address] STATES OF [facility] Cory 03-30-2025 CNPN Telephone (PSYRMN) ANGIE HICKS ([id number]) 3 F Date Time Provider Department 03/30/25 KEYON CRUZ PSYRMN During your visit today, we recorded the following information about you: Keyon Cruz LISW 03/30/2025 4:39 PM Signed Third outreach attempt. Phone call to patient regarding [facility] referral. Patient did not answer, left message. [facility] sent with [facility] contact information and additional resources. [facility] SW can be reached at: [place]: [phone] [place]:[phone] Allergies As of Date: 03/30/2025 Noted Allergy Reaction SULFA (SULFONAMIDE ANTIBIOTICS) 01/19/2014 2 - Rash 7 - Swelling Date Reviewed: 03/07/2025 Reviewed by: Dariusz Brooks APRN.BALLISTICS PROFESSOR - Fully Assessed Reason for Visit: [facility] Consult Follow Up [Other] Prescriptions as of [...] Status:Closed by KEYON CRUZ on 03/30/25 Normal [facility] Cory 03-19-2025 [facility] Telephone (PSYRMN) ANGIE HICKS ([id number]) 3 F Date Time Provider Department 03/19/25 BRENDA VILLEGAS PSYRMN During your visit today, we recorded the following information about you: Brenda Villegas LISW 03/19/2025 2:51 PM Signed Phone call to patient regarding [facility] referral. Patient did not answer, left message. [facility] can be reached at: [place]: [phone] [place]:[phone] Allergies As of Date: 03/19/2025 Noted Allergy Reaction SULFA (SULFONAMIDE ANTIBIOTICS) 01/19/2014 2 - Rash 7 - Swelling Date Reviewed: 03/07/2025 Reviewed by: Dariusz Brooks APRN.BALLISTICS PROFESSOR - Fully Assessed Reason for Visit: [employer] - Other [3608] Cmt: [facility] referral follow up Prescriptions as [...] Encounter Status:Closed by BRENDA VILLEGAS on 03/19/25 [facility] 03-08-2025 CNPN Telephone (PSYRMN) ANGIE HICKS ([id number]) 3 F Date Time Provider Department 03/08/25 KEYON CRUZ PSYRMN During your visit today, we recorded the following information about you: Keyon Cruz LISW 03/08/2025 10:55 AM Signed Phone call to patient regarding [facility] referral. Patient did not answer, left message. [facility] SW can be reached at: [place]: [phone] [place]:[phone] Allergies As of Date: 03/08/2025 Noted Allergy Reaction SULFA (SULFONAMIDE ANTIBIOTICS) 01/19/2014 2 - Rash 7 - Swelling Date Reviewed: 03/07/2025 Reviewed by: Dariusz Brooks APRN.BALLISTICS PROFESSOR - Fully Assessed Reason for Visit: WB [...] Status:Closed by KEYON CRUZ on 03/08/25 Normal [facility] Examination level ultrasound on 03-07-2025 Indication Standard [...] 10 oz EFW by: Hadlock (HC-AC-FL) Extended Terrapin Fisher 6.8 mm CM 2.2 mm <1% Nicolaides [...] normal LVOT view: normal 3-vessel view: normal 2-qvgamk-tnqrlev view: normal Heart / Thorax Situs: situs [...] Read By: Bobbi Potter M.D. MATERNAL MEDICINE [facility] Radiology Study observation (narrative) [facility] CBC W Auto Differential pane l (Bld)on 01-29-2025 Basophils (Bld) [#/Vol] 10*3/uL Normal <0.11 [facility] Comment on above: Order Comment: Speci men Type: BLOOD SPECIMENOrdering Facility: [facility] Address: [address] [place] [address] Performed By: #### 5 7021-8 ####[facility] YOANDYWNCLIA [id number] [place] [address] [place] Basophils/100 WBC (Bld) 0.2 % Normal [facility] Comment on above: Order Comment: Speci men Type: BLOOD SPECIMENOrdering Facility: [facility] Address: [address] [place] [address] Performed By: #### 5 7021-8 ####[facility] AKASHSALT ROCKSCHUYLERLIA [id number] [place] [address] [place] Differential cell count method Nom (Bld) Auto Normal [facility] Comment on above: Order Comment: Speci men Type: BLOOD SPECIMENOrdering Facility: [facility] Address: [address] [place] [address] Performed By: #### 5 7021-8 ####[facility]ERSCHUYLERA [id number] [place] [address] [place] Eosinophils (Bld) [#/Vol] 0.06 10*3/uL Normal <0.46 [facility] Comment on above: Order Comment: Speci men Type: BLOOD SPECIMENOrdering Facility: [facility] Address: [address] [place] [address] Performed By: #### 5 7021-8 ####[facility] AKASHSALT ROCKSCHUYLERLIA [id number] [place] [address] [place] Eosinophils/100 WBC (Bld) 0.6 % Normal [facility] Comment on above: Order Comment: Speci men Type: BLOOD SPECIMENOrdering Facility: [facility] Address: [address] [place] [address] Performed By: #### 5 7021-8 ####[facility]CLIA [id number] [place] [address] [place] Erythrocyte distribution width (RBC) [Ratio] 13.2 % Normal 11.5-15.0 [facility] Comment on above: Order Comment: Speci men Type: BLOOD SPECIMENOrdering Facility: [facility] Address: [address] [place] [address] Performed By: #### 5 7021-8 ####[facility] JONEL [id number] [place] [address] [place] Hematocrit (Bld) [Volume fraction] 35.1 % Low 36.0-46.0 [facility] Comment on above: Order Comment: Speci men Type: BLOOD SPECIMENOrdering Facility: [facility] Address: [address] [place] [address] Performed By: #### 5 7021-8 ####[facility]ENTERMARY JO [id number] [place] [address] [place] Hemoglobin (Bld) [Mass/Vol] 12.1 g/dL Normal 11.5-15.5 [facility] Comment on above: Order Comment: Speci men Type: BLOOD SPECIMENOrdering Facility: [facility] Address: [address] [place] [address] Performed By: #### 5 7021-8 ####[facility]ERSCHUYLERA [id number] [place] [address] [place] Immature granulocytes (Bld) [#/Vol] 0.03 10*3/uL Normal <0.10 [facility] Comment on above: Order Comment: Speci men Type: BLOOD SPECIMENOrdering Facility: [facility] Address: [address] [place] [address] Performed By: #### 5 7021-8 ####[facility]CLIA [id number] [place] [address] [place] Immature granulocytes/100 WBC (Bld) 0.3 % Normal [facility] Comment on above: Order Comment: Speci men Type: BLOOD SPECIMENOrdering Facility: [facility] Address: [address] [place] [address] Performed By: #### 5 7021-8 ####[facility]ITALWNCLIA [id number] [place] [address] [place] Lymphocytes (Bld) [#/Vol] 1.80 10*3/uL Normal 1.00-4.00 [facility] Comment on above: Order Comment: Speci men Type: BLOOD SPECIMENOrdering Facility: [facility] Address: [address] [place] [address] Performed By: #### 5 7021-8 ####[facility] [id number] [place] [address] [place] Lymphocytes/100 WBC (Bld) 18.6 % Normal [facility] Comment on above: Order Comment: Speci men Type: BLOOD SPECIMENOrdering Facility: [facility] Address: [address] [place] [address] Performed By: #### 5 7021-8 ####[facility] [id number] [place] [address] [place] MCH (RBC) [Entitic mass] 30.0 pg Normal 26.0-34.0 [facility] Comment on above: Order Comment: Speci men Type: BLOOD SPECIMENOrdering Facility: [facility] Address: [address] [place] [address] Performed By: #### 5 7021-8 ####[facility] CENTERA [id number] [place] [address] [place] MCHC (RBC) [Mass/Vol] 34.5 g/dL Normal 30.5-36.0 [facility] Comment on above: Order Comment: Speci men Type: BLOOD SPECIMENOrdering Facility: [facility] Address: [address] [place] [address] Performed By: #### 5 7021-8 ####[facility]ERNCLI [id number] [place] [address] [place] MCV (RBC) [Entitic vol] 87.1 fL Normal 80.0-100.0 [facility] Comment on above: Order Comment: Speci men Type: BLOOD SPECIMENOrdering Facility: [facility] Address: [address] [place] [address] Performed By: #### 5 7021-8 ####[facility] [id number] [place] [address] [place] Monocytes (Bld) [#/Vol] 0.89 10*3/uL High <0.87 [facility] Comment on above: Order Comment: Speci men Type: BLOOD SPECIMENOrdering Facility: [facility] Address: [address] [place] [address] Performed By: #### 5 7021-8 ####[facility] [id number] [place] [address] [place] Monocytes/100 WBC (Bld) 9.2 % Normal [facility] Comment on above: Order Comment: Speci men Type: BLOOD SPECIMENOrdering Facility: [facility] Address: [address] [place] [address] Performed By: #### 5 7021-8 ####[facility] [id number] [place] [address] [place] Neutrophils (Bld) [#/Vol] 6.86 10*3/uL Normal 1.45-7.50 [facility] Comment on above: Order Comment: Speci men Type: BLOOD SPECIMENOrdering Facility: [facility] Address: [address] [place] [address] Performed By: #### 5 7021-8 ####[facility] [id number] [place] [address] [place] Neutrophils/100 WBC (Bld) 71.1 % Normal [facility] Comment on above: Order Comment: Speci men Type: BLOOD SPECIMENOrdering Facility: [facility] Address: [address] [place] [address] Performed By: #### 5 7021-8 ####[facility] JONEL [id number] [place] [address] [place] Nucleated RBC (Bld) [#/Vol] 10*3/uL Normal <0.01 [facility] Comment on above: Order Comment: Speci men Type: BLOOD SPECIMENOrdering Facility: [facility] Address: [address] [place] [address] Performed By: #### 5 7021-8 ####[facility]ENTERMARY JO [id number] [place] [address] [place] Nucleated RBC/100 WBC (Bld) [Ratio] 0.0 /100 WBC Normal [facility] Comment on above: Order Comment: Speci men Type: BLOOD SPECIMENOrdering Facility: [facility] Address: [address] [place] [address] Performed By: #### 5 7021-8 ####[facility]ENTERNCMERYA [id number] [place] [address] [place] Platelet mean volume (Bld) [Entitic vol] 9.6 fL Normal 9.0-12.7 [facility] Comment on above: Order Comment: Speci men Type: BLOOD SPECIMENOrdering Facility: [facility] Address: [address] [place] [address] Performed By: #### 5 7021-8 ####[facility]ENTERNCLIA [id number] [place] [address] [place] Platelets (Bld) [#/Vol] 328 10*3/uL Normal 150-400 [facility] Comment on above: Order Comment: Speci men Type: BLOOD SPECIMENOrdering Facility: [facility] Address: [address] [place] [address] Performed By: #### 5 7021-8 ####[facility]ENTERNCLIA [id number] [place] [address] [place] RBC (Bld) [#/Vol] 4.03 10*6/uL Normal 3.90-5.20 [facility] Comment on above: Order Comment: Speci men Type: BLOOD SPECIMENOrdering Facility: [facility] Address: [address] [place] [address] Performed By: #### 5 7021-8 ####[facility]ENTERNCA [id number] [place] [address] [place] WBC (Bld) [#/Vol] 9.66 10*3/uL Normal 3.70-11.00 [facility] Comment on above: Order Comment: Speci men Type: BLOOD SPECIMENOrdering Facility: [facility] Address: [address] [place] [address] Performed By: #### 5 7021-8 ####[facility] [id number] [place] [address] [place] HBV surface Ag Ser Qlon 01-08 HBV surface Ag Ql (S) Negative Normal Negative [facility] Comment on above: Order Comment: Speci men Type: BLOOD SPECIMENOrdering Facility: [facility] Address: [address] [place] [address] Performed By: #### 3 1201-7, 5195-3, 07213-4 ####[facility] LABCLIA [id number] [place] [address] [place] HCV Ab Ser Qlon 01-29-2025 HCV Ab Ql (S) Negative Normal Negative [facility] Comment on above: Order Comment: Speci men Type: BLOOD SPECIMENOrdering Facility: [facility] Address: [address] [place] [address] Result Comment: The result suggests no evidence of infection with Hepatitis C virus. Should recent infection be suspected, repeat testing may be considered 4-6 weeks after this draw. Performed By: #### 1 6128-1 ####[facility] LABIA [id number] [place] [address] [place] HIV 1+2 Ab IA Qlon 5 HIV 1 and 2 Ab IA.rapid Nom (S/P/Bld) Normal [facility] Comment on above: Order Comment: Speci men Type: BLOOD SPECIMENOrdering Facility: [facility] Address: [address] [place] [address] Result Comment: Test not indicated. Performed By: #### 3 1201-7, 5195-3, 98869-5 ####[facility] [id number] [address] [place] HIV 1+2 Ab+HIV1 p24 Ag IA Ql Non-Reactive Normal Nonreactive [facility] Comment on above: Order Comment: Speci men Type: BLOOD SPECIMENOrdering Facility: [facility] Address: [address] [place] [address] Performed By: #### 3 1201-7, 5195-3, 69016-8 ####[facility] [id number] [address] [place] HIV immunoassay testing algorithm interpretation (S/P/Bld) [Interp] Normal [facility] Comment on above: Order Comment: Speci men Type: BLOOD SPECIMENOrdering Facility: [facility] Address: [address] [place] [address] Result Comment: No e vidence of HIV-1 or HIV-2 infection. Should recent infection be suspected, repeat testing may be considered 2-3 weeks after this draw. [place] Rev. Code 3701.243(E): This information has been [...] diagnoses. Performed By: #### 3 1201-7, 5195-3, 48906-4 ####[facility] LABIA [id number] [address] [place] HbA1c (Bld)on 01-29-2025 Average glucose Estimated from glycated hemoglobin (Bld) [Mass/Vol] 103 mg/dL Normal [facility] Comment on above: Order Comment: Speci men Type: BLOOD SPECIMENOrdering Facility: [facility] Address: [address] [place] [address] Result Comment: eAG: (Estimated average glucose) is a calculated value from HgbA1c and is direct sales representative of the average blood glucose level in the last 2-3 month period. Performed By: #### 5 5454-3 ####[facility] LABIA [id number] [address] STATES OF [facility] HbA1c (Bld) [Mass fraction] 5.2 % Normal 4.3-5.6 [facility] Comment on above: Order Comment: Speci men Type: BLOOD SPECIMENOrdering Facility: [facility] Address: [address] [place] [address] Result Comment: [place] Diabetes Association guidelines indicate that patients with HgbA1c in the range 5.7-6.4% are at increased risk for development of diabetes, and intervention by lifestyle modification may be beneficial. HgbA1c greater or equal to 6.5% is considered diagnostic of diabetes. Performed By: #### 5 5454-3 ####[facility] LABIA [id number] [place] [id number] [place] RUBELLA IGG ANTIBODYon 01-29 RUBELLA IGG AB, QUAL Positive Normal Positive [facility] Comment on above: Order Comment: Speci men Type: BLOOD SPECIMENOrdering Facility: [facility] Address: [address] [place] [address] Result Comment: The result suggests recent or past exposure to Rubella virus or history of Rubella vaccination. Positive result may also be seen due to presence of passively-transferred antibodies. Please correlate with patient's history. Performed By: #### R UBIGG ####[facility] LABCLIA [id number] [place] [address] [place] Reagin and Treponema pallidu m IgG and IgM [Interp]on 01-29-2025 T. pallidum IgG+IgM IA Ql (S) Non-Reactive Normal Nonreactive [facility] Comment on above: Order Comment: Speci men Type: BLOOD SPECIMENOrdering Facility: [facility] Address: [address] [place] [address] Performed By: #### 3 1201-7, 5195-3, 23243-5 ####[facility] LABCLIA [id number] [place] [address] [place] Reagin+T pallidum IgG+IgM Se rPl-Impon 01-29-2025 Reagin and Treponema pallidum IgG and IgM [Interp] Cannot exclude recent Treponemal infection if specimen collected within 7-10 days after appearance of suspect lesions or 2-3 weeks after an exposure. Clinical correlation is required. Normal [facility] Comment on above: Order Comment: Speci men Type: BLOOD SPECIMENOrdering Facility: [facility] Address: [address] [place] [address] Performed By: #### 3 1201-7, 5195-3, 70925-2 ####[facility] LABIA [id number] [place] [address] [place] TYPE + SCREEN PRENATALon ABO A Normal [facility] Comment on above: Order Comment: Speci men Type: BLOOD SPECIMEN Ordering Facility: [facility] Address: [address] [place] [address] Performed By: #### T SPN #### [facility] CLIA [id number] [address] [place] [address] [place] Rh Nom (Bld) Positive Normal [facility] Comment on above: Order Comment: Speci men Type: BLOOD SPECIMEN Ordering Facility: [facility] Address: [address] [facility] [place] [address] Performed By: #### T SPN #### [facility] CLIA [id number] [address] [facility] [address] TYPE AND SCREEN EXPIRATION 02/01/2025 23:59 Normal [facility] Comment on above: Order Comment: Speci men Type: BLOOD SPECIMEN Ordering Facility: [facility] Address: [address] [place] [address] Performed By: #### T SPN #### [facility] CLIA [id number] [address] [facility] [address] Examination level ultrasound on 01-18-2025 Indication First trimester anatomic survey Impression The patient is referred for a first trimester anatomy scan including nuchal translucency measurement as clinically indicated. - Single, live, intrauterine . - Venturia rump length measurement is consistent with the [...] view: normal 4-chamber view with color: normal 1-tfmisr-wccxmcg view: normal Abdominal cord insertion: normal Stomach: [...] Read By: Nery Erickson M.D. MATERNAL MEDICINE [facility] Bacteria Ur Culton 5 Bacteria identified Cx Nom (U) ORGANISM ID: 1 <10,000 CFU/ml Normal urogenital vi Normal [facility] Comment on above: Performed By: #### 6 30-4 ####[facility] LABCLIA [id number] [address] Examination level ultrasound on 01-17-2025 Radiology Study observation (narrative) [facility] Bacteria Ur Culton 5 Bacteria identified Cx [...] , Intermediate >32 , Resistant >64 Abnormal [facility] Comment on above: Performed By: #### 6 30-4 ####[facility] LABCLIA [id number] [address] [place] C. trachomatis+N. gonorrhoea e DNA EDMAR+probe Ql (Unsp spec)on 01-05-2025 C. trachomatis rRNA EDMAR+probe Ql (Unsp spec) Not detected Normal Not detected [facility] Comment on above: Order Comment: Speci men Type: SWABOrdering Facility: [facility] Address: [address] [place] [address] Performed By: #### T RVAMP, 37364-2 ####[facility] LABCLIA [id number] [address] [place] N. gonorrhoeae rRNA EDMAR+probe Ql (Unsp spec) Not detected Normal Not detected [facility] Comment on above: Order Comment: Speci men Type: SWABOrdering Facility: [facility] Address: [address] [place] [address] Performed By: #### T RVAMP, 91728-3 ####[facility] LABCLIA [id number] [address] OF [place] POC BOILER HOUSE INSPECTOR ULTRASOUNDon 01-06-20 Indication Viability; confirm cardiac activity [...] Read By: Dariusz Brooks NP MATERNAL MEDICINE [facility] Radiology Study observation (narrative) [facility] TRICHOMONAS VAGINALIS NAATon 01-05-2025 T. vaginalis DNA EDMAR+probe Ql (Unsp spec) Not detected Normal Not detected [facility] Comment on above: Order Comment: Speci men Type: SWABOrdering Facility: [facility] Address: [address] [place] [address] Performed By: #### T RVAMP, 98700-4 ####[facility] LABROHIT [id number] [address] [place] Cory 01-02-2025 CNPN Telephone (OBGYWM) ANGIE HICKS ([id number]) 3 F Date Time Provider Department 01/02/25 DARIUSZ BROOKS During your visit today, we recorded the following information about you: Erica Delvalle RN 01/02/2025 3:51 PM Signed Left message for patient to return phone call to complete nurse intake questions for her upcoming appointment. Patient has an appointment with Dariusz Brooks for NOB appointment. Please transfer to [facility] or ne to see if we can complete Allergies As of Date: 01/02/2025 Noted Allergy Reaction SULFA (SULFONAMIDE ANTIBIOTICS) 01/19/2014 2 - Rash 7 - Swelling Date Reviewed: 09/13/2019 Reviewed by: Theresa Jon ([facility]) - Fully Assessed Reason for Visit: 01/05 [...] Status:Closed by ERICA DELVALLE on 01/10/25 Normal [facility] CBC + DIFFon 08-07-2024 Baso # 0.03 x10EE3/UL Normal 0.00 - 0.10 [facility] Comment on above: Performed By: #### 2 95737 ####[facility],[address] [place] [address] Basophils/100 WBC (Bld) 0.4 % Normal 0.0 - 2.0 [facility] Comment on above: Performed By: #### 2 51356 ####[facility],[address] [place] [address] CBC + DIFF Normal [facility] Comment on above: Result Comment: CBC- COMPLETE BLOOD COUNT Performed By: #### 2 03409 ####[facility],[address] [place] [address] EO # 0.06 x10EE3/UL Normal 0.00 - 0.50 [facility] Comment on above: Performed By: #### 2 05126 ####[place] [id number] Eosinophils/100 WBC (Bld) 0.7 % Normal 0.0 - 7.0 [facility] Comment on above: Performed By: #### 2 63210 ####[place] [address] Erythrocyte distribution width (RBC) [Ratio] 12.9 % Normal 12.0 - 15.6 [facility] Comment on above: Performed By: #### 2 65661 ####[facility],[address] [place] [address] Hematocrit (Bld) [Volume fraction] 38.9 % Normal 34.0 - 46.0 [facility] Comment on above: Performed By: #### 2 98488 ####[facility],[address] [place], [place] [address] Hemoglobin (Bld) [Mass/Vol] 13.5 g/dL Normal 12.0 - 16.0 [facility] Comment on above: Performed By: #### 2 10372 ####[facility],[address] [place] [address] Lymph # 1.39 x10EE3/UL Normal 0.80 - 2.80 [facility] Comment on above: Performed By: #### 2 80103 ####[facility],[address] [place], [place] [address] Lymphocytes/100 WBC (Bld) 17.1 % Low 20.0 - 45.0 [facility] Comment on above: Performed By: #### 2 23429 ####[facility],[address] [place], [place] [address] MANUAL DIFF N/A Normal [facility] Comment on above: Performed By: #### 2 19076 ####[facility],[address] [place] [address] MCH (RBC) [Entitic mass] 31 pg Normal 27 - 33 [facility] Comment on above: Performed By: #### 2 83532 ####[facility],[address] [place] [address] MCHC 35 X10 3 Normal 32 - 36 [facility] Comment on above: Performed By: #### 2 79436 ####[facility],[address] [place], [place] [address] MCV (RBC) [Entitic vol] 88 fL Normal 80 - 99 [facility] Comment on above: Performed By: #### 2 71414 ####[facility],[address] [place], [place] [address] [place] # 0.64 x10EE3/UL Normal 0.20 - 1.00 [facility] Comment on above: Performed By: #### 2 88808 ####[facility],[address] [place] [address]157 MONOS % 7.9 % Normal 0.0 - 10.0 [facility] Comment on above: Performed By: #### 2 65960 ####[facility],[address] [place] [address] 80199 Morphology Mauro (Bld) [Interp] N/A Normal [facility] Comment on above: Performed By: #### 2 44530 ####[facility],[address] [place] [address]44[address] Neut # 6.00 x10EE3/UL Normal 1.50 - 7.10 [facility] Comment on above: Performed By: #### 2 70954 ####[facility],[address] [place] [address] 42871 Neutrophils/100 WBC (Bld) 73.9 % Normal 46.0 - 76.0 [facility] Comment on above: Performed By: #### 2 59431 ####[facility],[address] [place] [address]293 PLATELET 380 x10EE3/UL Normal 150 - 450 [facility] Comment on above: Performed By: #### 2 91920 ####[address] [address] Platelet mean volume (Bld) [Entitic vol] 7.9 fL Normal 6.6 - 10.5 [facility] Comment on above: Result Comment: AUTO MATED DIFFERENTIAL Performed By: #### 2 85709 ####[facility],[address] [place] [address]5545 RBC 4.43 x 10EE6/UL Normal 4.10 - 5.30 [facility] Comment on above: Performed By: #### 2 33399 ####[facility],[address] [place] [address] 14750 WBC 8.1 x 10EE3/UL Normal 4.5 - 10.8 [facility] Comment on above: Performed By: #### 2 58484 ####[facility],[address] [place] [address]889 CMP with eGFRon 08-07-2024 AGE 19 years Normal [facility] Comment on above: Performed By: #### 2 95774 ####[facility],[address] [place] [address]25 Albumin [Mass/Vol] 3.9 g/dL Normal 3.4 - 5.0 [facility] Comment on above: Performed By: #### 2 16221 ####[facility],[address] [place] [address] 48901 Albumin/Globulin [Mass ratio] 1.0 {ratio} Normal 0.9 - 1.6 [facility] Comment on above: Performed By: #### 2 03811 ####[facility],[address] [place] [address] 26710 ALK PHOS 83 U/L Normal 46 - 116 [facility] Comment on above: Performed By: #### 2 14661 ####[facility],[address] [place] [address] 45479 ALT [Catalytic activity/Vol] 87 U/L High 16 - 63 [facility] Comment on above: Performed By: #### 2 52788 ####[facility],[address] [place], [place] [address] Anion gap [Moles/Vol] 12 mmol/L Normal 10 - 20 [facility] Comment on above: Performed By: #### 2 24909 ####[facility],[address] [place] [address] 54432 AST [Catalytic activity/Vol] 43 U/L High 13 - 39 [facility] Comment on above: Performed By: #### 2 69983 ####[facility],[address] [place] [address]355 B/C RATIO 22 ratio Normal 0 - 30 [facility] Comment on above: Performed By: #### 2 29524 ####[facility],[address] [place] [address]1415 Bilirubin [Mass/Vol] 0.4 mg/dL Normal 0.2 - 1.0 [facility] Comment on above: Performed By: #### 2 42143 ####[facility],[address] [place] [address] 15995 Calcium [Mass/Vol] 9.1 mg/dL Normal 8.5 - 10.1 [facility] Comment on above: Performed By: #### 2 49111 ####[facility],[address] [place], [place] [address] Chloride [Moles/Vol] 105 mmol/L Normal 98 - 107 [facility] Comment on above: Performed By: #### 2 31817 ####[facility],[address] [place], [place] [address] CMP with eGFR Normal [facility] Comment on above: Result Comment: COMP REHENSIVE METABOLIC PANEL Performed By: #### 2 29759 ####[place] [address] CO2 [Moles/Vol] 27.8 mmol/L Normal 21.0 - 32.0 [facility] Comment on above: Performed By: #### 2 04508 ####[facility],[address] [place], [place] [address] Creatinine [Mass/Vol] 0.77 mg/dL Normal 0.55 - 1.02 [facility] Comment on above: Performed By: #### 2 87926 ####[facility],[address] [place] [address] GFR/1.73 sq M.predicted among non-blacks MDRD (S/P/Bld) [Vol rate/Area] mL/min/{1.73_m2} Normal 60 - 999 [facility] Comment on above: Performed By: #### 2 86123 ####[facility],[address] [place], [place] [address] Result Comment: ACCO RDING TO THE NATIONAL KIDNEY DISEASE EDUCATION PROGRAM(NKDE), A NORMAL eGFR IS A VALUE GREATER THAN OR EQUAL TO 60 ML/MIN/1.73 SQ METERS. CHRONIC KIDNEY DISEASE: <60mL/MIN/1.73 SQ METERS KIDNEY FAILURE: <15mL/MIN/1.73 SQ METERS THIS TEST SHOULD ONLY BE USED FOR PATIENTS 18 YEARS OF AGE AND OLDER. Globulin (S) [Mass/Vol] 4.0 g/dL High 1.5 - 3.8 [facility] Comment on above: Performed By: #### 2 59162 ####[facility],[address] [place] [address] 23089 Glucose [Mass/Vol] 107 mg/dL High 74 - 106 [facility] Comment on above: Performed By: #### 2 67191 ####[facility],[address] [place] [address]604 Potassium [Moles/Vol] 4.2 mmol/L Normal 3.5 - 5.1 [facility] Comment on above: Performed By: #### 2 95778 ####[facility],[address] [place] [address] 20182 Protein [Mass/Vol] 7.9 g/dL Normal 6.4 - 8.2 [facility] Comment on above: Performed By: #### 2 70904 ####[facility],[address] [place] [address] 21646 Sodium [Moles/Vol] 141 mmol/L Normal 136 - 145 [facility] Comment on above: Performed By: #### 2 51503 ####[facility],[address] [place] [address] 71559 Urea nitrogen [Mass/Vol] 17 mg/dL Normal 7 - 18 [facility] Comment on above: Performed By: #### 2 25283 ####[facility],[address] [place] [address] 61488 ED MED ADMINISTRATION DETAIL on 08-07-2024 ED MED ADMINISTRATION DETAIL Land Acquisition Analyst Medication Administration [place] [phone] [id number] 08/07/2024 Patient: ANGIE HICKS Sex: Female : 2005 Age: 19y MEASUREMENTS: Wt: 49.9 kg, Ht/Victor Manuel: 59.0 in, BMI: 22.22 ALLERGIES: Sulfa (Sulfonamide Antibiotics) Medication Ordered Medication Administration Date/Time 1 of 1 Normal [facility] ED NURSES CLINICAL NOTEon ED NURSES CLINICAL NOTE Nurse Narrative Nurse Clinical Narrative [place] [id number] [place] [address] [id number] 08/07/2024 Patient: ANGIE HICKS Sex: Female : [...] Marcial R.N. 08/07/24 17:21:08 EST) Generated by [facility] 3 of 3 Normal [facility] ED ORDER SHEET (CPOE ONLY)on 08-07-2024 ED ORDER SHEET (CPOE ONLY) Order Sheet Order Sheet [address] [place] [address] [id number] 08/07/2024 Patient: ANGIE HICKS Sex: Female : [...] (08/07/2024 17:16 EST)] 2 of 2 Normal [facility] ED PHYSICIAN CLINICAL REPORT on 08-07-2024 ED PHYSICIAN CLINICAL REPORT Narrative Physician Clinical Narrative [address] [place] [address] [id number] 08/07/2024 Patient: ANGIE HICKS Sex: Female : [...] 1.50 - 7.10 Final EST 08/07/2024 16:06 [place] # 0.64 x10/UL 0.20 - 1.00 Final [...] tract infect (more content not included)... Normal [facility] ED SUPER BILLon 08-07-2024 ED SUPER BILL [address] [address] [id number] 08/07/2024 Patient: ANGIE HICKS Sex: Female : 2005 Age: 19y Item Professional Category Description Facility Code Code Quantity Fee Total Nurse/E/M EMERGENCY 542152 1 $0.00 $0.00 DEPARTMENT VISIT MODERATE SEVERITY (68904) Grand Total $0.00 Providers Roslyn De La Cruz M.D. Chief Complaint ABDOMINAL PAIN. Principal Diagnosis Acute suprapubic abdominal pain of unknown cause. ICD-10 Codes 1 of 2 [facility] R10.30: Lower abdominal pain, unspecified 2 of 2 Normal [facility] ED VISIT SUMMARYon ED VISIT SUMMARY Visit Overview Visit Overview [address] [address] [id number] 08/07/2024 Patient: ANGIE HICKS Sex: Female : [...] OF UNKNOWN CAUSE 4 of 4 Normal [facility] ED VITALS FLOW SHEETon 08-07 ED VITALS FLOW SHEET Vitals Vital Sign Flow Sheet [address] [place] [address] [id number] 08/07/2024 Patient: ANGIE HICKS Sex: Female : 2005 Age: 19y Measurements Wt: 49.9 kg, Ht/Victor Manuel: 59.0 in, BMI: 22.22 Measured Time BP MAP HR RR O2Sat ETCO2 Temp Pain GCS RTS 14:32 08/07/2024 112/73 86 102 16 98% 98.7 F 3 1 of 1 Normal [facility] LIPASEon 08-07-2024 Lipase [Catalytic activity/Vol] 30.0 U/L Normal 15.0 - 78.0 [facility] Comment on above: Result Comment: *PLE ASE NOTE THAT RANGES FOR LIPASE HAVE CHANGED OF 08/06/23 DUE TO AN ASSAY UPDATE BY THE SEAM SEWER.THE NEW ASSAY RANGE IS 6-250 U/L, WITH A REFERENCE RANGE OF 16-77 U/L. Performed By: #### 2 65364 ####[address] [address] URINEon 08-07-2024 Beta HCG ( test) Ql (U) Negative Normal NEGATIVE [facility] Comment on above: Performed By: #### 2 02345 #### [address] [place] [address] EXTERNAL QC DONE? YES Normal [facility] Comment on above: Performed By: #### 2 64803 #### [facility],[address] [place] [address] INTERNAL QC PASS Normal [facility] Comment on above: Performed By: #### 2 89306 #### [facility],[address] [place] [address] URINALYSISon 08-07-2024 Bilirubin Ql (U) Negative Normal NORMAL: NEGATIVE [facility] Comment on above: Performed By: #### 2 10279 #### [facility],[address] [place] [address] Clarity (U) clear Normal NORMAL: CLEAR [facility] Comment on above: Performed By: #### 2 26327 #### [facility],[address] [place] [address] Color (U) yellow Normal NORMAL: YELLOW [facility] Comment on above: Performed By: #### 2 72149 #### [facility],[address] [place] [address] Glucose Ql (U) NORM Normal NORMAL: NORMAL [facility] Comment on above: Performed By: #### 2 98257 #### [facility],[address] [place] [address] 14095 Hemoglobin Ql (U) Negative Normal NORMAL: NEGATIVE [facility] Comment on above: Performed By: #### 2 29028 #### [facility],[address] [place] [address] Ketone Negative Normal NORMAL: NEGATIVE [facility] Comment on above: Performed By: #### 2 50149 #### [facility],[address] [place] [address] Leukocytes Negative Normal NORMAL: NEGATIVE [facility] Comment on above: Performed By: #### 2 76022 #### [facility],[address] [place] [address] Nitrite Ql (U) Negative Normal NORMAL: NEGATIVE [facility] Comment on above: Performed By: #### 2 99012 #### [facility],[address] [place] [address] pH (U) 5 [pH] Normal NORMAL: 5.0-8.0 [facility] Comment on above: Performed By: #### 2 35387 #### [facility],[address] [place] [address] Protein Ql (U) 15 Abnormal NORMAL: NEGATIVE [facility] Comment on above: Performed By: #### 2 43860 #### [facility],[address] [place] [address] Sp Burdick 1.025 Normal NORMAL: 1.010-1.030 [facility] Comment on above: Performed By: #### 2 24019 #### [facility],[address] [place] [address] Specimen Type R Normal [facility] Comment on above: Performed By: #### 2 26964 #### [facility],[address] [place] [address] Urinalysis dipstick W Reflex Microscopic panel (U) NOT INDICATED Normal [facility] Comment on above: Performed By: #### 2 67255 #### [place] [address] Urobilinog NORM Normal NORMAL: NORMAL [facility] Comment on above: Performed By: #### 2 99049 #### [facility],[address] [place], [place] [address] B12on 07-26-2024 Cobalamin (Vitamin B12) [Mass/Vol] 775 pg/mL Normal 211-911 [facility] Comment on above: Performed By: #### B 12, VIDH, FE, FERR #### [place] [address] FEon 07-26-2024 Iron [Mass/Vol] 65 ug/dL Normal 50-170 [facility] Comment on above: Performed By: #### B 12, VIDH, FE, FERR #### [place] [phone] Kate 07-26-2024 Ferritin [Mass/Vol] 29.4 ng/mL Normal 8.0-252.0 [facility] Comment on above: Performed By: #### B 12, VIDH, FE, FERR #### [place] [phone] PREGUon 07-26-2024 HCG ( test) Ql (U) Negative Normal [facility] Comment on above: Performed By: #### U AMIC, PREGU, UA #### [place] [address] test (u) int Invalid Interpretation Code [facility] Comment on above: Result Comment: HCG not detected. Very dilute urine specimens, as indicated by a low specific gravity, may not contain direct sales representative levels of hCG. If is still suspected, a first morning urine specimen should be collected 48 hours later and tested. Performed By: #### U AMIC, PREGU, UA #### [place] [address] UAon 07-26-2024 Color (U) Yellow Normal [facility] Comment on above: Performed By: #### U AMIC, PREGU, UA #### [place] [address] Glucose (U) [Mass/Vol] Negative Normal Negative [facility] Comment on above: Performed By: #### U AMIC, PREGU, UA #### [place] [address] Ketones Ql (U) Negative Normal Neg-Trace [facility] Comment on above: Performed By: #### U AMIC, PREGU, UA #### [place] [address] UA Appear Cloudy Abnormal Clear [facility] Comment on above: Performed By: #### U AMIC, PREGU, UA #### [place] [address] UA Blood Negative Normal Neg-Trace [facility] Comment on above: Performed By: #### U AMIC, PREGU, UA #### [place] [address] UA Leuk Est Trace Normal Negative [facility] Comment on above: Performed By: #### U AMIC, PREGU, UA #### [address] [address] UA Nitrite Positive Abnormal Negative [facility] Comment on above: Performed By: #### U AMIC, PREGU, UA #### [address] [address] UA pH 6.5 Normal 5.0 - 8.0 [facility] Comment on above: Performed By: #### U AMIC, PREGU, UA #### [place] [address] UA Protein Negative Normal Negative [facility] Comment on above: Performed By: #### U AMIC, PREGU, UA #### [place] [address] UA Spec Grav 1.025 Normal 1.006-1.029 [facility] Comment on above: Performed By: #### U AMIC, PREGU, UA #### [place] [address] UA Specimen Type Clean Catch Normal [facility] Comment on above: Performed By: #### U AMIC, PREGU, UA #### [place] [address] UA Urobilinogen 1.0 E.U./dL Normal 0.2-1.0 [facility] Comment on above: Performed By: #### U AMIC, PREGU, UA #### [place] [address] Urobilinogen (U) [Mass/Vol] Negative Normal Neg-Trace [facility] Comment on above: Performed By: #### U AMIC, PREGU, UA #### [address] [address] UAMICon 07-26-2024 UA Bacteria 4+ /hpf Abnormal Negative [facility] Comment on above: Performed By: #### U AMIC, PREGU, UA #### [facility] [address] [place] [address] UA Mucous 2+ /hpf Normal [facility] Comment on above: Performed By: #### U AMIC, PREGU, UA #### [facility] [address] [place] [address] UA RBC Rare Normal 0-2 [facility] Comment on above: Performed By: #### U AMIC, PREGU, UA #### [facility] [address] [place] [address] UA Squam Epithelial 0-2 Normal 0-20 [facility] Comment on above: Performed By: #### U AMIC, PREGU, UA #### [facility] [address] [place] [address] UA WBC 5-10 Abnormal 0-5 [facility] Comment on above: Performed By: #### U AMIC, PREGU, UA #### [place] [address] VIDHon 07-26-2024 Vit. D 25-Hydroxy 15.4 ng/mL Normal [facility] Comment on above: Result Comment: Inte rpretive Values Based on Total 25(OH)D: Severe Deficiency <20 ng/mL Mild to Moderate Deficiency 20-30 ng/mL Optimum Levels 30-100 ng/mL Toxicity Possible >100 ng/mL Performed By: #### B 12, VIDH, FE, FERR #### [place] [address] SICKLE PREP SCRNon 3 Hemoglobin S Ql (Bld) Negative Normal Negative [facility] Comment on above: Order Comment: Speci men Type: BLOOD SPECIMEN Ordering Facility: [facility] Address: [address] [place] [address] Performed By: #### S CKSOL #### [facility] CLIA [id number] [address] [address] [place] CMV AB-IGMon 09-13-2017 CMV AB-IGM <30.0 Normal 0.0-29.9 [facility] Comment on above: Result Comment: Nega tive <30.0 Equivocal 30.0 - 34.9 Positive >34.9A positive result is generally indicative of acuteinfection, reactivation or persistent IgM production.Performed at: [address] [id number] Director: Zaid Flores PhD, Phone: [phone] Performed By: #### L 800.0400, L800.0500, L800.0510 ####[place] [address] EBV-VCA,IGGon 09-13-2017 EBV-VCA,IGG <18.0 Normal 0.0-17.9 [facility] Comment on above: Result Comment: Nega tive <18.0 Equivocal 18.0 - 21.9 Positive >21.9 Performed By: #### L 800.0400, L800.0500, L800.0510 ####[place] [address] EBV-VCA,IGMon 09-13-2017 EBV-VCA,IGM <36.0 Normal 0.0-35.9 [facility] Comment on above: Result Comment: Nega tive <36.0 Equivocal 36.0 - 43.9 Positive >43.9Performed at: [address] [id number] Director: Zaid Flores PhD, Phone: [phone] Performed By: #### L 800.0400, L800.0500, L800.0510 ####[place] [address] CBCon 09-10-2017 Basophils Auto #/vol (Bld) 0.00 x10(3) Normal 0.00-0.30 [facility] Comment on above: Performed By: #### L 200.0010 ####[facility] KXDMCVGCQG697 [place] [address] Basophils/100 WBC Auto (Bld) 0.3 % Normal 0-2 [facility] Comment on above: Performed By: #### L 200.0010 ####ML [facility] ZOSOSGCNYT648 [place] [address] Eosinophils 0.10 x10(3) Normal 0.00-0.50 [facility] Comment on above: Performed By: #### L 200.0010 ####ML - GIZBBAAWWA932 [place] [address] Eosinophils/100 leukocytes 1.9 % Normal 1-4 [facility] Comment on above: Performed By: #### L 200.0010 ####ML - DOBDBRQYCD[address] [place] [address] Erythrocyte distribution width Auto Ratio (RBC) 13.2 % Normal 11.5-14.5 [facility] Comment on above: Performed By: #### L 200.0010 ####ML [facility] KJJIRQSDNL[address] [place] [address] Erythrocytes (RBC) 4.16 x10(6) Normal 4.00-5.40 [facility] Comment on above: Performed By: #### L 200.0010 ####ML [facility] [address] [place] [address] Hematocrit (HCT) 36.4 % Normal 35-49 [facility] Comment on above: Performed By: #### L 200.0010 ####ML [facility] KV[address]UCWDT[address] [place] [address] Hemoglobin mass conc (Bld) 12.2 g/dL Normal 12-15.0 [facility] Comment on above: Performed By: #### L 200.0010 ####ML [facility] FADI[address]LS[address] [place] [address] Lymphocytes 2.00 x10(3) Normal 1.00-7.20 [facility] Comment on above: Performed By: #### L 200.0010 ####ML - TNHNSCRUJZ202 [place] [address] Lymphocytes/100 leukocytes 26.6 % Normal 23-53 [facility] Comment on above: Performed By: #### L 200.0010 ####ML - JMLZGDDUFW040 [place] [address] MCH 29.3 pg Normal 26-32 [facility] Comment on above: Performed By: #### L 200.0010 ####ML - PDCCJWSKQU[address] [place] [address] MCHC mass conc (RBC) 33.5 g/dL Normal 32-36 [facility] Comment on above: Performed By: #### L 200.0010 ####ML - WFSVWGMGUV[address] [place] [address] MCV 87.5 fL Normal 80-94 [facility] Comment on above: Performed By: #### L 200.0010 ####ML - PZMAUUNDHV[address] [place] [address] Monocytes 0.90 x10(3) Normal 0.10-1.50 [facility] Comment on above: Performed By: #### L 200.0010 ####ML - UHDMJACLWC[address] [place] [address] Monocytes/100 leukocytes 11.5 % High 2-11 [facility] Comment on above: Performed By: #### L 200.0010 ####ML - GGWJYLOUVG[address] [place] [address] Neutrophils 4.40 x10(3) Normal 1.60-8.80 [facility] Comment on above: Performed By: #### L 200.0010 ####ML - DLFRGAVFAQ[address] [place] [address] Neutrophils/100 WBC Auto (Bld) 59.7 % Normal 35-65 [facility] Comment on above: Performed By: #### L 200.0010 ####ML - HRNZFVOUCF[address] [place] [address] Platelet mean volume (PMV) 8.4 fL Normal 7.5-9.5 [facility] Comment on above: Performed By: #### L 200.0010 ####ML - XJROJUTTSX[address] [place] [address] Platelets 343 X10(3) Normal 150-450 [facility] Comment on above: Performed By: #### L 200.0010 ####ML - JGSXXIWYQR[address] [place] [address] WBC (Leukocytes) 7.4 x10(3) Normal 4.5-13.5 [facility] Comment on above: Performed By: #### L 200.0010 #### - ORHVRLEXME304 [place] [address] CMPon 09-10-2017 A:G RATIO 1.60 Normal 1.1-2.5 [facility] Comment on above: Performed By: #### L 100.0005, L304.0140, L304.0162, L304.0470 ####[facility] ACWAPPCXLX000 [place] [address] Alanine aminotransferase (ALT) 11 U/L Normal 5-33 [facility] Comment on above: Performed By: #### L 100.0005, L304.0140, L304.0162, L304.0470 #### - MBUFTBMKCL987 [place] [address] Albumin 4.5 g/dL Normal 3.8-5.4 [facility] Comment on above: Performed By: #### L 100.0005, L304.0140, L304.0162, L304.0470 #### - CMXWSIGIGT[address] [place] [address] ALK. PHOS 170 U/L Normal 35-186 [facility] Comment on above: Performed By: #### L 100.0005, L304.0140, L304.0162, L304.0470 #### - UDUELBPXJZ367 [place] [address] Anion gap 18.3 mmol/L Normal 15-22 [facility] Comment on above: Performed By: #### L 100.0005, L304.0140, L304.0162, L304.0470 #### - UFRCKOGWKW285 [place] [address] Aspartate aminotransferase (AST) 16 U/L Normal 5-32 [facility] Comment on above: Performed By: #### L 100.0005, L304.0140, L304.0162, L304.0470 ####[facility] VALVISFVJS886 [place] [address] Bilirubin Ql (U) 0.2 mg/dL Normal 0.2-1.0 [facility] Comment on above: Performed By: #### L 100.0005, L304.0140, L304.0162, L304.0470 ####ML - TAOEADLAST[address] [place] [address] Calcium 9.2 mg/dL Normal 8.4-10.2 [facility] Comment on above: Performed By: #### L 100.0005, L304.0140, L304.0162, L304.0470 ####ML - DNYOEKLYKW119 [place] [address] Chloride 99 mmol/L Normal 98-107 [facility] Comment on above: Performed By: #### L 100.0005, L304.0140, L304.0162, L304.0470 ####ML - HMCXRXHXMK031 [place] [address] CO2 26 mmol/L Normal 22-29 [facility] Comment on above: Performed By: #### L 100.0005, L304.0140, L304.0162, L304.0470 ####ML - XJQCAMXFAR[address] [place] [address] Creatinine 0.44 mg/dL Low 0.57-0.87 [facility] Comment on above: Performed By: #### L 100.0005, L304.0140, L304.0162, L304.0470 ####ML - QODGSKIKVA225 [place] [address] eGFR (non-black) > 60 ml/Min/1.73m2 Normal [facility] Comment on above: Performed By: #### L 100.0005, L304.0140, L304.0162, L304.0470 ####ML - KZDXAQMCPE529 [place] [address] Globulin 2.8 g/dL Normal 1.5-4.5 [facility] Comment on above: Performed By: #### L 100.0005, L304.0140, L304.0162, L304.0470 ####ML - WKLNTSFTHR514 [place] [address] Glucose mass conc 95 mg/dL Normal 60-100 [facility] Comment on above: Performed By: #### L 100.0005, L304.0140, L304.0162, L304.0470 ####[facility] RTOSTJCARA451 [place] [address] Potassium molar conc 4.3 mmol/L Normal 3.5-5.0 [facility] Comment on above: Performed By: #### L 100.0005, L304.0140, L304.0162, L304.0470 #### - PUVEEIXZAL[address] [place] [address] Protein 7.3 g/dL Normal 6.0-8.0 [facility] Comment on above: Performed By: #### L 100.0005, L304.0140, L304.0162, L304.0470 ####[address] [address] Sodium 139 mmol/L Normal 135-145 [facility] Comment on above: Performed By: #### L 100.0005, L304.0140, L304.0162, L304.0470 #### - XTBFDDJUND[address] [place] [address] Urea nitrogen 9 mg/dL Normal 5-18 [facility] Comment on above: Performed By: #### L 100.0005, L304.0140, L304.0162, L304.0470 ####[facility] J[address] [place] [address] Free T4on 09-10-2017 Thyroxine (T4) free 1.00 ng/dL Normal 0.93-1.7 [facility] Comment on above: Performed By: #### L 100.0005, L304.0140, L304.0162, L304.0470 ####[facility] E[address] [place] [address] TSHon 09-10-2017 Thyroid stimulating hormone (TSH) 1.63 uIU/mL Normal 0.45-4.50 [facility] Comment on above: Performed By: #### L 100.0005, L304.0140, L304.0162, L304.0470 #### - YOUIUYRXHF675 [place] [address] VITAMIN Don 09-10-2017 VITAMIN D 19.1 ng/mL Low 30-100 [facility] Comment on above: Performed By: #### L 100.0005, L304.0140, L304.0162, L304.0470 ####ML - UH AZPGEWKDGT799 [place] [address] Vital Signs Date Time Vital Sign Value Performing Clinician Amanda araujo 04-05-2025 16:20-0400 Body mass index (BMI) [Ratio] 25.5 kg/m2 Adelina Plotts MANAGER OF PRODUCTION.CNM Work Phone: [facility] 04-05-2025 16:20-0400 Body weight 58.24 kg Adelina Plotts MANAGER OF PRODUCTION.CNM Work Phone: [facility] 04-05-2025 16:20-0400 Diastolic blood pressure 70 mm[Hg] Adelina Plotts MANAGER OF PRODUCTION.CNM Work Phone: [facility] 04-05-2025 16:20-0400 Systolic blood pressure 110 mm[Hg] Adelina Plotts MANAGER OF PRODUCTION.CNM Work Phone: [facility] 03-07-2025 16:06-0400 Body mass index (BMI) [Ratio] 23.83 kg/m2 Dariusz Haana m MANAGER OF PRODUCTION.BALLISTICS PROFESSOR Work Phone: [facility] 03-07-2025 16:06-0400 Body weight 54.43 kg Dariusz Brooks MANAGER OF PRODUCTION.BALLISTICS PROFESSOR Work Phone: [facility] 03-07-2025 16:06-0400 Diastolic blood pressure 60 mm[Hg] Dariusz Haury MANAGER OF PRODUCTION.BALLISTICS PROFESSOR Work Phone: [facility] 03-07-2025 16:06-0400 Systolic blood pressure 98 mm[Hg] Dariusz Haury MANAGER OF PRODUCTION.BALLISTICS PROFESSOR Work Phone: [facility] 01-17-2025 14:20-0400 Body mass index (BMI) [Ratio] 21.85 kg/m2 Deisi Menon MD Work Phone: [facility] 01-17-2025 14:20-0400 Body weight 49.9 kg Deisi Menon MD Work Phone: [facility] 01-17-2025 14:20-0400 Diastolic blood pressure 68 mm[Hg] Deisi Menon MD Work Phone: [facility] 01-17-2025 14:20-0400 Systolic blood pressure 106 mm[Hg] Deisi Menon MD Work Phone: [facility] 01-05-2025 10:56-0400 Body height 151.1 cm Dariusz Haury MANAGER OF PRODUCTION.BALLISTICS PROFESSOR Work Phone: [facility] 01-05-2025 10:56-0400 Body mass index (BMI) [Ratio] 21.65 kg/m2 Dariusz Haury MANAGER OF PRODUCTION.BALLISTICS PROFESSOR Work Phone: [facility] 01-05-2025 10:56-0400 Body weight 49.44 kg Dariusz Haury MANAGER OF PRODUCTION.BALLISTICS PROFESSOR Work Phone: [facility] 01-05-2025 10:56-0400 Diastolic blood pressure 62 mm[Hg] Dariusz Haury MANAGER OF PRODUCTION.BALLISTICS PROFESSOR Work Phone: [facility] 01-05-2025 10:56-0400 Systolic blood pressure 100 mm[Hg] Dariusz Haury MANAGER OF PRODUCTION.BALLISTICS PROFESSOR Work Phone: [facility] Encounters Encounter Date Encounter Type Care Provider Facility Start: 06-13-2025 End: 06-13-2025 ambulatory OLGA M CARROL Facility:[facility] Start: 05-31-2025 End: 05-31-2025 ambulatory TA GALLEGOS Facility:[facility] Start: 05-29-2025 End: 05-29-2025 ambulatory OLGA Jaki BRANHAM Facility:[facility] Start: 05-15-2025 End: 05-15-2025 ambulatory DEBBY DURHAM [facility] Start: 05-14-2025 End: 05-14-2025 ambulatory JULIANNA MEDELLIN Facility:[facility] Start: 05-03-2025 End: 05-03-2025 ambulatory OLGA M CARROL Facility:[facility] Start: 04-17-2025 End: 04-17-2025 Telemedicine consultation with patient Debby Durham MD Work Phone: [facility] Start: 04-17-2025 End: 04-17-2025 ambulatory Debby Durham MD Work Phone: [facility] Comment on above: Depression with anxi ety; [...] Start: 04-05-2025 End: 04-05-2025 ambulatory OLGA GARCÍAPE Facility:[facility] Start: 03-07-2025 End: 03-07-2025 Patient encounter procedure [employer] [facility] Comment on above: Encounter for anatomic survey (HCC) (Primary Dx); 18 weeks gestation of (HCC) Encounter for superv ision of normal first in second trimester (HCC) (Primary Dx); 18 weeks gestation of (HCC); Nausea and vomiting during (HCC); Depression with anxiety; History of ADHD Start: 03-07-2025 End: 03-07-2025 ambulatory DARIUSZ BROOKS Facility:[facility] Start: 01-29-2025 End: 01-29-2025 ambulatory DARIUSZ BROOKS Facility:[facility] Start: 01-17-2025 End: 01-17-2025 Patient encounter procedure Deisi Menon MD Work Phone: OB/Gynecology Comment on above: Encounter for superv ision of normal first in first trimester (HCC) (Primary Dx); 11 weeks gestation of (HCC) Start: 01-17-2025 End: 01-17-2025 Patient encounter procedure Whi Tech 1 Interactive Developer [facility] Maternal Medicine Comment on above: Encounter for superv ision of normal first in first trimester (HCC) Start: 01-17-2025 End: 01-17-2025 ambulatory DARIUSZ BROOKS Facility:[facility] Start: 01-08-2025 End: 01-09-2025 Follow-up encounter [...] Start: 01-05-2025 End: 01-05-2025 ambulatory DARIUSZ BROOKS Facility:[facility] Start: 01-02-2025 End: 01-10-2025 Telephone encounter Dariusz Brooks APRN.CNP Work Phone: OB/Gynecology Comment on above: 01/05 NOB Intake Ques tions Start: 08-07-2024 End: 08-07-2024 Emergency department patient visit ROSLYN DAI [facility] Start: 07-26-2024 End: 07-26-2024 ambulatory ANA FAIRCHILD Facility:A Start: 04-03-2023 End: 04-04-2023 ambulatory KENNY CORRALES Facility:[id number] Start: 09-10-2017 Ambulatory OLGA BRANHAM Facility:[facility] Start: 04-26-2017 Ambulatory PRAVEEN-EL LEWIS Facilbhupinder ty:UNI Procedures Date Procedure Procedure Detail Performing Clinician Start: 03-07-2025 Us preg uterus after 1st trimest 08/09 gestation Dariusz Brooks APRN.CNP Work Phone: Start: 01-29-2025 Antibody screen OLGA SANDERSON Comment on above: Order Comment: Speci men Type: BLOOD SPECIMEN Ordering Facility: [facility] Address: [address] [place] [address] Performed By: #### T SPN #### [facility] CLIA [id number] [address] [place] [address] [place] Start: 01-17-2025 Us preg uterus after 1st trimest 1/1st gestation Dariusz Todd BAR Work Phone: Start: 01-05-2025 Us uterus limited 1/> fetuses Dariusz Todd BAR Work Phone: Start: 08-07-2024 Urinalysis ROSLYN PHILLIPS Comment on above: Result Comment: URIN ALYSIS Performed By: #### [id number] #### [facility],[address] [place] [address] Plan of Treatment Date Care Activity Detail Author Start: 03-29-2027 Urine microalbumin profile DTaP,Tdap,Td Vaccine (7 - Td or Tdap) [facility] Start: 01-05-2026 GC (Gonorrhea) Screening () GC (Gonorrhea) Screening () [facility] Start: 01-05-2026 Screening for Chlamy philomena trachomatis Chlamydia Screening () [facility] Start: 06-07-2025 RSV Vaccine (1 - Ris k 1-dose series) RSV Vaccine (1 - Risk 1-dose series) [facility] Start: 05-15-2025 End: 05-15-2025 Follow-up encounter 05/15/2025 2:00 PM EDT [facility] [address] [place] [id number] Debby Durham MD [address] [place] [address] 4 Wk Virtual Follow Up [facility] Comment on above: 4 Wk Virtual Follow Up Start: 05-06-2025 End: 08-05-2025 ANEMIA REFLEX PANEL ANEMIA REFLEX PANEL Lab Routine 23 weeks gestation of (HCC) Encounter for supervision of normal first in second trimester (HCC) Expected: 05/06/2025 (Approximate), Expires: 08/05/2025 [facility] Comment on above: Expected: 05/06/2025 (Approximate), Expires: 08/05/2025 Start: 05-06-2025 End: 04-05-2026 GESTATIONAL GLUCOSE SCREEN, 1-HOUR, 50 GRAM, NON-FASTING GESTATIONAL GLUCOSE SCREEN, 1-HOUR, 50 GRAM, NON-FASTING Lab Routine 23 weeks gestation of (HCC) Encounter for supervision of normal first in second trimester ([facility]) Screening for diabetes mellitus Expected: 05/06/2025 (Approximate), Expires: 04/05/2026 [facility] Work Phone: Comment on above: Expected: 05/06/2025 (Approximate), Expires: 04/05/2026 Start: 05-06-2025 End: 04-05-2026 SYPHILIS TREPONEMAL W/REFLEX SYPHILIS TREPONEMAL W/REFLEX Lab Routine 23 weeks gestation of ([facility]) Encounter for supervision of normal first in second trimester ([facility]) Expected: 05/06/2025 (Approximate), Expires: 04/05/2026 [facility] Comment on above: Expected: 05/06/2025 (Approximate), Expires: 04/05/2026 Start: 05-03-2025 End: 05-03-2025 Patient encounter procedure 05/03/2025 10:40 AM EDT Routine Office Visit OB/Gynecology [address] [place], [place] [id number] Luz Elena Mendoza MD [address] [place], [place] [address] OB OB/Gynecology Comment on above: OB Start: 04-17-2025 End: 07-17-2025 TSH W/REFLEX FT4 TSH W/REFLEX FT4 Lab Routine Depression with anxiety Expected: 04/17/2025, Expires: 07/17/2025 [facility] Work Phone: Comment on above: Expected: 04/17/2025 , Expires: 07/17/2025 Start: 04-09-2025 Influenza vaccination [facility] Start: 04-05-2025 End: 04-05-2025 Patient encounter procedure 04/05/2025 4:30 PM EDT Routine Office Visit OB/Gynecology [address] [place] [address] Adelina Bello APRN.CN [address] [place] [address] OB OB/Gynecology Comment on above: OB Start: 03-07-2025 End: 03-07-2025 Patient encounter procedure Maternal Medicine Comment on above: anatomy OB Start: 01-17-2025 End: 01-17-2025 Patient encounter procedure 01/17/2025 2:50 PM EDT Routine Office Visit OB/Gynecology [address] [place] [address] Deisi Menon MD [address] [place] [address] LMP:10/26/2024 OB/Gynecology Comment on above: LMP:10/26/2024 Start: 01-17-2025 End: 01-17-2025 Patient encounter procedure 01/17/2025 1:30 PM EDT Routine Office Visit Maternal Medicine [address] [place] [address] [facility] Comment on above: [facility] Start: 01-05-2025 End: 04-06-2025 ANEMIA REFLEX PANEL ANEMIA REFLEX PANEL Lab Routine 10 weeks gestation of (HCC) Expected: 01/05/2025, Expires: 04/06/2025 [facility] Work Phone: Comment on above: Expected: 01/05/2025 , Expires: 04/06/2025 Start: 01-05-2025 End: 04-06-2025 Hemoglobin A1c in Blood HEMOGLOBIN A1C Lab Routine 10 weeks gestation of (HCC) Expected: 01/05/2025, Expires: 04/06/2025 [facility] Comment on above: Expected: 01/05/2025 , Expires: 04/06/2025 Start: 01-05-2025 End: 04-06-2025 Hepatitis B virus surface Ag [Presence] in Serum HEPATITIS B SURFACE ANTIGEN Lab Routine 10 weeks gestation of ([facility]) Expected: 01/05/2025, Expires: 04/06/2025 [facility] Comment on above: Expected: 01/05/2025 , Expires: 04/06/2025 Start: 01-05-2025 End: 04-06-2025 Hepatitis C virus Ab [Presence] in Serum HEPATITIS C ANTIBODY IA WITH CONFIRMATION Lab Routine 10 weeks gestation of ([facility]) Expected: 01/05/2025, Expires: 04/06/2025 [facility] Comment on above: Expected: 01/05/2025 , Expires: 04/06/2025 Start: 01-05-2025 End: 04-06-2025 HIV 1+2 Ab [Presence] in Serum or Plasma by Immunoassay HIV 1/2 COMBO WITH REFLEX TO DIFFERENTIATION Lab Routine 10 weeks gestation of ([facility]) Expected: 01/05/2025, Expires: 04/06/2025 [facility] Comment on above: Expected: 01/05/2025 , Expires: 04/06/2025 Start: 01-05-2025 End: 01-05-2026 OBSTETRIC ULTRASOUND WHI OBSTETRIC ULTRASOUND WHI Anc Imaging Routine Encounter for supervision of normal first in first trimester ([facility]) Expected: 01/05/2025, Expires: 01/05/2026 [facility] Comment on above: Expected: 01/05/2025 , Expires: 01/05/2026 Start: 01-05-2025 End: 04-06-2025 RUBELLA IGG ANTIBODY RUBELLA IGG ANTIBODY Lab Routine 10 weeks gestation of ([facility]) Expected: 01/05/2025, Expires: 04/06/2025 [facility] Comment on above: Expected: 01/05/2025 , Expires: 04/06/2025 Start: 01-05-2025 End: 04-06-2025 SYPHILIS TREPONEMAL W/REFLEX SYPHILIS TREPONEMAL W/REFLEX Lab Routine 10 weeks gestation of ([facility]) Expected: 01/05/2025, Expires: 04/06/2025 [facility] Comment on above: Expected: 01/05/2025 , Expires: 04/06/2025 Start: 01-05-2025 End: 04-06-2025 TYPE + SCREEN TYPE + SCREEN Blood Bank Routine 10 weeks gestation of ([facility]) Expected: 01/05/2025, Expires: 04/06/2025 [facility] Comment on above: Expected: 01/05/2025 , Expires: 04/06/2025 Start: 04-09-2024 Covid-19 Vaccine ( season) Covid-19 Vaccine ( season) [facility] Start: 2022 GC (Gonorrhea) Screening (18-24) GC (Gonorrhea) Screening (18-24) [facility] Start: 2022 Hepatitis C screening Hepatitis C [facility] Start: 2022 HIV screening HIV Screening [facility] Start: 2022 Screening for Chlamy philomena trachomatis Chlamydia Screening () [facility] Start: 2020 Meningococcal B Vacc ine (1 of 2 - Standard) Meningococcal B Vaccine (1 of 2 - Standard) [facility] Start: 2018 Peds To Adult Transition Annual Assessment Peds To Adult Transition Annual Assessment [facility] Start: 09-29-2017 HPV Vaccine (2 - 2-d ose series) HPV Vaccine (2 - 2-dose series) [facility] Start: 2016 Peds To Adult Transition Initial Discussion Peds To Adult Transition Initial Discussion [facility] Bacteria identified in Urine by Culture BACTERIAL CULTURE, URINE Microbiology Routine 10 weeks gestation of ([facility]) 01/05/2025 11:46 AM EDT [facility] Bacteria identified in Urine by Culture BACTERIAL CULTURE, URINE Microbiology Routine Encounter for supervision of normal first in first trimester ([facility]) 11 weeks gestation of ([facility]) 01/17/2025 2:39 PM EDT [facility] Work Phone: Bacteria identified in Urine by Culture BACTERIAL CULTURE, URINE Microbiology Routine Urinary tract infection without hematuria, site unspecified Ordered: 04/05/2025 [facility] Comment on above: Ordered: 04/05/2025 Chlamydia trachomatis+Neisseria gonorrhoeae DNA [Presence] in Unspecified specimen by EDMAR with probe detection GONORRHEA/CHLAMYDIA NAAT Lab Routine 10 weeks gestation of ([facility]) 01/05/2025 11:46 AM EDT [facility] TRICHOMONAS VAGINALI S NAAT TRICHOMONAS VAGINALIS NAAT Lab Routine 10 weeks gestation of (HCC) 01/05/2025 11:46 AM EDT [facility] Immunizations Immunization Date Immunization Notes Care Provider Robe jewell 07-01-2009 influenza virus vacc ine, unspecified formulation Dariusz Brooks APRN.BALLISTICS PROFESSOR Work Phone: [facility] Payers Date Payer Category Payer Blue Cross Blue [facility] BLUE ACCE SS PPO [id number] 2018 Unknown [id number] 2004 Unknown [id number] 2004 Unknown [id number] Unknown [id number] Social History Date Type Detail Facility Start: 10-07-2018 End: 01-05-2025 Tobacco smoking status NHIS Never smoked tobacco [facility] History of tobacco use Passive smoker [facility] Start: 10-07-2018 End: 01-05-2025 Tobacco use and exposure Smokeless tobacco non-user [facility] Start: 01-05-2025 End: 04-17-2025 Alcoholic beverage [facility] Start: 01-05-2025 End: 01-17-2025 History of Social function [facility] Start: 01-05-2025 End: 01-17-2025 Tobacco use panel [facility] Start: 01-19-2014 National Score (1-10 0), lower number is lower risk 65 [facility] Start: 11-09-2024 [facility] Start: 2004 Sex assigned at Not on file [facility] Start: 09-13-2019 Alcoholic beverage intake Not Asked [facility] Goals Date Patient Goal Desired Activity /State Personal health goal Functional Status Date Assessment Result Facility 01-19-2014 Are you deaf, or do you have serious difficulty hearing No 01/19/2014 4:36 PM EDT Nery Cavazos MA No [facility] 01-19-2014 Are you blind, or do you have serious difficulty seeing, even when wearing glasses No 01/19/2014 4:36 PM EDT Nery Cavazos MA No [facility] 01-19-2014 Do you have serious difficulty walking or climbing stairs No 01/19/2014 4:36 PM EDT Nery Cavazos MA No [facility] 01-19-2014 Do you have difficul ty dressing or bathing No 01/19/2014 4:36 PM EDT Nery Cavazos MA No [facility] Mental Status Date Assessment Result Facility 01-19-2014 Because of a physica l, mental, or emotional condition, do you have serious difficulty concentrating, remembering, or making decisions No 01/19/2014 4:36 PM EDT Nery Cavazos MA No [facility] Clinical Notes 07-27-2024 to 05-15-2025 Patient InstructionsDebby Durham MD - 04/17/2025 12:49 PM EDTPrenatal Quick Notes - Adelina Bello APRN.CN - 04/05/2025 4:40 PM EDTPatient InstructionsPatient InstructionsPatient Instructions Note Date & Type Note Facility 05-15-2025 Note HNO ID: [id number] Author: DEBBY DURHAM MD Service: ? Author Type: Physician Type: Progress Notes Filed: 05/15/2025 14:22 Note Text: [facility] PROGRESS NOTE PATIENT: Angie Hicks MRD: [id number] DATE: May 15, 2025 Location:[facility] and the patient at home Time in:13:52 Time Out: 14:20 I have communicated my name and active licensure. The patient's identity and physical location were verified at the time of this visit. Either the patient or their legal direct sales representative has been informed of the risks and benefits of virtual and alternatives to virtual treatment through a remote evaluation and consents to proceed with the evaluation remotely. Recording using ambient Ornicept software for draft documentation of the visit was discussed with the patient/authorized direct sales representative; all questions welcomed and answered. Patient/authorized direct sales representative agreed to proceed IDENTIFYING INFORMATION: [...] explore these resources. She works at a [employer] and enjoys the supportive and non-stressful environment. [...] with anxiety ( (more content not included)... [facility] 05-03-2025 Note HNO ID: [id number] Author: TERRENCE SUTHERLAND MA Service: ? Author Type: Hr Manager Type: Progress Notes Filed: 05/03/2025 11:15 Note [...] severely ill: Yes Patient denies history of Guillain-Philadelphia Syndrome (a severe paralytic illness): Yes Tdap Adacel injection was given without incident. See immunizations for details of immunizations administered today. VIS sheet provided: Yes Provider Adia was present in office at time of injection. Terrence Sutherland MA [facility] 04-17-2025 Note HNO ID: [id number] Author: KEYON CRUZ LISW Service: ? Author Type: Manager Pest Type: Progress Notes Filed: 04/17/2025 15:04 Note Text: Summary: Integrated Mental Health Plan of Care Integrated Mental Health Plan of Care Review of referral with patient. Was patient aware of [facility] referral placement by provider?Yes Is the patient currently connected for care : Yes Other Providers name: [facility] Psychiatry - Debby Durham MD Was NAEL sent to patient? No Is the patient agreeable to connecting to services? Yes If agreeable to referral, are they:Psychology and External Assisted in making appt at: Other [facility] SW sent Pt external counseling resources via Real Savvy message Comment: Pt need Appointment date and time: TBD Current priority status of the referral Medium Additional information Patient and [facility] SW discussed [facility] referral. Patient connected with [facility] psychiatry. Patient referred to [facility] for counseling- Pt sent external counseling resources due to [facility] wait times for counseling. [facility] 04-17-2025 Instructions Debby Durham MD - 04/17/2025 1:31 PM EDT We discussed your depression and anxiety: - You are currently taking Lexapro (escitalopram) and recently restarted it last Wednesday. We agreed to increase your dose to 15 mg daily to better manage your symptoms. Please take 1.5 tablets daily for 30 days. A prescription for 45 tablets has been sent to your preferred [facility] pharmacy in [place]. - Lexapro is safe during , though [...] to a provider near your area in [place], [place]. We discussed your : - You [...] your next visit. documented in this encounter [facility] 04-17-2025 Note HNO ID: [id number] Author: DEBBY DURHAM MD Service: ? Author Type: Physician Type: Progress Notes Filed: 04/17/2025 13:51 Note Text: [facility] INITIAL PSYCHIATRIC EVALUATION PATIENT: Angie Hicks MRD: [id number] DATE: April 17, 2025 Location:[facility] and the patient at home Time in:12:50 Time Out: 13:45 I have communicated my name and active licensure. The patient's identity and physical location were verified at the time of this visit. Either the patient or their legal direct sales representative has been informed of the risks and benefits of -- and alternatives to -- treatment through a remote evaluation and consents to proceed with the evaluation remotely. Recording using Wolfpack Chassis software for draft documentation of the visit was discussed with the patient/authorized direct sales representative; all questions welcomed and answered. 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 She describes their relationship as good and notes that both she and her fiance are excited about the . She works at a [employer] and enjoys her job. She has no other children and denies any legal issues, episcopal preferences, or substance abuse. She was born and raised in [place] and lived with both parents until fourth [...] intent or med (more content not included)... [facility] 04-17-2025 History of Present illness Narrative [facility] INITIAL PSYCHIATRIC EVALUATION PATIENT: Angie Hicks MRD: [id number] DATE: April 17, 2025 Location:[facility] and the patient at home Time in:12:50 Time Out: 13:45 I have communicated my name and active licensure. The patient's identity and physical location were verified at the time of this visit. Either the patient or their legal direct sales representative has been informed of the risks and benefits of -- and alternatives to -- treatment through a remote evaluation and consents to proceed with the evaluation remotely. Recording using Wolfpack Ch[employer] software for draft documentation of the visit was discussed with the patient/authorized direct sales representative; all questions welcomed and answered. 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 She describes their relationship as good and notes that both she and her yolie are excited about the . She works at a [employer] and enjoys her job. She has no other children and denies any legal issues, episcopal preferences, or substance abuse. She was born and raised in [place] and lived with both parents until fourth [...] ADHD Hospitalizations: denied Psychiatrist: none Agency: none school business manager: none Therapist: none currently, had one when she was a child Self harm: denied Suicide attempts: denied Medication Trials: Lexapro helped her Vyvanse (lisdexamphetamine) helped her concentrate ECT: No SOCIAL HISTORY: Guardian: None Born and raised: in [place] and raised by both parents until 4th grade, saw mother on the week ends. She has a younger sister and brother. 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 Mental health resources provided. Dariusz Brooks APRN.BALLISTICS PROFESSOR History of ADHD 01/05/2025 January 05, 2025 Was on Vyvanse prior to and struggling without it. Managed by PCP. Recommend notifying PCP of and struggling without medication to determine treatment options. Dariusz Brooks APRN.BALLISTICS PROFESSOR Pyelonephritis age 6 PAST SURGICAL HISTORY Procedure [...] morning : had a UTI now cleared BOND RUNNER: 24 weeks MUSCULOSKELETAL: Negative for joint pain [...] which included preparing to see the patient, [id number] patient care, completing clinical documentation, obtaining and/or reviewing separately obtained history, performing a medically appropriate examination, counseling and educating the patient/family/caregiver, ordering medications, tests, or procedures, communicating with other HCPs (not separately reported), independently interpreting results (not separately reported), and communicating results to the patient/family/caregiver. Electronically signed by Debby Durham MD April 17, 2025 12:49 PM documented in this encounter [facility] 04-05-2025 Progress note Formatting of t his [...] or sooner if needed Adelina Bello APRN.CNM [facility] 04-05-2025 Miscellaneous Notes S: Angie Hicks is [...] Adelina Bello APRN.CNM documented in this encounter [facility] 04-05-2025 Instructions Adelina Bello APRN.CNM - 04/05/2025 4:19 PM EDT Here are some links for wonderful Providers here in the community and surrounding areas. Do not hesitate to contact their offices, many are offering virtual visits during this time. 3-651-2-IANV9SANS - [place] Maternal Mental Health Hotline If you are in suicidal crisis, please call or text 0-715-001-TALK ( ) or visit the National Suicide Prevention Lifeline website. [facility] Psychology, Psychiatry, Counseling Connect with therapist/ can do virtual visits [phone] Referral to the [facility] for Women's Behavioral Health To schedule an appointment, please call the [facility] Appointment Line: [phone] option 1 [facility] [place], [place] [address] [place] [address] [facility] [address] [place] [address] [facility] [address] [place] [address] [facility] [address] [place], [place] [id number] Shirley Ibarra MD [address] [place] [address] [place] [facility] [address] [facility], [address] [place] [address] [facility] [address] [place] [address] [facility] Counseling Services Jiménez / Addison [phone]/ [phone] Katherine Shaikh [address] [facility] [phone] Aves of Counseling and Mediation Jiménez / Royer [phone] Behavioral health services of [facility] [address] [place] [address]/ lena and [place] [phone] Juanita Alicea, PEDRO, CLC [facility]ump [facility] Beyond [facility] Therapy Workshops, telehealth and at home visits. [phone] [facility] counseling mobile 20 locations [place], [place], [place], [place], [place], [place], [place], [facility], [place], [place], [place], [place], [place], [place], [facility], [place], [place] ,[facility], [place], [place],[facility], [facility] [place], [place], [facility], [place], [place] www.[facility].co [phone] Psychotherapy resources outside of [facility] are listed below [facility] ELGIN Dotson, MOLD CARRIER-S [phone] Revival.clientsecure.ne [address] [address] *Trauma therapy, EMDR, in person or virtual visit. Accepts some insurances. [place] [phone] [facility] [address] [place] [address] [facility] Web: https://www.Xconomy/ Support International Online Provider Directory https://Explorys/ [facility] https://PowerCell Sweden/ Refer.com for Behavioral Health and Wellness Web: https://Storybyte/ Center for Effective Living Web: https://www.effectiveFoundation Softwareliving.T-Networks/ LifeStance Web: https://Wedit.T-Networks/location/s sweetser/[place]/ [facility] Web: https://www.signaturehealthinc.or / [facility] Web: https://Code Scouts.org/ Recovery Resources Mental health and substance abuse help Web: https://www.Intent HQs.org [facility] [address] [facility] [address] www.Janrain & RESOURCES Support International Direct peer support and connection to professional resources Non-Emergency Helpline Phone: / Text: [phone] Web: https://www..net/ Online Provider Directory: https://Explorys/ Online Support Meetings: https://www..net/get-he lp/kbx-qwagjr-jnlqsfx-meetings/ MILAGROS Baby and Software Support Engineer Services Web: https://wwwDigital Vault/ MotherToBaby Expert information on medication use during and Text: [phone] Web: https://City Labs/ NATIONAL REGISTRY FOR PSYCHIATRIC MEDICATIONS Currently studying the safety of antidepressants, ADHD medications and atypical antipsychotics taken during TO PARTICIPATE CALL TOLL-FREE: Web: https://womenentalhealth.org/re search/pregnancyregistry/ Support Groups: [facility]- Follow on facebook Baby Bistro support group led by [facility] department [facility] - Support Group [facility].org The POEM support group [phone] Www.poemonline.org Follow on facebook - CECILIO joe chapter Online support meetings PSI https://www..net/get-he lp/iai-hszxlr-imnxgma-meetings/ CC mommy and me virtual support group 11:30-1pm Support for mothers and new babies and toddlers Casco childbirth education: Childbirth @cc.org or call [phone] Support groups Online support meetings PSI https://www..net/get-he lp/bmv-sfqggv-nnpnxzq-meetings/ Here are the support groups they offer: [...] [facility] [address] [id number] Room 122 (library room) 7-8:00 p.m. When you enter the jainism parking lot off of [address] the entrance door closest to our meeting room is on the front of the building toward the right. For those who are more comfortable with a virtual platform, Xerographic Document Solutions offers online support group options several days of the week. To register for an online group or to find out more about POConnect Media Interactive, website at: https://Wishabia[place].org/get-help/tonsil hospitaltlah-xzauee-eneivd/poem-services/ offer a confidential helpline: private Facebook group is called PONEGRITA Heath Randolph Here are the groups they offer: Traumatic childbirth resources: Http://pattch.org/ https://www.GlaukosniSenor Sirloin/ CRISIS: CRISIS HOTLINE [phone], 911 or go to the nearest ER. [facility] [phone] / [facility] [phone] https://www.[facility] general medical centerrb.org Crisis text line text the word HOME to 077350 documented in this encounter [facility] 03-07-2025 Progress note Formatting of t his [...] supervision of normal first in second trimester ([facility]) - ICD9: V22.0, ICD10: Z34.02 (primary diagnosis) - Continue PNV and LDA 2. 18 weeks gestation of ([facility]) - ICD9: V22.2, ICD10: Z3A.18 - Anatomy ultrasound today, report pending 3. Nausea and vomiting during ([facility]) - ICD9: 643.90, ICD10: O21.9 - Controlled [...] weeks or sooner as needed. Dariusz Brooks APRN.BALLISTICS PROFESSOR [facility] 03-07-2025 Miscellaneous Notes EH - S: Angie [...] supervision of normal first in second trimester ([facility]) - ICD9: V22.0, ICD10: Z34.02 (primary diagnosis) - Continue PNV and LDA 2. 18 weeks gestation of ([facility]) - ICD9: V22.2, ICD10: Z3A.18 - Anatomy ultrasound today, report pending 3. Nausea and vomiting during ([facility]) - ICD9: 643.90, ICD10: O21.9 - Controlled [...] Dariusz Brooks APRN.DAVID documented in this encounter [facility] 03-07-2025 Instructions Dariusz Brooks APRN.CNP - 03/07/2025 3:54 PM EDT Images from the original note were not included. Psychotherapy Services at [facility] Call [facility] Access Line at [phone] to schedule Individual psychotherapy In-person or virtual Wait time for first evaluation may be 12 or more weeks. Wait list spots may be available. Due to the high volume of patients this option is recommended if you are looking for short term acute symptom coping strategies. 2-829-8-HYTQ2DNFN - [place] Maternal Mental Health Hotline If you are in suicidal crisis, please call or text 8-349-149-TALK ( ) or visit the National Suicide Prevention Lifeline website. mchb.[facility] centera.gov If you are in crisis, call 911 or go to your nearest Emergency Department Here are some links for wonderful Providers here in the community and surrounding areas. Do not hesitate to contact their offices, many are offering virtual visits during this time. Psychotherapy Services outside of [facility] Support International Online Provider Directory https://Pro V&V.com/ - can assist in finding providers in your area that might be more extensive then the list below. [facility] [place], [place] [address] [place], [place] [id number] [address] [address] [facility] [address] [place], [place] [address] [address] [address] Shirley Ibarra MD [address] [place], [place] [address] [facility] [place] [facility] [address] [facility], [address] [place] [address] [facility] [address] [place] [address] [facility] Jiménez / [place] [phone]/ [phone] Katherine Anthonynela [address] [facility] [phone] Aves of Counseling and Mediation [place] / [place] [phone] Behavioral health services of [facility] [address] [place] [address]/ lena and [place] [phone] Juanita Alicea, PEDRO, CLC [facility]ump [facility] Beyond Family Therapy Workshops, telehealth and at home visits. [phone] Humanistic counseling center [address] [facility], [place], [place], [place], [place], [place], [facility], [place], [place], [place], [place], [place], [place], [facility], [place], [place] ,[facility], [place], [place],[facility], [facility], [place], [facility], [facility], [place] www.[facility] carmel hospitalBenson Hill Biosystemser.co [phone] Psychotherapy resources outside of [facility] are listed below [facility] Web: https://www.Xconomy/ Support International Online Provider Directory https://Explorys/ Insight [facility] https://PowerCell Sweden/ Partners for Behavioral Health and Wellness Web: https://Storybyte/ Center for Effective Living Web: https://www.effectiveFoundation Softwareliving.T-Networks/ LifeStance Web: https://Wedit.T-Networks/location/s saeed/[place]/ [facility] Web: https://www.pilgrim psychiatric centerinc.or g/ The Centers Web: https://Code Scouts.org/ Recovery Resources Mental health and substance abuse help Web: https://www.Breather & RESOURCES Support International Direct peer support and connection to professional resources Non-Emergency Helpline Phone: / Text: [phone] Web: https://www..net/ Online Provider Directory: https://Explorys/ Online Support Meetings: https://www..net/get-he lp/qao-phmzur-ssnorxu-meetings/ MILAGROS Baby and Software Support Engineer Services Web: https://Wangluotianxia/ MotherToBaby Expert information on medication use during and Text: [phone] Web: https://City Labs/ NATIONAL REGISTRY FOR PSYCHIATRIC MEDICATIONS Currently studying the safety of antidepressants, ADHD medications and atypical antipsychotics taken during TO PARTICIPATE CALL TOLL-FREE: Web: https://womenentalhealth.org/re search/pregnancyregistry/ Support Groups: [facility]- Follow on facebook Baby Bistro support group led by [facility] department [facility] Mamas - Support Group [facility].org The POEM support group [phone] Www.poemonline.org Follow on facebook - PONEGRITA joe chapter Online support meetings PSI https://www..net/get-he lp/eke-cwxjfg-xxpqldo-meetings/ [facility] mommy and me virtual support group 11:30-1pm Support for mothers and new babies and toddlers Casco childbirth education: Childbirth @ccf.org or call [phone] CRISIS: CRISIS HOTLINE [phone], 911 or go to the nearest . [facility] [phone] / [facility] [phone] https://www.mhrb.org Crisis text line text the word HOME to 120[address] [facility] [address] [facility] [address] www.Janrain Ute Jain clinical counseling [address] [facility] [address] [place] [address] www.Fortnox [phone] Holding space psychotherapy Lisette Pepejacoby FLEET SALES MANAGER MOLD CARRIER-S [address] [facility] www.Vadio [phone]/ [place] [phone] They all offer virtual. All work with trauma Support groups Online support meetings PSI https://www..net/get-he lp/pxy-dcujkn-sbfqgbc-meetings/ Here are the support groups they offer: Support of parents of 1 to 4 years old children POEM ( Outreach and Encouragement for Moms) offers free support for mothers experiencing depression, anxiety, and other mood and anxiety disorders. Masks are recommended but not required. No pre-registration required. Babies in arms welcome. meetings now take place on the and Wednesday of each month Location: [facility] [address] [place] [address] Room 122 (library room) 7-8:00 p.m. When you enter the jainism parking lot off of [address] [place] [address] the entrance door closest to our meeting room is on the front of the building toward the right. For those who are more comfortable with a virtual platform, PO offers online support group options several days of the week. To register for an online group or to find out more about POEM, website at: https://mhaohio.org/get-help/tonsil hospitalgofn-hhcvbz-pibzwk/poem-services/ offer a confidential helpline: private Facebook group is called CECILIO Randolph Here are the groups they offer: Traumatic childbirth resources: Http://pattch.org/ https://www.queFoundation Softwaresuad Epirus Biopharmaceuticals.T-Networks/ Name Location (s) Phone # (s) Services Website [facility] [address] [place], [place] - [phone]; [address] [facility] [address] [place], [place]- [phone] In-Person GROUPS INDIVIDUAL THERAPY MATERNAL-INFANT MENTAL HEALTH MEDICATION MANAGEMENT PLAY AND ART THERAPY TELETHERAPY https://www.Xconomy/s ez/ Eugene JOE? [address] [place], [place] [address] ? [address] [place], [place] [address] ? OTTO [address] [place], [place] [address]? Grief Support Groups Individual Grief Counseling Spiritual Care Memorial Events https://heath.[facility].org/grief-services [facility] [address] [place], [place] [address]; ; Email: [email or web address]@[email or web address] Women's Mental Health; Couples Counseling; Trauma (EMDR); Stress Management; Mood and Anxiety Related Disorders- and much more https://www.VocalIQ/ LifeStance Numerous as they have contract providers: access website to find specific providers near you Counseling including CBT and EMDR as well as many more modalities; Medication Management; Telehealth and In-Person https://Flip Flop Shops/ Refer.com for Behavioral Health and Wellness [address] [place] [address]; [phone] Personal, Family and Group Therapy; Psychological Testing and Diagnosis; Medication Management; Life and Career Coaching; Psychoanalysis; Literacy Testing; Yoga and Meditation https://SendTask.T-Networks/ Fit Mind [place] [address] [facility] [address], [place] [address] [address] ; [address] [facility], [address] [place] [address]; Office # for both sites: Individual and Couples Counseling https://www.Insync Systems.T-Networks/ paymentinsurance.html OCD & Anxiety [facility] [address] [facility], [address], [place] [address]; Specialize in Cognitive-Behavioral Therapy (CBT) for the treatment of anxiety disorders across the lifespan. TELEHEALTH ONLY. https://ocdandanxietycenterofclev Madeleine Market.T-Networks/faqs [facility] [address]th [place], [address] [place] [address] [facility] [place], [address] [place] [place], [address] [place] [address] [place], [address], [address] [facility] [place], [address] [place] [address] [place], [place], [address] Transportation Services To minimize patient barriers, [facility] provides transportation services to patients who qualify. If you are unable to get to your appointment at any of our facilities, please let us know. Need help now? Stop by one of our walk-in clinics to establish behavioral health care. Counseling Indvidual, Group, Couples and Family Counseling and EMDR. Medication Management Case Management benefits applications housing assistance Substance abuse treatment Medication assisted treatment https://www.garnet health.or g/mental-health/ [facility] OFFICE AT [facility] [address] [place] [address] [facility] OFFICE [address] [place] [address] [facility] OFFICE [address] [place], [place] [address] TOW OFFICE (at [facility]) [address] [place] [address] [facility] EXCHANGE PROGRAM & HIV SCREENING [address] [place] [address] [facility] EXCHANGE PROGRAM [address] [place] [address] Behavioral Health Urgent Care: [facility] Counseling Indvidual and Group Medication Management Case Management benefits applications housing assistance Substance abuse treatment Medication assisted treatment Employment Services/ Job Training https://Code Scouts.org/ Recovery Resources [address] [place], [place] [address]: P: [phone] [address] [facility], [address], [place], [place] [address] P: [phone] Our services include: Addiction Mental Health Treatment Assessment Psychiatry Medical Care Employment Housing Drug and Alcohol Prevention HIV/AIDS Prevention https://www.Intent HQs.org/ [facility] [place] [address] [place] [address] [place] [address] [place], [place] [address] [place] [address] [place] [address] [place] [address] [facility] [address] [place] [address] [place] [address] [address] [place] [address] TMS Therapy/ Counseling Psychocological Testing for ADHD Medication Management In-Person/ Telemedicine https://www.FOODit/melani ents-depression Memory & Psychological services [address], [place] [address] Neuropsychological Testing For ADHD https://www.memoryandpsych.com/ [facility] Office [address] [place] [address] [address] Providing mvus-bz-tzpj and telehealth services. Adult Case Management Community Education and Prevention Employment Outpatient Treatment - Counseling & Psychotherapy Psychiatric Services http://www.ccwhc.org/ [facility] [place] [address] [place] [address] [facility] [address] [place] [address] Virtual Appointments! Now offering safe and convenient virtual client appointments to anyone in [place]! Individual Therapy Couples/Relationship Therapy Trauma/EMDR Therapy Art Therapy Play Therapy Visitor Information Assistant Support: Parenting Skills, Parent Child Interaction Therapy, Parent Interaction Therapy Meditation Dietitian/Sql Data Analyst Services Group Therapy Yoga https://www.Linkedwith. T-Networks/ Selma Roa [phone] Private Practice: Telehealth Only Specializes in EMDR for Trauma None SEQUENTIAL SCREENINGS The [facility] offers sequential screenings for women who are [...] It will require an appointment with our civil laboratory technician. This is not an ultrasound performed [...] the above symptoms, contact our office at [phone] and ask to speak with a nurse. After hours, you can call doctors registry at [phone] OR call [facility] at [phone] and ask to have the doctor production control clerk paged. If you consider this an emergency, dial [phone] or go to your nearest emergency department. NEED HELP? Are you dealing with a violent or abusive relationship? Are you a victim of rape or sexual assult? Call [facility] [place] ([facility] 24 hour Crisis Hotline: 696.230.6491 or 258-642-0269. MANUAL Your Guide to a Healthy manual is now on-line. Visit [facility] centerinic.org/HealthyPregna ncyGuide to download your free copy documented in this encounter [facility] 01-17-2025 Progress note Formatting of t his [...] supervision of normal first in first trimester ([facility]) - ICD9: V22.0, ICD10: Z34.01 (primary diagnosis) - BACTERIAL CULTURE, URINE 2. 11 weeks gestation of ([facility]) - ICD9: V22.2, ICD10: Z3A.11 Early anatomy scheduled for 16 weeks - BACTERIAL CULTURE, URINE Deisi Menon MD [facility] 01-17-2025 Miscellaneous Notes S: Angie Hicks is [...] supervision of normal first in first trimester ([facility]) - ICD9: V22.0, ICD10: Z34.01 (primary diagnosis) - BACTERIAL CULTURE, URINE 2. 11 weeks gestation of ([facility]) - ICD9: V22.2, ICD10: Z3A.11 Early anatomy scheduled for 16 weeks - BACTERIAL CULTURE, URINE Deisi Menon MD documented in this encounter [facility] 01-17-2025 Instructions Bill Roblero MA - 01/17/2025 2:16 PM EDT SEQUENTIAL SCREENINGS The [facility] offers sequential screenings for women who are [...] It will require an appointment with our civil laboratory technician. This is not an ultrasound performed [...] the above symptoms, contact our office at [phone] and ask to speak with a nurse. After hours, you can call doctors registry at [phone] OR call [facility] at [phone] and ask to have the doctor production control clerk paged. If you consider this an emergency, dial 91-7 or go to your nearest emergency department. NEED HELP? Are you dealing with a violent or abusive relationship? Are you a victim of rape or sexual assult? Call [facility] ([place]) 24 hour Crisis Hotline: 250.454.9273 or 081-353-6835. MANUAL Your Guide to a Healthy manual is now on-line. Visit [place].org/HealthyPregna ncyGuide to download your free copy documented in this encounter [facility] 01-09-2025 Telephone encounter Note RX sent. Ashley Trujillo APRN.CNP [facility] 01-09-2025 Miscellaneous Notes RX sent. Ashley Trujillo [...] Ashley Trujillo APRN.CNP documented in this encounter [facility] 01-09-2025 Telephone encounter Note Will let her know about no liquid option/ opening capsule, but she still needs it sent to different pharmacy first.. Bettye Plata RN [facility] 01-09-2025 Telephone encounter Note There is no liquid form of antibiotic. She can open the capsule and put it into something like applesauce or yogurt. Ashley Trujillo APRN.CNP [facility] 01-08-2025 Telephone encounter Note Pharmacy updated, is there a liquid antibiotic patient can take? Sara Dupree RN [facility] 01-08-2025 Telephone encounter Note +UTI- macrobid sent. Please notify pt. Ashley Trujillo APRN.DAVID [facility] 01-05-2025 Instructions Dariusz Brooks APRN.CNP - 01/05/2025 10:51 AM EDT Images from the original note were not included. Please select the following link to access the [facility] Your Guide to a Healthy . www.Ccf.org/healthypregnancyguide MORNING SICKNESS IN by Meenakshi Price M.D. for LoveIt As you may already know, morning sickness can often be more appropriately called evening sickness or lbcyd-oqqufb-xj-the-day sickness. While there are the mert few, [...] medication, Doxylamine, is currently marketed as an gyrg-xcd-nlwndmu sleeping pill. Ask your practitioner if creating a vitamin B6/Doxylamine combination with pwyb-bbc-vcfjlsu medications would be safe for you. Prescription [...] as Phenergan, Compazine, Reglan Psychotherapy Services at [facility] Call Behavioral Health Access Line at [phone] to schedule Individual psychotherapy In-person or virtual Wait time for first evaluation may be 12 or more weeks. Wait list spots may be available. Due to the high volume of patients this option is recommended if you are looking for short term acute symptom coping strategies. 3-524-7-NOXV2YZCH - [facility] Mental Health Hotline If you are in suicidal crisis, please call or text 3-354-506-TALK ( ) or visit the National Suicide Prevention Lifeline website. mchb.[facility] cent[facility].gov If you are in crisis, call 911 or go to your nearest Emergency Department Here are some links for wonderful Providers here in the community and surrounding areas. Do not hesitate to contact their offices, many are offering virtual visits during this time. Psychotherapy Services outside of [facility] Support International Online Provider Directory https://Explorys/ - can assist in finding providers in your area that might be more extensive then the list below. Counsel[facility] - [place], [place] [address] [place] [address] [facility] [address] [place] [address] [facility] [address] [place] [address] [facility] [address] [place], [place] [phone] Shirley Ibarra MD [address] [facility] [place] [place], [place] [address] [place] [facility] [address] [facility], [address] [place] [address] [facility] [address] [place] [address] [facility] Counseling Services [place] / [place] [phone]/ [phone] Katherine [facility] [address] [facility] [address] [facility] [phone] Aves of Counseling and Mediation [place] / [place] [phone] Behavioral health services of [facility] [address] [place] [address]/ lena and [place] [phone] Juanita Alicea, PEDRO, CLC Bump and Beyond Family Therapy Workshops, telehealth and at home visits. [phone] Humanistic counseling center [address] [facility], [place], [place], [place], [place], [place], [facility], [place], [place], [place], [place], [place], [place], [facility], [place], [place] ,[facility], [place], [place],[facility], [facility] [place], [place], regional medical center, [facility], Se www.Kinesense.co [phone] Psychotherapy resources outside of [facility] are listed below [facility] Space Psychotherapy Web: https://www.Xconomy/ Support International Online Provider Directory https://Explorys/ [facility] https://PowerCell Sweden/ Partners [facility] Wellness Web: https://Storybyte/ Dianrong.com for Effective Living Web: https://Applika/ LifeStance Web: https://Flip Flop Shops/location/s darlin/[place]/ [facility] Web: https://www.inMarket.or / [facility] Web: https://Code Scouts.[place]/ Recovery Resources Mental health and substance abuse help Web: https://www.Intent HQs.[place] & RESOURCES Support International Direct peer support and connection to professional resources Non-Emergency Helpline Phone: / Text: [phone] Web: https://www..net/ Online Provider Directory: https://Explorys/ Online Support Meetings: https://www..net/get-he lp/jpy-ainlvo-welrvoc-meetings/ [place] Baby and Software Support Engineer Services Web: https://wwwDigital Vault/ MotherToAccelOpsby Expert information on medication use during and Text: [phone] Web: https://DRESSBOOM.[place]/ NATIONAL REGISTRY FOR PSYCHIATRIC MEDICATIONS Currently studying the safety of antidepressants, ADHD medications and atypical antipsychotics taken during TO PARTICIPATE CALL TOLL-FREE: Web: https://womensmentalhealth.org/re search/pregnancyregistry/ Support Groups: [facility]- Follow on facebook Baby Bistro support group led by [facility] department Resilient Mamas - Support Group [facility].org The POEM support group [phone] Www.poemonline.org Follow on facebook - PONEGRITA joe chapter Online support meetings PSI https://www..net/get-he lp/jca-ecgsks-saykfqm-meetings/ [facility] mommy and me virtual support group 11:30-1pm Support for mothers and new babies and toddlers [place]co childbirth education: Childbirth @[facility].org or call [phone] CRISIS: CRISIS HOTLINE [phone], 911 or go to the nearest ER. [facility] [phone] / [facility] [phone] https://www.[facility].org Crisis text line text the word HOME to 245265 [facility] Counseling [address] hussain [address] [facility] [address] www.Janrain Ute Jain clinical counseling [address] [address] www.Fortnox [phone] Holding space psychotherapy Lisette Keene FLEET SALES MANAGER MOLD CARRIER-S [address] [facility] www.Vadio [phone]/ [place] [phone] They all offer virtual. All work with trauma Support groups Online support meetings PSI https://www..net/get-he lp/ybi-auimvb-uekrqmq-meetings/ Here are the support groups they offer: Support of parents of 1 to 4 years old children POEM ( Outreach and Encouragement for Moms) offers free support for mothers experiencing depression, anxiety, and other mood and anxiety disorders. Masks are recommended but not required. No pre-registration required. Babies in arms welcome. meetings now take place on the and Wednesday of each month Location: [facility] [address], [place] [address] Room 122 (library room) 7-8:00 p.m. When you enter the jainism parking lot off of [address] the entrance door closest to our meeting room is on the front of the building toward the right. For those who are more comfortable with a virtual platform, PO offers online support group options several days of the week. To register for an online group or to find out more about PO, website at: https://aovao.org/get-help/tonsil hospitalsard-wigvhm-psdmqo/poem-services/ offer a confidential helpline: private Facebook group is called CECILIO [facility] Hospital[facility] Chapter Here are the groups they offer: Traumatic childbirth resources: Http://pattch.org/ https://www.KeelvarmikaylaCrimson HexagonbrynSynageva BioPharma.T-Networks/ Name Location (s) Phone # (s) Services Website [facility] Psychotherapy [address] [facility] [phone]; [address] [phone] In-Person GROUPS INDIVIDUAL THERAPY MATERNAL-INFANT MENTAL HEALTH MEDICATION MANAGEMENT PLAY AND ART THERAPY TELETHERAPY https://www.Xconomy/s ervices/ [facility] [place]? [address] [address] ? [address], [address] [place], [place] [address] ? OTTO [address] [address]? Grief Support Groups Individual Grief Counseling Spiritual Care Memorial Events https://heath.[facility].org/grief-services [facility] [address] [place], [place] [address]; ; Email: corina@AIRSIS Women's Mental Health; Couples Counseling; Trauma (EMDR); Stress Management; Mood and Anxiety Related Disorders- and much more https://www.M5 Networks.com/ LifeStance Numerous as they have contract providers: access website to find specific providers near you Counseling including CBT and EMDR as well as many more modalities; Medication Management; Telehealth and In-Person https://Wedit.T-Networks/ [facility] [address] [place], [place] [address]; [phone] Personal, Family and Group Therapy; Psychological Testing and Diagnosis; Medication Management; Life and Career Coaching; Psychoanalysis; Literacy Testing; Yoga and Meditation https://SendTask.T-Networks/ [facility] [address] [facility] [address], [place] [address] [address] ; [address] [facility], [address] [place] [address]; Office # for both sites: Individual and Couples Counseling https://www.TecMedket[facility] health [facility].T-Networks/ paymentinsurance.html OCD & Anxiety [facility] [address] [facility] [address], [address], [place] [address]; Specialize in Cognitive-Behavioral Therapy (CBT) for the treatment of anxiety disorders across the lifespan. TELEHEALTH ONLY. https://ocdandanxietycentDroidhenv Orteq/faqs [facility] [address] [place], [address] [place] [address] [facility] [place], [address] [place] [address] [facility] [place] [address] [place] [address] [place], [address], [address] [place], [address] [place] [address] [place], [address] Transportation Services To minimize patient barriers, [facility] provides transportation services to patients who qualify. [...] treatment Medication assisted treatment https://www.signaturehealthinc.or g/mental-health/ [facility] OFFICE AT [facility] [address] [place] [address] [facility] OFFICE [address] [place] [address] [facility] OFFICE [address] [place] [address] [facility] OFFICE (at [facility]) [address] [place] [address] [facility] SYRINGE EXCHANGE PROGRAM & HIV SCREENING [address] [place] [address] V[place] EXCHANGE PROGRAM [address] [place] [address] Behavioral Health Urgent Care: [facility] Counseling Indvidual and Group Medication Management Case Management benefits applications housing assistance Substance abuse treatment Medication assisted treatment Employment Services/ Job Training https://theFinco.org/ Recovery Resources [address] [place], [place] [address]: P: [phone] [address] [facility], [address], [place], [place] [address] P: [phone] Our services include: Addiction Mental Health Treatment Assessment Psychiatry Medical Care Employment Housing Drug and Alcohol Prevention HIV/AIDS Prevention https://www.recres.org/ [facility] [place] [address] [facility] [address] [place] [address] [address] [place], [place] [address] [place] [address] [place] [address] [place] [address] [facility] [address] [place] [address] [place] [address] [address] TMS Therapy/ Counseling Psychocological Testing for ADHD Medication Management In-Person/ Telemedicine https://www.Oony.com/melani ents-depression Memory & Psychological services [address] [place] [address], [place] [address] Neuropsychological Testing For ADHD https://www.memoryandpsych.com/ [facility] - Main Office [address] [place] [address] [phone] Providing pexp-cc-ppci and telehealth services. Adult Case Management Community Education and Prevention Employment Outpatient Treatment - Counseling & Psychotherapy Psychiatric Services http://www.[facility].org/ [facility] [place] [address] [place] [address] [facility] [address] [place] [address] Virtual Appointments! Now offering safe and convenient virtual client appointments to anyone in [place]! Individual Therapy Couples/Relationship Therapy Trauma/EMDR Therapy Art Therapy Play Therapy Visitor Information Assistant Support: Parenting Skills, Parent Child Interaction Therapy, Parent Interaction Therapy Meditation Dietitian/Sql Data Analyst Services Group Therapy Yoga https://www.G2B Pharma/ Selma Roa [phone] Private Practice: Telehealth Only Specializes in EMDR for Trauma None documented in this encounter [facility] 01-05-2025 Note HNO ID: [id number] Author: DARIUSZ BROOKS APRN.DAVID Service: ? Author [...] The sensitive examinat (more content not included)... [facility] 01-05-2025 History of Present illness Narrative INITIAL [...] discussed with the Patient or Patient's Authorized Alternative Energy Engineer. As applicable, any other physician, advance practice provider, medical student, or other health professional student that will be observing or involved in the sensitive examination for educational or training purposes was discussed with the Patient or Authorized Alternative Energy Engineer. The Patient or Authorized Alternative Energy Engineer has agreed to proceed with the sensitive [...] Your guide to a health and the Applications Engineering Manager. Discussed hemoglobin electrophoresis. Patient: Declines Reviewed midwifery and physics tutor services that are available. 2) Screening: Hemoglobin [...] Supervision of Normal First in First Trimester ([facility]) - 01/05/2025 Comment: Care Checklist [...] (28-30 weeks): [] Consent [] Contraception [] [place] Mold Maker [] TeamBirth handout Third trimester (36-40 weeks): [...] Dariusz Brooks APRN.CNP documented in this encounter [facility] 01-02-2025 Telephone encounter Note Left message for patient to return phone call to complete nurse intake questions for her upcoming appointment. Patient has an appointment with Dariusz Brooks for NOB appointment. Please [facility] to [facility] or me to see if we can complete [facility] 01-02-2025 Miscellaneous Notes Left message for patient to return phone call to complete nurse intake questions for her upcoming appointment. Patient has an appointment with Dariusz Brooks for NOB appointment. Please transfer to [facility] or me to see if we can complete documented in this encounter [facility] 08-07-2024 Note Discharge Instructio ns Discharge Summary [address] [id number] 08/07/2024 Patient: ANGIE HICKS Sex: Female : 2005 Age: 19y Thank you for visiting [facility]. You have been evaluated today by Roslyn [...] Signature 1 of 6 Discharge Instructions Facility Alternative Energy Engineer Date/Time General Instructions with ExitWriter [address] [place] [id number] 08/07/2024 Patient: ANGIE HICKS Sex: Female : 2005 Age: 19y Thank you for visiting [facility]. You have been evaluated today by Roslyn [...] moves to t (more content not included)... [facility] 07-27-2024 Note . MICRO - Microbiology PROCEDURE: [...] Locations *1: This test was performed at: [facility], [address] [place] [address], [facility] , [facility] Evaluation note Diagnosis Encounter for supervision of normal first in first trimester ([facility])- Primary Supervision of normal first 10 weeks gestation of ([facility]) state, incidental with uncertain dates in first trimester ([facility]) Nausea and vomiting during ([facility]) Depression with anxiety Dysthymic disorder History of ADHD Personal history of other mental disorder documented in this encounter [facility]* Diagnosis Encounter for supervision of normal first in first trimester ([facility])- Primary Supervision of normal first 11 weeks gestation of (HCC) state, incidental [facility]* Diagnosis Encounter for supervision of normal first in first trimester (HCC) Supervision of normal first documented in this encounter [facility]* Diagnosis Encounter for anatomic survey (HCC)- Primary Encounter for anatomic survey 18 weeks gestation of (HCC) state, incidental documented in this encounter [facility] note* Diagnosis Encounter for supervision of normal first in second trimester (HCC)- Primary Supervision of normal first 18 weeks gestation of (HCC) state, incidental Nausea and vomiting during (HCC) Depression with anxiety Dysthymic disorder History of ADHD Personal history of other mental disorder documented in this encounter [facility] Diagnosis 23 weeks gestation of (HCC)- Primary state, incidental Encounter for supervision of normal first in second trimester ([facility]) Supervision of normal first Screening for diabetes mellitus Urinary tract infection without hematuria, site unspecified Depression with anxiety Dysthymic disorder documented in this encounter [facility] note* Diagnosis Depression with anxiety Dysthymic disorder History of ADHD Personal history of other mental disorder 18 weeks gestation of (HCC) state, incidental documented in this encounter [facility] Summary Purpose Family History No Family History [...] section and content) DATE CREATED AUTHOR 01/31/2018 [facility] DATE CREATED AUTHOR AUTHOR'S ORGANIZ ATION 04/04/2023 [facility] DATE CREATED AUTHOR AUTHOR'S ORGANIZ ATION 07/29/2024 [facility] DATE CREATED AUTHOR AUTHOR'S ORGANIZ ATION 08/08/2024 [facility] DATE CREATED AUTHOR AUTHOR'S ORGANIZ ATION 05/18/2025 [facility] DATE CREATED AUTHOR AUTHOR'S ORGANIZ ATION 06/17/2025 [facility] Source Comments (unrecognize d section and content) In the event this informatio n is protected by the Federal Confidentiality of Alcohol and Drug Abuse Patient Records regulations: The Federal rules restrict any use of the information to criminally investigate or prosecute any alcohol or drug abuse patient.[facility] Dublin[facility] the event this information is protected by the Federal Confidentiality of Alcohol and Drug Abuse Patient Records regulations: The Federal rules restrict any use of the information to criminally investigate or prosecute any alcohol or drug abuse patient.[facility] Dublin[facility] the event this information is protected by the Federal Confidentiality of Alcohol and Drug Abuse Patient Records regulations: The Federal rules restrict any use of the information to criminally investigate or prosecute any alcohol or drug abuse patient.[facility] Dublin[facility] the event this information is protected by the Federal Confidentiality of Alcohol and Drug Abuse Patient Records regulations: The Federal rules restrict any use of the information to criminally investigate or prosecute any alcohol or drug abuse patient.[facility] Dublin[facility] the event this information is protected by the Federal Confidentiality of Alcohol and Drug Abuse Patient Records regulations: The Federal rules restrict any use of the information to criminally investigate or prosecute any alcohol or drug abuse patient.[facility] Dublin[facility] the event this information is protected by the Federal Confidentiality of Alcohol and Drug Abuse Patient Records regulations: The Federal rules restrict any use of the information to criminally investigate or prosecute any alcohol or drug abuse patient.[facility] DublinIn the event this information is protected by the Federal Confidentiality of Alcohol and Drug Abuse Patient Records regulations: The Federal rules restrict any use of the information to criminally investigate or prosecute any alcohol or drug abuse patient.[facility] DublinIn the event this information is protected by the Federal Confidentiality of Alcohol and Drug Abuse Patient Records regulations: The Federal rules restrict any use of the information to criminally investigate or prosecute any alcohol or drug abuse patient.[facility] DublinIn the event this information is protected by the Federal Confidentiality of Alcohol and Drug Abuse Patient Records regulations: The Federal rules restrict any use of the information to criminally investigate or prosecute any alcohol or drug abuse patient.[facility] Reason for Visit (unrecogniz ed section and content) Reason Comments Initial OB Visit Reason Comments 01/05 NOB Intake Questions Reason Onset Date Comments Care 01/17/2025 Reason Comments US Specialty Diagnoses / Procedures Referred By Lindsey velarde Referred To Contact [facility] Diagnoses Encounter for supervision of normal first in first trimester (HCC) Procedures OBSTETRIC ULTRASOUND WHI US PREG UTERUS AFTER 1ST TRIMEST GESTATION Dariusz Brooks APRN.DAVID [address] [place] [address] Phone: tel: fax: [facility] [address] [place] [address] Referral ID Status Reason Start Date Expiration Date V isits Requested Visits Authorized [id number] Closed Auto-Generate d Referral 01/05/2025 01/05/2026 1 1 Reason Onset Date Comments Results 01/08/2025 Referral ID Status Reason Start Date Expiration Date V isits Requested Visits Authorized [id number] Closed Auto-Generate d Referral 01/05/2025 01/05/2026 1 1 Reason Onset Date Comments Care 03/07/2025 Reason Onset Date Comments Care 04/05/2025 Reason Comments Anxiety Depression Specialty Diagnoses / Procedures Referred By Contac t Referred To Contact Diagnoses Depression with anxiety History of ADHD Procedures OFFICE/OUTPATIENT NEW HIGH MDM 60 MINUTES Dariusz Brooks APRN.DAVID [address] [place] [address] Phone: tel: fax: Referral ID Status Reason Start Date Expiration Date V isits Requested Visits Authorized [id number] Closed PCP Requested Referral 03/07/2025 03/07/2026 1 1 Care Teams (unrecognized sec tion and content) Associate Store Manager Relationship Specialty Start Date End Date Olga Branham DO [address] [place] [address] PCP - General Family Medicine 01/19/14 Associate Store Manager Relationship Specialty Start Date End Date Olga Branham DO [address] [place] [address] PCP - General Family Medicine 01/19/14 Associate Store Manager Relationship Specialty Start Date End Date Olga Branham DO [address] [place] [address] PCP - General Family Medicine 01/19/14 Associate Store Manager Relationship Specialty Start Date End Date Olga Branham DO [address] [place] [address] PCP - General Family Medicine 01/19/14 Associate Store Manager Relationship Specialty Start Date End Date Olga Branham DO [address] [place] [address] PCP - General Family Medicine 01/19/14 Associate Store Manager Relationship Specialty Start Date End Date Olga Branham DO [address] [place] [address] PCP - General Family Medicine 01/19/14 Associate Store Manager Relationship Specialty Start Date End Date Olga Branham DO [address] [place] [address] PCP - General Family Medicine 01/19/14 Associate Store Manager Relationship Specialty Start Date End Date Ogla Branham DO [address] [facility] [facility] [address] [place] [address] PCP - [facility] 01/19/14 Associate Store Manager Relationship Specialty Start Date End Date Olga Branham DO [address] [facility] [place] [address] PCP - General Family [facility] 01/19/14 FOR RECORDS PERTAINING TO [...] BE BASED ON THE PRIMARY CLINICAL RECORDS. [facility] WallStrip [facility]. provides no warranty or guarantee of the accuracy or completeness of information in this document.
[2025-07-30] MEDS: Oxytocin 15 Units/NS 250ml 15 UNITS/250 ML IV.SOLN 2 UNITS IV (21:24)
[2025-07-31] VITALS (80 sets, daily range): BP systolic 77–169; BP diastolic 41–98; PULSE 92–144; RESP 14–22; TEMP 36.1–37.1; O2SAT 85–100
[2025-07-31] MEDS: fentaNYL-bupivacaine (epidural) 100 ML BAG EPIDURAL (00:18)
[2025-07-31] MEDS: Lactated Ringers 1,000 ML 999 ML IV ×2 (00:35→02:16)
--- NOTE | 2025-07-31 01:13 | PCM.PN.CNM ---
Subjective Subjective Called to patient's bedside for prolonged deceleration. Patient in hands and knees position. IUPC and FSE placed. Patient's blood pressure decreased and anesthesia called for assessment. Pitocin off. Objective Data Objective Data Vital Signs: Vital Signs Temp Pulse Resp BP Pulse Ox 99.2 F H 130 H 16 134/83 H 100 07/30/25 22:47 07/31/25 01:09 07/31/25 00:35 07/31/25 01:08 07/31/25 01:09 Weight: 144 lb Body Mass Index (BMI) 29.0 Intake & Output: Intake and Output for Last 24 Hours 07/29/25 07/30/25 07/31/25 23:59 23:59 23:59 Intake Total 1166.24 / 1166.24 814.96 / 814.96 Balance 1166.24 / 1166.24 814.96 / 814.96 Lab / Micro Data 07/30/25 18:35 Labs: Laboratory Results - last 24 hr 07/30/25 18:35: WBC 11.7 H, RBC 3.78 L, Hgb 10.6 L, Hct 32.9 L, MCV 87.0, MCH 28.0, MCHC 32.2, RDW Std Deviation 70.7 H, RDW Coeff of Vicky 23.7 H, Plt Count 295, MPV 11.0, Immature Gran % (Auto) 0.300, Neut % (Auto) 75.0 H, Lymph % (Auto) 13.1 L, [place] % (Auto) 11.2 H, Eos % (Auto) 0.2, Baso % (Auto) 0.2, Absolute Neuts (auto) 8.8 H, Absolute Lymphs (auto) 1.54, Nucleated RBC % 0, Differential Comment SCANNED, Anisocytosis 2+, Microcytosis 1+, Macrocytosis 1+, Syphilis Total Ab Nonreactive, Blood Type A POSITIVE, Antibody Screen NEGATIVE Radiography Diagnostic Testing: Radiology Impression Biophysical Profile Ultrasound 07/30/25 16:11 IMPRESSION: breathing is not identified at this time. Biophysical score of 6/8 otherwise. Reading Location: [facility] Assessment & Plan (1) 39 weeks gestation of : (2) Anemia affecting in third trimester: (3) Depression affecting : (4) heart rate decelerations affecting management of mother: PLAN: Plan SROM for clear/bloody fluid CE 5/80/-2 Internal monitors placed Anesthesia at bedside and ephedrine IV given BP stable FHT currently 150 bpm with moderate variability Dr. Butler notified of A&P and reviewed strip Continue to monitor closely
--- NOTE | 2025-07-31 02:30 | LES_PTH ---
PATIENT: LILI HICKS LOC: WP U#:[id number] AGE/SX: 20/F ROOM: WP004 RE07/30/[address]: Dr. Radha Butler MD : 2005 BED: 1 DIS: 08/03/2025 SPEC #: [id number] RECD: 07/31/25 07:00 STATUS: ISAI REQ #: [id number] [place]: 07/31/25 02:[address]: Radha Butler DEPT: SURGICAL PATHOLOGY RECD BY: Rhys Marcelo ENTERED: 07/31/25 10:03 SP TYPE: Lesion OTHR DR: YEIMY Berger No Primary Care Phys Tissues: A - Skin of umbilical region B - Placenta, NOS Procedures: Surgery Specimen Level IV Surgery Specimen Level V Comments: Called and spoke to Nurse Laurel on 08/21/25 at 1:35pm to inform her about the consultation send out HEADER OPERATION: section PRE-OP DIAGNOSIS: Skin lesion below umbilicus TISSUE SUBMITTED: A. Skin, below umbilicus, B. Placenta MICROSCOPIC DIAGNOSIS A. Skin, below umbilicus, lesion, excision: - Pyogenic granuloma / lobular capillary hemangioma, focally extending to the deep margin - see Comment. - Further evaluation by expert dermatopathologist at [facility] is pending and a separate report will follow. B. Placenta, 3rd trimester, 39 weeks/5 days, section: - Umbilical cord: trivessel with eccentric insertion and tethering, with early acute vasculitis. - Membranes: partially circummarginate insertion with edema, acute chorionitis, acute hemorrhage. - Placental disc: 530 grams (50th percentile) with early acute chorionitis, and focal blood clot at maternal surface with possible early organization suggestive of early/acute abruption. COMMENT A. This is an amended diagnosis, to reflect the method consultant's diagnosis see Addendum). Dr Rikki Butler's office was notified of the amended diagnosis (by Jkai Marcelo) 08/27/25. MICROSCOPIC DESCRIPTION Slides are reviewed. GROSS DESCRIPTION A. Received in formalin labeled with the patient's name and date of is a 0.8 x 0.6 x 0.3 cm ovoid and rubbery, slightly raised portion of flores-pink wrinkled skin. The resection margin is inked green and the specimen is bisected (along the long axis) revealing flores-pink cut surfaces. Entirely submitted in 1 cassette. B. Received in formalin labeled with the patient's name and date of is a 530 g, 17.8 x 17.4 x 3.4 cm irregular placental disc along with 44 g of loosely adherent to detached clotted blood. The minimal detached membranes are flores-pink and translucent with approximately 50% marginal insertion and 50% circummarginate insertion. The trivascular, flores, hypercoiled umbilical cord is tethered approximately 2 cm from the surface; it measures 44.4 cm in length by 1.1 in diameter and inserts eccentrically 4.0 cm from the disc edge. The surface is pink-purple to blue with engorged, arborizing vasculature and patchy, possible subchorionic fibrin (<5%). The maternal surface is pink-red with patchy calcifications and loosely adherent blood clot. When reapproximated, the maternal surface appears near complete. Sectioning reveals red, spongy and focally gritty parenchyma with patchy hemorrhage (<10%). Component Lab Tech sections are submitted as follows: B1: Membrane rollB2: Umbilical cordB3: Placenta B4: Placenta SC 07/31/2025 CPT:04113, 20976 ADDENDUM ADDENDUM ADDENDUM ADDENDUM ADDENDUM ADDENDUM ADDENDUM ADDENDUM ADDENDUM ADDENDUM ADDENDUM ADDENDUM ADDENDUM ADDENDUM ADDENDUM ADDENDUM ADDENDUM ADDENDUM ADDENDUM 08/27/2025 12:18 ADDENDUM 08/27/2025 12:18 ADDENDUM 08/27/2025 12:18 ADDENDUM 08/27/2025 12:18 ADDENDUM 08/27/2025 12:18 This addendum is added to incorporate an outside pathology consultation report. The case was examined at [facility] by Dr. Martin (#[id number]) and the following diagnosis was rendered. A. Skin, below umbilicus, lesion, excision: Pyogenic granuloma / lobular capillary hemangioma, focally extending to the deep margin. Microscopic Description: A microscopic examination was performed. The sections consist of an excision of skin that contains a nodular and lobular proliferation of mature-appearing, uniform endothelial cells with formation of small capillary-sized vessels. Occasional mitoses are identified. The lesional cells CD31 and ERG label the lesional cells. Melan-A and SOX10 are negative. Immunoperoxidase staining was performed by the [facility] on sections cut from the paraffin block. Please see complete above mentioned consultation report in EMR
--- NOTE | 2025-07-31 02:30 | LES_PTH ---
PATIENT: LILI HICKS LOC: WP U#:[id number] AGE/SX: 20/F ROOM: WP004 RE07/30/[address]: Dr. Radha Butler MD : 2005 BED: 1 DIS: 08/03/2025 SPEC #: [id number] RECD: 07/31/25 07:00 STATUS: ISAI REQ #: [id number] [place]: 07/31/25 02:[address]: Radha Butler DEPT: SURGICAL PATHOLOGY RECD BY: Rhys Marcelo ENTERED: 07/31/25 10:03 SP TYPE: Lesion OTHR DR: YEIMY Berger No Primary Care Phys Tissues: A - Skin of umbilical region B - Placenta, NOS Procedures: Surgery Specimen Level IV Surgery Specimen Level V Comments: Called and spoke to Nurse Laurel on 08/21/25 at 1:35pm to inform her about the consultation send out HEADER OPERATION: section PRE-OP DIAGNOSIS: Skin lesion below umbilicus TISSUE SUBMITTED: A. Skin, below umbilicus, B. Placenta MICROSCOPIC DIAGNOSIS A. Skin, below umbilicus, lesion, excision: - Dermal melanocytic proliferation with atypical features. - Further evaluation by expert dermatopathologist at [facility] is pending and a separate report will follow. B. Placenta, 3rd trimester, 39 weeks/5 days, section: - Umbilical cord: trivessel with eccentric insertion and tethering, with early acute vasculitis. - Membranes: partially circummarginate insertion with edema, acute chorionitis, acute hemorrhage. - Placental disc: 530 grams (50th percentile) with early acute chorionitis, and focal blood clot at maternal surface with possible early organization suggestive of early/acute abruption. MICROSCOPIC DESCRIPTION Slides are reviewed. GROSS DESCRIPTION A. Received in formalin labeled with the patient's name and date of is a 0.8 x 0.6 x 0.3 cm ovoid and rubbery, slightly raised portion of flores-pink wrinkled skin. The resection margin is inked green and the specimen is bisected (along the long axis) revealing flores-pink cut surfaces. Entirely submitted in 1 cassette. B. Received in formalin labeled with the patient's name and date of is a 530 g, 17.8 x 17.4 x 3.4 cm irregular placental disc along with 44 g of loosely adherent to detached clotted blood. The minimal detached membranes are flores-pink and translucent with approximately 50% marginal insertion and 50% circummarginate insertion. The trivascular, flores, hypercoiled umbilical cord is tethered approximately 2 cm from the surface; it measures 44.4 cm in length by 1.1 in diameter and inserts eccentrically 4.0 cm from the disc edge. The surface is pink-purple to blue with engorged, arborizing vasculature and patchy, possible subchorionic fibrin (<5%). The maternal surface is pink-red with patchy calcifications and loosely adherent blood clot. When reapproximated, the maternal surface appears near complete. Sectioning reveals red, spongy and focally gritty parenchyma with patchy hemorrhage (<10%). Phone Operator sections are submitted as follows: B1: Membrane rollB2: Umbilical cordB3: Placenta B4: Placenta SC 07/31/2025 [facility]:[id number], [id number] ADDENDUM ADDENDUM ADDENDUM ADDENDUM ADDENDUM ADDENDUM ADDENDUM ADDENDUM ADDENDUM ADDENDUM ADDENDUM ADDENDUM ADDENDUM ADDENDUM ADDENDUM ADDENDUM ADDENDUM ADDENDUM ADDENDUM 08/24/2025 14:43 ADDENDUM 08/24/2025 14:43 ADDENDUM 08/24/2025 14:43 ADDENDUM 08/24/2025 14:43 ADDENDUM 08/24/2025 14:43 This addendum is added to incorporate an outside pathology consultation report. The case was examined at [facility] by Dr. Martin (#[id number]) and the following diagnosis was rendered. A. Skin, below umbilicus, lesion, excision: Pyogenic granuloma / lobular capillary hemangioma, focally extending to the deep margin. Microscopic Description: A microscopic examination was performed. The sections consist of an excision of skin that contains a nodular and lobular proliferation of mature-appearing, uniform endothelial cells with formation of small capillary-sized vessels. Occasional mitoses are identified. The lesional cells CD31 and ERG label the lesional cells. Melan-A and SOX10 are negative. Immunoperoxidase staining was performed by the [facility] on sections cut from the paraffin block. Please see complete above mentioned consultation report in EMR
[2025-07-31] MEDS: fentaNYL 100 MCG/2 ML Ampul EPIDURAL (03:08)
--- NOTE | 2025-07-31 03:08 | PCM.PN.CNM ---
Subjective Subjective Continued to be called to patient's bedside for decelerations despite Pitocin being off and position changes. Objective Data Objective Data Vital Signs: Vital Signs Temp Pulse Resp BP Pulse Ox 98.8 F 129 H 16 160/69 H 98 07/31/25 01:27 07/31/25 02:59 07/31/25 01:27 07/31/25 02:59 07/31/25 02:57 Weight: 144 lb Body Mass Index (BMI) 29.0 Intake & Output: Intake and Output for Last 24 Hours 07/29/25 07/30/25 07/31/25 23:59 23:59 23:59 Intake Total 1166.24 / 1166.24 1724.24 / 1724.24 Balance 1166.24 / 1166.24 1724.24 / 1724.24 Lab / Micro Data 07/30/25 18:35 Labs: Laboratory Results - last 24 hr 07/30/25 18:35: WBC 11.7 H, RBC 3.78 L, Hgb 10.6 L, Hct 32.9 L, MCV 87.0, MCH 28.0, MCHC 32.2, RDW Std Deviation 70.7 H, RDW Coeff of Vicky 23.7 H, Plt Count 295, MPV 11.0, Immature Gran % (Auto) 0.300, Neut % (Auto) 75.0 H, Lymph % (Auto) 13.1 L, [place] % (Auto) 11.2 H, Eos % (Auto) 0.2, Baso % (Auto) 0.2, Absolute Neuts (auto) 8.8 H, Absolute Lymphs (auto) 1.54, Nucleated RBC % 0, Differential Comment SCANNED, Anisocytosis 2+, Microcytosis 1+, Macrocytosis 1+, Syphilis Total Ab Nonreactive, Blood Type A POSITIVE, Antibody Screen NEGATIVE Radiography Diagnostic Testing: Radiology Impression Biophysical Profile Ultrasound 07/30/25 16:11 IMPRESSION: breathing is not identified at this time. Biophysical score of 6/8 otherwise. Reading Location: [facility] Assessment & Plan (1) heart rate decelerations affecting management of mother: (2) Depression affecting : (3) Anemia affecting in third trimester: (4) 39 weeks gestation of : PLAN: Plan CE by nursing 6 cm- minimal change Discussed with patient possibility of primary section due to intolerance Patient and agreeable at this time Dr. Butler called to unit for evaluation
[2025-07-31] MEDS: Cefazolin 1 GM/5 ML Vial 2 GM IV (03:14)
[2025-07-31] MEDS: Azithromycin 500 MG Vial (SNAP) IV (03:18)
[2025-07-31] MEDS: fentaNYL 100 MCG/2 ML Ampul IV (03:24)
[2025-07-31] MEDS: Lidocaine 2% (5ml sdv) 5 ML VIAL.MPF 15 ML EPIDURAL (03:27)
[2025-07-31] MEDS: Midazolam 2 MG/2 ML Syringe IV (03:31)
[2025-07-31] MEDS: morphine PF (epidural) 5 MG/10 ML Vial 3 MG EPIDURAL (03:48)
--- NOTE | 2025-07-31 03:49 | PCM.POST.ANE ---
Anesthesia: Postop Eval I Current Vital Signs Temperature: 98 F Pulse Rate: 134 Blood Pressure: 121/61 Respiratory Rate: 18 Pulse Ox: 100 Oxygen Delivery Method: Room Air Assessment Airway patent: Yes Spontaneous unlabored respirations: Yes Mental status: Awake and Calm nausea: No Vomiting: No Anesthesia Complication: No Fluid Hydration Crystalloid volume administer (ml): 600 Total IV fluid infused: 600 Progress Note Anesthesia document: Postop Eval 1 completed: Yes
--- NOTE | 2025-07-31 03:55 | POSTOPAN2_ITS ---
Anesthesia Postop Eval I Sum Postop Eval Completion status Anesthesia document: Postop Eval 1 completed: Yes Anesthesia Postop Eval I Summary Anesthesia Postop Eval I Summary: Anesthesia Postop Eval I: Assessment Summary Airway patent Yes 07/31/25 03:50 WIRE HARNESS DESIGN ENGINEER.MDOT Spontaneous unlabored Yes 07/31/25 03:50 WIRE HARNESS DESIGN ENGINEER.MDOT respirations Mental status Awake,Calm 07/31/25 03:50 WIRE HARNESS DESIGN ENGINEER.MDOT nausea No 07/31/25 03:50 WIRE HARNESS DESIGN ENGINEER.MDOT Vomiting No 07/31/25 03:50 WIRE HARNESS DESIGN ENGINEER.MDOT Anesthesia Postop Eval I: Fluid Summary Crystalloid volume administer 600 07/31/25 03:50 WIRE HARNESS DESIGN ENGINEER.MDOT (ml) Colloids volume administered ( ml) Blood Product volume administered (ml) Total IV fluid infused 600 07/31/25 03:50 WIRE HARNESS DESIGN ENGINEER.MDOT Anesthesia Postop Eval I: Summary Notes Anesthesia Complication No 07/31/25 03:50 WIRE HARNESS DESIGN ENGINEER.MDOT Anesthesia Complication Comment: Post-operative progress note Anesthesia: Postop Eval II Evaluation Mental status: Awake and Calm Pain Level: 0 nausea: No Vomiting: No Complications Anesthesia Complication: No
--- NOTE | 2025-07-31 03:55 | PCM.POSTANE2 ---
Anesthesia Postop Eval I Sum Postop Eval Completion status Anesthesia document: Postop Eval 1 completed: Yes Anesthesia Postop Eval I Summary Anesthesia Postop Eval I Summary: Anesthesia Postop Eval I: Assessment Summary Airway patent Yes 07/31/25 03:50 GENERAL LEDGER ACCOUNTANT.MDOT Spontaneous unlabored Yes 07/31/25 03:50 GENERAL LEDGER ACCOUNTANT.MDOT respirations Mental status Awake,Calm 07/31/25 03:50 GENERAL LEDGER ACCOUNTANT.MDOT nausea No 07/31/25 03:50 GENERAL LEDGER ACCOUNTANT.MDOT Vomiting No 07/31/25 03:50 GENERAL LEDGER ACCOUNTANT.MDOT Anesthesia Postop Eval I: Fluid Summary Crystalloid volume administer 600 07/31/25 03:50 GENERAL LEDGER ACCOUNTANT.MDOT (ml) Colloids volume administered ( ml) Blood Product volume administered (ml) Total IV fluid infused 600 07/31/25 03:50 GENERAL LEDGER ACCOUNTANT.MDOT Anesthesia Postop Eval I: Summary Notes Anesthesia Complication No 07/31/25 03:50 GENERAL LEDGER ACCOUNTANT.MDOT Anesthesia Complication Comment: Post-operative progress note Anesthesia: Postop Eval II Evaluation Mental status: Awake and Calm Pain Level: 0 nausea: No Vomiting: No Complications Anesthesia Complication: No
--- NOTE | 2025-07-31 04:03 | OP.PCM_ITS ---
Assessment & Plan (1) heart rate decelerations affecting management of mother: PLAN: possible abruption (2) 39 weeks gestation of : (3) Non-reassuring electronic monitoring tracing: Maternal Data Information Final ADOLFO: 08/02/25 Gestational age: 39 5/7 Operative Report (OB) Procedure Details Date of Procedure: 07/31/25 Procedure Start Time: 03:20 Procedure Stop Time: 03:50 Time of Delivery: 03:22 Pre-Operative Diagnosis: Suspected Abruptio Placenta and Other Other Pre- Operative diagnosis: nonreassuring FHTS Post-Operative Diagnosis: Same as Pre-operative diagnosis Classification: Scheduled Type of Anesthesia: Epidural Antibiotic Given: Ancef 2 grams IV x1 and Zithromax 500 mg/5 mL X1 Drain: Garner to straight drain Estimated Blood Loss: 800 Fluids Replaced: 600 cc Findings Description of surgery: The patient was taken to the operating room. She was prepped and draped in the dorsal supine position with a leftward tilt. A Pfannenstiel skin incision was made approximately 2 cm above the symphysis pubis and carried through to underlying layer fascia with the scalpel. The fascia was incised incised in the midline and extended laterally with the Garrison scissors. The fascia was dissected off the rectus muscles with blunt and sharp dissection. The rectus muscles were in the midline and the peritoneum was entered bluntly. The peritoneal incision was stretched and the bladder blade was placed. The uterine incision was made in a low transverse fashion with the scalpel and extended superiorly and inferiorly with blunt dissection. The amniotic membranes were ruptured and blood-tinged fluid return consistent with possible abruption. The infant's head was brought to the incision in the flexed position and delivered without difficulty. The remainder of the was delivered with gentle traction and fundal pressure in the standard fashion. The mouth and nares were bulb suctioned. The cord was clamped and cut as the was stimulated. Cord clamping was delayed approximately 30 seconds because the was vigorous. The infant was handed off to the waiting nursing staff. Cord gases were collected The placenta was delivered with fundal massage and gentle traction in the standard fashion. The uterus was exteriorized and cleared of all clots and debris. The uterine incision was closed with #1 Vicryl in a running locked fashion. A second layer of the same suture was used in an imbricating fashion. The incision was examined and was found to be hemostatic. The uterus was placed back into the peritoneal cavity and hemostasis was again confirmed. The rectus muscles were examined and any bleeding was Bovie cauterized. The parietal peritoneum and rectus muscles were closed en bloc with an 0 Vicryl running suture. The surgical teams outer gloves were then changed. The rectus fascia was examined and any bleeding was Bovie cauterized and the rectus fascia was closed with 1 Vicryl suture in a running standard fashion. The subcutaneous tissue was examining and any bleeding was Bovie cauterized. The subcutaneous tissue was reapproximated with 3-0 Vicryl suture. The skin was closed in a subcuticular fashion . I performed the entire procedure with assistance. There was a red raised lesion on the anterior abdominal wall approximately 2 cm above the umbilicus just to the right of the midline. Verbal consent was obtained before starting the for removal of the lesion. Lesion was excised with a scalpel and a single 4-0 Vicryl suture was placed in a subcuticular fashion and hemostasis was noted and OpSite was placed over it. All sponge, lap, and needle counts were correct. The patient was taken to her room for recovery in a stable condition. Surgical findings: Normal uterus tubes and ovaries. Placenta was very ragged. Amniotic fluid was blood-tinged. Raised 7 mm in diameter erythematous lesion of the anterior abdominal wall Presentation: Vertex Amniotic Membrane Rupture Type: Artificial Amniotic Fluid Description: Bloody Placental Delivery Description: Expressed Placenta Disposition: Sent to Pathology Specimen collected: Yes Description of specimen(s) removed: Anterior abdominal wall lesion and placenta Cord Vessel Description: 3 Vessels Cord Entanglement: None Cord Gases: ABG and VBG A gender: Female (Alysha) (1 minute): 9 (5 minute): 9 Delayed Cord Clamping: Yes Automatic Lathe Tender lead esthetician: Yes Chemical Technician: Afsaneh Palomo Tasks completed by assistant pastry chef: Dissecting tissue and Retracting Additional automotive parts counter assistant?: No Complications Complications: No Admit VTE Documentation VTE Present on Admission: No VTE Mechan Device Prophylaxis: SCD's VTE Pharm Prophylaxis Ordered: No
[2025-07-31] MEDS: Oxytocin 15 Units/NS 250ml 15 UNITS/250 ML IV.SOLN 83 UNITS IV (04:10)
[2025-07-31] MEDS: Ketorolac 30 MG/ML Syringe IV ×2 (04:22→10:10)
--- NOTE | 2025-07-31 04:42 | NURSING ---
Dr. Butler on unit and notified of maternal heart rate of 135-145. No additional fluids to be given at this time.
[2025-07-31 06:05] LABS: Pathology Specimen OB SEE PATHOLOGY REPORT
[2025-07-31] MEDS: Lactated Ringers 1,000 ML 100 ML IV (07:01)
[2025-07-31] MEDS: 0.9% Saline Lock 10 ML Syringe IV ×2 (10:10→16:55)
[2025-07-31] MEDS: Acetaminophen 650 MG/20 ML UDC 1000 MG PO ×2 (11:05→19:03)
--- NOTE | 2025-07-31 11:27 | NURSING ---
1000- epidural catheter d/c'd with blue tip intact. tolerated well.
[2025-08-01] MEDS: Acetaminophen 650 MG/20 ML UDC 1000 MG PO ×3 (03:18→19:20)
[2025-08-01 03:20] VITALS: BP 123/66; PULSE 90; RESP 16; TEMP 36.1; O2SAT 97
[2025-08-01 06:57] LABS: Hematocrit 23.6 % (37-47); Hemoglobin 7.3 g/dL (12.0-15.0); Mean Corp Hgb Conc 30.9 g/dL (32-36); Mean Corpuscular Volume 89.4 fL (81-99); Mean Platelet Vol. 11.4 fl (6.2-12.0); POSITIVE MORPHOLOGY YES; Platelet Count 205 K/mm3 (150-450); Red Blood Count 2.64 M/mm3 (4.2-5.4); White Blood Count 10.8 K/mm3 (4.4-11.0)
[2025-08-01 07:03] LABS: Scan Indicated on CBC? Y/N YES- FLAGS NOTED
[2025-08-01 08:52] VITALS: BP 130/64; PULSE 112; RESP 16; TEMP 36.3; O2SAT 96
--- NOTE | 2025-08-01 08:52 | PCM.PN.OB ---
Subjective Subjective Doing well. Ambulating and voiding without difficulty. Mild lochia. Breast feeding. Objective Data Objective Data Vital Signs: Vital Signs Temp Pulse Resp BP Pulse Ox O2 Del Method 97 F L 90 16 123/66 H 97 Room Air 08/01/25 03:20 08/01/25 03:20 08/01/25 03:20 08/01/25 03:20 08/01/25 03:20 07/31/25 23:44 Oxygen Delivery Method Room Air Weight: 65.317 kg Body Mass Index (BMI) 29.0 Intake & Output: Intake and Output for Last 24 Hours 07/30/25 07/31/25 08/01/25 23:59 23:59 23:59 Intake Total 1166.24 / 1166.24 3369.12 / 3369.12 Output Total 1999 700 / 700 Balance 1166.24 / 1166.24 1369.12 / 1369.12 -700 / -700 Lab / Micro Data 08/01/25 06:45 Labs: Laboratory Results - last 24 hr 08/01/25 06:45: WBC 10.8, RBC 2.64 L, Hgb 7.3 L, Hct 23.6 L, MCV 89.4, MCH 27.7, MCHC 30.9 L, RDW Std Deviation TNP, RDW Coeff of Vicky TNP, Plt Count 205, MPV 11.4 ROS Constitutional Constitutional: Denies headache(s) Cardiovascular Cardiovascular: Denies chest pain or dyspnea Gastrointestinal Gastrointestinal: Denies nausea or vomiting Genitourinary Genitourinary: Denies dysuria Physical Exam Const alert General Appearance: cooperative Eyes PERRL and EOMs intact bilaterally Resp normal respiratory effort GI soft to palpation and non-tender GI Narrative: soft, moderate distention, fundus firm, appropriately tender. Abdominal bandage clean dry and intact Uterus Palpation: uterus fundus firm ( below umbilicus) Extremity normal to inspection and full ROM Neuro oriented x3 and CN's II-XII intact bilaterally Psych mental status grossly normal Assessment & Plan (1) S/P : (2) Anemia affecting in third trimester: PLAN: Plan Routine pp Care
[2025-08-01 13:26] VITALS: BP 128/87; PULSE 106; RESP 16; TEMP 36.7; O2SAT 98
--- NOTE | 2025-08-01 16:21 | CASEMGMT ---
Social Work Assessment Labor and Delivery Unit Patient Address: [address] [place] [address] ?Nigel Ashby Phone number:? [phone] Date of Referral: ?07/31/2025 Time of Referral:? 6:22 Referred By: ?Plotts Date of Intervention: 08/01/2025 Time of Intervention:? 12:00 am Reason for Referral:? ?Mental health SW completed chart review? and acknowledges social work consult due to maternal mental health.? SW presented to bedside and introduced self to mother of baby (MOB ? Angie).? SW completed psychosocial assessment.? MOB and FOB present during assessment.? MOB gave permission for FOB to stay in room during assessment.? FOB participated respectfully in parts of conversation.? History obtained from: medical records, MOB, FOB Household composition:? MOB lives with FOB.? to live with MOB and FOB at discharge.? Patient's parent/guardian status:? ?MOB reports that she and FOB have been together for several years.?? Neither FOB or MOB have other children.?? Both MOB and FOB reports having support from their parents and other family members.? Medical History: ?ANU is 20 year old female who is 1, para ? 0, now 1 following the labor and delivery of .? MOB received routine care during through [facility]. ??ANU presents to hospital for labor and delivery.? MOB delivered baby on 07/31/2025 at 39.5 weeks gestation.? Baby girl, Alysha, was born weighing 7 lbs, 13 oz, with apgars of 9 and 9 at one and five minutes of life.? MOB plans to breast feed.? Educational Status:? MOB graduated high school.? FOB graduated high school and has 2 years of college completed.? FOB is returning to college August 2025.? 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 MOB reports to staying home with baby for now, is uncertain when she will return.? FOB works for [employer]? MOB report no financial concerns at this time.? Supplies: ?MOB has obtained all necessary baby supplies including car seat, safe sleep space, clothes, diapers, and wipes.? Childcare/Caregiver(s):? MOB will be primary childcare worker for baby, FOB to provide care when home.? MOB reports that FOB mother will likely be the director of financial aid when MOB returns to work.? ? Transportation Both MOB and FOB have a drivers license and reliable vehicle.? No concerns with transportation noted.? ? Programs/Agencies Involved: ???MOB report no involvement with outside agencies Children Services/Legal Issues:??? No children service involvement, no issues or concerns warranting referral be made at this time.? Behavioral Health Issues: ??Mental Health History: MOB reports to having depression and anxiety.? MOB states she had been taking Lexapro but stopped during due to the medication making her feel sick.? MOB states she plans to meet with her PCP and discuss medication options as she feels she would benefit from restarting medication.? Patient denies seeing a counselor at this time, was receptive to list of counselors in the area.?MOB denies current exacerbation of depression or anxiety symptoms. Family History:? MOB and FOB both deny any significant mental health or substance use issues with either side of their families.?Drug Screens: ?No drug screen noted in chart.? Family/Social Stressors:? MOB and FOB report no family stressors at this time. MOB reports having much support and feel that they have many people who are able to help as needed.? Support Systems: ?MOB and FOB report having a large support systems.? Depression/Shaken Baby/Safe Sleeping: SW educated MOB on signs and symptoms of baby blues and mood and anxiety disorders to be mindful of during period.? SW provided literature for MOB to review regarding these topics.? MOB was receptive to information provided. SW educated MOB on shaken baby prevention and ABCs of safe sleep.? MOB expressed understanding. ASSESSMENT:? MOB and baby were admitted following induction and labor and deliver of baby.? Upon entering room, baby was being held by MOB grandmother who left when SW entered room.? Baby was placed in bassinet by FOB. ?MOB, FOB report to having everything needed for baby.? PLAN:?? No other services requested or indicated. MOB and baby to be discharged when medically ready. Parents were provided literature regarding: signs and symptoms of baby blues and mood and anxiety disorders, Help Me Grow, shaken baby prevention, ABCs of safe sleep and a list of [facility] resources that are available for them should any needs present themselves. Lorie Gray, HUMAN FACTORS ENGINEER, SUSPENSION CORD TIER
[2025-08-01 17:30] VITALS: TEMP 36.8
[2025-08-01 18:05] VITALS: TEMP 36.5
[2025-08-01] MEDS: oxyCODONE Soln 5 MG/0.25 ML PO.SYRINGE PO (20:44)
[2025-08-01 20:48] VITALS: BP 132/90; PULSE 105; RESP 16; TEMP 37.2; O2SAT 97
[2025-08-02] MEDS: oxyCODONE Soln 5 MG/0.25 ML PO.SYRINGE PO ×2 (02:46→12:27)
[2025-08-02 02:50] VITALS: BP 138/93; PULSE 97; RESP 16; TEMP 36.4; O2SAT 99
[2025-08-02] MEDS: Acetaminophen 650 MG/20 ML UDC 1000 MG PO ×4 (04:33→23:50)
--- NOTE | 2025-08-02 06:46 | PCM.PN.OB ---
Subjective Subjective Doing well. Ambulating and voiding without difficulty. Mild lochia. Breast feeding getting better. has not had much sleep. Pain controlled with oxy. Objective Data Objective Data Vital Signs: Vital Signs Temp Pulse Resp BP Pulse Ox O2 Del Method 97.5 F L 97 16 138/93 H 99 Room Air 08/02/25 02:50 08/02/25 02:50 08/02/25 02:50 08/02/25 02:50 08/02/25 02:50 08/02/25 02:50 Oxygen Delivery Method Room Air Weight: 65.317 kg Body Mass Index (BMI) 29.0 Intake & Output: Intake and Output for Last 24 Hours 07/31/25 08/01/25 08/02/25 23:59 23:59 23:59 Intake Total 3369.12 / 3369.12 Output Total 1999 1400 / 1400 Balance 1369.12 / 1369.12 -1400 / -1400 Lab / Micro Data 08/01/25 06:45 Labs: Laboratory Results - last 24 hr 08/01/25 06:45: WBC 10.8, RBC 2.64 L, Hgb 7.3 L, Hct 23.6 L, MCV 89.4, MCH 27.7, MCHC 30.9 L, RDW Std Deviation TNP, RDW Coeff of Vicky TNP, Plt Count 205, MPV 11.4 ROS Constitutional Constitutional: Denies headache(s) Cardiovascular Cardiovascular: Denies chest pain or dyspnea Gastrointestinal Gastrointestinal: Denies nausea or vomiting Genitourinary Genitourinary: Denies dysuria Physical Exam Const alert General Appearance: cooperative Eyes PERRL and EOMs intact bilaterally Resp normal respiratory effort GI soft to palpation and non-tender GI Narrative: soft, moderate distention, fundus firm, appropriately tender. Abdominal bandage clean dry and intact Uterus Palpation: uterus fundus firm ( below umbilicus) Extremity normal to inspection and full ROM Neuro oriented x3 and CN's II-XII intact bilaterally Psych mental status grossly normal Assessment & Plan (1) S/P : PLAN: Plan Routine care
[2025-08-02 07:52] VITALS: BP 111/72; PULSE 78; RESP 16; TEMP 36.6
[2025-08-02 14:00] VITALS: BP 119/75; PULSE 107; RESP 16; TEMP 36.4
[2025-08-02 21:05] VITALS: BP 126/92; PULSE 98; RESP 16; TEMP 36.4; O2SAT 99
[2025-08-03 02:45] VITALS: BP 110/81; PULSE 99; RESP 16; TEMP 36.4; O2SAT 98
--- NOTE | 2025-08-03 03:46 | PCM.PN.OB ---
Subjective Subjective Doing well per patient and nursing staff. Ambulating and taking PO without difficulty. Voiding and passing flatus. Pain controlled. , services for assistance. Denies headache, visual changes, chest pain, shortness of breath, leg pain or increased bleeding. Lochia normal. Objective Data Objective Data Vital Signs: Vital Signs Temp Pulse Resp BP Pulse Ox O2 Del Method 97.6 F L 98 16 126/92 H 99 Room Air 08/02/25 21:05 08/02/25 21:05 08/02/25 21:05 08/02/25 21:05 08/02/25 21:05 08/02/25 21:05 Oxygen Delivery Method Room Air Weight: 144 lb Body Mass Index (BMI) 29.0 Intake & Output: Intake and Output for Last 24 Hours 08/01/25 08/02/25 08/03/25 23:59 23:59 23:59 Output Total 1400 / 1400 Balance -1400 / -1400 Lab / Micro Data 08/01/25 06:45 ROS Constitutional Constitutional: Reports systems reviewed and no addt'l complaints, except as documented; Denies headache(s) Eyes Eyes: Denies acute decrease in peripheral vision, blurry vision or change in vision ENT HEENT: Reports systems reviewed and no addt'l complaints, except as documented Cardiovascular Cardiovascular: Denies chest pain or dizziness Respiratory/Chest Respiratory/Chest: Denies cough, dyspnea, dyspnea on exertion, shortness of breath at rest or shortness of breath with exertion Gastrointestinal Gastrointestinal: Denies abdominal pain, diarrhea, nausea or vomiting Genitourinary Genitourinary: Denies abdominal discomfort Musculoskeletal Musculoskeletal: Denies limited range of motion Integumentary Integumentary: Reports systems reviewed and no addt'l complaints, except as documented Neurologic Neurologic: Reports systems reviewed and no addt'l complaints, except as documented Psychiatric Psychiatric: Reports systems reviewed and no addt'l complaints, except as documented Endocrine Endocrinology: Reports systems reviewed and no addt'l complaints, except as documented Hematologic/Lymphatic Hematologic/Lymphatic: Reports systems reviewed and no addt'l complaints, except as documented Allergic/Immunologic Allergic/Immunologic: Reports systems reviewed and no addt'l complaints, except as documented Physical Exam Const alert and oriented x3 General Appearance: cooperative Orientation / Consciousness: awake, oriented to person, oriented to place and oriented to time Exam Limitations: no limitations HEENT normocephalic Head and Scalp: normal to inspection, normocephalic and atraumatic Face and Sinus: normal facial exam Eyes General Eye: normal appearance of both eyes Neck full ROM Chest Chest: symmetrical chest wall rise Resp normal respiratory effort and normal air movement Auscultation: clear to auscultation bilaterally Cardio regular rate, regular rhythm, S1 normal heart sound, S2 normal heart sound, no murmurs, no rub, no gallops and no clicks GI normal to inspection, nondistended, normoactive bowel sounds and non-tender GI Narrative: Fundus firm 2 below U appearance of the vagina normal Narrative: Normal lochia rubra Bladder / Kidney Exam: no CVA tenderness Back/Spine normal ROM Extremity normal to inspection and full ROM Skin no rashes or lesions noted Neuro oriented x3, CN's II-XII intact bilaterally and moves all extremities Sensorium / Orientation: awake, alert and oriented to person Motor Exam: clonus absent Deep Tendon Reflexes: Rt Patellar (L4): 2+ and Lt Patellar (L4): 2+ Assessment & Plan (1) S/P : PLAN: Plan 1) Routine care, POD #3 2) Vitals signs stable 3) Pain controlled 4) , services PRN 5) D/C home 6) Follow up in 2 weeks and 6 weeks
--- NOTE | 2025-08-03 03:48 | PCM.DC.SUM ---
Providers Date of Admission: 07/30/25 Primary Care Physician: Jyotsna Primary Care Phys Reason For Visit: PRIMARY C SECTION Diagnosis Discharge Diagnosis (1) S/P : Status: Acute Code(s): Z98.891 - History of uterine scar from previous surgery Plan 1) Routine care, POD #3 2) Vitals signs stable 3) Pain controlled 4) , services PRN 5) D/C home 6) Follow up in 2 weeks and 6 weeks Medications at Discharge Home Medications escitalopram oxalate 10 mg tablet (Lexapro) 15 mg PO DAILY mental health 07/19/25 acetaminophen 650 mg/20.3 mL oral solution 1,000 mg (31.2308 mL) PO Q8H #0 mL 08/03/25 ibuprofen 100 mg/5 mL oral suspension (Children's Ibuprofen) 600 mg (30 mL) PO Q6H PRN PRN Pain Score 1-5 #0 mL 08/03/25 oxycodone 20 mg/mL oral concentrate 5 mg (0.25 mL) PO Q6H PRN Pain Score 6-10 7 days #30 mL 08/03/25 sennosides 8.6 mg-docusate sodium 50 mg tablet (Stimulant Laxative Plus) 1 - 2 tab PO DAILY #0 tabs 08/03/25 Hospital Course Summary of Care Provided Minutes Spent on Discharge: 15 Hospital Course: Presented on 07/30/26 from office visit due to decreased movement. Admission due to minimal variability. Labor with non reassuring heart rate and LTCS completed. Postoperative course uncomplicated. D/C home on postoperative day #3 Weight / BMI Weight Weight: 144 lb Body Mass Index (BMI) 29.0 PRE- weight 110 lb PRE- Body Mass Index 22.1 (BMI) ABG / Lab / Microbiology Data 08/01/25 06:45 D/C Instructions DC O2, CPAP, BIPAP Needs Home O2 Discharge instructions: No Meaningful Use Info Meaningful Use Meaningful Use Diagnoses (Choose all that apply): None applicable Discharge Plan Admission Admit Date/Time: 07/30/25 18:10 Primary Reason for Your Visit: cesearean section Attending Provider: Radha Butler Primary Care Provider: Care Physician,Jyotsna Primary Discharge Orders/Prescriptions Prescriptions: New sennosides-docusate sodium [Stimulant Laxative Plus] 8.6-50 mg Tablet 1 - 2 tab PO DAILY Qty: 0 0RF ibuprofen [Children's Ibuprofen] 100 mg/5 mL Suspension 600 mg PO Q6H PRN PRN (Reason: Pain Score 1-5) Qty: 0 0RF oxycodone 20 mg/mL Concentrate 5 mg PO Q6H PRN 7 Days Qty: 30 0RF acetaminophen 650 mg/20.3 mL Solution 1,000 mg PO Q8H Qty: 0 0RF Continued escitalopram oxalate [Lexapro] 10 mg tablet 15 mg PO DAILY Discontinued cephalexin 500 mg capsule 500 mg PO Q6H 7 Days Qty: 28 0RF Referrals / Follow Up: Adelina Bello CNM [Med Staff - Adv Practice Prof, Obstetrics] Care Physician,No Primary [Primary Care Provider, Medical] Disposition Disposition (needs filled in before D/C Order can be placed): Home, Self Care
[2025-08-03] MEDS: Acetaminophen 650 MG/20 ML UDC 1000 MG PO ×2 (05:56→12:44)
[2025-08-03 08:00] VITALS: BP 116/93; PULSE 107; RESP 16; TEMP 36.8
== END 2025-08-03 14:45 | disposition home or self-care (01) | DRG 786 ==
LOC: WPOUT 18:17 → WP 18:17
PROVIDERS: Admitting Provider Advanced Practice Midwife; Referring Provider Advanced Practice Midwife; Visit Provider Obstetrics & Gynecology
DX: O76 Abnormality in fetal heart rate and rhythm complicating labor and delivery (principal); O45.93 Premature separation of placenta, unspecified, third trimester; F32.A Depression, unspecified; O36.8130 Decreased fetal movements, third trimester, not applicable or unspecified; O99.344 Other mental disorders complicating childbirth; Z37.0 Single live birth; O99.02 Anemia complicating childbirth; Z3A.39 39 weeks gestation of pregnancy; Z79.899 Other long term (current) drug therapy
CPT/HCPCS: 59025; 59050; 76819; 85025; 85027; 86780; 86850; 86900; 86901; 88305; 88307; 99221; A4216; G0378; J2405